=== PATIENT | female | born 1950 | race Caucasian/White ===

== ENCOUNTER 2017-03-06 16:26 | Inpatient (IN) | payer MEDICARE ==
[2017-03-06] MEDS ORDERED: Morphine Sulfate 2 MG/ML SYRINGE ONE ×2 (18:50→20:30)
[2017-03-06] MEDS ORDERED: Acetaminophen 500 MG TAB ONE (19:33)
[2017-03-06] MEDS ORDERED: Ondansetron HCl/PF 4 MG/2 ML Vial IVP PRN (19:40)
[2017-03-06] MEDS ORDERED: Ondansetron ODT 4 MG TAB PO PRN (19:40)
[2017-03-06] MEDS ORDERED: Carvedilol 6.25 MG TAB PO SCH (21:00)
[2017-03-06] MEDS: HYDROcodone/Acetaminophen 5/325 mg Tablet PO PRN (22:06)
[2017-03-06] MEDS: Lorazepam 0.5 MG TAB PO SCH (22:06)
[2017-03-06] MEDS: Pantoprazole 40 MG VIAL IVP SCH (22:07)
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
[2017-03-07] MEDS: HYDROcodone/Acetaminophen 5/325 mg Tablet PO PRN ×2 (05:47→18:30)
[2017-03-07 06:09] LABS: #Eosinphils 0.6 thou/uL (0.0-0.7); #Lymphocytes 1.8 thou/uL (1.20-3.40); #Monocytes 1.8 thou/uL (0.11-0.59); #Neutrophils 12.7 thou/uL (1.40-6.50); %Basophils 0.1 % (0.0-1.0); %Eosinophils 3.4 % (0.0-10.0); %Lymphocytes 10.9 % (21.0-51.0); %Monocytes 10.4 % (0.0-10.0); Hematocrit 26.7 % (36.0-47.0); Mean Platelet Volume 6.3 fL (7.4-10.4); Red Blood Cell (RBC) Count 3.43 mill/uL (4.20-5.40); White Blood Cell (WBC) Count 16.8 thou/uL (4.8-10.8)
[2017-03-07 06:37] LABS: Anion Gap 19 mmol/L (10-20); BUN (Urea Nitrogen) 15 mg/dL (9.8-20.1); Calc. Creatinine Clearance 51 mL/min (70-130); Calcium 9.2 mg/dL (7.8-10.44); Carbon Dioxide 19 mmol/L (23-31); Chloride 99 mmol/L (98-107); Estimated GFR-MDRD 67
[2017-03-07] MEDS: Lorazepam 0.5 MG TAB PO SCH ×3 (07:49→20:54)
[2017-03-07] MEDS: Saccharomyces boulardii 250 MG CAP PO SCH (07:50)
[2017-03-07] MEDS: Pantoprazole 40 MG VIAL IVP SCH ×2 (07:50→20:55)
[2017-03-07] MEDS: Carvedilol 6.25 MG TAB PO SCH ×2 (07:54→20:53)
--- NOTE | 2017-03-07 13:48 | PDOC.PN ---
- Subjective Encounter Start Date: 03/07/17 Encounter Start Time: 13:46 Ms. Joiner says she is breathing better this morning. She denies any abdominal pain. - Objective Resuscitation Status: Resuscitation Status FULL:Full Resuscitation MAR Reviewed: Yes Vital Signs & Weight: Vital Signs (12 hours) Temp Pulse Resp BP BP Pulse Ox 03/07/17 12:00 98.6 F 79 20 123/68 91 L 03/07/17 08:00 98.3 F 82 20 135/77 92 L 03/07/17 07:54 135/77 03/07/17 06:00 98.8 F 82 18 139/78 90 L Weight Admit Weight 111 lb 6.4 oz Weight 111 lb 6.4 oz I&O: 03/06/17 03/07/17 03/08/17 06:59 06:59 06:59 Intake Total 412 Balance 412 Result Diagrams: 03/07/17 05:55 03/07/17 05:55 Phys Exam - Physical Examination HEENT: PERRLA + bilateral rales, no rhonchi Cardiovascular: RRR, no significant murmur, no rub Gastrointestinal: soft, non-tender, positive bowel sounds Musculoskeletal: no edema Dx/Plan (1) Atypical pneumonia Code(s): J18.9 - PNEUMONIA, UNSPECIFIED ORGANISM Status: Acute (2) Atrial fibrillation Code(s): I48.91 - UNSPECIFIED ATRIAL FIBRILLATION Status: Acute (3) Acute blood loss anemia Code(s): D62 - ACUTE POSTHEMORRHAGIC ANEMIA Status: Acute (4) HTN (hypertension) Code(s): I10 - ESSENTIAL (PRIMARY) HYPERTENSION Status: Acute (5) Small bowel obstruction Code(s): K56.69 - OTHER INTESTINAL OBSTRUCTION Status: Acute Comment: s/p Surgery.NGT removed (6) Compression fracture of L1 lumbar vertebra Code(s): S32.010A - WEDGE COMPRESSION FRACTURE OF FIRST LUMBAR VERTEBRA, INIT Status: Chronic - Plan * Atypical Pneumonia- continue Levaquin, and await further recommendations from Pulmonary * Acute anemia- she was reported to have had a positive fecal occult blood test. Will re-check, as well as iron level, and continue to hold Xarelto * Continue IV Protonix * Await GI evaluation * Generalized weakness- will consult PT * AFIB- her heart rate is controlled, Xarelto is on hold for possible GI bleed .
[2017-03-07 17:07] LABS: Iron 9 ug/dL (50-170)
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
[2017-03-07] MEDS: Acetaminophen 325 MG TAB PO PRN (20:55)
[2017-03-08] MEDS: HYDROcodone/Acetaminophen 5/325 mg Tablet PO PRN ×2 (04:20→21:37)
[2017-03-08] MEDS: Saccharomyces boulardii 250 MG CAP PO SCH (08:24)
[2017-03-08] MEDS: Pantoprazole 40 MG VIAL IVP SCH ×2 (08:24→20:15)
[2017-03-08] MEDS: Lorazepam 0.5 MG TAB PO SCH ×3 (08:24→20:16)
[2017-03-08] MEDS: Carvedilol 6.25 MG TAB PO SCH ×2 (08:24→20:16)
[2017-03-08] MEDS: methylPREDNISolone Sod Succ/PF 125 MG/2 ML VIAL IVP SCH (08:25)
--- NOTE | 2017-03-08 12:49 | PRG ---
GI INPATIENT DAILY PROGRESS NOTE DATE OF SERVICE: 03/08/2017 SUBJECTIVE: Ms. Joiner feels about the same. She says she is feeling weak. No significant shortn ess of breath, no abdominal discomfort, no vomiting today. She has been on clear liquids today. OBJECTIVE: VITAL SIGNS: Temperature 99.3, pulse 72, blood pressure 97/60 and 91% oxygen saturation on 4 liters nasal cannula. GENERAL: No acute distress. HEART: Regular rate and rhythm. LUNGS: Clear to auscultation bilaterally. ABDOMEN: Soft and nontender. EXTREMITIES: No peripheral edema. ASSESSMENT AND PLAN: 1. Anemia, iron deficiency, acute on chronic. 2. Heme positive stool. 3. Atrial fibrillation, on Xarelto, now held. 4. Nausea and vomiting. 5. History of peptic ulcer disease. 6. History of colon polyp at 2011. Stick with the plan for esophagogastroduodenoscopy and colonoscopy tomorrow after bowel preparation this evening. Resumption of Xarelto to be determined by clinical findings on endoscopy. Please ameya l back with questions or concerns.
--- NOTE | 2017-03-08 14:15 | PDOC.PN ---
- Subjective Encounter Start Date: 03/08/17 Encounter Start Time: 14:13 does not have any new complaints. Her nurse notes she had to increase the supplemental oxygen to 3L. - Objective Resuscitation Status: Resuscitation Status FULL:Full Resuscitation MAR Reviewed: Yes Vital Signs & Weight: Vital Signs (12 hours) Temp Pulse Resp BP BP Pulse Ox 03/08/17 14:01 73 20 95 03/08/17 11:34 99.3 F 72 18 97/60 03/08/17 10:55 91 L 03/08/17 10:06 74 18 93 L 03/08/17 08:24 125/71 03/08/17 08:00 99.5 F 77 12 125/71 93 L 03/08/17 06:01 72 18 93 L 03/08/17 05:26 99.0 F 92 16 115/51 L 90 L 03/08/17 02:22 91 L Weight Admit Weight 111 lb 6.4 oz Weight 111 lb 6.4 oz I&O: 03/07/17 03/08/17 03/09/17 06:59 06:59 06:59 Intake Total 412 1710 Balance 412 1710 Result Diagrams: 03/07/17 05:55 03/07/17 05:55 Phys Exam - Physical Examination HEENT: PERRLA + scattered crackles, slightly less prominent than yesterday Cardiovascular: RRR, no significant murmur Gastrointestinal: soft, positive bowel sounds Musculoskeletal: no edema Dx/Plan (1) Atypical pneumonia Code(s): J18.9 - PNEUMONIA, UNSPECIFIED ORGANISM Status: Acute (2) Atrial fibrillation Code(s): I48.91 - UNSPECIFIED ATRIAL FIBRILLATION Status: Acute (3) Acute blood loss anemia Code(s): D62 - ACUTE POSTHEMORRHAGIC ANEMIA Status: Acute (4) HTN (hypertension) Code(s): I10 - ESSENTIAL (PRIMARY) HYPERTENSION Status: Acute (5) Small bowel obstruction Code(s): K56.69 - OTHER INTESTINAL OBSTRUCTION Status: Acute Comment: s/p Surgery.NGT removed (6) Compression fracture of L1 lumbar vertebra Code(s): S32.010A - WEDGE COMPRESSION FRACTURE OF FIRST LUMBAR VERTEBRA, INIT Status: Chronic - Plan * Pneumonitits- ? Infectious vs. Chemical- continue Levaquin, and Solumedrol * GI bleed while on Xarelto - she will be NPO tonight, and EGD, and possible colonoscopy tomorrow * AFIB - heart rate is stable * HTN- Blood pressure is low normal.
[2017-03-08] MEDS: Acetaminophen 325 MG TAB PO PRN (14:33)
--- NOTE | 2017-03-08 16:27 | PRG ---
DATE OF SERVICE: 03/08/2017 SUBJECTIVE: Evie Joiner says she feels better. OBJECTIVE: VITAL SIGNS: She is afebrile, heart rate 73, respiratory rate is 20, oximetry is 95 on 3 liters, it is 89 this afternoon. We will try some EzPAP nebs to see if this helps blood pressure 97/60. LUNGS: She still has crackles bilaterally. HEART: Regular rhythm. ABDOMEN: Soft. IMPRESSION: 1. ? aspiration pneumonitis. 2. Extreme deconditioning. I have explained to her that she needs to be up in a chair as much as p ossible during the day. 3. Multiple other chronic medical problems. She is tentatively scheduled for endoscopy, possibly t omorrow.
[2017-03-08] MEDS ORDERED: GoLYTELY 4,000 ml Bottle PO SCH (18:00)
[2017-03-09] MEDS: Carvedilol 6.25 MG TAB PO SCH (06:26)
[2017-03-09] MEDS: Saccharomyces boulardii 250 MG CAP PO SCH (07:11)
[2017-03-09] MEDS: Lorazepam 0.5 MG TAB PO SCH ×2 (07:11→16:32)
[2017-03-09] MEDS: methylPREDNISolone Sod Succ/PF 125 MG/2 ML VIAL IVP SCH (07:37)
[2017-03-09] MEDS: Pantoprazole 40 MG VIAL IVP SCH (07:37)
[2017-03-09] MEDS ORDERED: Milk Of Magnesia 30 ML UDCUP PO PRN (07:53)
[2017-03-09] MEDS ORDERED: Loratadine 10 MG TAB PO PRN (07:53)
[2017-03-09] MEDS ORDERED: Senokot 8.6 MG TAB PO PRN (07:53)
[2017-03-09] MEDS ORDERED: Sodium Chloride 0.65% Nasal 44 ML BOT EA NARE PRN (07:53)
[2017-03-09] MEDS ORDERED: Eucerin (Mineral Oil/Petrolatum,White) 30 gm Jar TOP PRN (07:53)
[2017-03-09] MEDS ORDERED: Benzonatate 100 MG CAP PO PRN (07:53)
[2017-03-09] MEDS ORDERED: Mag-Al 1200 mg/1200 mg/30 ML UDCUP PO PRN (07:53)
[2017-03-09] MEDS ORDERED: Temazepam 15 MG CAP PO PRN (07:53)
[2017-03-09] MEDS ORDERED: Diabetic Tussin 200 MG/10 ML UDCUP PO PRN (07:53)
--- NOTE | 2017-03-09 11:04 | PDOC.PN ---
- Subjective Encounter Start Date: 03/09/17 Encounter Start Time: 09:30 -: old records requested/rev pt is very weak, pt is hypoxic, not feeling good, today plan for endoscopy - Objective Resuscitation Status: Resuscitation Status FULL:Full Resuscitation MAR Reviewed: Yes Vital Signs & Weight: Vital Signs (12 hours) Temp Pulse Resp BP BP BP Pulse Ox 03/09/17 08:00 98.3 F 82 16 90 L 03/09/17 07:10 98.3 F 82 16 112/64 90 L 03/09/17 06:28 97.8 F 80 20 106/56 L 90 L 03/09/17 06:26 105/56 L Weight Admit Weight 111 lb 6.4 oz Weight 111 lb 6.4 oz I&O: 03/08/17 03/09/17 03/10/17 06:59 06:59 06:59 Intake Total 1710 3580 Balance 1710 3580 Result Diagrams: 03/07/17 05:55 03/07/17 05:55 Phys Exam - Physical Examination Constitutional: NAD HEENT: PERRLA, moist MMs, sclera anicteric Neck: no JVD, supple Respiratory: no wheezing, no rhonchi reduced air entry Cardiovascular: RRR, no significant murmur, no rub Gastrointestinal: soft, non-tender, no distention, positive bowel sounds Musculoskeletal: no edema, pulses present Neurological: non-focal, normal sensation Lymphatic: no nodes Psychiatric: normal affect Skin: no rash, normal turgor Dx/Plan (1) Atypical pneumonia Code(s): J18.9 - PNEUMONIA, UNSPECIFIED ORGANISM Status: Acute (2) Guaiac positive stools Status: Acute (3) Physical deconditioning Code(s): R53.81 - OTHER MALAISE Status: Acute (4) Compression fracture of L1 lumbar vertebra Code(s): S32.010A - WEDGE COMPRESSION FRACTURE OF FIRST LUMBAR VERTEBRA, INIT Status: Chronic (5) Diverticulosis of colon Code(s): K57.30 - DVRTCLOS OF LG INT W/O PERFORATION OR ABSCESS W/O BLEEDING Status: Chronic (6) HTN (hypertension) Code(s): I10 - ESSENTIAL (PRIMARY) HYPERTENSION Status: Chronic (7) Microcytic anemia Code(s): D50.9 - IRON DEFICIENCY ANEMIA, UNSPECIFIED Status: Chronic (8) Paroxysmal a-fib Code(s): I48.0 - PAROXYSMAL ATRIAL FIBRILLATION Status: Chronic (9) Protein-calorie malnutrition, moderate Code(s): E44.0 - MODERATE PROTEIN-CALORIE MALNUTRITION Status: Chronic - Plan cont current plan of care, continue antibiotics, respiratory therapy * continue oxygen to keep above 90 * will need home oxygen * may need rehab/snu on discharge * today EGD/colonoscopy * continue empiric antibiotics * continue solumedrol * continue PT. * repeat labs tomorrow Review of Systems - Review of Systems Constitutional: Weakness, Malaise. negative: Fever, Chills, Sweats, Other Respiratory: Cough, Shortness of Breath, SOB with Excertion, Wheezing. negative : Dry, Hemoptysis, Pleuritic Pain, Sputum Cardiovascular: negative: Chest Pain, Palpitations, Orthopnea, Paroxysmal Noc. Dyspnea, Edema, Light Headedness, Other Gastrointestinal: negative: Nausea, Vomiting, Abdominal Pain, Diarrhea, Constipation, Melena, Hematochezia, Other Genitourinary: negative: Dysuria, Frequency, Incontinence, Hematuria, Retention , Other Musculoskeletal: negative: Neck Pain, Shoulder Pain, Arm Pain, Back Pain, Hand Pain, Leg Pain, Foot Pain, Other - Medications/Allergies Allergies/Adverse Reactions: Allergies Allergy/AdvReac Type Severity Reaction Status Date / Time Penicillins Allergy Rash Verified 12/10/16 02:52 Medications: Current Medications Acetaminophen (Tylenol) 650 mg PO Q4H PRN PRN Reason: Headache/Fever or Pain Last Admin: 03/08/17 14:33 Dose: 650 mg Hydrocodone Bitart/Acetaminophen ([place] 5/325) 1 tab PO Q4H PRN PRN Reason: Moderate Pain (4-6) Last Admin: 03/08/17 21:37 Dose: 1 tab Al Hydroxide/Mg Hydroxide (Maalox) 15 ml PO Q4H PRN PRN Reason: Heartburn or Indigestion Albuterol/Ipratropium (Duoneb) 3 ml EZPAP [id number] PRN PRN Reason: SOB &/or Wheezing Amiodarone HCl (Cordarone) 200 mg PO BID [facility] Last Admin: 03/09/17 07:37 Dose: 200 mg Benzonatate (Tessalon) 100 mg PO Q4H PRN PRN Reason: Cough Carvedilol (Coreg) 6.25 mg PO BID [facility] Last Admin: 03/09/17 06:26 Dose: 6.25 mg Famotidine (Pepcid) 20 mg PO [facility] Guaifenesin (Robitussin Sf) 200 mg PO Q4H PRN PRN Reason: Cough Hydralazine HCl (Apresoline) 10 mg SLOW IVP Q4H PRN PRN Reason: Systolic BP > 180 Levofloxacin 500 mg/ Device 100 mls @ 100 mls/hr IVPB Q24HR [facility] Last Admin: 03/08/17 15:39 Dose: 100 mls Loperamide HCl (Imodium) 2 mg PO PRN PRN PRN Reason: Diarrhea/Loose Stools Loratadine (Claritin) 10 mg PO DAILYPRN PRN PRN Reason: Sinus Symptoms Lorazepam (Ativan) 0.5 mg PO TID [facility] Last Admin: 03/09/17 07:11 Dose: Not Given Magnesium Hydroxide (Milk Of Magnesium) 30 ml PO DAILYPRN PRN PRN Reason: Constipation Methylprednisolone Sodium Succinate (Solu-Medrol) 80 mg IVP DAILY [facility] Stop: 03/09/17 23:59 Last Admin: 03/09/17 07:37 Dose: 80 mg Mineral Oil/White Petrolatum (Eucerin Cream) 0 gm TOP BIDPRN PRN PRN Reason: Dry Skin Morphine Sulfate (Morphine Sulfate) 2 mg SLOW IVP Q4H PRN PRN Reason: Moderate to Severe Pain (4-10) Last Admin: 03/09/17 07:37 Dose: 2 mg Ondansetron HCl (Zofran Odt) 4 mg PO Q6H PRN PRN Reason: Nausea/Vomiting Ondansetron HCl (Zofran) 4 mg IVP Q6H PRN PRN Reason: Nausea/Vomiting Last Admin: 03/06/17 22:17 Dose: 4 mg Pantoprazole Sodium (Protonix) 40 mg IVP Q12HR [facility] Last Admin: 03/09/17 07:37 Dose: 40 mg Saccharomyces Boulardii (Florastor) 250 mg PO DAILY [facility] Last Admin: 03/09/17 07:11 Dose: Not Given Senna (Senokot) 2 tab PO HSPRN PRN PRN Reason: Constipation Sodium Chloride (Flush - Normal Saline) 10 ml IV Q12HR [facility] Last Admin: 03/09/17 07:38 Dose: 10 ml Sodium Chloride ([place] Nasal [place] 0.65%) 0 ml EA NARE QIDPRN PRN PRN Reason: Nasal Congestion Sodium Chloride (Flush - Normal Saline) 10 ml IVF Q12HR [facility] Last Admin: 03/09/17 08:13 Dose: Not Given Sodium Chloride (Flush - Normal Saline) 10 ml IVF PRN PRN PRN Reason: Saline Flush Temazepam (Restoril) 15 mg PO HSPRN PRN PRN Reason: Insomnia
[2017-03-09 13:51] LABS: Oxyhemoglobin 85.6 % (94.0-97.0); Sodium 139 mmol/L (135-148)
[2017-03-09 13:57] LABS: Mode 4L NC; Modified Allen's Test NOT DONE; Vent NO
[2017-03-09] MEDS ORDERED: Sodium Chloride 0.9% 1,000 ML IV SCH (14:30)
[2017-03-09] MEDS: Midazolam HCl 2 mg/2 ml Vial ONE ×2 (15:08→15:14)
[2017-03-09] MEDS ORDERED: Propofol 1,000 MG/100 ML VIAL IV ONE (15:13)
[2017-03-09] MEDS ORDERED: Vecuronium 10 MG VIAL ONE (15:15)
--- NOTE | 2017-03-09 15:35 | RAD ---
CHEST ONE VIEW: 03/09/17 HISTORY: Worsening hypoxemia. COMPARISON: Chest two view 03/06/17. FINDINGS: There are increase in parenchymal opacities throughout the lungs. There appears to be a bulla in the left upper lobe. No large pneumothorax. There are likely small left effusions although none are see n on this exam. Mild S-shaped scoliosis. IMPRESSION: Cardiomegaly with progressive interstitial and alveolar opacities throughout the lungs can be seen w ith focal pneumonia or worsening infection. Lymphangitic tumor is also within the differential as we ll as pulmonary fibrosis. Followup is recommended. A nonemergent CT examination may be beneficial. POS: [facility]
[2017-03-09] MEDS ORDERED: Sedation Protocol FS ONE (15:45)
[2017-03-09] MEDS ORDERED: Vecuronium 10 MG VIAL IV SCH (15:45)
[2017-03-09] MEDS ORDERED: Midazolam HCl 2 mg/2 ml Vial SLOW IVP SCH (15:45)
[2017-03-09] MEDS ORDERED: Morphine Sulfate 2 MG/ML SYRINGE SLOW IVP PRN (15:59)
[2017-03-09] MEDS ORDERED: DISCONTINUE PREVIOUS NARCOTIC PAIN MEDICATIONS AND BENZODIAZEPINES FS SCH (15:59)
[2017-03-09] MEDS ORDERED: Lorazepam 2 MG/ML VIAL SLOW IVP PRN (15:59)
[2017-03-09 16:08] LABS: Oxyhemoglobin 95.1 % (94.0-97.0); Sodium 139 mmol/L (135-148)
[2017-03-09 16:09] LABS: Mechanical Tidal Volume 450 ml; Mode SIMV; Pressure Support 10 cmH2O; Vent YES
--- NOTE | 2017-03-09 16:11 | PRG ---
DATE OF SERVICE: 03/09/2017 SUBJECTIVE: Ms. Joiner has more respiratory difficulty today. She feels more short of breath. OBJECTIVE: VITAL SIGNS: She is afebrile. Pulse is in the 80s; however, she is tachypneic and respiratory rate in the 30s with oxygen saturation when she presented to Day Stay running in the mid 80s on 6 liters nasal cannula. LUNGS: Had crackles. HEART: Regular rate and rhythm. ABDOMEN: Soft, nontender, nondistended. IMPRESSION: 1. Iron deficiency anemia and Hemoccult positive stool. 2. Atrial fibrillation with Xarelto currently held. 3. History of peptic ulcer disease. 4. History of colon polyps. 5. Tachypnea with hypoxia. PLAN: 1. Xarelto will continue to be held. 2. EGD and colonoscopy are canceled for today due to her decline in her respiratory status. 3. Continue pantoprazole. 4. She has been transferred back to the Intensive Care Unit.
--- NOTE | 2017-03-09 17:08 | PRG ---
DATE OF SERVICE: 03/09/2017 SUBJECTIVE: Ms. Joiner's hemoglobin on her blood gas was just over 6 grams. She will be transfuse d 3 units of packed cells. Blood pressure is stable. Heart rate is stable, post-intubation. Since she has already done her bowel prep, Dr. Bradley will proceed with his endoscopy this afternoon.
[2017-03-09] MEDS: Cefepime 2 GM in Sodium Chloride 0.9% 100 ML IVPB SCH (17:37)
[2017-03-09] MEDS: Azithromycin 500 MG in Sodium Chloride 0.9% 250 ML 250 ML IVPB SCH (17:37)
[2017-03-09] MEDS: Vancomycin HCl 1 GM in Premix Bag 1 BAG IVPB SCH (17:37)
--- NOTE | 2017-03-09 18:48 | RAD ---
PORTABLE CHEST ONE VIEW 03/09/17 at 3:38 p.m. HISTORY: Respiratory failure. FINDINGS/IMPRESSION: Comparison is made with earlier exam of 2:23 p.m. from the same day. There has been interval placement of an endotracheal tube with tip just below the level of the clavi cular heads. The patient is rotated to the right. A nasogastric tube has also been placed and can be traced into the stomach with tip excluded from the film. No pneumothoraces are seen. Bilateral inte rstitial and alveolar opacities are essentially stable allowing for changes in technique. POS: [facility]
--- NOTE | 2017-03-09 19:28 | RAD ---
PORTABLE SUPINE CHEST: 03/09/17 HISTORY: ET tube adjustment. Shortness of breath. CCU followup. COMPARISON: Film earlier today at 3:38 p.m. FINDINGS/IMPRESSION: ET tube is noted above gloria. The trachea is rather tortuous and the ET tube continues to be at the site of a kink in the trachea. It has been slightly retracted when compared to the prior study. Diffuse interstitial and hazy alveolar infiltrates are again seen bilaterally. POS: [facility]
[2017-03-09] MEDS ORDERED: Famotidine 20 MG TAB PO SCH (21:00)
--- NOTE | 2017-03-09 21:42 | PRG ---
DATE OF SERVICE: 03/09/2017 SUBJECTIVE: Ms. Joiner cleared for endoscopy this morning. When she got down to the endo suite, Mamta Jerez called me and said she was too short of breath and hypoxemic to undergo endoscopy. She was transferred to the ICU. I evaluated her and felt she needed intubation. OBJECTIVE: VITAL SIGNS: Blood pressure on arrival was 121/70, prior to arrival was 121/72. When she arrived, she was with systolic as high as 190 and diastolic size 120. She was breathing 40 times a minute. She is tachycardic. LUNGS: She had crackles bilaterally. HEART: Regular rhythm. ABDOMEN: Soft. LABORATORY DATA: No lab today. Chest radiograph shows progression of her infiltrates, especially o n the left. IMPRESSION: 1. Pneumonia with adult respiratory distress syndrome. 2. Extreme deconditioning. PLAN: Intubation fiberoptic bronchoscopy, bronchoalveolar lavage with the routine cultures plus nafisa l count with differential PCP screen (unlikely) and review for hemosiderin-laden macrophages and cyt ology just to be thorough. I doubt this is an alveolar hemorrhage syndrome, but it is in the differential. An antineutrophil c ytoplasmic antibody and an MICHAEL as well as a sed rate will be ordered. She will be intubated for sev eral days. Steroids will be changed to IV steroids. Her antibiotics will be broadened and then de- escalated based on culture results. Critical care time 40 minutes independent procedures.
[2017-03-09] MEDS ORDERED: Propofol 200 MG/20 ML VIAL ONE (21:43)
[2017-03-09] MEDS: Propofol 1,000 MG/100 ML VIAL IV PRN (22:35)
--- NOTE | 2017-03-09 23:09 | OP ---
DATE OF PROCEDURE: 03/09/2017 DESCRIPTION OF PROCEDURE: Ms. Joiner was given 2 mg of Versed. She started to become somnolent. A bite block was placed in her mouth. The bronchoscope was introduced into her upper airway. Copio us clear secretions were suctioned clear and then the scope was then passed into the trachea. She h ad an extremely tortuous trachea with a very prominent aortic knob. The endotracheal tube wanted to lodge against the knob and I could not get the tube to see pass the aortic knob, so the tube after radiograph, has been withdrawn. She was mechanically ventilated after intubation and then chemicall y paralyzed. Bronchoscope was reintroduced and 90 mL of saline lavage was introduced into the right middle lobe with 35 mL returned, pink foamy effluent. This was sent for the appropriate studies. She tolerated the procedure well. Blood gas is pending. Chest radiograph showed the endotracheal t ube up against the aortic knob, so this has been pulled back 2 cm. Repeat radiograph will be done.
[2017-03-10] MEDS: Lorazepam 0.5 MG TAB PO SCH ×4 (00:08→21:20)
[2017-03-10] MEDS: Carvedilol 6.25 MG TAB PO SCH ×3 (00:15→21:20)
[2017-03-10] MEDS: Famotidine/PF 20 mg/2ml Vial SLOW IVP SCH ×3 (00:16→21:20)
[2017-03-10 00:51] LABS: Hematocrit 29.9 % (36.0-47.0)
[2017-03-10] MEDS: Pantoprazole 40 MG VIAL IVP SCH (01:25)
--- NOTE | 2017-03-10 04:14 | OP ---
DATE OF PROCEDURE: 03/09/2017 PROCEDURE: Esophagogastroduodenoscopy and colonoscopy. PREOPERATIVE DIAGNOSIS: Iron deficiency anemia. She has microcytosis and low iron with normal TIBC . She was noted to be Hemoccult positive, but there is no overt bleeding at this point. Of note, h er hemoglobin by ABG was 6; however, baseline this morning was 8.6. Hemoglobin in December was 10.4. PROCEDURE IN DETAIL: Informed consent was obtained. The general anesthesia was used. The bite blo ck was placed and the endoscope was advanced easily to the second portion of the duodenum and retrof lexion was performed in the stomach. The esophagus was normal. The stomach was normal including re troflexed views. The pylorus and first and second portions of the duodenum were normal. The patien t was turned around. Rectal exam was performed and was normal. The colonoscope was advanced to the cecum where the ileocecal valve and appendiceal orifice were clearly identified. The preparation q uality was excellent. There was no stigmata of recent bleeding. There was moderately severe divert iculosis in the sigmoid colon. The remainder of the colonic mucosa was normal. Her rectal vault wa s narrow and complete views could be performed in the forward view. There is inadequate room for re troflexion. IMPRESSION: 1. Normal esophagogastroduodenoscopy. 2. Moderate sigmoid diverticulosis. 3. Otherwise normal colonoscopy. RECOMMENDATIONS: 1. Repeat colonoscopy in 5 years for colon polyp surveillance due to the reported previous history of colon polyps. 2. Check her hemoglobin post-1 unit transfusion. She had a hemoglobin of 6 by the ABG. If the hem oglobin appears to have truly dropped to this or if she has further decline in her hemoglobin, then CT of the abdomen without contrast can be performed to evaluate for retroperitoneal bleed. I suspec t the hemoglobin is not truly that level. We will see what her lab values after 1 unit transfusion. If she does not appear to have active ongoing bleeding or drop in her hemoglobin then anticoagulat ion could likely be restarted soon. 3. We will check ferritin.
[2017-03-10] MEDS: Vancomycin HCl 1 GM in Premix Bag 1 BAG IVPB SCH (04:15)
[2017-03-10 05:32] LABS: ALT (SGPT) 31 U/L (8-55); AST (SGOT) 27 U/L (5-34); Alkaline Phosphatase 101 U/L (40-150); Anion Gap 18 mmol/L (10-20); BUN (Urea Nitrogen) 15 mg/dL (9.8-20.1); Bilirubin, Total 0.3 mg/dL (0.2-1.2); Calc. Creatinine Clearance 55 mL/min (70-130); Calcium 7.4 mg/dL (7.8-10.44); Carbon Dioxide 21 mmol/L (23-31); Chloride 105 mmol/L (98-107); Estimated GFR-MDRD 73; Globulin 2.8 g/dL (2.4-3.5); Protein, Total 5.6 g/dL (6.0-8.3)
[2017-03-10] MEDS: Cefepime 2 GM in Sodium Chloride 0.9% 100 ML IVPB SCH ×2 (05:44→18:09)
[2017-03-10] MEDS: Propofol 1,000 MG/100 ML VIAL IV PRN ×2 (05:44→13:31)
[2017-03-10 05:49] LABS: Anisocytosis SLIGHT = 6-15 cells (100X) (0-5/hpf); Hematocrit 28.6 % (36.0-47.0); Hypochromia SLIGHT = 6-15 cells (100X) (0-5/hpf); Microcytosis SLIGHT = 6-15 cells (100X) (0-5/hpf); Neutrophil 79 % (42-75); Polychromasia SLIGHT = 2-3 cells (100X) (0-2/hpf); Red Blood Cell (RBC) Count 3.54 mill/uL (4.20-5.40); White Blood Cell (WBC) Count 23.2 thou/uL (4.8-10.8)
[2017-03-10 07:24] LABS: Oxyhemoglobin 97.5 % (94.0-97.0); Sodium 140 mmol/L (135-148)
[2017-03-10 07:37] LABS: Mechanical Tidal Volume 450 ml; Mode SIMV; Pressure Support 10 cmH2O; Vent YES
[2017-03-10] MEDS: Saccharomyces boulardii 250 MG CAP PO SCH (08:23)
--- NOTE | 2017-03-10 08:38 | PDOC.PN ---
- Subjective Encounter Start Date: 03/10/17 Encounter Start Time: 08:37 Subjective: Intubated -: No agitation - Objective Resuscitation Status: Resuscitation Status FULL:Full Resuscitation MAR Reviewed: Yes Vital Signs & Weight: Vital Signs (12 hours) Temp Pulse Resp BP Pulse Ox 03/10/17 08:00 18 03/10/17 07:38 100.2 F H 73 18 98 03/10/17 07:09 70 03/10/17 05:00 100.6 F H 03/10/17 04:00 16 03/10/17 02:46 74 130/54 L 03/10/17 02:45 100 03/10/17 00:35 16 03/09/17 23:25 99.1 F 03/09/17 22:41 81 98 03/09/17 22:35 98.8 F Weight Admit Weight 111 lb 6.4 oz Weight 111 lb 6.4 oz Most Recent Monitor Data Heart Rate from ECG 69 NIBP 110/46 NIBP BP-Mean 79 Respiration from ECG 18 SpO2 98 I&O: 03/09/17 03/10/17 03/11/17 06:59 06:59 06:59 Intake Total 3580 3888.7 Output Total 1700 35 Balance 3580 2188.7 -35 Result Diagrams: 03/10/17 04:10 03/10/17 04:10 Phys Exam - Physical Examination Constitutional: NAD HEENT: moist MMs, sclera anicteric Neck: no JVD, supple Intubated Cardiovascular: no significant murmur, no rub Gastrointestinal: soft, non-tender, positive bowel sounds Lymphatic: no nodes Deviation from normal: unable to assess Skin: normal turgor, cap refill <2 seconds Dx/Plan (1) Atypical pneumonia Code(s): J18.9 - PNEUMONIA, UNSPECIFIED ORGANISM Status: Acute (2) Guaiac positive stools Status: Acute (3) Physical deconditioning Code(s): R53.81 - OTHER MALAISE Status: Acute (4) Compression fracture of L1 lumbar vertebra Code(s): S32.010A - WEDGE COMPRESSION FRACTURE OF FIRST LUMBAR VERTEBRA, INIT Status: Chronic (5) HTN (hypertension) Code(s): I10 - ESSENTIAL (PRIMARY) HYPERTENSION Status: Chronic (6) Protein-calorie malnutrition, moderate Code(s): E44.0 - MODERATE PROTEIN-CALORIE MALNUTRITION Status: Chronic - Plan * EGD and colonoscopy on 03-09-17: Normal EGD with Sigmoid Diverticulosis * Acute Anemia: s/p 3 units PRBCs yesterday * may need rehab/snf on discharge * continue empiric antibiotics * continue PT * check labs in AM
--- NOTE | 2017-03-10 09:17 | RAD ---
CHEST ONE VIEW: HISTORY: Dyspnea. Intubated. Followup. COMPARISON: 03/09/2017 FINDINGS: The cardiac silhouette remains magnified and enlarged. The pulmonary vasculature is at the upper li mits of normal. An infiltrate at the right base is less focal than on the previous exam. Lines and tubes appear unchanged in position. campus monitor leads overly the chest. IMPRESSION: Slight interval improvement in aeration of the right lung. Otherwise, stable radiographic appearanc e of the chest. POS: [facility]
[2017-03-10] MEDS ORDERED: Enoxaparin Sodium 40 MG/0.4 ML SYRINGE SC SCH (10:30)
--- NOTE | 2017-03-10 11:33 | PRG ---
DATE OF SERVICE: 03/10/2017 Evie Joiner is hemodynamically stable. Endoscopy I am told did not reveal any source of blood loss. PHYSICAL EXAMINATION: VITAL SIGNS: Respiratory rate was in the 20s, heart rate in the 60s. Blood pressure 117/52. LUNGS: Clear. HEART: Regular rhythm. ABDOMEN: Soft. Chest radiograph shows dramatic improvement in her bilateral infiltrates. White count 23.2, hemoglobin 8.7, platelets 845,000. Sodium 141, potassium 3.3 , chloride 105, bicarbonate 21, BUN 15, creatinine 0.7. BNP was 306. I just ordered this. IMPRESSION: Dramatic improvement of her pulmonary infiltrates. There is an argument that much of this was pulmonary edema, either noncardiogenic edema or cardiogenic edema. An echocardiogram has been ordered. The BNP is slightly elevated, but not over 1000 as one would see with clearcut left ventricular dysfunction. She may have a mixture of problems... amiodarone hypersensitivity is in differential also. Clinically, she appeared to have failure to thrive, weakness, and pneumonia, but that progressed. She will remain mechanically ventilated for now as we collect information. She is stable. Nutrition can be started. MTDD
[2017-03-10] MEDS: Azithromycin 500 MG in Sodium Chloride 0.9% 250 ML 250 ML IVPB SCH (16:18)
--- NOTE | 2017-03-10 19:45 | PRG ---
DATE OF SERVICE: 03/10/2017 SUBJECTIVE: She is sedated on the ventilator. She has had no bloody stool output. OBJECTIVE: VITAL SIGNS: Blood pressure 121/60, pulse 65, and temperature 98.8. LUNGS: Clear to auscultation bilaterally. HEART: Regular rate and rhythm. ABDOMEN: Soft, nontender, nondistended. Bowel sounds are present. LABORATORY DATA: Hemoglobin 8.7 after 1 unit transfusion. IMPRESSION AND PLAN: 1. Anemia. Esophagogastroduodenoscopy was normal. Colonoscopy was negative for a bleeding source. She has no overt gastrointestinal bleeding. Her hemoglobin is better than what was expected with the ABG hemoglobin. That lab may have been a falsely low. She now has a hemoglobin of 8.7 after 1 unit transfusion. Her ferritin is 150. The low iron with a low normal TIBC may indicate this is mo re of an anemia of chronic disease. She did have a significant drop from baseline recently. At thi s point, there has been no further overt bleeding. There is no bleeding source identified by endosc opy. If she needs to restart the Xarelto, then this can likely be restarted in the next couple of d ays. 2. I will sign off for now. Please call if GI can be of assistance.
[2017-03-11] MEDS: Propofol 1,000 MG/100 ML VIAL IV PRN ×3 (02:34→22:49)
[2017-03-11] MEDS: Fentanyl 20 MCG/ML 250 ML IVPB SCH (03:25)
[2017-03-11 05:03] LABS: Anion Gap 13 mmol/L (10-20); BUN (Urea Nitrogen) 18 mg/dL (9.8-20.1); Calc. Creatinine Clearance 57 mL/min (70-130); Calcium 7.1 mg/dL (7.8-10.44); Carbon Dioxide 23 mmol/L (23-31); Chloride 108 mmol/L (98-107); Estimated GFR-MDRD 77
[2017-03-11 05:05] LABS: Hematocrit 25.3 % (36.0-47.0); Mean Platelet Volume 6.3 fL (7.4-10.4); Neutrophil 83 % (42-75); Red Blood Cell (RBC) Count 3.13 mill/uL (4.20-5.40); White Blood Cell (WBC) Count 14.6 thou/uL (4.8-10.8)
[2017-03-11] MEDS: Cefepime 2 GM in Sodium Chloride 0.9% 100 ML IVPB SCH ×2 (07:56→18:05)
[2017-03-11] MEDS: Enoxaparin Sodium 40 MG/0.4 ML SYRINGE SC SCH (07:57)
[2017-03-11] MEDS: Famotidine/PF 20 mg/2ml Vial SLOW IVP SCH ×2 (07:57→21:49)
[2017-03-11] MEDS: Lorazepam 0.5 MG TAB PO SCH ×3 (07:57→21:51)
[2017-03-11] MEDS: Carvedilol 6.25 MG TAB PO SCH ×2 (07:58→21:50)
[2017-03-11 08:25] LABS: Oxyhemoglobin 96.3 % (94.0-97.0); Sodium 141 mmol/L (135-148)
[2017-03-11 08:26] LABS: Modified Allen's Test NOT DONE; Vent YES
[2017-03-11 08:27] LABS: Mechanical Tidal Volume 450 ml; Mode SIMV/PSV; Pressure Support 10 cmH2O
--- NOTE | 2017-03-11 10:21 | RAD ---
AP VIEW CHEST: 03/11/2017 HISTORY: Ventilator dependent patient. COMPARISON: 03/10/2017 FINDINGS: AP view chest demonstrates an endotracheal tube in place. EKG leads are seen over the chest. Calci fication of the aorta is seen. Diffuse air space opacity is seen throughout the lungs, unchanged si nce the previous exam. Pulmonary vascular congestion is also seen. IMPRESSION: Stable AP view chest. Some pulmonary vascular congestion seen. No other significant abnormalities noted. Nasogastric tube is also in good position. POS: [facility]
--- NOTE | 2017-03-11 13:25 | PDOC.PN ---
- Subjective Encounter Start Date: 03/11/17 Encounter Start Time: 13:23 Patient seen and examined, no major changes in status per nursing staff in last 24 hours, tube feeds recently started, no family at bedside. - Objective Resuscitation Status: Resuscitation Status FULL:Full Resuscitation Vital Signs & Weight: Vital Signs (12 hours) Temp Pulse Pulse Pulse Resp BP BP 03/11/17 12:53 62 92/42 L 03/11/17 12:52 63 15 03/11/17 12:00 98.5 F 13 03/11/17 10:00 12 03/11/17 08:28 53 L 53 L 98/48 L 03/11/17 08:06 56 L 117/56 L 03/11/17 08:00 98.6 F 56 L 16 03/11/17 07:58 96/47 L 03/11/17 07:55 59 L 16 03/11/17 07:00 98.6 F 03/11/17 04:00 16 03/11/17 02:38 86 03/11/17 02:37 68 18 03/11/17 02:00 21 H BP Pulse Ox Pulse Ox Pulse Ox 03/11/17 12:53 03/11/17 12:52 93 L 03/11/17 12:00 03/11/17 10:00 03/11/17 08:28 101/43 L 100 100 03/11/17 08:06 03/11/17 08:00 97 03/11/17 07:58 03/11/17 07:55 100 03/11/17 07:00 03/11/17 04:00 03/11/17 02:38 03/11/17 02:37 98 03/11/17 02:00 Weight Admit Weight 111 lb 6.4 oz Weight 111 lb 6.4 oz Most Recent Monitor Data Heart Rate from ECG 65 NIBP 92/42 NIBP BP-Mean 68 Respiration from ECG 15 SpO2 93 I&O: 03/10/17 03/11/17 03/12/17 06:59 06:59 06:59 Intake Total 3888.7 1373 Output Total 1700 586 110 Balance 2188.7 787 -110 Result Diagrams: 03/11/17 04:12 03/11/17 04:12 Additional Labs: Accuchecks 03/11/17 11:10 POC Glucose 144 H Phys Exam - Physical Examination Constitutional: NAD intubated/sedated HEENT: PERRLA, moist MMs Neck: no nodes, no JVD coarse breath sounds all lung [place] Cardiovascular: RRR, no rub 2/6 Systolic murmur Gastrointestinal: soft, non-tender, no distention Musculoskeletal: pulses present, edema present (trace) sedate Deviation from normal: sedated Skin: no rash, normal turgor Dx/Plan (1) Respiratory failure Code(s): J96.90 - RESPIRATORY FAILURE, UNSP, UNSP W HYPOXIA OR HYPERCAPNIA Status: Acute (2) Iron deficiency Code(s): E61.1 - IRON DEFICIENCY Status: Acute (3) Atypical pneumonia Code(s): J18.9 - PNEUMONIA, UNSPECIFIED ORGANISM Status: Acute (4) Physical deconditioning Code(s): R53.81 - OTHER MALAISE Status: Acute (5) HTN (hypertension) Code(s): I10 - ESSENTIAL (PRIMARY) HYPERTENSION Status: Chronic (6) Paroxysmal a-fib Code(s): I48.0 - PAROXYSMAL ATRIAL FIBRILLATION Status: Chronic (7) Protein-calorie malnutrition, moderate Code(s): E44.0 - MODERATE PROTEIN-CALORIE MALNUTRITION Status: Chronic - Plan * Continue with current plan of care * vent management per pulmonary * No family at bedside * This patient has guarded-poor prognosis, will consult palliative care team as ethics committee may be needed to play a role in management of this patient, will continue with aggressive medical care for now, will consider involving ethics committee if patient's prognosis worsens, will consult palliative care for now * Patient has iron deficiency anemia, however, remains febrile so will avoid IV iron, patient getting some iron from blood transfusion, will also start her on po iron intake for now * no other changes in plan, nurse updated of plan from internal medicine perspective
[2017-03-11] MEDS: Ferrous Sulfate 325 MG TAB PO SCH (16:33)
[2017-03-11] MEDS: Azithromycin 500 MG in Sodium Chloride 0.9% 250 ML 250 ML IVPB SCH (16:33)
--- NOTE | 2017-03-11 18:02 | PRG ---
DATE OF SERVICE: 03/11/2017 SUBJECTIVE: Evie Joiner remains intubated on the vent on sedation, though she was awake this morn ing when the sedation was withheld. X-ray shows increased markings and cephalization, echo pending. PHYSICAL EXAMINATION: VITAL SIGNS: Blood pressure 170/56, pulse 56. I's \T\ O's have been 388 in and 170 out. CHEST: Decreased breath sounds, minimal crackles. CARDIAC: Normal S1, S2. No gallops. ABDOMEN: Soft. No masses. LABORATORY DATA: White count 14.000, H\T\H 7 and 25, platelet count 731. PO2 is 92, pCO2 33, pH 7. 48, on a rate of 16 and 40%, 8 of PEEP. Electrolytes are normal. Potassium 3.3 Bronch washings have been negative. IMPRESSION: 1. Respiratory failure, pneumonia. 2. Severe deconditioning. 3. Gastrointestinal bleed. 4. Probably diastolic dysfunction. I will start nutrition. Continue PT, rest being adjusted. Continue antibiotics. Not weanable at t his stage. One-half hour critical care time.
[2017-03-12 04:17] LABS: Anion Gap 14 mmol/L (10-20); BUN (Urea Nitrogen) 29 mg/dL (9.8-20.1); Calc. Creatinine Clearance 50 mL/min (70-130); Calcium 7.6 mg/dL (7.8-10.44); Carbon Dioxide 22 mmol/L (23-31); Chloride 109 mmol/L (98-107); Estimated GFR-MDRD 66
[2017-03-12 04:42] LABS: Anisocytosis SLIGHT = 6-15 cells (100X) (0-5/hpf); Hematocrit 27.2 % (36.0-47.0); Neutrophil 82 % (42-75); Pinched RBC SLIGHT = 1-5 cells (100X) (None Seen); Red Blood Cell (RBC) Count 3.34 mill/uL (4.20-5.40); White Blood Cell (WBC) Count 26.8 thou/uL (4.8-10.8)
[2017-03-12] MEDS: Cefepime 2 GM in Sodium Chloride 0.9% 100 ML IVPB SCH ×2 (05:36→17:23)
[2017-03-12] MEDS: Propofol 1,000 MG/100 ML VIAL IV PRN ×3 (06:24→23:50)
[2017-03-12 07:11] LABS: Oxyhemoglobin 76.2 % (94.0-97.0); Sodium 141 mmol/L (135-148)
[2017-03-12 08:14] LABS: Mechanical Tidal Volume 450 ml; Modified Allen's Test NOT DONE; Pressure Support 10 cmH2O; Vent YES
[2017-03-12 08:15] LABS: Mode SIMV/PSV
[2017-03-12] MEDS ORDERED: Furosemide 20 MG/2 ML VIAL SLOW IVP SCH (09:30)
[2017-03-12] MEDS: Enoxaparin Sodium 40 MG/0.4 ML SYRINGE SC SCH (09:40)
[2017-03-12] MEDS: Carvedilol 6.25 MG TAB PO SCH ×3 (09:41→21:10)
[2017-03-12] MEDS: Ferrous Sulfate 325 MG TAB PO SCH ×2 (09:41→16:33)
[2017-03-12] MEDS: Famotidine/PF 20 mg/2ml Vial SLOW IVP SCH ×2 (09:41→21:10)
[2017-03-12] MEDS: Lorazepam 0.5 MG TAB PO SCH ×3 (09:43→21:10)
--- NOTE | 2017-03-12 10:18 | RAD ---
AP VIEW CHEST: HISTORY: Ventilator-dependent patient. FINDINGS: AP view chest is obtained on 03/12/17. Comparison is made to previous exam from 03/11/17. AP view chest demonstrates nasogastric and endotracheal tubes to be in good position. No significan t interval change is seen. EKG leads are seen over the chest. Calcifications over the aorta noted. Pulmonary vascular congestion is seen. Diffuse airspace opacities are seen bilaterally. Radiogra phic appearance of the chest demonstrates some minimal increased airspace opacities otherwise unchan ged since the previous day's exam. POS: [facility]
--- NOTE | 2017-03-12 11:56 | PDOC.PN ---
- Subjective Encounter Start Date: 03/12/17 Encounter Start Time: 11:54 Patient seen and examined, no family at bedside, no major changes in last 24 hours. - Objective Resuscitation Status: Resuscitation Status FULL:Full Resuscitation Vital Signs & Weight: Vital Signs (12 hours) Temp Pulse Resp BP 03/12/17 09:52 97/47 L 03/12/17 09:15 70 107/97 H 03/12/17 08:18 78 14 03/12/17 07:16 74 116/62 03/12/17 05:00 98.5 F 03/12/17 03:41 72 03/12/17 02:00 13 03/12/17 00:00 99.2 F Weight Admit Weight 111 lb 6.4 oz Weight 111 lb 6.4 oz Most Recent Monitor Data Heart Rate from ECG 79 NIBP 138/54 NIBP BP-Mean 110 Respiration from ECG 18 SpO2 79 I&O: 03/11/17 03/12/17 03/13/17 06:59 06:59 06:59 Intake Total 1393.6 1629 Output Total 586 605 Balance 807.6 1024 Result Diagrams: 03/12/17 03:55 03/12/17 03:55 Additional Labs: Accuchecks 03/11/17 11:10 POC Glucose 144 H Phys Exam - Physical Examination Constitutional: NAD sedated/intubated HEENT: PERRLA, sclera anicteric Neck: no nodes, no JVD Respiratory: no wheezing, no rales Cardiovascular: RRR, no significant murmur Gastrointestinal: soft, non-tender Musculoskeletal: pulses present, edema present (trace) sedated/intubated Dx/Plan (1) Respiratory failure Code(s): J96.90 - RESPIRATORY FAILURE, UNSP, UNSP W HYPOXIA OR HYPERCAPNIA Status: Acute (2) Iron deficiency Code(s): E61.1 - IRON DEFICIENCY Status: Acute (3) Atypical pneumonia Code(s): J18.9 - PNEUMONIA, UNSPECIFIED ORGANISM Status: Acute (4) Physical deconditioning Code(s): R53.81 - OTHER MALAISE Status: Acute (5) HTN (hypertension) Code(s): I10 - ESSENTIAL (PRIMARY) HYPERTENSION Status: Chronic (6) Paroxysmal a-fib Code(s): I48.0 - PAROXYSMAL ATRIAL FIBRILLATION Status: Chronic (7) Protein-calorie malnutrition, moderate Code(s): E44.0 - MODERATE PROTEIN-CALORIE MALNUTRITION Status: Chronic - Plan * No changes in plan for now * ventilator management per pulmonary team * abx to be continued * pain management * GI/DVT ppx * further management per consultants
[2017-03-12] MEDS: Azithromycin 500 MG in Sodium Chloride 0.9% 250 ML 250 ML IVPB SCH (16:33)
--- NOTE | 2017-03-12 18:40 | PRG ---
DATE OF SERVICE: 03/12/2017 SUBJECTIVE: Marisel this morning actually looks worse, she is severely hypoxemic, on the vent . OBJECTIVE: VITAL SIGNS: Sats were in the 80s, respirations are set at 10, pulse 78, blood pressure 130/84 and temperature is 98. CHEST: Chest revealed bilateral rhonchi and crackles. CARDIAC: Sinus tachycardia. ABDOMEN: Soft. NEUROLOGIC: Neurologically, she is sedated. LABORATORY DATA: 1. White count is 26,000, H\T\H 8 and 27 platelet count 722, pO2 was only 49, pCO2 50, pH 7.29 on a rate of 10, 50%, and 5 of PEEP. 2. BUN and creatinine are normal. 3. Broncholavage growing staph species, alpha strep. IMAGING: X-ray shows worsening diffuse pulmonary infiltrates. IMPRESSION: 1. Respiratory failure, adult respiratory distress syndrome, severe hypoxemia. 2. Leukocytosis. 3. Severe deconditioning. PLAN: 1. BNP is ordered. A trial of Lasix and add Zyvox to her present regime to cover gram positives. She clearly not weanable. Continue nutrition and supportive care. Prognosis is guarded. 2. We will follow. One-half hour critical care time.
[2017-03-12] MEDS: Linezolid 600 MG in Premix Bag 1 BAG IVPB SCH (21:09)
[2017-03-13 04:34] LABS: Band 1 % (5-11); Hematocrit 22.8 % (36.0-47.0); Mean Platelet Volume 6.3 fL (7.4-10.4); Neutrophil 89 % (42-75); Red Blood Cell (RBC) Count 2.85 mill/uL (4.20-5.40)
[2017-03-13 04:43] LABS: Anion Gap 15 mmol/L (10-20); BUN (Urea Nitrogen) 28 mg/dL (9.8-20.1); Calc. Creatinine Clearance 55 mL/min (70-130); Calcium 7.5 mg/dL (7.8-10.44); Carbon Dioxide 21 mmol/L (23-31); Chloride 109 mmol/L (98-107); Estimated GFR-MDRD 73
[2017-03-13] MEDS: Cefepime 2 GM in Sodium Chloride 0.9% 100 ML IVPB SCH ×2 (06:03→18:00)
[2017-03-13 06:56] LABS: Oxyhemoglobin 97.6 % (94.0-97.0); Sodium 141 mmol/L (135-148)
[2017-03-13 07:51] LABS: Modified Allen's Test NOT DONE; Pressure Support 10 cmH2O; Vent YES
[2017-03-13 07:52] LABS: Mode BILEVEL LOW 10
--- NOTE | 2017-03-13 08:01 | RAD ---
SINGLE VIEW OF THE CHEST: COMPARISON: 03/12/17. HISTORY: Ventilated patient with respiratory failure. FINDINGS: A single view of the chest shows a normal-size cardiomediastinal silhouette. The endotracheal tube and NG tube are unchanged in position. Increased interstitial lung markings are present. No change has occurred compared to the prior exam. IMPRESSION: Stable exam. POS: [facility]
[2017-03-13] MEDS: Famotidine/PF 20 mg/2ml Vial SLOW IVP SCH ×2 (09:41→20:07)
[2017-03-13] MEDS: Ferrous Sulfate 325 MG TAB PO SCH ×2 (09:41→17:20)
[2017-03-13] MEDS: Enoxaparin Sodium 40 MG/0.4 ML SYRINGE SC SCH (09:41)
[2017-03-13] MEDS: Linezolid 600 MG in Premix Bag 1 BAG IVPB SCH ×2 (09:42→20:06)
[2017-03-13] MEDS: Lorazepam 0.5 MG TAB PO SCH ×3 (09:42→20:07)
[2017-03-13] MEDS: Carvedilol 6.25 MG TAB PO SCH ×2 (09:43→20:08)
--- NOTE | 2017-03-13 11:10 | PDOC.PN ---
- Subjective Encounter Start Date: 03/13/17 Encounter Start Time: 08:45 -: non-verbal, old records requested/rev Pt seen and examined, chart reviewed in its entrety. Jayne sis my first visit with this patient. Pt on vent, arousable. RT reports bad weekend with hypercapnea, hypoxia, and need to increase to bilevel ventilation. better now. Worsening CXR. No F/C, no N/V/D/c, no cardiac events reported or seen on chart review ROs not obtainable due to intubated status - Objective Resuscitation Status: Resuscitation Status FULL:Full Resuscitation MAR Reviewed: Yes Vital Signs & Weight: Vital Signs (12 hours) Temp Pulse Resp BP Pulse Ox 03/13/17 10:00 12 03/13/17 09:43 109/51 L 03/13/17 07:46 64 109/51 L 03/13/17 07:45 65 12 95 03/13/17 06:45 56 L 103/48 L 03/13/17 06:00 16 03/13/17 04:00 98.2 F 16 03/13/17 02:38 53 L 16 99 03/13/17 02:00 16 03/13/17 00:00 16 Weight Admit Weight 111 lb 6.4 oz Weight 111 lb 6.4 oz Most Recent Monitor Data Heart Rate from ECG 53 NIBP 91/38 NIBP BP-Mean 63 Respiration from ECG 14 SpO2 97 I&O: 03/12/17 03/13/17 03/14/17 06:59 06:59 06:59 Intake Total 1629 1786.2 Output Total 605 1195 Balance 1024 591.2 Result Diagrams: 03/13/17 04:00 03/13/17 04:00 Radiology Reviewed by me: Yes EKG Reviewed by me: Yes Phys Exam - Physical Examination Constitutional: NAD HEENT: PERRLA, moist MMs, sclera anicteric, oral pharynx no lesions Neck: no nodes, no JVD, supple, full ROM oral ETT in place Respiratory: no wheezing, no rhonchi coarse bialteral BS. On Vent Cardiovascular: RRR, no significant murmur, no rub Gastrointestinal: soft, non-tender, no distention, positive bowel sounds Musculoskeletal: pulses present, edema present Neurological: non-focal, moves all 4 limbs Lymphatic: no nodes Deviation from normal: not testable due to intubated status Skin: no rash, normal turgor, cap refill <2 seconds Dx/Plan (1) Acute blood loss anemia Code(s): D62 - ACUTE POSTHEMORRHAGIC ANEMIA Status: Acute Comment: Hgb down to 7.2 today. s/p prior trnasfusion. Will follow up on GI recommendations (2) GI bleed Code(s): K92.2 - GASTROINTESTINAL HEMORRHAGE, UNSPECIFIED Status: Acute Qualifiers: GI bleed type/associated pathology: unspecified gastrointestinal hemorrhage type Qualified Code(s): K92.2 - Gastrointestinal hemorrhage, unspecified (3) Atypical pneumonia Code(s): J18.9 - PNEUMONIA, UNSPECIFIED ORGANISM Status: Acute (4) Guaiac positive stools Status: Acute (5) Iron deficiency Code(s): E61.1 - IRON DEFICIENCY Status: Chronic (6) Physical deconditioning Code(s): R53.81 - OTHER MALAISE Status: Acute Comment: physical deconditioning: PT/OT (7) Respiratory failure Code(s): J96.90 - RESPIRATORY FAILURE, UNSP, UNSP W HYPOXIA OR HYPERCAPNIA Status: Acute Qualifiers: Chronicity: acute Respiratory failure complication: hypercapnia Qualified Code(s): J96.02 - Acute respiratory failure with hypercapnia (8) Diverticulosis of colon Code(s): K57.30 - DVRTCLOS OF LG INT W/O PERFORATION OR ABSCESS W/O BLEEDING Status: Chronic Qualifiers: Diverticulosis bleeding: diverticulosis with bleeding Qualified Code(s): K57.31 - Diverticulosis of large intestine without perforation or abscess with bleeding (9) HTN (hypertension) Code(s): I10 - ESSENTIAL (PRIMARY) HYPERTENSION Status: Chronic Qualifiers: Hypertension type: essential hypertension Qualified Code(s): I10 - Essential (primary) hypertension - Plan cont current plan of care, continue antibiotics, PT/OT, respiratory therapy * .
[2017-03-13] MEDS: Propofol 1,000 MG/100 ML VIAL IV PRN ×2 (12:30→20:11)
--- NOTE | 2017-03-13 14:52 | PRG ---
DATE OF SERVICE: 03/13/2017 SUBJECTIVE: Ms. Joiner remains mechanically ventilated. OBJECTIVE: VITAL SIGNS: Blood pressure 90s/40s, heart rate in the 50s, respiratory rate is 12. LUNGS: Clear. HEART: Regular rhythm. ABDOMEN: Soft. IMAGING: Chest radiograph shows slight increase in interstitial markings. Intake and output is positive 591. LABORATORY DATA: White count 17, hemoglobin 7.2, platelets 630,000. Electrolytes were unremarkable. IMPRESSION: 1. Anemia of chronic disease. 2. Transient pulmonary edema, presumably noncardiogenic. 3. Pneumonia? aspiration mediated. ?amiodarone hypersensitivity?? 4. Deconditioning. 5. History of traumatic brain injury. 6. Social issues. She apparently has a son that she has not made contact with in years. There is really no family contact. We will continue current care. We will switch her back to volume ventilation and hopefully wean her from mechanical ventilation if she passes the spontaneous breathing trial tomorrow. ADDENDUM: Ms. Joiner will also be transfused 2 units of pack cells today. MAURICIO
[2017-03-13] MEDS: Fentanyl 20 MCG/ML 250 ML IVPB SCH (17:19)
[2017-03-13] MEDS: Azithromycin 500 MG in Sodium Chloride 0.9% 250 ML 250 ML IVPB SCH (17:20)
[2017-03-14] MEDS: Propofol 1,000 MG/100 ML VIAL IV PRN ×2 (01:51→08:27)
[2017-03-14] MEDS: Cefepime 2 GM in Sodium Chloride 0.9% 100 ML IVPB SCH ×2 (05:38→17:44)
[2017-03-14 06:26] LABS: Anion Gap 14 mmol/L (10-20); BUN (Urea Nitrogen) 26 mg/dL (9.8-20.1); Calc. Creatinine Clearance 64 mL/min (70-130); Calcium 7.7 mg/dL (7.8-10.44); Carbon Dioxide 21 mmol/L (23-31); Chloride 109 mmol/L (98-107); Estimated GFR-MDRD 77
[2017-03-14 06:53] LABS: Band 1 % (5-11); Hematocrit 31.1 % (36.0-47.0); Macrocytosis SLIGHT = 6-15 cells (100X) (0-5/hpf); Mean Platelet Volume 6.7 fL (7.4-10.4); Metamyelocyte 1 % (0-0); Myelocyte 1 % (0-0); Neutrophil 83 % (42-75); Polychromasia SLIGHT = 2-3 cells (100X) (0-2/hpf); White Blood Cell (WBC) Count 22.7 thou/uL (4.8-10.8)
[2017-03-14 07:09] LABS: Oxyhemoglobin 94.4 % (94.0-97.0); Sodium 141 mmol/L (135-148)
[2017-03-14 07:11] LABS: Mechanical Tidal Volume 550 ml; Mode SIMV; Pressure Support 10 cmH2O; Vent YES
[2017-03-14] MEDS: Ferrous Sulfate 325 MG TAB PO SCH ×2 (08:25→16:35)
[2017-03-14] MEDS: Lorazepam 0.5 MG TAB PO SCH ×3 (08:26→22:02)
[2017-03-14] MEDS: Enoxaparin Sodium 40 MG/0.4 ML SYRINGE SC SCH (08:26)
[2017-03-14] MEDS: Carvedilol 6.25 MG TAB PO SCH ×2 (08:26→22:01)
[2017-03-14] MEDS: Famotidine/PF 20 mg/2ml Vial SLOW IVP SCH (08:27)
[2017-03-14] MEDS: Linezolid 600 MG in Premix Bag 1 BAG IVPB SCH ×2 (08:27→22:02)
[2017-03-14] MEDS ORDERED: Furosemide 100 MG/10 ML VIAL IVPB SCH (09:03)
--- NOTE | 2017-03-14 09:25 | RAD ---
PORTABLE CHEST: Date: 03/14/17 HISTORY: Respiratory distress. COMPARISON: Prior day's study. FINDINGS: Heart size is enlarged. Endotracheal and NG tubes are in satisfactory position. Interstitial lung ch anges are not significantly changed since the prior exam. IMPRESSION: Stable chest. POS: [facility]
--- NOTE | 2017-03-14 09:27 | PDOC.PN ---
- Subjective Encounter Start Date: 03/14/17 Encounter Start Time: 09:24 Patient seen and examined. No new complaints. No overnight events Remains intubated to have central line today. CXR worse today. PEEP of 6 - Objective Resuscitation Status: Resuscitation Status FULL:Full Resuscitation MAR Reviewed: Yes Vital Signs & Weight: Vital Signs (12 hours) Temp Pulse Pulse Resp BP BP Pulse Ox 03/14/17 08:26 109/47 L 03/14/17 08:00 98.5 F 03/14/17 06:59 61 03/14/17 06:00 12 03/14/17 04:00 98.8 F 12 03/14/17 02:50 62 12 96 03/14/17 02:00 12 03/14/17 00:00 98.5 F 03/13/17 23:00 98.5 F 69 14 92 L 03/13/17 22:46 98.9 F 67 12 135/66 95 03/13/17 22:08 67 12 03/13/17 22:00 14 Weight Admit Weight 111 lb 6.4 oz Weight 124 lb 1.924 oz Most Recent Monitor Data Heart Rate from ECG 57 NIBP 109/44 NIBP BP-Mean 67 Respiration from ECG 12 SpO2 95 I&O: 03/13/17 03/14/17 03/15/17 06:59 06:59 06:59 Intake Total 1786.2 2508.2 300 Output Total 1195 955 155 Balance 591.2 1553.2 145 Result Diagrams: 03/14/17 03:43 03/14/17 03:43 Phys Exam - Physical Examination Constitutional: NAD intubated Respiratory: wheezing present Cardiovascular: RRR Gastrointestinal: soft Musculoskeletal: edema present woke up for verbal stimuli Psychiatric: normal affect Skin: no rash Dx/Plan (1) Acute blood loss anemia Code(s): D62 - ACUTE POSTHEMORRHAGIC ANEMIA Status: Acute Comment: Hgb down to 7.2 today. s/p prior trnasfusion. Will follow up on GI recommendations (2) Atypical pneumonia Code(s): J18.9 - PNEUMONIA, UNSPECIFIED ORGANISM Status: Acute (3) GI bleed Code(s): K92.2 - GASTROINTESTINAL HEMORRHAGE, UNSPECIFIED Status: Acute Qualifiers: GI bleed type/associated pathology: unspecified gastrointestinal hemorrhage type Qualified Code(s): K92.2 - Gastrointestinal hemorrhage, unspecified (4) Respiratory failure Code(s): J96.90 - RESPIRATORY FAILURE, UNSP, UNSP W HYPOXIA OR HYPERCAPNIA Status: Acute Qualifiers: Chronicity: acute Respiratory failure complication: hypercapnia Qualified Code(s): J96.02 - Acute respiratory failure with hypercapnia (5) HTN (hypertension) Code(s): I10 - ESSENTIAL (PRIMARY) HYPERTENSION Status: Chronic Qualifiers: Hypertension type: essential hypertension Qualified Code(s): I10 - Essential (primary) hypertension (6) Paroxysmal a-fib Code(s): I48.0 - PAROXYSMAL ATRIAL FIBRILLATION Status: Chronic - Plan continue antibiotics, respiratory therapy, DVT proph w/lovenox * . CXR with bilateral infiltrates. On lasix and abx Appreciate PCCM input. Hb better after transfusion yesterday. To have central line today. AM labs. Vent Management per PCCM. On Lovenox and monitor for bleeding No family contact available
[2017-03-14 14:20] LABS: ANCA Pattern <1:20 titer (Neg:<1:20); ANCA Total <1:20 titer (Neg:<1:20); Myeloperoxidase AutoAbs <9.0 U/mL (0.0-9.0); Proteinase-3 AutoAbs Less than 3.5 U/mL (0.0-3.5)
--- NOTE | 2017-03-14 14:49 | RAD ---
SINGLE VIEW OF THE CHEST: Comparison: 03-14-17 History: Central line placement. FINDINGS: Single view of the chest shows normal sized cardiomediastinal silhouette. Diffuse increased intersti tial markings are present. There may be superimposed airspace opacities. The NG tube and endotrachea l tube are unchanged in position. There is a new left subclavian central venous catheter with its ti p at the superior vena cava. No pneumothorax is seen. IMPRESSION: 1. Status post central line placement without evidence of complication. 2. Multifocal infiltrates. POS: [facility]
[2017-03-14] MEDS: Azithromycin 500 MG in Sodium Chloride 0.9% 250 ML 250 ML IVPB SCH (16:39)
--- NOTE | 2017-03-14 17:03 | CON ---
DATE OF CONSULTATION: 03/14/2017 REASON FOR CONSULTATION: Atrial fibrillation. REFERRING PROVIDER: Juice Mckeon M.D. HISTORY OF PRESENT ILLNESS: Ms. Joiner is an unfortunate 66-year-old woman who is a patient of Dr. Geovani Ortiz. She has had a prolonged course in the hospital and did require intubation. She has been seen for likely aspiration pneumonia in addition to anemia and chronic disease and severe deconditioning. She has had a previous history of atrial fibrillation and has been on amiodarone therapy. She also had a significant GI bleed with no source on endoscopy. Last echo dated 03/11/2017, showed LVEF 60% to 65% with diastolic dysfunction and mildly elevated pulmonary hypertension. PAST MEDICAL HISTORY: Reviewed from the chart. She is currently intubated and sedated. Traumatic brain injury, irritable bowel syndrome, hyperlipidemia, fibromyalgia, hypertension, chronic kidney disease, atrial fibrillation. PAST SURGICAL HISTORY: BTL, ankle surgery, cranial surgery. ALLERGIES: PENICILLIN. SOCIAL HISTORY: She is currently . She has one son, but he is estranged. REVIEW OF SYSTEMS: Unobtainable. She is currently intubated today. PHYSICAL EXAMINATION: VITAL SIGNS: Blood pressure 129/50, pulse 57, temperature afebrile. GENERAL: She is currently intubated and sedated. NEUROLOGIC: The patient is alert and oriented times 3 with no focal neurologic deficits. HEENT: Sclerae without icterus. Mouth has moist mucous membranes with normal pallor. NECK: No JVD. Carotid upstroke brisk. No bruits bilaterally. LUNGS: Clear to auscultation with unlabored respirations. BACK: No scoliosis or kyphosis. CARDIAC: Regular rate and rhythm with normal S1 and S2. No S3 or S4 noted. No significant rubs, murmurs, thrills, or gallops noted throughout the precordium. PMI is not displaced. There is no parasternal heave. ABDOMEN: Soft, nontender, nondistended. No peritoneal signs present. No hepatosplenomegaly. No abnormal striae. EXTREMITIES: 2+ femoral and 2+ dorsalis pedis pulses. No cyanosis, clubbing, or edema. SKIN: No gross abnormalities. IMAGING: Telemetry monitoring shows sinus rhythm. IMPRESSION: 1. Atrial fibrillation. 2. Aspiration pneumonia. 3. Respiratory failure. RECOMMENDATIONS: At this point, she currently appears to be in sinus rhythm. We will hold anticoagulation therapy due to recent GI bleed. Amiodarone has been discontinued d/t possible amiodarone lung toxicity. Continue Coreg. Otherwise, further recommendation per Dr. Geovani Ortiz. MTDD
--- NOTE | 2017-03-14 19:28 | PRG ---
DATE OF SERVICE: 03/14/2017 SUBJECTIVE: Ms. Joiner has remained mechanically ventilated. Chest radiograph shows slight increa se in her interstitial markings today compared to yesterday. Intake and output was +1553. OBJECTIVE: LUNGS: Remarkable for coarse, equal breath sounds. HEART: Regular rhythm. ABDOMEN: Soft. She moves all extremities. LABORATORY DATA: White count 22.7, hemoglobin 9.8, platelets 535. Sodium 140, potassium 4.1, chloride 109, bicarb 21, BUN 26, creatinine 0.7. IMPRESSION: Pneumonia with adult respiratory distress syndrome. Amiodarone hypersensitivity cannot be excluded easily. I have recommended we stop her Cordarone. I have discussed this with Cardiology. We will try to diurese her today and see if her radiograph im proves. She has no peripheral access, so I would recommend central line placement. She has no fami ly so two doctors will have to sign the consent form. Prognosis remains quite guarded. She looks a little better. Tomorrow, we will try to perform a spontaneous breathing trial.
[2017-03-14] MEDS: Famotidine 20 MG TAB PER TUBE SCH (22:02)
--- NOTE | 2017-03-14 22:54 | OP ---
PROCEDURE: Central line placement. The right neck was prepped with chlorhexidine x2. Sterile drape was applied. In the sterile fashio n, right internal jugular vein was cannulated. I could advance the wire a little over 15 cm and the n it would encounter an obstruction. Good blood return was obtained from a needle with removal of t he wire, but I could never advance the wire satisfactorily to allow insertion of line. A new kit wa s obtained. Her left subclavian area was cleansed with chlorhexidine. Subclavian vein was easily c annulated. J-wire was passed. Vein dilators inserted after a small incision was made. A triple ginna men catheter was inserted to 18 cm and [address]wn in place x2. Good blood return was obtained from all 3 ports. Chest radiograph showed no pneumothorax on either side and proper placement of the catheter.
[2017-03-15 04:40] LABS: Band 1 % (5-11); Hematocrit 30.8 % (36.0-47.0); Mean Platelet Volume 6.4 fL (7.4-10.4); Metamyelocyte 1 % (0-0); Neutrophil 90 % (42-75); Red Blood Cell (RBC) Count 3.74 mill/uL (4.20-5.40); White Blood Cell (WBC) Count 19.3 thou/uL (4.8-10.8)
[2017-03-15 04:53] LABS: ALT (SGPT) 19 U/L (8-55); AST (SGOT) 14 U/L (5-34); Alkaline Phosphatase 74 U/L (40-150); Anion Gap 11 mmol/L (10-20); BUN (Urea Nitrogen) 29 mg/dL (9.8-20.1); Bilirubin, Total 0.3 mg/dL (0.2-1.2); Calc. Creatinine Clearance 60 mL/min (70-130); Calcium 8.1 mg/dL (7.8-10.44); Carbon Dioxide 28 mmol/L (23-31); Chloride 106 mmol/L (98-107); Estimated GFR-MDRD 71; Globulin 2.5 g/dL (2.4-3.5); Protein, Total 5.3 g/dL (6.0-8.3)
[2017-03-15 06:31] LABS: Oxyhemoglobin 93.3 % (94.0-97.0); Sodium 141 mmol/L (135-148)
[2017-03-15 06:33] LABS: Mechanical Tidal Volume 550 ml; Mode SIMV; Pressure Support 10 cmH2O; Vent YES
[2017-03-15] MEDS: Cefepime 2 GM in Sodium Chloride 0.9% 100 ML IVPB SCH ×2 (06:39→17:35)
[2017-03-15] MEDS: Linezolid 600 MG in Premix Bag 1 BAG IVPB SCH ×2 (08:39→21:19)
[2017-03-15] MEDS: Ferrous Sulfate 325 MG TAB PO SCH ×2 (08:40→16:49)
[2017-03-15] MEDS: Carvedilol 6.25 MG TAB PO SCH ×2 (08:40→21:11)
[2017-03-15] MEDS: Famotidine 20 MG TAB PER TUBE SCH ×2 (08:40→21:10)
[2017-03-15] MEDS: Lorazepam 0.5 MG TAB PO SCH (08:40)
[2017-03-15] MEDS: Enoxaparin Sodium 40 MG/0.4 ML SYRINGE SC SCH (08:41)
--- NOTE | 2017-03-15 08:49 | RAD ---
SINGLE VIEW OF THE CHEST: Comparison: 03-14-17 History: Ventilated patient with respiratory failure. FINDINGS: Single view of the chest shows an enlarged cardiomediastinal silhouette. Lines and tubes are unchang ed in position. Increased interstitial markings are present. There may be superimposed airspace opac ities, unchanged. IMPRESSION: Stable exam. POS: [facility]
[2017-03-15] MEDS ORDERED: Sedation Protocol FS ONE (09:37)
[2017-03-15] MEDS ORDERED: Morphine Sulfate 2 MG/ML SYRINGE SLOW IVP PRN (09:41)
[2017-03-15] MEDS ORDERED: DISCONTINUE PREVIOUS NARCOTIC PAIN MEDICATIONS AND BENZODIAZEPINES FS SCH (09:41)
--- NOTE | 2017-03-15 11:11 | PDOC.CTH ---
Cardiology Progress Note - Subjective Wakens with sedation holiday this morning. Remains on vent support. Rhythm stable currently. Nursing reported possible transient flutter last night. Telemetry shows sinus rhythm on suspect strips. ROS otherwise negative. Case discussed with Dr. Mckeon. - Objective Vital Signs Temp Pulse Resp BP Pulse Ox 03/15/17 10:10 58 L 03/15/17 10:00 17 03/15/17 08:40 105/41 L 03/15/17 08:00 98.7 F 61 17 93 L 03/15/17 07:00 98.2 F 03/15/17 06:24 61 03/15/17 06:00 99.1 F 10 L 03/15/17 02:29 55 L 10 L 93 L 03/15/17 02:00 10 L 03/15/17 01:15 10 L 03/15/17 00:00 10 L Admit Weight 111 lb 6.4 oz Weight 123 lb 0.287 oz 03/14/17 03/15/17 03/16/17 06:59 06:59 06:59 Intake Total 2508.2 2187.7 360 Output Total 955 3120 190 Balance 1553.2 -932.3 170 - Physical Examination General/Neuro: NAD Neck: carotid US brisk, no JVD present Lungs: CTA, unlabored respirations Heart: PMI normal, RRR Abdomen: no HSM, NT/ND, soft Extremities: + edema B Other PE findings: Neuro: no focal motor defs - Telemetry Telemetry Rhythm: sinus rhythm - Labs Result Diagrams: 03/15/17 04:00 03/15/17 04:00 - Assessment/Plan 1. respiratory failure: aspiration versus amiodarone toxicity; amio discontinued. Wean vent as tolerated. 2. anemia: recent GI bleed; H/H stable currently. 3. atrial fibrillation: currently sinus rhythm. Continue coreg for rate control ; hold OAC drugs due to recent bleeding and anemia. 4. HTN: stable. Monitor.
[2017-03-15] MEDS ORDERED: Furosemide 40 MG/4 ML VIAL IVP ONE (12:19)
--- NOTE | 2017-03-15 14:01 | PRG ---
DATE OF SERVICE: 03/15/2017 SUBJECTIVE: Evie Joiner remains mechanically ventilated. She did awaken today and nodded. She i s reasonably comfortable. Heart rate in the 50s, respiratory rate is in the teens. IMV was turned up to 10 and has now been turned back down to 8. OBJECTIVE: VITAL SIGNS: Blood pressure 105/41. LUNGS: Clear anteriorly. HEART: Regular rhythm. ABDOMEN: Soft. LABORATORY DATA: Intake and output is negative 932. White count is 19.3, hemoglobin 9.6, platelets 589,000. Electrolytes were unremarkable. BUN is 29, creatinine is 0.8. IMPRESSION: 1. Respiratory failure associated with pneumonia? aspiration mediated. 2. Coexistent ARDS versus amiodarone hypersensitivity. Chest radiograph still shows a diffuse increase in interstitial markings. Her lung compliance is no t bad. We will continue with slow weaning from mechanical ventilation. We will try for now to keep her in negative fluid balance as long as her renal function and her blood pressure tolerates this.
--- NOTE | 2017-03-15 14:06 | PDOC.PN ---
- Subjective Encounter Start Date: 03/15/17 Encounter Start Time: 14:05 Subjective: vent dependent - Objective Resuscitation Status: Resuscitation Status FULL:Full Resuscitation MAR Reviewed: Yes Vital Signs & Weight: Vital Signs (12 hours) Temp Pulse Pulse Pulse Resp BP BP 03/15/17 12:31 55 L 03/15/17 12:00 99.5 F 03/15/17 11:45 63 57 L 135/66 03/15/17 10:10 58 L 03/15/17 10:00 17 03/15/17 08:40 105/41 L 03/15/17 08:00 98.7 F 61 17 03/15/17 07:00 98.2 F 03/15/17 06:24 61 03/15/17 06:00 99.1 F 10 L 03/15/17 02:29 55 L 10 L BP Pulse Ox Pulse Ox Pulse Ox 03/15/17 12:31 03/15/17 12:00 03/15/17 11:45 121/55 L 93 L 90 L 03/15/17 10:10 03/15/17 10:00 03/15/17 08:40 03/15/17 08:00 93 L 03/15/17 07:00 03/15/17 06:24 03/15/17 06:00 03/15/17 02:29 93 L Weight Admit Weight 111 lb 6.4 oz Weight 123 lb 0.287 oz Most Recent Monitor Data Heart Rate from ECG 61 NIBP 117/55 NIBP BP-Mean 65 Respiration from ECG 9 SpO2 92 I&O: 03/14/17 03/15/17 03/16/17 06:59 06:59 06:59 Intake Total 2508.2 2187.7 420 Output Total 955 3120 295 Balance 1553.2 -932.3 125 Result Diagrams: 03/15/17 04:00 03/15/17 04:00 Additional Labs: Microbiology 03/09/17 17:51 Bronchial Alveolar Lavage Acid Fast Bacilli Smear - Final 03/09/17 16:21 Venous blood - Left Hand Blood Culture - Final NO GROWTH IN 5 DAYS 03/09/17 16:20 Venous blood - Right Hand Blood Culture - Final NO GROWTH IN 5 DAYS 03/09/17 15:30 Alveolar Lavage Bronchoalveolar Lavage Cult, Quant - Final Staphylococcus species Alpha-Strep, not S. pneumoniae 03/09/17 12:15 Stool Stool Occult Blood (MARQUISE) - Final 03/09/17 01:00 Stool Stool Occult Blood (MARQUISE) - Final Laboratory Tests 03/06/17 03/10/17 03/12/17 13:40 10:24 11:41 B-Natriuretic Peptide 622.7 H 306.3 H 817.5 H Phys Exam - Physical Examination Constitutional: NAD intubated HEENT: moist MMs, sclera anicteric Neck: no nodes, no JVD Respiratory: no wheezing, no rales, no rhonchi decreased at bases Cardiovascular: RRR, no significant murmur Gastrointestinal: soft, non-tender, no distention, positive bowel sounds Musculoskeletal: no edema, pulses present Deviation from normal: nods and wakes up momentarily Skin: no rash Dx/Plan (1) Acute respiratory failure Code(s): J96.00 - ACUTE RESPIRATORY FAILURE, UNSP W HYPOXIA OR HYPERCAPNIA Status: Acute (2) ARDS (adult respiratory distress syndrome) Code(s): J80 - ACUTE RESPIRATORY DISTRESS SYNDROME Status: Suspected (3) Atypical pneumonia Code(s): J18.9 - PNEUMONIA, UNSPECIFIED ORGANISM Status: Acute (4) GI bleed Code(s): K92.2 - GASTROINTESTINAL HEMORRHAGE, UNSPECIFIED Status: Suspected Qualifiers: GI bleed type/associated pathology: unspecified gastrointestinal hemorrhage type Qualified Code(s): K92.2 - Gastrointestinal hemorrhage, unspecified Comment: Normal EGD and colonoscopy 03/09/17.Anticoagulation on hold (5) HTN (hypertension) Code(s): I10 - ESSENTIAL (PRIMARY) HYPERTENSION Status: Chronic Qualifiers: Hypertension type: essential hypertension Qualified Code(s): I10 - Essential (primary) hypertension (6) Microcytic anemia Code(s): D50.9 - IRON DEFICIENCY ANEMIA, UNSPECIFIED Status: Chronic (7) Paroxysmal a-fib Code(s): I48.0 - PAROXYSMAL ATRIAL FIBRILLATION Status: Chronic Comment: rate controlled on Coreg - Plan continue antibiotics, PT/OT, protective services social worker, respiratory therapy, incentive spirometry, DVT proph w/SCDs Cont braod spectrum ABx.on cefepime,Zyvox & Azithromycin. -: Vent support and weaning per PCCM -: cardiology following. rate cpontrolled. cont Coreg/ -: H/H stable.? GIB.xarelto on hold.Lovenox SubQ for DVT prophylaxis -: lasix given rising BNp and ARDS type picture.? Amiodarone side effects-hold * .AM labs and cont supportive care. * No family available. * Poor exterminator termite prognosis Review of Systems - Review of Systems Other: Unobtainable due to sedation and intubation - Medications/Allergies Allergies/Adverse Reactions: Allergies Allergy/AdvReac Type Severity Reaction Status Date / Time Penicillins Allergy Rash Verified 12/10/16 02:52 Medications: Current Medications Acetaminophen (Tylenol) 650 mg PO Q4H PRN PRN Reason: Headache/Fever or Pain Last Admin: 03/08/17 14:33 Dose: 650 mg Al Hydroxide/Mg Hydroxide (Maalox) 15 ml PO Q4H PRN PRN Reason: Heartburn or Indigestion Albuterol/Ipratropium (Duoneb) 3 ml NEB [id number] [facility] Last Admin: 03/15/17 10:10 Dose: 3 ml Carvedilol (Coreg) 6.25 mg PO BID [facility] Last Admin: 03/15/17 08:40 Dose: 6.25 mg Enoxaparin Sodium (Lovenox) 40 mg SC 0900 [facility] Last Admin: 03/15/17 08:41 Dose: 40 mg Famotidine (Pepcid) 20 mg PER TUBE BID [facility] Last Admin: 03/15/17 08:40 Dose: 20 mg Ferrous Sulfate (Feosol) 325 mg PO BID-[facility] Last Admin: 03/15/17 08:40 Dose: 325 mg Hydralazine HCl (Apresoline) 10 mg SLOW IVP Q4H PRN PRN Reason: Systolic BP > 180 Cefepime HCl 2 gm/ Sodium (Chloride) 100 mls @ 200 mls/hr IVPB 0600,1800 [facility] Last Admin: 03/15/17 06:39 Dose: 100 mls Linezolid 600 mg/ Device 300 mls @ 150 mls/hr IVPB Q12HR [facility] Last Admin: 03/15/17 08:39 Dose: 300 mls Fentanyl (Fentanyl Cadd) 250 mls @ 0 mls/hr IVPB INF BENNY; Titrate PRN Reason: Protocol Stop: 04/14/17 09:41 Fentanyl Citrate (Fentanyl Bolus) 250 mls @ 0 mls/hr IVPB PRN PRN; As Directed PRN Reason: VENTILATION SEDATION PROTOCOL Stop: 04/14/17 09:41 Loperamide HCl (Imodium) 2 mg PO PRN PRN PRN Reason: Diarrhea/Loose Stools Loratadine (Claritin) 10 mg PO DAILYPRN PRN PRN Reason: Sinus Symptoms Lorazepam (Ativan) 2 mg SLOW IVP Q2H PRN PRN Reason: Anxiety to achieve Henry 2-3 Stop: 04/14/17 09:41 Magnesium Hydroxide (Milk Of Magnesium) 30 ml PO DAILYPRN PRN PRN Reason: Constipation Methylprednisolone Sodium Succinate (Solu-Medrol) 20 mg IVP Q12HR [facility] Last Admin: 03/15/17 08:41 Dose: 20 mg Mineral Oil/White Petrolatum (Eucerin Cream) 0 gm TOP BIDPRN PRN PRN Reason: Dry Skin Morphine Sulfate (Morphine Sulfate) 2 mg SLOW IVP Q2H PRN PRN Reason: PAIN TO ACHIEVE HENRY OF 2-3 Stop: 04/14/17 09:41 Ondansetron HCl (Zofran Odt) 4 mg PO Q6H PRN PRN Reason: Nausea/Vomiting Ondansetron HCl (Zofran) 4 mg IVP Q6H PRN PRN Reason: Nausea/Vomiting Last Admin: 03/06/17 22:17 Dose: 4 mg Propofol (Diprivan) 1,000 mg IV INF PRN; Protocol PRN Reason: TO ACHIEVE HENRY SCORE 2-3 Stop: 04/14/17 09:41 Senna (Senokot) 2 tab PO HSPRN PRN PRN Reason: Constipation Sodium Chloride ([place] Nasal [place] 0.65%) 0 ml EA NARE QIDPRN PRN PRN Reason: Nasal Congestion Sodium Chloride (Flush - Normal Saline) 10 ml IVF Q12HR [facility] Last Admin: 03/15/17 08:43 Dose: 10 ml Sodium Chloride (Flush - Normal Saline) 10 ml IVF PRN PRN PRN Reason: Saline Flush Last Admin: 03/12/17 17:18 Dose: 10 ml
[2017-03-15] MEDS: Lorazepam 2 MG/ML VIAL SLOW IVP PRN ×2 (16:49→21:12)
[2017-03-16] MEDS: Lorazepam 2 MG/ML VIAL SLOW IVP PRN ×2 (03:05→22:29)
[2017-03-16 04:17] LABS: Band 6 % (5-11); Hematocrit 34.9 % (36.0-47.0); Mean Platelet Volume 6.5 fL (7.4-10.4); Myelocyte 3 % (0-0); Neutrophil 87 % (42-75); Red Blood Cell (RBC) Count 4.24 mill/uL (4.20-5.40); White Blood Cell (WBC) Count 24.1 thou/uL (4.8-10.8)
[2017-03-16] MEDS: Fentanyl 20 MCG/ML 250 ML IVPB SCH (04:37)
[2017-03-16 04:49] LABS: Anion Gap 12 mmol/L (10-20); BUN (Urea Nitrogen) 28 mg/dL (9.8-20.1); Calc. Creatinine Clearance 59 mL/min (70-130); Calcium 8.6 mg/dL (7.8-10.44); Carbon Dioxide 31 mmol/L (23-31); Chloride 102 mmol/L (98-107); Estimated GFR-MDRD 71
[2017-03-16] MEDS: Cefepime 2 GM in Sodium Chloride 0.9% 100 ML IVPB SCH ×2 (05:21→17:50)
[2017-03-16 07:17] LABS: Mechanical Tidal Volume 550 ml; Mode SIMV; Oxyhemoglobin 90.4 % (94.0-97.0); Pressure Support 10 cmH2O; Sodium 140 mmol/L (135-148); Vent YES
--- NOTE | 2017-03-16 07:59 | RAD ---
SINGLE VIEW CHEST: Date: 03/16/17 COMPARISON: 03/15/17. HISTORY: Ventilated patient with respiratory failure. FINDINGS: Single view of the chest shows normal sized cardiomediastinal silhouette. There are multifocal mixed alveolar/interstitial opacities. The lines and tubes are unchanged in position. IMPRESSION: Stable multifocal infiltrates. POS: [facility]
[2017-03-16] MEDS: Ferrous Sulfate 325 MG TAB PO SCH ×2 (08:58→17:49)
[2017-03-16] MEDS: Famotidine 20 MG TAB PER TUBE SCH ×2 (08:59→20:44)
[2017-03-16] MEDS: Carvedilol 6.25 MG TAB PO SCH ×2 (08:59→20:44)
[2017-03-16] MEDS: Enoxaparin Sodium 40 MG/0.4 ML SYRINGE SC SCH (09:01)
[2017-03-16] MEDS: Linezolid 600 MG in Premix Bag 1 BAG IVPB SCH ×2 (09:01→20:44)
--- NOTE | 2017-03-16 11:35 | PDOC.PN ---
- Subjective Encounter Start Date: 03/16/17 Encounter Start Time: 11:34 Subjective: pt awake and smiles. remains intubated -: nursing reports multiple loose diarrheal stools - Objective Resuscitation Status: Resuscitation Status FULL:Full Resuscitation MAR Reviewed: Yes Vital Signs & Weight: Vital Signs (12 hours) Temp Pulse Resp BP Pulse Ox 03/16/17 10:40 80 03/16/17 08:59 129/49 L 03/16/17 08:00 99 F 87 19 90 L 03/16/17 07:12 87 03/16/17 06:00 14 03/16/17 04:00 99.7 F H 12 03/16/17 02:15 76 13 99 03/16/17 02:00 10 L 03/16/17 00:00 99.3 F 10 L Weight Admit Weight 111 lb 6.4 oz Weight 121 lb 14.65 oz Most Recent Monitor Data Heart Rate from ECG 95 NIBP 167/98 NIBP BP-Mean 123 Respiration from ECG 22 SpO2 95 I&O: 03/15/17 03/16/17 03/17/17 06:59 06:59 06:59 Intake Total 2187.7 1798.6 Output Total 3120 3880 Balance -932.3 -2081.4 Result Diagrams: 03/16/17 03:35 03/16/17 03:35 Additional Labs: Microbiology 03/09/17 17:51 Bronchial Alveolar Lavage Acid Fast Bacilli Smear - Final 03/09/17 16:21 Venous blood - Left Hand Blood Culture - Final NO GROWTH IN 5 DAYS 03/09/17 16:20 Venous blood - Right Hand Blood Culture - Final NO GROWTH IN 5 DAYS 03/09/17 15:30 Alveolar Lavage Bronchoalveolar Lavage Cult, Quant - Final Staphylococcus species Alpha-Strep, not S. pneumoniae 03/09/17 12:15 Stool Stool Occult Blood (MARQUISE) - Final 03/09/17 01:00 Stool Stool Occult Blood (MARQUISE) - Final Phys Exam - Physical Examination Constitutional: NAD HEENT: PERRLA, moist MMs, sclera anicteric, oral pharynx no lesions Neck: no JVD Respiratory: no wheezing, no rales, no rhonchi, clear to auscultation bilateral decreased at bases Cardiovascular: RRR, no significant murmur Gastrointestinal: soft, no distention, positive bowel sounds winces on palpation Musculoskeletal: pulses present, edema present Deviation from normal: on sedation Skin: no rash Dx/Plan (1) Acute respiratory failure Code(s): J96.00 - ACUTE RESPIRATORY FAILURE, UNSP W HYPOXIA OR HYPERCAPNIA Status: Acute (2) ARDS (adult respiratory distress syndrome) Code(s): J80 - ACUTE RESPIRATORY DISTRESS SYNDROME Status: Suspected (3) Diarrhea Code(s): R19.7 - DIARRHEA, UNSPECIFIED Status: Acute Comment: H/O CDiff. (4) Atypical pneumonia Code(s): J18.9 - PNEUMONIA, UNSPECIFIED ORGANISM Status: Acute Comment: on Cefepime and Zyvox (5) GI bleed Code(s): K92.2 - GASTROINTESTINAL HEMORRHAGE, UNSPECIFIED Status: Suspected Qualifiers: GI bleed type/associated pathology: unspecified gastrointestinal hemorrhage type Qualified Code(s): K92.2 - Gastrointestinal hemorrhage, unspecified Comment: Normal EGD and colonoscopy 03/09/17.Anticoagulation on hold (6) HTN (hypertension) Code(s): I10 - ESSENTIAL (PRIMARY) HYPERTENSION Status: Chronic Qualifiers: Hypertension type: essential hypertension Qualified Code(s): I10 - Essential (primary) hypertension (7) Microcytic anemia Code(s): D50.9 - IRON DEFICIENCY ANEMIA, UNSPECIFIED Status: Chronic (8) Paroxysmal a-fib Code(s): I48.0 - PAROXYSMAL ATRIAL FIBRILLATION Status: Chronic Comment: rate controlled on Coreg.cardiology following. (9) Guaiac positive stools Status: Acute Comment: EGD/Colonoscopy without active bleed 03/09/17 - Plan villalobos catheter, continue antibiotics, PT/OT, sexual assault social worker, respiratory therapy, incentive spirometry, DVT proph w/SCDs Check C.Diff again.rectal tube.[place] care.may need PO vanco/IV Flagyl -: may need repeat lasix .edema imrpoved since yesterday.? ARDS -: ? 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 follow Cx.PCCM to help w vent management -: supportive care. AM labs.Tube feeds.Nebs,O2 etc * . Review of Systems - Review of Systems Other: largely unobtainable as pt intubated and somnolent - Medications/Allergies Allergies/Adverse Reactions: Allergies Allergy/AdvReac Type Severity Reaction Status Date / Time Penicillins Allergy Rash Verified 12/10/16 02:52 Medications: Current Medications Acetaminophen (Tylenol) 650 mg PO Q4H PRN PRN Reason: Headache/Fever or Pain Last Admin: 03/08/17 14:33 Dose: 650 mg Al Hydroxide/Mg Hydroxide (Maalox) 15 ml PO Q4H PRN PRN Reason: Heartburn or Indigestion Albuterol/Ipratropium (Duoneb) 3 ml NEB [id number] [facility] Last Admin: 03/16/17 10:38 Dose: 3 ml Carvedilol (Coreg) 6.25 mg PO BID [facility] Last Admin: 03/16/17 08:59 Dose: 6.25 mg Enoxaparin Sodium (Lovenox) 40 mg SC 0900 [facility] Last Admin: 03/16/17 09:01 Dose: 40 mg Famotidine (Pepcid) 20 mg PER TUBE BID [facility] Last Admin: 03/16/17 08:59 Dose: 20 mg Ferrous Sulfate (Feosol) 325 mg PO BID[facility] Last Admin: 03/16/17 08:58 Dose: 325 mg Hydralazine HCl (Apresoline) 10 mg SLOW IVP Q4H PRN PRN Reason: Systolic BP > 180 Cefepime HCl 2 gm/ Sodium (Chloride) 100 mls @ 200 mls/hr IVPB 0600,1800 [facility] Last Admin: 03/16/17 05:21 Dose: 100 mls Linezolid 600 mg/ Device 300 mls @ 150 mls/hr IVPB Q12HR [facility] Last Admin: 03/16/17 09:01 Dose: 300 mls Fentanyl (Fentanyl Cadd) 250 mls @ 0 mls/hr IVPB INF BENNY; Titrate PRN Reason: Protocol Stop: 04/14/17 09:41 Last Admin: 03/16/17 04:37 Dose: 250 mls Fentanyl Citrate (Fentanyl Bolus) 250 mls @ 0 mls/hr IVPB PRN PRN; As Directed PRN Reason: VENTILATION SEDATION PROTOCOL Stop: 04/14/17 09:41 Loperamide HCl (Imodium) 2 mg PO PRN PRN PRN Reason: Diarrhea/Loose Stools Loratadine (Claritin) 10 mg PO DAILYPRN PRN PRN Reason: Sinus Symptoms Lorazepam (Ativan) 2 mg SLOW IVP Q2H PRN PRN Reason: Anxiety to achieve Henry 2-3 Stop: 04/14/17 09:41 Last Admin: 03/16/17 03:05 Dose: 2 mg Magnesium Hydroxide (Milk Of Magnesium) 30 ml PO DAILYPRN PRN PRN Reason: Constipation Methylprednisolone Sodium Succinate (Solu-Medrol) 20 mg IVP Q12HR [facility] Last Admin: 03/16/17 08:59 Dose: 20 mg Mineral Oil/White Petrolatum (Eucerin Cream) 0 gm TOP BIDPRN PRN PRN Reason: Dry Skin Morphine Sulfate (Morphine Sulfate) 2 mg SLOW IVP Q2H PRN PRN Reason: PAIN TO ACHIEVE HENRY OF 2-3 Stop: 04/14/17 09:41 Ondansetron HCl (Zofran Odt) 4 mg PO Q6H PRN PRN Reason: Nausea/Vomiting Ondansetron HCl (Zofran) 4 mg IVP Q6H PRN PRN Reason: Nausea/Vomiting Last Admin: 03/06/17 22:17 Dose: 4 mg Propofol (Diprivan) 1,000 mg IV INF PRN; Protocol PRN Reason: TO ACHIEVE HENRY SCORE 2-3 Stop: 04/14/17 09:41 Senna (Senokot) 2 tab PO HSPRN PRN PRN Reason: Constipation Sodium Chloride ([place] Nasal [place] 0.65%) 0 ml EA NARE QIDPRN PRN PRN Reason: Nasal Congestion Sodium Chloride (Flush - Normal Saline) 10 ml IVF Q12HR [facility] Last Admin: 03/16/17 09:02 Dose: 10 ml Sodium Chloride (Flush - Normal Saline) 10 ml IVF PRN PRN PRN Reason: Saline Flush Last Admin: 03/12/17 17:18 Dose: 10 ml
--- NOTE | 2017-03-16 18:35 | PRG ---
DATE OF SERVICE: 03/16/2017 SUBJECTIVE: Ms. Joiner did well overnight. She awakens. She nods, moves all extremities. OBJECTIVE: VITAL SIGNS: Heart rate is 81, respiratory rate is 25, blood pressure is 145/53. LUNGS: Clear anteriorly. HEART: Regular rhythm. ABDOMEN: Soft. LABORATORY DATA: White count is 24.1, hemoglobin 10.5, platelets 646. Electrolytes are normal. BU N is 28, creatinine is 0.8. Chest radiograph still shows bilateral interstitial infiltrates. IMPRESSION: Pneumonia with acute respiratory distress syndrome, respiratory failure versus hypersen sitivity secondary to amiodarone. PLAN: Continue slow weaning from mechanical ventilation.
[2017-03-17 05:10] LABS: Anion Gap 13 mmol/L (10-20); BUN (Urea Nitrogen) 23 mg/dL (9.8-20.1); Calc. Creatinine Clearance 65 mL/min (70-130); Calcium 8.4 mg/dL (7.8-10.44); Carbon Dioxide 30 mmol/L (23-31); Chloride 103 mmol/L (98-107); Estimated GFR-MDRD 79
[2017-03-17] MEDS: Cefepime 2 GM in Sodium Chloride 0.9% 100 ML IVPB SCH ×2 (05:11→17:22)
[2017-03-17 05:13] LABS: Band 1 % (5-11); Hematocrit 33.9 % (36.0-47.0); Mean Platelet Volume 6.6 fL (7.4-10.4); Myelocyte 2 % (0-0); Neutrophil 91 % (42-75); Red Blood Cell (RBC) Count 4.07 mill/uL (4.20-5.40); White Blood Cell (WBC) Count 24.2 thou/uL (4.8-10.8)
[2017-03-17] MEDS: Lorazepam 2 MG/ML VIAL SLOW IVP PRN ×2 (06:09→21:30)
[2017-03-17 07:28] LABS: Oxyhemoglobin 84.1 % (94.0-97.0); Sodium 141 mmol/L (135-148)
[2017-03-17 07:30] LABS: Mechanical Tidal Volume 550 ml; Mode SIMV.PSV; Modified Allen's Test POSITIVE; Pressure Support 10 cmH2O; Vent YES
[2017-03-17] MEDS: Carvedilol 6.25 MG TAB PO SCH ×2 (09:00→20:15)
[2017-03-17] MEDS: Ferrous Sulfate 325 MG TAB PO SCH ×2 (09:00→17:22)
--- NOTE | 2017-03-17 09:02 | PRG ---
DATE OF SERVICE: 03/17/2017 SUBJECTIVE: Ms. Joiner will awake and she is weak. She has had more issues with secretions. She has been aggressively suctioning by respiratory today. OBJECTIVE: VITAL SIGNS: Heart rate is 71, blood pressure 165/60, respiratory rate 19. LUNGS: Remarkable for coarse equal breath sounds. HEART: Regular rhythm. ABDOMEN: Soft. IMPRESSION: 1. Patchy infiltrates consistent with pneumonia on admission. 2. Diffuse infiltrates consistent with either ARDS or amiodarone hypersensitivity. 3. Weakness and deconditioning, ever since she was hospitalized during the summer. PLAN: Because of the secretion issues, she may end up with a tracheostomy. She has no family to facilitate decision making. We will continue current care.
--- NOTE | 2017-03-17 09:04 | RAD ---
PORTABLE CHEST 1 VIEW: DATE: 03/17/17. TIME: 8:52 a.m. HISTORY: Pneumonia, respiratory failure. FINDINGS/IMPRESSION: No significant interval change is seen since the previous day's exam. POS: [facility]
[2017-03-17] MEDS ORDERED: Sodium Bicarbonate Tab 325 MG TAB PER TUBE PRN (09:24)
[2017-03-17] MEDS ORDERED: Pancrelipase DR 12000 1 CAP FS PRN (09:24)
[2017-03-17] MEDS: Enoxaparin Sodium 40 MG/0.4 ML SYRINGE SC SCH (09:50)
[2017-03-17] MEDS: Famotidine 20 MG TAB PER TUBE SCH (09:50)
[2017-03-17] MEDS: Linezolid 600 MG in Premix Bag 1 BAG IVPB SCH ×2 (10:22→20:15)
--- NOTE | 2017-03-17 10:30 | PDOC.PN ---
- Subjective Encounter Start Date: 03/17/17 Encounter Start Time: 10:28 Subjective: awake but remains intubated and Vent dependent -: no overnight events - Objective Resuscitation Status: Resuscitation Status FULL:Full Resuscitation MAR Reviewed: Yes Vital Signs & Weight: Vital Signs (12 hours) Temp Pulse Resp BP Pulse Ox 03/17/17 09:00 165/68 H 03/17/17 08:00 98.6 F 67 16 03/17/17 06:54 91 165/68 H 03/17/17 06:49 92 19 91 L 03/17/17 06:00 15 03/17/17 04:00 99.1 F 24 H 03/17/17 02:11 81 16 91 L 03/17/17 02:00 20 03/17/17 00:00 17 Weight Admit Weight 111 lb 6.4 oz Weight 123 lb 0.287 oz Most Recent Monitor Data Heart Rate from ECG 86 NIBP 151/64 NIBP BP-Mean 125 Respiration from ECG 24 SpO2 94 I&O: 03/16/17 03/17/17 03/18/17 06:59 06:59 06:59 Intake Total 1798.6 2108.9 Output Total 3880 993 100 Balance -2081.4 1115.9 -100 Result Diagrams: 03/17/17 04:15 03/17/17 04:15 Additional Labs: Microbiology 03/16/17 12:00 Stool C. difficile GDH Antigen & Toxins - Final 03/09/17 17:51 Bronchial Alveolar Lavage Acid Fast Bacilli Smear - Final 03/09/17 16:21 Venous blood - Left Hand Blood Culture - Final NO GROWTH IN 5 DAYS 03/09/17 16:20 Venous blood - Right Hand Blood Culture - Final NO GROWTH IN 5 DAYS 03/09/17 15:30 Alveolar Lavage Bronchoalveolar Lavage Cult, Quant - Final Staphylococcus species Alpha-Strep, not S. pneumoniae 03/09/17 12:15 Stool Stool Occult Blood (MARQUISE) - Final 03/09/17 01:00 Stool Stool Occult Blood (MARQUISE) - Final Phys Exam - Physical Examination Constitutional: NAD (awake and nods and smiles) HEENT: PERRLA, moist MMs, sclera anicteric, oral pharynx no lesions ETT in place Neck: no JVD, supple left Subclavian central line Respiratory: no wheezing, no rales, no rhonchi, clear to auscultation bilateral Cardiovascular: RRR, no significant murmur Gastrointestinal: soft, non-tender, no distention, positive bowel sounds Musculoskeletal: no edema, pulses present Neurological: moves all 4 limbs (w PT) Psychiatric: normal affect Dx/Plan (1) Acute respiratory failure Code(s): J96.00 - ACUTE RESPIRATORY FAILURE, UNSP W HYPOXIA OR HYPERCAPNIA Status: Acute Comment: Vent management per PCCM (2) ARDS (adult respiratory distress syndrome) Code(s): J80 - ACUTE RESPIRATORY DISTRESS SYNDROME Status: Suspected (3) Diarrhea Code(s): R19.7 - DIARRHEA, UNSPECIFIED Status: Acute Comment: H/O CDiff. (4) Atypical pneumonia Code(s): J18.9 - PNEUMONIA, UNSPECIFIED ORGANISM Status: Acute Comment: on Cefepime and Zyvox (5) GI bleed Code(s): K92.2 - GASTROINTESTINAL HEMORRHAGE, UNSPECIFIED Status: Suspected Qualifiers: GI bleed type/associated pathology: unspecified gastrointestinal hemorrhage type Qualified Code(s): K92.2 - Gastrointestinal hemorrhage, unspecified Comment: Normal EGD and colonoscopy 03/09/17.Anticoagulation on hold (6) HTN (hypertension) Code(s): I10 - ESSENTIAL (PRIMARY) HYPERTENSION Status: Chronic Qualifiers: Hypertension type: essential hypertension Qualified Code(s): I10 - Essential (primary) hypertension (7) Microcytic anemia Code(s): D50.9 - IRON DEFICIENCY ANEMIA, UNSPECIFIED Status: Chronic (8) Paroxysmal a-fib Code(s): I48.0 - PAROXYSMAL ATRIAL FIBRILLATION Status: Chronic Comment: rate controlled on Coreg.cardiology following.Xarelto on hold due to drop in Hb with +FOBT (9) Guaiac positive stools Status: Acute Comment: EGD/Colonoscopy without active bleed 03/09/17 - Plan PT/OT, respiratory therapy, incentive spirometry, out of bed/ambulate, DVT proph w/SCDs Cont IV steroids and IV ABx.Vent dependent.Weaning per PCCM.appreciate help -: HR controlled on Coreg.cont to monitor. -: WBC worsening after getteing better.? steroids Vs worsening PNA -: C.Diff negative. Rectal tube in place for diarrhea.add probiotics Via NG.TF -: cont supportive care.daily labs.CXR etc * . Review of Systems - Review of Systems Other: can not be obtained reliably due to illness,somnolence and intubated state - Medications/Allergies Allergies/Adverse Reactions: Allergies Allergy/AdvReac Type Severity Reaction Status Date / Time Penicillins Allergy Rash Verified 12/10/16 02:52 Medications: Current Medications Acetaminophen (Tylenol) 650 mg PO Q4H PRN PRN Reason: Headache/Fever or Pain Last Admin: 03/08/17 14:33 Dose: 650 mg Al Hydroxide/Mg Hydroxide (Maalox) 15 ml PO Q4H PRN PRN Reason: Heartburn or Indigestion Albuterol/Ipratropium (Duoneb) 3 ml NEB [id number] [facility] Last Admin: 03/17/17 06:49 Dose: 3 ml Lipase/Protease/Amylase (Radha Jennings [id number]) 1 cap FS .PER PROTOCOL PRN PRN Reason: TUBE OCCLUSION PROTOCOL Carvedilol (Coreg) 6.25 mg PO BID [facility] Last Admin: 03/17/17 09:00 Dose: 6.25 mg Enoxaparin Sodium (Lovenox) 40 mg SC 0900 [facility] Last Admin: 03/17/17 09:50 Dose: 40 mg Famotidine (Pepcid) 20 mg PER TUBE BID [facility] Last Admin: 03/17/17 09:50 Dose: 20 mg Ferrous Sulfate (Feosol) 325 mg PO BID[facility] Last Admin: 03/17/17 09:00 Dose: 325 mg Hydralazine HCl (Apresoline) 10 mg SLOW IVP Q4H PRN PRN Reason: Systolic BP > 180 Cefepime HCl 2 gm/ Sodium (Chloride) 100 mls @ 200 mls/hr IVPB 0600,1800 [facility] Last Admin: 03/17/17 05:11 Dose: 100 mls Linezolid 600 mg/ Device 300 mls @ 150 mls/hr IVPB Q12HR [facility] Last Admin: 03/17/17 10:22 Dose: 300 mls Fentanyl (Fentanyl Cadd) 250 mls @ 0 mls/hr IVPB INF BENNY; Titrate PRN Reason: Protocol Stop: 04/14/17 09:41 Last Admin: 03/16/17 04:37 Dose: 250 mls Fentanyl Citrate (Fentanyl Bolus) 250 mls @ 0 mls/hr IVPB PRN PRN; As Directed PRN Reason: VENTILATION SEDATION PROTOCOL Stop: 04/14/17 09:41 Loperamide HCl (Imodium) 2 mg PO PRN PRN PRN Reason: Diarrhea/Loose Stools Loratadine (Claritin) 10 mg PO DAILYPRN PRN PRN Reason: Sinus Symptoms Lorazepam (Ativan) 2 mg SLOW IVP Q2H PRN PRN Reason: Anxiety to achieve Henry 2-3 Stop: 04/14/17 09:41 Last Admin: 03/17/17 06:09 Dose: 2 mg Magnesium Hydroxide (Milk Of Magnesium) 30 ml PO DAILYPRN PRN PRN Reason: Constipation Methylprednisolone Sodium Succinate (Solu-Medrol) 20 mg IVP Q12HR [facility] Last Admin: 03/17/17 09:50 Dose: 20 mg Mineral Oil/White Petrolatum (Eucerin Cream) 0 gm TOP BIDPRN PRN PRN Reason: Dry Skin Morphine Sulfate (Morphine Sulfate) 2 mg SLOW IVP Q2H PRN PRN Reason: PAIN TO ACHIEVE HENRY OF 2-3 Stop: 04/14/17 09:41 Ondansetron HCl (Zofran Odt) 4 mg PO Q6H PRN PRN Reason: Nausea/Vomiting Ondansetron HCl (Zofran) 4 mg IVP Q6H PRN PRN Reason: Nausea/Vomiting Last Admin: 03/06/17 22:17 Dose: 4 mg Propofol (Diprivan) 1,000 mg IV INF PRN; Protocol PRN Reason: TO ACHIEVE HENRY SCORE 2-3 Stop: 04/14/17 09:41 Senna (Senokot) 2 tab PO HSPRN PRN PRN Reason: Constipation Sodium Bicarbonate (Bicarbonate, Sodium) 650 mg PER TUBE .PER PROTOCOL PRN PRN Reason: ENTERAL TUBE OCCLUSION Sodium Chloride ([place] Nasal [place] 0.65%) 0 ml EA NARE QIDPRN PRN PRN Reason: Nasal Congestion Sodium Chloride (Flush - Normal Saline) 10 ml IVF Q12HR [facility] Last Admin: 03/17/17 09:50 Dose: 10 ml Sodium Chloride (Flush - Normal Saline) 10 ml IVF PRN PRN PRN Reason: Saline Flush Last Admin: 03/12/17 17:18 Dose: 10 ml
[2017-03-17] MEDS ORDERED: Pantoprazole 40 MG GRANULES PACKET PER TUBE SCH (11:30)
[2017-03-17] MEDS ORDERED: Famotidine 20 MG TAB PER TUBE SCH (21:00)
[2017-03-18] MEDS: Lorazepam 2 MG/ML VIAL SLOW IVP PRN ×4 (02:00→23:17)
[2017-03-18] MEDS: Fentanyl 20 MCG/ML 250 ML IVPB SCH (03:26)
[2017-03-18 04:45] LABS: Anion Gap 11 mmol/L (10-20); BUN (Urea Nitrogen) 26 mg/dL (9.8-20.1); Calc. Creatinine Clearance 71 mL/min (70-130); Calcium 8.6 mg/dL (7.8-10.44); Carbon Dioxide 30 mmol/L (23-31); Chloride 105 mmol/L (98-107); Estimated GFR-MDRD 86
[2017-03-18] MEDS: Cefepime 2 GM in Sodium Chloride 0.9% 100 ML IVPB SCH ×2 (05:00→17:00)
[2017-03-18 05:32] LABS: Anisocytosis SLIGHT = 6-15 cells (100X) (0-5/hpf); Band 1 % (5-11); Hematocrit 34.9 % (36.0-47.0); Mean Platelet Volume 6.9 fL (7.4-10.4); Neutrophil 88 % (42-75); Red Blood Cell (RBC) Count 4.13 mill/uL (4.20-5.40); White Blood Cell (WBC) Count 25.3 thou/uL (4.8-10.8)
[2017-03-18 07:19] LABS: Modified Allen's Test POSITIVE; PIP 21 cmH2O; Pressure Support 10 cmH2O; Sodium 141 mmol/L (135-148); Vent YES
[2017-03-18 07:20] LABS: Mode BILEVEL
--- NOTE | 2017-03-18 08:55 | RAD ---
RADIOGRAPH CHEST 1 VIEW: Date: 03/18/17 Time: 0510 HOURS HISTORY: 66-year-old female in respiratory failure. COMPARISON: 03/17/17 at 0852 hours. FINDINGS: There has been no interval change. IMPRESSION: 1. No interval change. 2. Diffuse bilateral mixed interstitial and alveolar infiltrates. 3. Endotracheal tube, NG tube, and left subclavian central line. YULISA [] POS: [facility]
[2017-03-18] MEDS: Ferrous Sulfate 325 MG TAB PO SCH ×2 (08:58→16:55)
[2017-03-18] MEDS: Enoxaparin Sodium 40 MG/0.4 ML SYRINGE SC SCH (08:58)
[2017-03-18] MEDS: Pantoprazole 40 MG GRANULES PACKET PER TUBE SCH (08:59)
[2017-03-18] MEDS: Linezolid 600 MG in Premix Bag 1 BAG IVPB SCH ×2 (08:59→20:08)
[2017-03-18] MEDS: Carvedilol 6.25 MG TAB PO SCH ×2 (08:59→20:06)
--- NOTE | 2017-03-18 09:14 | PRG ---
DATE OF SERVICE: 03/18/2017 Thirty-five minutes critical care time. SUBJECTIVE: Ms. Trevizo remains intubated on mechanical ventilation. There have been no acute turner ges overnight. PHYSICAL EXAMINATION: VITAL SIGNS: Temperature is 98.9, pulse 75, blood pressure 126/60, 24-hour intake 2024 and output 9 00. HEENT: Unremarkable. NECK: No JVD. LUNGS: Coarse breath sounds bilaterally. CARDIOVASCULAR: S1, S2 regular. ABDOMEN: Soft. EXTREMITIES: No edema. IMAGING: Chest x-ray shows diffuse bilateral alveolar infiltrates. LABORATORY DATA: White blood cell count 25.3, hemoglobin 10, hematocrit 34, platelet count 493. PH 7.41, pCO2 of 48, pO2 of 54 that was on bilevel rate 8, high pressure 21, low pressure 8, FIO2 60%. Sodium 142, potassium 3.8, chloride 105, CO2 30, BUN 26, creatinine 0.6, glucose 166. ASSESSMENT: 1. 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 2. Acute hypoxic respiratory failure, requiring mechanical ventilation. PLAN: 1. The patient is not weanable from mechanical ventilation at this time. 2. She is continuing IV antibiotics for the time being for Staphylococcus, which was isolated from the lung. 3. Continue enoxaparin for DVT prophylaxis. 4. Protonix for GI prophylaxis. 5. Methylprednisolone for the amiodarone lung, although I think the dose needs to be increased sinc e we may be dealing with amiodarone lung toxicity.
[2017-03-18] MEDS: methylPREDNISolone Sod Succ/PF 125 MG/2 ML VIAL IVP SCH ×3 (11:44→23:17)
--- NOTE | 2017-03-18 12:30 | PDOC.PN ---
- Subjective Encounter Start Date: 03/18/17 Encounter Start Time: 12:28 Subjective: no significant chnages.remains Vent dependent.Increased FiO2 - Objective Resuscitation Status: Resuscitation Status FULL:Full Resuscitation MAR Reviewed: Yes Vital Signs & Weight: Vital Signs (12 hours) Temp Pulse Resp BP Pulse Ox 03/18/17 11:12 88 167/68 H 03/18/17 11:03 79 28 H 95 03/18/17 11:00 99.5 F 03/18/17 08:59 141/63 H 03/18/17 08:00 98.9 F 03/18/17 07:49 98.9 F 77 27 H 03/18/17 06:59 77 141/63 H 03/18/17 06:58 75 20 92 L 03/18/17 06:00 10 L 03/18/17 04:00 99.2 F 15 03/18/17 02:38 78 20 93 L 03/18/17 02:00 27 H Weight Admit Weight 111 lb 6.4 oz Weight 125 lb 0.034 oz Most Recent Monitor Data Heart Rate from ECG 76 NIBP 140/55 NIBP BP-Mean 113 Respiration from ECG 20 SpO2 92 I&O: 03/17/17 03/18/17 03/19/17 06:59 06:59 06:59 Intake Total 2108.9 2025.1 90 Output Total 993 900 170 Balance 1115.9 1125.1 -80 Result Diagrams: 03/18/17 03:30 03/18/17 03:30 Additional Labs: Microbiology 03/16/17 12:00 Stool C. difficile GDH Antigen & Toxins - Final negative 03/09/17 17:51 Bronchial Alveolar Lavage Acid Fast Bacilli Smear - Final 03/09/17 16:21 Venous blood - Left Hand Blood Culture - Final NO GROWTH IN 5 DAYS 03/09/17 16:20 Venous blood - Right Hand Blood Culture - Final NO GROWTH IN 5 DAYS 03/09/17 15:30 Alveolar Lavage Bronchoalveolar Lavage Cult, Quant - Final Staphylococcus species Alpha-Strep, not S. pneumoniae 03/09/17 12:15 Stool Stool Occult Blood (MARQUISE) - Final 03/09/17 01:00 Stool Stool Occult Blood (MARQUISE) - Final Phys Exam - Physical Examination Constitutional: NAD awake and smiles but falls back asleep HEENT: PERRLA, moist MMs, sclera anicteric Neck: no JVD, supple Respiratory: no wheezing, no rales, no rhonchi, clear to auscultation bilateral decreased all over Cardiovascular: RRR, no significant murmur Gastrointestinal: soft, non-tender, no distention, positive bowel sounds Musculoskeletal: pulses present, edema present Psychiatric: normal affect Dx/Plan (1) Acute respiratory failure Code(s): J96.00 - ACUTE RESPIRATORY FAILURE, UNSP W HYPOXIA OR HYPERCAPNIA Status: Acute Comment: Vent management per PCCM (2) ARDS (adult respiratory distress syndrome) Code(s): J80 - ACUTE RESPIRATORY DISTRESS SYNDROME Status: Suspected (3) Diarrhea Code(s): R19.7 - DIARRHEA, UNSPECIFIED Status: Acute Comment: H/O CDiff. negative testing this admission. rectal Tube in place (4) Atypical pneumonia Code(s): J18.9 - PNEUMONIA, UNSPECIFIED ORGANISM Status: Acute Comment: on Cefepime and Zyvox (5) GI bleed Code(s): K92.2 - GASTROINTESTINAL HEMORRHAGE, UNSPECIFIED Status: Suspected Qualifiers: GI bleed type/associated pathology: unspecified gastrointestinal hemorrhage type Qualified Code(s): K92.2 - Gastrointestinal hemorrhage, unspecified Comment: Normal EGD and colonoscopy 03/09/17.Anticoagulation on hold (6) HTN (hypertension) Code(s): I10 - ESSENTIAL (PRIMARY) HYPERTENSION Status: Chronic Qualifiers: Hypertension type: essential hypertension Qualified Code(s): I10 - Essential (primary) hypertension (7) Microcytic anemia Code(s): D50.9 - IRON DEFICIENCY ANEMIA, UNSPECIFIED Status: Chronic (8) Paroxysmal a-fib Code(s): I48.0 - PAROXYSMAL ATRIAL FIBRILLATION Status: Chronic Comment: rate controlled on Coreg.cardiology following.Xarelto on hold due to drop in Hb with +FOBT (9) Guaiac positive stools Status: Acute Comment: EGD/Colonoscopy without active bleed 03/09/17 - Plan villalobos catheter, continue antibiotics, PT/OT, older adult social work specialist, incentive spirometry, DVT proph w/SCDs cont supportive care. vent weaning per PCCM. -: cont ABx .on cefepime and Zyvox.Cont solumedrol.dose increased -: HR controlled on Coreg. -: am labs. * . Review of Systems - Review of Systems Other: unobtainable due to intubated state - Medications/Allergies Allergies/Adverse Reactions: Allergies Allergy/AdvReac Type Severity Reaction Status Date / Time Penicillins Allergy Rash Verified 12/10/16 02:52 Medications: Current Medications Acetaminophen (Tylenol) 650 mg PO Q4H PRN PRN Reason: Headache/Fever or Pain Last Admin: 03/08/17 14:33 Dose: 650 mg Al Hydroxide/Mg Hydroxide (Maalox) 15 ml PO Q4H PRN PRN Reason: Heartburn or Indigestion Albuterol/Ipratropium (Duoneb) 3 ml NEB [id number] [facility] Last Admin: 03/18/17 11:03 Dose: 3 ml Lipase/Protease/Amylase ([place] [id number]) 1 cap FS .PER PROTOCOL PRN PRN Reason: TUBE OCCLUSION PROTOCOL Carvedilol (Coreg) 6.25 mg PO BID [facility] Last Admin: 03/18/17 08:59 Dose: 6.25 mg Enoxaparin Sodium (Lovenox) 40 mg SC 0900 [facility] Last Admin: 03/18/17 08:58 Dose: 40 mg Ferrous Sulfate (Feosol) 325 mg PO BID[facility] Last Admin: 03/18/17 08:58 Dose: 325 mg Hydralazine HCl (Apresoline) 10 mg SLOW IVP Q4H PRN PRN Reason: Systolic BP > 180 Cefepime HCl 2 gm/ Sodium (Chloride) 100 mls @ 200 mls/hr IVPB 0600,1800 [facility] Last Admin: 03/18/17 05:00 Dose: 100 mls Linezolid 600 mg/ Device 300 mls @ 150 mls/hr IVPB Q12HR [facility] Last Admin: 03/18/17 08:59 Dose: 300 mls Fentanyl (Fentanyl Cadd) 250 mls @ 0 mls/hr IVPB INF BENNY; Titrate PRN Reason: Protocol Stop: 04/14/17 09:41 Last Admin: 03/18/17 03:26 Dose: 250 mls Fentanyl Citrate (Fentanyl Bolus) 250 mls @ 0 mls/hr IVPB PRN PRN; As Directed PRN Reason: VENTILATION SEDATION PROTOCOL Stop: 04/14/17 09:41 Loperamide HCl (Imodium) 2 mg PO PRN PRN PRN Reason: Diarrhea/Loose Stools Loratadine (Claritin) 10 mg PO DAILYPRN PRN PRN Reason: Sinus Symptoms Lorazepam (Ativan) 2 mg SLOW IVP Q2H PRN PRN Reason: Anxiety to achieve Henry 2-3 Stop: 04/14/17 09:41 Last Admin: 03/18/17 06:20 Dose: 2 mg Magnesium Hydroxide (Milk Of Magnesium) 30 ml PO DAILYPRN PRN PRN Reason: Constipation Methylprednisolone Sodium Succinate (Solu-Medrol) 60 mg IVP Q6HR [facility] Last Admin: 03/18/17 11:44 Dose: 60 mg Mineral Oil/White Petrolatum (Eucerin Cream) 0 gm TOP BIDPRN PRN PRN Reason: Dry Skin Morphine Sulfate (Morphine Sulfate) 2 mg SLOW IVP Q2H PRN PRN Reason: PAIN TO ACHIEVE HENRY OF 2-3 Stop: 04/14/17 09:41 Ondansetron HCl (Zofran Odt) 4 mg PO Q6H PRN PRN Reason: Nausea/Vomiting Ondansetron HCl (Zofran) 4 mg IVP Q6H PRN PRN Reason: Nausea/Vomiting Last Admin: 03/06/17 22:17 Dose: 4 mg Pantoprazole Sodium (Protonix) 40 mg PER TUBE DAILY [facility] Last Admin: 03/18/17 08:59 Dose: 40 mg Propofol (Diprivan) 1,000 mg IV INF PRN; Protocol PRN Reason: TO ACHIEVE HENRY SCORE 2-3 Stop: 04/14/17 09:41 Senna (Senokot) 2 tab PO HSPRN PRN PRN Reason: Constipation Sodium Bicarbonate (Bicarbonate, Sodium) 650 mg PER TUBE .PER PROTOCOL PRN PRN Reason: ENTERAL TUBE OCCLUSION Sodium Chloride ([place] 0.65%) 0 ml EA NARE QIDPRN PRN PRN Reason: Nasal Congestion Sodium Chloride (Flush - Normal Saline) 10 ml IVF Q12HR BENNY Last Admin: 03/18/17 08:59 Dose: 10 ml Sodium Chloride (Flush - Normal Saline) 10 ml IVF PRN PRN PRN Reason: Saline Flush Last Admin: 03/18/17 08:59 Dose: 10 ml
[2017-03-19 04:35] LABS: Hematocrit 31.5 % (36.0-47.0); Mean Platelet Volume 6.9 fL (7.4-10.4); Red Blood Cell (RBC) Count 3.76 mill/uL (4.20-5.40); White Blood Cell (WBC) Count 21.3 thou/uL (4.8-10.8)
[2017-03-19 04:54] LABS: Anion Gap 13 mmol/L (10-20); BUN (Urea Nitrogen) 27 mg/dL (9.8-20.1); Calc. Creatinine Clearance 73 mL/min (70-130); Calcium 8.5 mg/dL (7.8-10.44); Carbon Dioxide 28 mmol/L (23-31); Chloride 106 mmol/L (98-107); Estimated GFR-MDRD 88
[2017-03-19] MEDS: Cefepime 2 GM in Sodium Chloride 0.9% 100 ML IVPB SCH ×2 (05:04→17:44)
[2017-03-19] MEDS: methylPREDNISolone Sod Succ/PF 125 MG/2 ML VIAL IVP SCH ×3 (05:04→17:44)
[2017-03-19 05:21] LABS: Band 3 % (5-11); Neutrophil 91 % (42-75)
[2017-03-19 07:36] LABS: Oxyhemoglobin 93.5 % (94.0-97.0); Sodium 141 mmol/L (135-148)
[2017-03-19 07:37] LABS: Mode BILEVEL; Modified Allen's Test POSITIVE; PIP 21 cmH2O; Pressure Support 10 cmH2O; Vent YES
[2017-03-19] MEDS ORDERED: Furosemide 40 MG/4 ML VIAL SLOW IVP SCH (09:00)
[2017-03-19] MEDS: Ferrous Sulfate 325 MG TAB PO SCH ×2 (09:52→17:44)
[2017-03-19] MEDS: Carvedilol 6.25 MG TAB PO SCH ×2 (09:52→21:16)
[2017-03-19] MEDS: Linezolid 600 MG in Premix Bag 1 BAG IVPB SCH ×2 (09:52→21:13)
[2017-03-19] MEDS: Enoxaparin Sodium 40 MG/0.4 ML SYRINGE SC SCH (09:53)
[2017-03-19] MEDS: Pantoprazole 40 MG GRANULES PACKET PER TUBE SCH (09:53)
[2017-03-19] MEDS: Lorazepam 2 MG/ML VIAL SLOW IVP PRN ×2 (09:53→18:55)
--- NOTE | 2017-03-19 10:16 | RAD ---
RADIOGRAPH CHEST 1 VIEW: Date: 03/19/17 Time: 0530 HOURS HISTORY: 66-year-old female in respiratory failure. COMPARISON: 03/18/17 and 03/17/17. FINDINGS: There has been no interval change. IMPRESSION: 1. Severe bilateral diffuse, extensive infiltrates throughout all visualized lung garnica. 2. Endotracheal tube. 3. NG tube. 4. No interval change overall. YULISA [] POS: MARYELLEN
--- NOTE | 2017-03-19 10:45 | PDOC.PN ---
- Subjective Encounter Start Date: 03/19/17 Encounter Start Time: 09:15 -: non-verbal, old records requested/rev Pt seen and examined earleir on rounds. Chart reviewed in its entirety. I have not seen this patient in several days. Seen earlier by pulm, continue on PC ventilation, bilevel. pressures increased. Pt loosk uncomfortable. nursing requesting sedation. No F/C, no N/V/d/C, no other acute events noted. PT orally intubated and nonverbal ROS not obtainble - Objective Resuscitation Status: Resuscitation Status FULL:Full Resuscitation MAR Reviewed: Yes Vital Signs & Weight: Vital Signs (12 hours) Temp Pulse Resp BP Pulse Ox 03/19/17 10:29 73 132/59 L 03/19/17 10:27 79 17 91 L 03/19/17 09:52 144/68 H 03/19/17 08:00 99.2 F 20 03/19/17 06:18 86 144/68 H 03/19/17 06:14 97 30 H 91 L 03/19/17 06:00 16 03/19/17 04:00 98.6 F 16 03/19/17 02:20 73 15 96 03/19/17 02:00 17 03/19/17 00:00 99.4 F 13 Weight Admit Weight 111 lb 6.4 oz Weight 126 lb 1.671 oz Most Recent Monitor Data Heart Rate from ECG 77 NIBP 132/59 NIBP BP-Mean 74 Respiration from ECG 12 SpO2 93 I&O: 03/18/17 03/19/17 03/20/17 06:59 06:59 06:59 Intake Total 2025.1 1988.6 79 Output Total 900 830 110 Balance 1125.1 1158.6 -31 Result Diagrams: 03/19/17 04:05 03/19/17 04:05 Additional Labs: Accuchecks 03/19/17 10:00 POC Glucose 180 H Radiology Reviewed by me: Yes EKG Reviewed by me: Yes Phys Exam - Physical Examination moderate respiratory distress, orally itnubated on ventilator. HEENT: PERRLA, moist MMs, sclera anicteric, oral pharynx no lesions Neck: no nodes, no JVD, supple, full ROM Respiratory: no wheezing coarse bilateral crackles. no wheezes Cardiovascular: RRR, no significant murmur, no rub Gastrointestinal: soft, non-tender, no distention, positive bowel sounds Musculoskeletal: pulses present, edema present Neurological: non-focal, moves all 4 limbs Lymphatic: no nodes Skin: no rash, normal turgor, cap refill <2 seconds Dx/Plan (1) Atypical pneumonia Code(s): J18.9 - PNEUMONIA, UNSPECIFIED ORGANISM Status: Acute Comment: on Cefepime, steroids (2) Respiratory failure Code(s): J96.90 - RESPIRATORY FAILURE, UNSP, UNSP W HYPOXIA OR HYPERCAPNIA Status: Acute Qualifiers: Chronicity: acute Respiratory failure complication: hypercapnia Qualified Code(s): J96.02 - Acute respiratory failure with hypercapnia Comment: amiodarone lung toxicity vs ARDS. Pulm following, continues on PC ventilation, on bilevel 25/13 PEEP (3) Diverticulosis of colon Code(s): K57.30 - DVRTCLOS OF LG INT W/O PERFORATION OR ABSCESS W/O BLEEDING Status: Chronic Qualifiers: Diverticulosis bleeding: diverticulosis with bleeding Qualified Code(s): K57.31 - Diverticulosis of large intestine without perforation or abscess with bleeding (4) HTN (hypertension) Code(s): I10 - ESSENTIAL (PRIMARY) HYPERTENSION Status: Chronic Qualifiers: Hypertension type: essential hypertension Qualified Code(s): I10 - Essential (primary) hypertension (5) Acute blood loss anemia Code(s): D62 - ACUTE POSTHEMORRHAGIC ANEMIA Status: Resolved Comment: Hgb 10.x today. s/p prior transfusion. (6) GI bleed Code(s): K92.2 - GASTROINTESTINAL HEMORRHAGE, UNSPECIFIED Status: Suspected Qualifiers: GI bleed type/associated pathology: unspecified gastrointestinal hemorrhage type Qualified Code(s): K92.2 - Gastrointestinal hemorrhage, unspecified Comment: Normal EGD and colonoscopy 03/09/17.Anticoagulation on hold (7) Guaiac positive stools Status: Acute Comment: EGD/Colonoscopy without active bleed 03/09/17 (8) Iron deficiency Code(s): E61.1 - IRON DEFICIENCY Status: Chronic - Plan * .
--- NOTE | 2017-03-19 10:51 | PRG ---
DATE OF SERVICE: 03/19/2017 Thirty-five minutes critical care time. SUBJECTIVE: The patient remains intubated on mechanical ventilation. There have been no acute turner ges overnight. PHYSICAL EXAMINATION: VITAL SIGNS: On exam, her temperature is 98.2, pulse 78, blood pressure 144/68, 24-hour intake 1987 , output 830, weight 126 pounds. HEENT EXAM: Unremarkable. NECK: No JVD. LUNGS: Inspiratory crackles bilaterally. CARDIOVASCULAR: S1, S2 regular. ABDOMEN: Soft, nontender. EXTREMITIES: Edematous throughout. LABORATORY DATA: Sodium 142, potassium 4.5, chloride 106, CO2 of 28, BUN 27, creatinine 0.6, glucos e 178. PH 7.44, pCO2 of 37, pO2 of 63 on bilevel rate 8, inspiratory pressure 21, PEEP 10. White b lood cell count 21, hematocrit 31.5, and platelet count 436. ASSESSMENT: 1. Acute respiratory failure, requiring mechanical ventilation. 2. 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 3. Generalized edema. PLAN: 1. The patient's steroids were increased yesterday. 2. She is continuing antibiotics. 3. I will go ahead and try to diurese her some today. 4. I have gone up on her bilevel pressures to see if we can achieve better oxygenation. Prognosis appears poor at this time.
[2017-03-19] MEDS: Fentanyl 20 MCG/ML 250 ML IVPB SCH (18:54)
[2017-03-19] MEDS ORDERED: FLU VACC TS2017-18 (>65YR) 0.5 ML SYRINGE IM ONE (21:00)
[2017-03-20] MEDS: Lorazepam 2 MG/ML VIAL SLOW IVP PRN ×2 (00:05→15:06)
[2017-03-20] MEDS: methylPREDNISolone Sod Succ/PF 125 MG/2 ML VIAL IVP SCH ×5 (00:06→23:38)
[2017-03-20 05:27] LABS: Anion Gap 14 mmol/L (10-20); BUN (Urea Nitrogen) 32 mg/dL (9.8-20.1); Calc. Creatinine Clearance 66 mL/min (70-130); Calcium 8.4 mg/dL (7.8-10.44); Carbon Dioxide 30 mmol/L (23-31); Chloride 102 mmol/L (98-107); Estimated GFR-MDRD 78
[2017-03-20 05:37] LABS: Band 1 % (5-11); Hematocrit 32.5 % (36.0-47.0); Mean Platelet Volume 7.8 fL (7.4-10.4); Neutrophil 93 % (42-75); White Blood Cell (WBC) Count 20.5 thou/uL (4.8-10.8)
[2017-03-20] MEDS: Cefepime 2 GM in Sodium Chloride 0.9% 100 ML IVPB SCH ×2 (06:09→18:31)
--- NOTE | 2017-03-20 07:56 | RAD ---
PORTABLE AP CHEST: Date: 03/19/17 HISTORY: On ventilator, follow-up evaluation. COMPARISON: 03/19/17. FINDINGS: Endotracheal tube and nasogastric tubes remain in place and unchanged in position. Again noted are e xtensive and diffuse bilateral interstitial opacities not progressed when compared to the prior exam . No pleural effusion or pneumothorax is appreciated. There has been no significant interval change in the chest given differences in technique. IMPRESSION: Stable chest with diffuse and bilateral increased interstitial opacities, some of which could be rel ated to chronic interstitial lung changes, but superimposed pulmonary edema or infectious process is a possibility. POS: MARYELLEN
[2017-03-20 07:59] LABS: Mode BILEVEL; Oxyhemoglobin 95.4 % (94.0-97.0); PIP 13 cmH2O; Pressure Support 10 cmH2O; Sodium 140 mmol/L (135-148); Vent YES
[2017-03-20] MEDS ORDERED: FLU VACC TS2017-18 (>65YR) 0.5 ML SYRINGE IM ONE (09:00)
--- NOTE | 2017-03-20 09:15 | PRG ---
DATE OF SERVICE: 03/20/2017 This morning she is intubated on the vent, awake, alert, responsive. PHYSICAL EXAMINATION: VITAL SIGNS: Blood pressure 147/68, sats are 96%-100, respirations 18. She is on bilevel high PEEP 25, low PEEP 13, 65% FiO2. I's and O's 9198 in, 830 out. CHEST: Chest revealed bilateral crackles. CARDIAC: Normal S1, S2. ABDOMEN: Soft, no masses. LABORATORY DATA: White count 20,000, H\T\H 9 and 32, platelet count 388, pO2 is 82, pCO2 45.45 as n oted. Her electrolytes are normal. X-ray shows extensive bilateral pulmonary infiltrates. IMPRESSION: 1. Respiratory failure. 2. Adult respiratory distress syndrome. PLAN: She is clearly not weanable at this stage. Continue high dose steroids, neb treatments, nutr ition, and supportive care. I will follow. One-half hour critical care time.
[2017-03-20] MEDS: Ferrous Sulfate 325 MG TAB PO SCH ×2 (09:57→18:30)
[2017-03-20] MEDS: Enoxaparin Sodium 40 MG/0.4 ML SYRINGE SC SCH (09:57)
[2017-03-20] MEDS: Carvedilol 6.25 MG TAB PO SCH ×2 (09:57→21:32)
[2017-03-20] MEDS: Pantoprazole 40 MG GRANULES PACKET PER TUBE SCH (09:58)
[2017-03-20] MEDS: Linezolid 600 MG in Premix Bag 1 BAG IVPB SCH ×2 (10:03→21:32)
--- NOTE | 2017-03-20 11:33 | PDOC.PN ---
- Subjective Encounter Start Date: 03/20/17 Encounter Start Time: 10:15 -: non-verbal no acute night events. on vent - Objective Resuscitation Status: Resuscitation Status FULL:Full Resuscitation Vital Signs & Weight: Vital Signs (12 hours) Temp Pulse Pulse Pulse Resp BP BP 03/20/17 10:15 95 96 170/81 H 03/20/17 10:03 94 155/79 H 03/20/17 10:00 28 H 03/20/17 09:58 76 15 03/20/17 09:57 153/65 H 03/20/17 08:00 98.4 F 14 03/20/17 07:50 77 03/20/17 06:00 19 03/20/17 04:00 98.0 F 19 03/20/17 02:46 78 14 03/20/17 02:00 18 03/20/17 00:00 98.2 F 12 BP Pulse Ox Pulse Ox Pulse Ox 03/20/17 10:15 169/106 H 98 100 03/20/17 10:03 03/20/17 10:00 03/20/17 09:58 93 L 03/20/17 09:57 03/20/17 08:00 03/20/17 07:50 03/20/17 06:00 03/20/17 04:00 03/20/17 02:46 98 03/20/17 02:00 03/20/17 00:00 Weight Admit Weight 111 lb 6.4 oz Weight 125 lb 7.088 oz Most Recent Monitor Data Heart Rate from ECG 89 NIBP 170/81 NIBP BP-Mean 101 Respiration from ECG 16 SpO2 97 I&O: 03/19/17 03/20/17 03/21/17 06:59 06:59 06:59 Intake Total 1988.6 2340 150 Output Total 830 3265 162 Balance 1158.6 -925 -12 Result Diagrams: 03/20/17 03:56 03/20/17 03:56 Phys Exam - Physical Examination HEENT: PERRLA, sclera anicteric Neck: no JVD, supple bibasilar crackles Cardiovascular: RRR, no significant murmur Gastrointestinal: soft Musculoskeletal: pulses present Dx/Plan - Plan cont current plan of care, villalobos catheter, continue antibiotics, PT/OT, forensic social worker, respiratory therapy * . continue nebs treatments continue IV solumedrol as well as IV abx continue current vent mgmt. wean as tolerated pulm'/manager of financial reporting following continue other current meds at this time monitor accordingly
[2017-03-20] MEDS ORDERED: Sterile Water 10 ML ONE (12:39)
[2017-03-21] MEDS: Lorazepam 2 MG/ML VIAL SLOW IVP PRN ×6 (00:49→19:22)
[2017-03-21] MEDS: Fentanyl 20 MCG/ML 250 ML IVPB SCH (04:14)
[2017-03-21] MEDS: methylPREDNISolone Sod Succ/PF 125 MG/2 ML VIAL IVP SCH ×4 (05:14→23:56)
[2017-03-21] MEDS: Cefepime 2 GM in Sodium Chloride 0.9% 100 ML IVPB SCH ×2 (05:14→17:30)
[2017-03-21 05:23] LABS: Band 2 % (5-11); Hematocrit 30.8 % (36.0-47.0); Mean Platelet Volume 7.4 fL (7.4-10.4); Neutrophil 90 % (42-75); Red Blood Cell (RBC) Count 3.66 mill/uL (4.20-5.40); White Blood Cell (WBC) Count 18.9 thou/uL (4.8-10.8)
[2017-03-21 05:54] LABS: Anion Gap 13 mmol/L (10-20); BUN (Urea Nitrogen) 29 mg/dL (9.8-20.1); Calc. Creatinine Clearance 72 mL/min (70-130); Calcium 8.1 mg/dL (7.8-10.44); Carbon Dioxide 27 mmol/L (23-31); Chloride 103 mmol/L (98-107); Estimated GFR-MDRD 85
[2017-03-21 07:41] LABS: Oxyhemoglobin 90.7 % (94.0-97.0)
[2017-03-21 07:42] LABS: Mode BILEVEL; PIP 13 cmH2O; Pressure Support 10 cmH2O; Vent YES
--- NOTE | 2017-03-21 08:32 | PRG ---
DATE OF SERVICE: 03/21/2017 She is intubated on the vent, sedated. X-ray still shows extensive bilateral infiltrates. PHYSICAL EXAMINATION: VITAL SIGNS: Blood pressure 145/66, sats percent 99%. Temperature 97, I's and O's 2469 in and 842 out. CHEST: Reveals bilateral crackles. CARDIAC: Sinus tachycardia. ABDOMEN: Soft, no masses. LABORATORY: White count 18,000, H\T\H 9 and 30, platelet count is 352, pO2 64, pCO2 34.0, 8, 50%, P EEP 13, FiO2 50%. Electrolytes are normal. Glucose 96. IMPRESSION: 1. Respiratory failure. 2. Adult respiratory distress syndrome. 3. Possibly drug induced toxicity. PLAN: She is not weanable at this stage. All cultures so far suggesting Staph species. Continue vent support, continue high dose steroids, antibiotics, supportive care. I will follow. One-half hour critical care time.
[2017-03-21] MEDS: Linezolid 600 MG in Premix Bag 1 BAG IVPB SCH ×2 (08:51→21:20)
[2017-03-21] MEDS: Enoxaparin Sodium 40 MG/0.4 ML SYRINGE SC SCH (08:51)
[2017-03-21] MEDS: Carvedilol 6.25 MG TAB PO SCH ×2 (08:51→21:20)
[2017-03-21] MEDS: Pantoprazole 40 MG GRANULES PACKET PER TUBE SCH (08:51)
[2017-03-21] MEDS: Ferrous Sulfate 325 MG TAB PO SCH ×2 (08:51→16:30)
--- NOTE | 2017-03-21 09:34 | RAD ---
AP CHEST: Indication: Intubation. Comparison: 03-20-17 IMPRESSION: Diffuse interstitial and airspace opacities are stable. ET tube, gastric catheter unchanged. No pneu mothorax is evident. Osseous structures are similar. POS: [facility]
--- NOTE | 2017-03-21 11:39 | PDOC.PN ---
- Subjective Encounter Start Date: 03/21/17 Encounter Start Time: 11:38 Subjective: remains on Vent and unweanable - Objective Resuscitation Status: Resuscitation Status FULL:Full Resuscitation MAR Reviewed: Yes Vital Signs & Weight: Vital Signs (12 hours) Temp Pulse Resp BP Pulse Ox 03/21/17 10:28 57 L 03/21/17 10:00 10 L 03/21/17 08:51 99/51 L 03/21/17 08:00 10 L 03/21/17 07:42 97.9 F 70 11 L 94 L 03/21/17 07:32 71 03/21/17 07:00 97.9 F 03/21/17 04:00 98.8 F 03/21/17 02:36 66 10 L 98 03/21/17 02:00 11 L 03/21/17 00:00 98.7 F 12 Weight Admit Weight 111 lb 6.4 oz Weight 128 lb 1.417 oz Most Recent Monitor Data Heart Rate from ECG 54 NIBP 103/53 NIBP BP-Mean 77 Respiration from ECG 7 SpO2 98 I&O: 03/20/17 03/21/17 03/22/17 06:59 06:59 06:59 Intake Total 2340 2469 180 Output Total 3265 842 100 Balance -925 1627 80 Result Diagrams: 03/21/17 04:25 03/21/17 04:25 Additional Labs: Microbiology 03/16/17 12:00 Stool C. difficile GDH Antigen & Toxins - Final 03/09/17 17:51 Bronchial Alveolar Lavage Acid Fast Bacilli Smear - Final 03/09/17 16:21 Venous blood - Left Hand Blood Culture - Final NO GROWTH IN 5 DAYS 03/09/17 16:20 Venous blood - Right Hand Blood Culture - Final NO GROWTH IN 5 DAYS 03/09/17 15:30 Alveolar Lavage Bronchoalveolar Lavage Cult, Quant - Final Staphylococcus species Alpha-Strep, not S. pneumoniae 03/09/17 12:15 Stool Stool Occult Blood (MARQUISE) - Final 03/09/17 01:00 Stool Stool Occult Blood (MARQUISE) - Final Laboratory Tests 03/07/17 03/10/17 03/11/17 05:55 04:10 04:12 WBC 16.8 H 23.2 H 14.6 H 03/12/17 03/13/17 03/14/17 03:55 04:00 03:43 WBC 26.8 H 17.0 H 22.7 H 03/15/17 03/16/17 03/17/17 04:00 03:35 04:15 WBC 19.3 H 24.1 H 24.2 H 03/18/17 03/19/17 03/20/17 03:30 04:05 03:56 WBC 25.3 H 21.3 H 20.5 H 03/21/17 04:25 WBC 18.9 H Phys Exam - Physical Examination Constitutional: NAD HEENT: PERRLA, moist MMs, sclera anicteric, oral pharynx no lesions Neck: no JVD Respiratory: no wheezing, no rhonchi bibasilar rales Cardiovascular: RRR, no significant murmur Gastrointestinal: soft, non-tender, no distention, positive bowel sounds Musculoskeletal: pulses present, edema present Dx/Plan (1) Acute respiratory failure Code(s): J96.00 - ACUTE RESPIRATORY FAILURE, UNSP W HYPOXIA OR HYPERCAPNIA Status: Acute Comment: Vent management per [facility] (2) ARDS (adult respiratory distress syndrome) Code(s): J80 - ACUTE RESPIRATORY DISTRESS SYNDROME Status: Suspected (3) Diarrhea Code(s): R19.7 - DIARRHEA, UNSPECIFIED Status: Acute Comment: H/O CDiff. negative testing this admission. rectal Tube in place (4) Atypical pneumonia Code(s): J18.9 - PNEUMONIA, UNSPECIFIED ORGANISM Status: Acute Comment: on Cefepime, steroids (5) GI bleed Code(s): K92.2 - GASTROINTESTINAL HEMORRHAGE, UNSPECIFIED Status: Suspected Qualifiers: GI bleed type/associated pathology: unspecified gastrointestinal hemorrhage type Qualified Code(s): K92.2 - Gastrointestinal hemorrhage, unspecified Comment: Normal EGD and colonoscopy 03/09/17.Anticoagulation on hold (6) HTN (hypertension) Code(s): I10 - ESSENTIAL (PRIMARY) HYPERTENSION Status: Chronic Qualifiers: Hypertension type: essential hypertension Qualified Code(s): I10 - Essential (primary) hypertension (7) Microcytic anemia Code(s): D50.9 - IRON DEFICIENCY ANEMIA, UNSPECIFIED Status: Chronic (8) Paroxysmal a-fib Code(s): I48.0 - PAROXYSMAL ATRIAL FIBRILLATION Status: Chronic Comment: rate controlled on Coreg.cardiology following.Xarelto on hold due to drop in Hb with +FOBT (9) Guaiac positive stools Status: Acute Comment: EGD/Colonoscopy without active bleed 03/09/17 - Plan incentive spirometry, DVT proph w/SCDs cont supportive care. vent support per PCCM.slow progress. -: am labs. * . Review of Systems - Review of Systems Other: unobtainable due to sedation and intubation - Medications/Allergies Allergies/Adverse Reactions: Allergies Allergy/AdvReac Type Severity Reaction Status Date / Time Penicillins Allergy Rash Verified 12/10/16 02:52 Medications: Current Medications Acetaminophen (Tylenol) 650 mg PO Q4H PRN PRN Reason: Headache/Fever or Pain Last Admin: 03/08/17 14:33 Dose: 650 mg Acetylcysteine (Mucomyst 20%) 600 mg PO BID [facility] Al Hydroxide/Mg Hydroxide (Maalox) 15 ml PO Q4H PRN PRN Reason: Heartburn or Indigestion Albuterol/Ipratropium (Duoneb) 3 ml NEB [id number] [facility] Last Admin: 03/21/17 10:28 Dose: 3 ml Lipase/Protease/Amylase ([place] [id number]) 1 cap FS .PER PROTOCOL PRN PRN Reason: TUBE OCCLUSION PROTOCOL Carvedilol (Coreg) 6.25 mg PO BID [facility] Last Admin: 03/21/17 08:51 Dose: 6.25 mg Enoxaparin Sodium (Lovenox) 40 mg SC 0900 [facility] Last Admin: 03/21/17 08:51 Dose: 40 mg Ferrous Sulfate (Feosol) 325 mg PO BID-WM [facility] Last Admin: 03/21/17 08:51 Dose: 325 mg Hydralazine HCl (Apresoline) 10 mg SLOW IVP Q4H PRN PRN Reason: Systolic BP > 180 Cefepime HCl 2 gm/ Sodium (Chloride) 100 mls @ 200 mls/hr IVPB 0600,1800 [facility] Last Admin: 03/21/17 05:14 Dose: 100 mls Linezolid 600 mg/ Device 300 mls @ 150 mls/hr IVPB Q12HR [facility] Last Admin: 03/21/17 08:51 Dose: 300 mls Fentanyl (Fentanyl Cadd) 250 mls @ 0 mls/hr IVPB INF BENNY; Titrate PRN Reason: Protocol Stop: 04/14/17 09:41 Last Admin: 03/21/17 04:14 Dose: 250 mls Fentanyl Citrate (Fentanyl Bolus) 250 mls @ 0 mls/hr IVPB PRN PRN; As Directed PRN Reason: VENTILATION SEDATION PROTOCOL Stop: 04/14/17 09:41 Loperamide HCl (Imodium) 2 mg PO PRN PRN PRN Reason: Diarrhea/Loose Stools Loratadine (Claritin) 10 mg PO DAILYPRN PRN PRN Reason: Sinus Symptoms Lorazepam (Ativan) 2 mg SLOW IVP Q2H PRN PRN Reason: Anxiety to achieve Henry 2-3 Stop: 04/14/17 09:41 Last Admin: 03/21/17 11:34 Dose: 2 mg Magnesium Hydroxide (Milk Of Magnesium) 30 ml PO DAILYPRN PRN PRN Reason: Constipation Methylprednisolone Sodium Succinate (Solu-Medrol) 60 mg IVP Q6HR [facility]ENNY Last Admin: 03/21/17 11:34 Dose: 60 mg Mineral Oil/White Petrolatum (Eucerin Cream) 0 gm TOP BIDPRN PRN PRN Reason: Dry Skin Morphine Sulfate (Morphine Sulfate) 2 mg SLOW IVP Q2H PRN PRN Reason: PAIN TO ACHIEVE HENRY OF 2-3 Stop: 04/14/17 09:41 Ondansetron HCl (Zofran Odt) 4 mg PO Q6H PRN PRN Reason: Nausea/Vomiting Ondansetron HCl (Zofran) 4 mg IVP Q6H PRN PRN Reason: Nausea/Vomiting Last Admin: 03/06/17 22:17 Dose: 4 mg Pantoprazole Sodium (Protonix) 40 mg PER TUBE DAILY [facility] Last Admin: 03/21/17 08:51 Dose: 40 mg Propofol (Diprivan) 1,000 mg IV INF PRN; Protocol PRN Reason: TO ACHIEVE HENRY SCORE 2-3 Stop: 04/14/17 09:41 Senna (Senokot) 2 tab PO HSPRN PRN PRN Reason: Constipation Sodium Bicarbonate (Bicarbonate, Sodium) 650 mg PER TUBE .PER PROTOCOL PRN PRN Reason: ENTERAL TUBE OCCLUSION Sodium Chloride ([place] Nasal [place] 0.65%) 0 ml EA NARE QIDPRN PRN PRN Reason: Nasal Congestion Sodium Chloride (Flush - Normal Saline) 10 ml IVF Q12HR BENNY Last Admin: 03/21/17 08:52 Dose: 10 ml Sodium Chloride (Flush - Normal Saline) 10 ml IVF PRN PRN PRN Reason: Saline Flush Last Admin: 03/18/17 17:00 Dose: 10 ml
[2017-03-21] MEDS: Acetylcysteine 20% 200 MG/ML 30 ML VIAL PO SCH (21:41)
[2017-03-22] MEDS: Lorazepam 2 MG/ML VIAL SLOW IVP PRN ×3 (01:53→22:52)
[2017-03-22] MEDS: Fentanyl 20 MCG/ML 250 ML IVPB SCH (03:25)
[2017-03-22] MEDS: methylPREDNISolone Sod Succ/PF 125 MG/2 ML VIAL IVP SCH ×3 (06:13→17:51)
[2017-03-22] MEDS: Cefepime 2 GM in Sodium Chloride 0.9% 100 ML IVPB SCH ×2 (06:13→17:55)
[2017-03-22 07:03] LABS: Oxyhemoglobin 94.9 % (94.0-97.0); Sodium 141 mmol/L (135-148)
--- NOTE | 2017-03-22 07:34 | RAD ---
AP VIEW OF CHEST: Date: 03/22/17 INDICATION: Intubation. IMPRESSION: Endotracheal tube and gastric catheter are unchanged. The endotracheal tube does appear slightly kin ked. Diffuse interstitial and air space opacities are stable. Cardiomegaly persists. No pneumothorax is evident. POS: [facility]
[2017-03-22 07:42] LABS: Mode BILEVEL; Modified Allen's Test POSITIVE; PIP 21 cmH2O; Pressure Support 10 cmH2O; Vent YES
[2017-03-22 07:51] LABS: Hematocrit 35.1 % (36.0-47.0); Mean Platelet Volume 7.5 fL (7.4-10.4); Red Blood Cell (RBC) Count 4.16 mill/uL (4.20-5.40); White Blood Cell (WBC) Count 26.2 thou/uL (4.8-10.8)
[2017-03-22 08:05] LABS: Anion Gap 18 mmol/L (10-20); BUN (Urea Nitrogen) 31 mg/dL (9.8-20.1); Calc. Creatinine Clearance 76 mL/min (70-130); Calcium 8.3 mg/dL (7.8-10.44); Carbon Dioxide 27 mmol/L (23-31); Chloride 102 mmol/L (98-107); Estimated GFR-MDRD 79
[2017-03-22 08:08] LABS: Band 5 % (5-11); Neutrophil 88 % (42-75)
[2017-03-22] MEDS: Enoxaparin Sodium 40 MG/0.4 ML SYRINGE SC SCH (09:03)
[2017-03-22] MEDS: Ferrous Sulfate 325 MG TAB PO SCH ×2 (09:04→17:51)
[2017-03-22] MEDS: Pantoprazole 40 MG GRANULES PACKET PER TUBE SCH (09:04)
[2017-03-22] MEDS: Carvedilol 6.25 MG TAB PO SCH ×2 (09:04→20:26)
[2017-03-22] MEDS: Acetylcysteine 20% 200 MG/ML 30 ML VIAL PO SCH ×2 (09:05→20:26)
[2017-03-22] MEDS: Linezolid 600 MG in Premix Bag 1 BAG IVPB SCH ×2 (09:18→20:26)
[2017-03-22] MEDS: Propofol 1,000 MG/100 ML VIAL IV PRN ×2 (10:53→22:53)
--- NOTE | 2017-03-22 11:23 | PRG ---
DATE OF SERVICE: 03/22/2017 She is intubated on the vent. Apparently on fentanyl. She is still trying to get out of the bed. PHYSICAL EXAMINATION: VITAL SIGNS: Blood pressure 143/62, respirations 20. She has a temperature of 100.1. I's \T\ O's have been 2469 in, 842 out. CHEST: Chest reveals bilateral rhonchi and crackles. CARDIAC: Sinus tach. ABDOMEN: Soft. No masses. LABORATORY: White count 26,000, H\T\H 10 and 31, platelet count 401, pO2 74, pCO2 40, pH 7.41, on a rate of 8, 50%, low PEEP of 13. Electrolytes are normal. X-ray shows diffuse infiltrates. IMPRESSION: 1. Respiratory failure. 2. Adult respiratory distress syndrome. 3. Possibly amiodarone toxicity. PLAN: Continue high dose steroids, Zyvox and Maxipime. Broncho lavage is growing staph. Nutrition and PT. She is clearly not weanable at this stage, 16th day on the vent, she is probably going to need a tra ch and a PEG. One-half hour critical care time.
--- NOTE | 2017-03-22 15:40 | PDOC.PN ---
- Subjective Encounter Start Date: 03/22/17 Encounter Start Time: 15:38 Subjective: remains unchanged .intubated and sedated -: increased agitation - Objective Resuscitation Status: Resuscitation Status FULL:Full Resuscitation MAR Reviewed: Yes Vital Signs & Weight: Vital Signs (12 hours) Temp Pulse Resp BP Pulse Ox 03/22/17 14:33 73 118/52 L 03/22/17 14:32 75 23 H 96 03/22/17 14:00 18 03/22/17 12:00 98.4 F 11 L 03/22/17 10:54 75 149/72 H 03/22/17 10:53 75 16 95 03/22/17 10:00 13 03/22/17 09:04 143/62 H 03/22/17 08:11 89 163/74 H 03/22/17 08:00 99.4 F 75 10 L 97 03/22/17 07:00 100.1 F H 03/22/17 06:47 89 163/74 H 03/22/17 06:43 90 20 94 L 03/22/17 06:00 15 03/22/17 04:00 98.6 F 15 Weight Admit Weight 111 lb 6.4 oz Weight 143 lb 8.335 oz Most Recent Monitor Data Heart Rate from ECG 69 NIBP 118/52 NIBP BP-Mean 73 Respiration from ECG 14 SpO2 96 I&O: 03/21/17 03/22/17 03/23/17 06:59 06:59 06:59 Intake Total 2469 2431 Output Total 842 316 600 Balance 1627 2115 -600 Result Diagrams: 03/22/17 03:56 03/22/17 03:56 Additional Labs: Accuchecks 03/21/17 15:50 POC Glucose 117 H Microbiology 03/16/17 12:00 Stool C. difficile GDH Antigen & Toxins - Final 03/09/17 17:51 Bronchial Alveolar Lavage Acid Fast Bacilli Smear - Final 03/09/17 16:21 Venous blood - Left Hand Blood Culture - Final NO GROWTH IN 5 DAYS 03/09/17 16:20 Venous blood - Right Hand Blood Culture - Final NO GROWTH IN 5 DAYS 03/09/17 15:30 Alveolar Lavage Bronchoalveolar Lavage Cult, Quant - Final Staphylococcus species Alpha-Strep, not S. pneumoniae 03/09/17 12:15 Stool Stool Occult Blood (MARQUISE) - Final 03/09/17 01:00 Stool Stool Occult Blood (MARQUISE) - Final Phys Exam - Physical Examination Constitutional: NAD HEENT: PERRLA, moist MMs, sclera anicteric, oral pharynx no lesions Neck: no JVD Respiratory: no wheezing, no rales, no rhonchi, clear to auscultation bilateral Cardiovascular: RRR, no significant murmur Gastrointestinal: soft, non-tender, no distention, positive bowel sounds Musculoskeletal: no edema, pulses present Neurological: moves all 4 limbs (when awake) Dx/Plan (1) Acute respiratory failure Code(s): J96.00 - ACUTE RESPIRATORY FAILURE, UNSP W HYPOXIA OR HYPERCAPNIA Status: Acute Comment: Vent management per PCCM (2) ARDS (adult respiratory distress syndrome) Code(s): J80 - ACUTE RESPIRATORY DISTRESS SYNDROME Status: Suspected (3) Diarrhea Code(s): R19.7 - DIARRHEA, UNSPECIFIED Status: Acute Comment: H/O CDiff. negative testing this admission. rectal Tube in place (4) Atypical pneumonia Code(s): J18.9 - PNEUMONIA, UNSPECIFIED ORGANISM Status: Acute Comment: on Cefepime and zyvox, steroids (5) GI bleed Code(s): K92.2 - GASTROINTESTINAL HEMORRHAGE, UNSPECIFIED Status: Suspected Qualifiers: GI bleed type/associated pathology: unspecified gastrointestinal hemorrhage type Qualified Code(s): K92.2 - Gastrointestinal hemorrhage, unspecified Comment: Normal EGD and colonoscopy 03/09/17.Anticoagulation on hold (6) HTN (hypertension) Code(s): I10 - ESSENTIAL (PRIMARY) HYPERTENSION Status: Chronic Qualifiers: Hypertension type: essential hypertension Qualified Code(s): I10 - Essential (primary) hypertension (7) Microcytic anemia Code(s): D50.9 - IRON DEFICIENCY ANEMIA, UNSPECIFIED Status: Chronic (8) Paroxysmal a-fib Code(s): I48.0 - PAROXYSMAL ATRIAL FIBRILLATION Status: Chronic Comment: rate controlled on Coreg.cardiology following.Xarelto on hold due to drop in Hb with +FOBT (9) Guaiac positive stools Status: Acute Comment: EGD/Colonoscopy without active bleed 03/09/17 - Plan respiratory therapy, incentive spirometry, out of bed/ambulate, DVT proph w/SCDs cont vent support per PCCM.cont nebs,ABx etc. -: slow progress and remains unweanable. -: cont current care. meds as below. -: high dose Steroids for possible amiodarone lung toxicity. * . Review of Systems - Review of Systems Other: unobtainable due to sedation and intubation - Medications/Allergies Allergies/Adverse Reactions: Allergies Allergy/AdvReac Type Severity Reaction Status Date / Time Penicillins Allergy Rash Verified 12/10/16 02:52 Medications: Current Medications Acetaminophen (Tylenol) 650 mg PO Q4H PRN PRN Reason: Headache/Fever or Pain Last Admin: 03/08/17 14:33 Dose: 650 mg Acetylcysteine (Mucomyst 20%) 600 mg PO BID [facility] Last Admin: 03/22/17 09:05 Dose: 600 mg Al Hydroxide/Mg Hydroxide (Maalox) 15 ml PO Q4H PRN PRN Reason: Heartburn or Indigestion Albuterol/Ipratropium (Duoneb) 3 ml NEB [id number] [facility] Last Admin: 03/22/17 14:32 Dose: 3 ml Lipase/Protease/Amylase ([place] [id number]) 1 cap FS .PER PROTOCOL PRN PRN Reason: TUBE OCCLUSION PROTOCOL Carvedilol (Coreg) 6.25 mg PO BID [facility] Last Admin: 03/22/17 09:04 Dose: 6.25 mg Enoxaparin Sodium (Lovenox) 40 mg SC 0900 [facility] Last Admin: 03/22/17 09:03 Dose: 40 mg Ferrous Sulfate (Feosol) 325 mg PO BID-WM [facility] Last Admin: 03/22/17 09:04 Dose: 325 mg Hydralazine HCl (Apresoline) 10 mg SLOW IVP Q4H PRN PRN Reason: Systolic BP > 180 Last Admin: 03/22/17 08:11 Dose: 10 mg Cefepime HCl 2 gm/ Sodium (Chloride) 100 mls @ 200 mls/hr IVPB 0600,1800 [facility] Last Admin: 03/22/17 06:13 Dose: 100 mls Linezolid 600 mg/ Device 300 mls @ 150 mls/hr IVPB Q12HR [facility]EN[facility] Last Admin: 03/22/17 09:18 Dose: 300 mls Fentanyl (Fentanyl Cadd) 250 mls @ 0 mls/hr IVPB INF BENNY; Titrate PRN Reason: Protocol Stop: 04/14/17 09:41 Last Admin: 03/22/17 03:25 Dose: 250 mls Fentanyl Citrate (Fentanyl Bolus) 250 mls @ 0 mls/hr IVPB PRN PRN; As Directed PRN Reason: VENTILATION SEDATION PROTOCOL Stop: 04/14/17 09:41 Loperamide HCl (Imodium) 2 mg PO PRN PRN PRN Reason: Diarrhea/Loose Stools Loratadine (Claritin) 10 mg PO DAILYPRN PRN PRN Reason: Sinus Symptoms Lorazepam (Ativan) 2 mg SLOW IVP Q2H PRN PRN Reason: Anxiety to achieve Henry 2-3 Stop: 04/14/17 09:41 Last Admin: 03/22/17 07:10 Dose: 2 mg Magnesium Hydroxide (Milk Of Magnesium) 30 ml PO DAILYPRN PRN PRN Reason: Constipation Methylprednisolone Sodium Succinate (Solu-Medrol) 60 mg IVP Q6HR [facility] Last Admin: 03/22/17 13:14 Dose: 60 mg Mineral Oil/White Petrolatum (Eucerin Cream) 0 gm TOP BIDPRN PRN PRN Reason: Dry Skin Morphine Sulfate (Morphine Sulfate) 2 mg SLOW IVP Q2H PRN PRN Reason: PAIN TO ACHIEVE HENRY OF 2-3 Stop: 04/14/17 09:41 Ondansetron HCl (Zofran Odt) 4 mg PO Q6H PRN PRN Reason: Nausea/Vomiting Ondansetron HCl (Zofran) 4 mg IVP Q6H PRN PRN Reason: Nausea/Vomiting Last Admin: 03/06/17 22:17 Dose: 4 mg Pantoprazole Sodium (Protonix) 40 mg PER TUBE DAILY [facility] Last Admin: 03/22/17 09:04 Dose: 40 mg Propofol (Diprivan) 1,000 mg IV INF PRN; Protocol PRN Reason: TO ACHIEVE HENRY SCORE 2-3 Stop: 04/14/17 09:41 Last Admin: 03/22/17 10:53 Dose: 1,000 mg Senna (Senokot) 2 tab PO HSPRN PRN PRN Reason: Constipation Sodium Bicarbonate (Bicarbonate, Sodium) 650 mg PER TUBE .PER PROTOCOL PRN PRN Reason: ENTERAL TUBE OCCLUSION Sodium Chloride ([place] Nasal [place] 0.65%) 0 ml EA NARE QIDPRN PRN PRN Reason: Nasal Congestion Sodium Chloride (Flush - Normal Saline) 10 ml IVF Q12HR [facility] Last Admin: 03/22/17 09:13 Dose: 10 ml Sodium Chloride (Flush - Normal Saline) 10 ml IVF PRN PRN PRN Reason: Saline Flush Last Admin: 03/18/17 17:00 Dose: 10 ml
[2017-03-23] MEDS: methylPREDNISolone Sod Succ/PF 125 MG/2 ML VIAL IVP SCH ×4 (00:04→17:34)
[2017-03-23] MEDS: Fentanyl 20 MCG/ML 250 ML IVPB SCH (02:11)
[2017-03-23] MEDS: Cefepime 2 GM in Sodium Chloride 0.9% 100 ML IVPB SCH ×2 (05:05→17:33)
[2017-03-23 05:10] LABS: Anion Gap 12 mmol/L (10-20); BUN (Urea Nitrogen) 31 mg/dL (9.8-20.1); Calc. Creatinine Clearance 78 mL/min (70-130); Calcium 7.7 mg/dL (7.8-10.44); Carbon Dioxide 27 mmol/L (23-31); Chloride 104 mmol/L (98-107); Estimated GFR-MDRD 82
[2017-03-23 05:35] LABS: Anisocytosis SLIGHT = 6-15 cells (100X) (0-5/hpf); Band 1 % (5-11); Hematocrit 29.6 % (36.0-47.0); Mean Platelet Volume 7.5 fL (7.4-10.4); Neutrophil 94 % (42-75); Red Blood Cell (RBC) Count 3.52 mill/uL (4.20-5.40); Tear Drops SLIGHT = 2-5 cells (100X) (0-1/hpf); White Blood Cell (WBC) Count 19.3 thou/uL (4.8-10.8)
[2017-03-23 07:21] LABS: Oxyhemoglobin 91.9 % (94.0-97.0); Sodium 138 mmol/L (135-148)
[2017-03-23 07:23] LABS: Mode BILEVEL; Modified Allen's Test POSITIVE; PIP 25 cmH2O; Pressure Support 10 cmH2O; Vent YES
--- NOTE | 2017-03-23 08:00 | RAD ---
PORTABLE CHEST 1 VIEW: DATE: 03/23/17. TIME: 4:32 a.m. FINDINGS/IMPRESSION: No significant interval change is seen since the previous day's exam. POS: [facility]
[2017-03-23] MEDS: Propofol 1,000 MG/100 ML VIAL IV PRN ×3 (09:05→19:21)
[2017-03-23] MEDS: Enoxaparin Sodium 40 MG/0.4 ML SYRINGE SC SCH (09:05)
[2017-03-23] MEDS: Acetylcysteine 20% 200 MG/ML 30 ML VIAL PO SCH ×2 (09:05→20:07)
[2017-03-23] MEDS: Pantoprazole 40 MG GRANULES PACKET PER TUBE SCH (09:05)
[2017-03-23] MEDS: Carvedilol 6.25 MG TAB PO SCH ×2 (09:05→20:07)
[2017-03-23] MEDS: Ferrous Sulfate 325 MG TAB PO SCH ×2 (09:05→16:40)
--- NOTE | 2017-03-23 09:40 | PRG ---
DATE OF SERVICE: 03/23/2017 This morning she is intubated on the vent, sedated, was very agitated, is requiring Diprivan and fen tanyl. PHYSICAL EXAMINATION: VITAL SIGNS: Blood pressure 159/70, sats are 98-99, afebrile, respirations 20, breathing slightly o marily the vent. I's and O's are 2404 in, 1665 out. CHEST: Chest reveals bilateral rhonchi. CARDIAC: Sinus tachycardia. ABDOMEN: Soft, no masses. LABORATORY: White count remains elevated at 19,000, H\T\H 9 and 29, platelet count is 296, pO2 62, pCO2 42, pH 7.44, rate 8, bilevel 25/11. Kidney function normal. X-ray still shows bilateral infiltrates. IMPRESSION: 1. Respiratory failure. 2. Adult respiratory distress syndrome. 3. Possibly amiodarone toxicity. PLAN: She is on Maxipime and high dose steroids. Zyvox. She is not weanable. In the process of discussing with family regarding code status, Dr. Mckeon apparently had spoken to h er son. If we are going to continue care, she will need a trach and a PEG. I will follow. One-half hour critical care time.
--- NOTE | 2017-03-23 12:59 | PDOC.PN ---
- Subjective Encounter Start Date: 03/23/17 Encounter Start Time: 12:57 Subjective: remians intubated and requiring increased sedation -: no overnight events - Objective Resuscitation Status: Resuscitation Status FULL:Full Resuscitation MAR Reviewed: Yes Vital Signs & Weight: Vital Signs (12 hours) Temp Pulse Resp BP Pulse Ox 03/23/17 10:46 66 128/75 03/23/17 10:45 68 13 98 03/23/17 10:00 22 H 03/23/17 09:05 155/79 H 03/23/17 08:00 98.5 F 85 22 H 97 03/23/17 07:02 73 155/79 H 03/23/17 07:00 98.5 F 72 15 98 03/23/17 06:00 15 03/23/17 04:00 98.7 F 16 03/23/17 02:34 52 L 8 L 95 03/23/17 02:00 17 Weight Admit Weight 111 lb 6.4 oz Weight 144 lb 2.917 oz Most Recent Monitor Data Heart Rate from ECG 52 NIBP 93/47 NIBP BP-Mean 61 Respiration from ECG 19 SpO2 91 I&O: 03/22/17 03/23/17 03/24/17 06:59 06:59 06:59 Intake Total 2431 2404.1 Output Total 316 1665 295 Balance 2115 739.1 -295 Result Diagrams: 03/23/17 04:10 03/23/17 04:10 Radiology Reviewed by me: Yes (CXR-no changes.persistant b/l infiltrtates) EKG Reviewed by me: Yes (NSR on tele) Phys Exam - Physical Examination Constitutional: NAD intubated HEENT: moist MMs ETT Neck: no JVD Respiratory: no wheezing, no rales, no rhonchi decreased at bases Cardiovascular: RRR, no significant murmur Gastrointestinal: soft, no distention, positive bowel sounds Musculoskeletal: pulses present, edema present sedated Deviation from normal: sedated Dx/Plan (1) Acute respiratory failure Code(s): J96.00 - ACUTE RESPIRATORY FAILURE, UNSP W HYPOXIA OR HYPERCAPNIA Status: Acute Comment: Vent management per [facility] (2) ARDS (adult respiratory distress syndrome) Code(s): J80 - ACUTE RESPIRATORY DISTRESS SYNDROME Status: Suspected (3) Diarrhea Code(s): R19.7 - DIARRHEA, UNSPECIFIED Status: Acute Comment: H/O CDiff. negative testing this admission. rectal Tube in place (4) Atypical pneumonia Code(s): J18.9 - PNEUMONIA, UNSPECIFIED ORGANISM Status: Acute Comment: on Cefepime and zyvox, steroids (5) GI bleed Code(s): K92.2 - GASTROINTESTINAL HEMORRHAGE, UNSPECIFIED Status: Suspected Qualifiers: GI bleed type/associated pathology: unspecified gastrointestinal hemorrhage type Qualified Code(s): K92.2 - Gastrointestinal hemorrhage, unspecified Comment: Normal EGD and colonoscopy 03/09/17.Anticoagulation on hold (6) HTN (hypertension) Code(s): I10 - ESSENTIAL (PRIMARY) HYPERTENSION Status: Chronic Qualifiers: Hypertension type: essential hypertension Qualified Code(s): I10 - Essential (primary) hypertension (7) Microcytic anemia Code(s): D50.9 - IRON DEFICIENCY ANEMIA, UNSPECIFIED Status: Chronic (8) Paroxysmal a-fib Code(s): I48.0 - PAROXYSMAL ATRIAL FIBRILLATION Status: Chronic Comment: rate controlled on Coreg.cardiology following.Xarelto on hold due to drop in Hb with +FOBT (9) Guaiac positive stools Status: Acute Comment: EGD/Colonoscopy without active bleed 03/09/17 - Plan continue antibiotics, social media campaign manager, respiratory therapy, DVT proph w/SCDs cont current care for now.PCT helping to locate family to make decisions -: Pt has not shown any clinical improvement so far in 17 days -: on high dose steroids & IV ABx but remains unweanable. -: will either likley need trach /PEG or withdrawl of care -: will defer to PCCM for final decision making. * . Review of Systems - Review of Systems Other: unobtainable due to sedation - Medications/Allergies Allergies/Adverse Reactions: Allergies Allergy/AdvReac Type Severity Reaction Status Date / Time Penicillins Allergy Rash Verified 12/10/16 02:52 Medications: Current Medications Acetaminophen (Tylenol) 650 mg PO Q4H PRN PRN Reason: Headache/Fever or Pain Last Admin: 03/08/17 14:33 Dose: 650 mg Acetylcysteine (Mucomyst 20%) 600 mg PO BID [facility] Last Admin: 03/23/17 09:05 Dose: 600 mg Al Hydroxide/Mg Hydroxide (Maalox) 15 ml PO Q4H PRN PRN Reason: Heartburn or Indigestion Albuterol/Ipratropium (Duoneb) 3 ml NEB [id number] [facility] Last Admin: 03/23/17 10:45 Dose: 3 ml Lipase/Protease/Amylase ([place] [id number]) 1 cap FS .PER PROTOCOL PRN PRN Reason: TUBE OCCLUSION PROTOCOL Carvedilol (Coreg) 6.25 mg PO BID [facility] Last Admin: 03/23/17 09:05 Dose: 6.25 mg Enoxaparin Sodium (Lovenox) 40 mg SC 0900 [facility] Last Admin: 03/23/17 09:05 Dose: 40 mg Ferrous Sulfate (Feosol) 325 mg PO BID-WM [facility] Last Admin: 03/23/17 09:05 Dose: 325 mg Hydralazine HCl (Apresoline) 10 mg SLOW IVP Q4H PRN PRN Reason: Systolic BP > 180 Last Admin: 03/22/17 08:11 Dose: 10 mg Cefepime HCl 2 gm/ Sodium (Chloride) 100 mls @ 200 mls/hr IVPB 0600,1800 [facility] Last Admin: 03/23/17 05:05 Dose: 100 mls Fentanyl (Fentanyl Cadd) 250 mls @ 0 mls/hr IVPB INF BENNY; Titrate PRN Reason: Protocol Stop: 04/14/17 09:41 Last Admin: 03/23/17 02:11 Dose: 250 mls Fentanyl Citrate (Fentanyl Bolus) 250 mls @ 0 mls/hr IVPB PRN PRN; As Directed PRN Reason: VENTILATION SEDATION PROTOCOL Stop: 04/14/17 09:41 Loperamide HCl (Imodium) 2 mg PO PRN PRN PRN Reason: Diarrhea/Loose Stools Loratadine (Claritin) 10 mg PO DAILYPRN PRN PRN Reason: Sinus Symptoms Lorazepam (Ativan) 2 mg SLOW IVP Q2H PRN PRN Reason: Anxiety to achieve Henry 2-3 Stop: 04/14/17 09:41 Last Admin: 03/22/17 22:52 Dose: 2 mg Magnesium Hydroxide (Milk Of Magnesium) 30 ml PO DAILYPRN PRN PRN Reason: Constipation Methylprednisolone Sodium Succinate (Solu-Medrol) 60 mg IVP Q6HR [facility] Last Admin: 03/23/17 12:02 Dose: 60 mg Mineral Oil/White Petrolatum (Eucerin Cream) 0 gm TOP BIDPRN PRN PRN Reason: Dry Skin Morphine Sulfate (Morphine Sulfate) 2 mg SLOW IVP Q2H PRN PRN Reason: PAIN TO ACHIEVE HENRY OF 2-3 Stop: 04/14/17 09:41 Ondansetron HCl (Zofran Odt) 4 mg PO Q6H PRN PRN Reason: Nausea/Vomiting Ondansetron HCl (Zofran) 4 mg IVP Q6H PRN PRN Reason: Nausea/Vomiting Last Admin: 03/06/17 22:17 Dose: 4 mg Pantoprazole Sodium (Protonix) 40 mg PER TUBE DAILY [facility] Last Admin: 03/23/17 09:05 Dose: 40 mg Propofol (Diprivan) 1,000 mg IV INF PRN; Protocol PRN Reason: TO ACHIEVE HENRY SCORE 2-3 Stop: 04/14/17 09:41 Last Admin: 03/23/17 09:05 Dose: 1,000 mg Senna (Senokot) 2 tab PO HSPRN PRN PRN Reason: Constipation Sodium Bicarbonate (Bicarbonate, Sodium) 650 mg PER TUBE .PER PROTOCOL PRN PRN Reason: ENTERAL TUBE OCCLUSION Sodium Chloride ([place] Nasal [place] 0.65%) 0 ml EA NARE QIDPRN PRN PRN Reason: Nasal Congestion Sodium Chloride (Flush - Normal Saline) 10 ml IVF Q12HR BENNY Last Admin: 03/23/17 09:05 Dose: 10 ml Sodium Chloride (Flush - Normal Saline) 10 ml IVF PRN PRN PRN Reason: Saline Flush Last Admin: 03/18/17 17:00 Dose: 10 ml
[2017-03-23] MEDS: Lorazepam 2 MG/ML VIAL SLOW IVP PRN (20:07)
[2017-03-24] MEDS: methylPREDNISolone Sod Succ/PF 125 MG/2 ML VIAL IVP SCH ×5 (00:13→23:50)
[2017-03-24] MEDS: Fentanyl 20 MCG/ML 250 ML IVPB SCH (02:33)
[2017-03-24 05:11] LABS: Band 1 % (5-11); Hematocrit 29.2 % (36.0-47.0); Mean Platelet Volume 7.9 fL (7.4-10.4); Neutrophil 93 % (42-75); Red Blood Cell (RBC) Count 3.49 mill/uL (4.20-5.40); White Blood Cell (WBC) Count 21.4 thou/uL (4.8-10.8)
[2017-03-24] MEDS: Propofol 1,000 MG/100 ML VIAL IV PRN ×2 (05:13→15:06)
[2017-03-24] MEDS: Cefepime 2 GM in Sodium Chloride 0.9% 100 ML IVPB SCH ×2 (05:13→17:55)
[2017-03-24 05:16] LABS: Anion Gap 11 mmol/L (10-20); BUN (Urea Nitrogen) 32 mg/dL (9.8-20.1); Calc. Creatinine Clearance 73 mL/min (70-130); Calcium 7.7 mg/dL (7.8-10.44); Carbon Dioxide 29 mmol/L (23-31); Chloride 104 mmol/L (98-107); Estimated GFR-MDRD 83
[2017-03-24 07:02] LABS: Oxyhemoglobin 92.7 % (94.0-97.0); Sodium 140 mmol/L (135-148)
[2017-03-24 07:08] LABS: Modified Allen's Test NOT DONE; Vent YES
[2017-03-24 07:09] LABS: Mode BILEVEL LOW 11; Pressure Support 10 cmH2O
--- NOTE | 2017-03-24 10:13 | RAD ---
1 VIEW CHEST: Date: 03/24/17 HISTORY: Respiratory distress. Ventilated patient. COMPARISON: 03/23/17. FINDINGS: Stable endotracheal and nasogastric tube. There are diffuse interstitial and alveolar opacities, unc hanged. Stable cardiac silhouette. Atherosclerosis of the aorta is noted. Stable left apical thicken ing. IMPRESSION: No significant change. POS: [facility]
[2017-03-24] MEDS: Pantoprazole 40 MG GRANULES PACKET PER TUBE SCH (10:23)
[2017-03-24] MEDS: Carvedilol 6.25 MG TAB PO SCH ×2 (10:23→21:48)
[2017-03-24] MEDS: Ferrous Sulfate 325 MG TAB PO SCH ×2 (10:23→16:49)
[2017-03-24] MEDS: Enoxaparin Sodium 40 MG/0.4 ML SYRINGE SC SCH (10:24)
[2017-03-24] MEDS: Acetylcysteine 20% 200 MG/ML 30 ML VIAL PO SCH ×2 (10:24→21:47)
[2017-03-24] MEDS: Sterile Water 10 ML ONE ×2 (11:51→18:03)
--- NOTE | 2017-03-24 12:16 | PDOC.PN ---
- Subjective Encounter Start Date: 03/24/17 Encounter Start Time: 12:15 Subjective: pt remains intubated and agitated off of heavy sedation - Objective Resuscitation Status: Resuscitation Status FULL:Full Resuscitation MAR Reviewed: Yes Vital Signs & Weight: Vital Signs (12 hours) Temp Pulse Resp BP Pulse Ox 03/24/17 10:58 70 21 H 98 03/24/17 10:28 80 153/65 H 03/24/17 10:23 153/65 H 03/24/17 10:00 30 H 03/24/17 08:00 98.5 F 15 03/24/17 07:53 72 26 H 97 03/24/17 06:42 49 L 107/49 L 03/24/17 06:00 13 03/24/17 04:00 98.3 F 16 03/24/17 02:24 67 17 98 03/24/17 02:00 26 H Weight Admit Weight 111 lb 6.4 oz Weight 132 lb 15.02 oz Most Recent Monitor Data Heart Rate from ECG 70 NIBP 153/64 NIBP BP-Mean 114 Respiration from ECG 14 SpO2 96 I&O: 03/23/17 03/24/17 03/25/17 06:59 06:59 06:59 Intake Total 2404.1 1709 30 Output Total 1665 1055 137 Balance 739.1 654 -107 Result Diagrams: 03/24/17 04:19 03/24/17 04:19 Additional Labs: Microbiology 03/16/17 12:00 Stool C. difficile GDH Antigen & Toxins - Final 03/09/17 17:51 Bronchial Alveolar Lavage Acid Fast Bacilli Smear - Final 03/09/17 16:21 Venous blood - Left Hand Blood Culture - Final NO GROWTH IN 5 DAYS 03/09/17 16:20 Venous blood - Right Hand Blood Culture - Final NO GROWTH IN 5 DAYS 03/09/17 15:30 Alveolar Lavage Bronchoalveolar Lavage Cult, Quant - Final Staphylococcus species Alpha-Strep, not S. pneumoniae 03/09/17 12:15 Stool Stool Occult Blood (MARQUISE) - Final 03/09/17 01:00 Stool Stool Occult Blood (MARQUISE) - Final Phys Exam - Physical Examination moving around in bed w PT HEENT: sclera anicteric, oral pharynx no lesions Neck: no JVD Respiratory: no wheezing, no rales, no rhonchi, clear to auscultation bilateral decreased at bases Cardiovascular: RRR, no significant murmur Gastrointestinal: soft, positive bowel sounds Musculoskeletal: pulses present, edema present Neurological: moves all 4 limbs Deviation from normal: agitated Skin: no rash Dx/Plan (1) Acute respiratory failure Code(s): J96.00 - ACUTE RESPIRATORY FAILURE, UNSP W HYPOXIA OR HYPERCAPNIA Status: Acute Comment: Vent management per PCCM (2) ARDS (adult respiratory distress syndrome) Code(s): J80 - ACUTE RESPIRATORY DISTRESS SYNDROME Status: Suspected (3) Diarrhea Code(s): R19.7 - DIARRHEA, UNSPECIFIED Status: Acute Comment: H/O CDiff. negative testing this admission. rectal Tube in place (4) Atypical pneumonia Code(s): J18.9 - PNEUMONIA, UNSPECIFIED ORGANISM Status: Acute Comment: on Cefepime and zyvox, steroids (5) GI bleed Code(s): K92.2 - GASTROINTESTINAL HEMORRHAGE, UNSPECIFIED Status: Suspected Qualifiers: GI bleed type/associated pathology: unspecified gastrointestinal hemorrhage type Qualified Code(s): K92.2 - Gastrointestinal hemorrhage, unspecified Comment: Normal EGD and colonoscopy 03/09/17.Anticoagulation on hold (6) HTN (hypertension) Code(s): I10 - ESSENTIAL (PRIMARY) HYPERTENSION Status: Chronic Qualifiers: Hypertension type: essential hypertension Qualified Code(s): I10 - Essential (primary) hypertension (7) Microcytic anemia Code(s): D50.9 - IRON DEFICIENCY ANEMIA, UNSPECIFIED Status: Chronic (8) Paroxysmal a-fib Code(s): I48.0 - PAROXYSMAL ATRIAL FIBRILLATION Status: Chronic Comment: rate controlled on Coreg.cardiology following.Xarelto on hold due to drop in Hb with +FOBT (9) Guaiac positive stools Status: Acute Comment: EGD/Colonoscopy without active bleed 03/09/17 - Plan respiratory therapy, DVT proph w/SCDs no change in condition.remains vent dependent.on IV ABX,steroids. -: will need to make decision for continuation of care w PEG/trach etc. -: no family avialable so far. PCT & CM assisting. -: will defer the decision to PCCM for same. * . Review of Systems - Review of Systems Other: unobtainable due to sedation,intubation etc - Medications/Allergies Allergies/Adverse Reactions: Allergies Allergy/AdvReac Type Severity Reaction Status Date / Time Penicillins Allergy Rash Verified 12/10/16 02:52 Medications: Current Medications Acetaminophen (Tylenol) 650 mg PO Q4H PRN PRN Reason: Headache/Fever or Pain Last Admin: 03/08/17 14:33 Dose: 650 mg Acetylcysteine (Mucomyst 20%) 600 mg PO BID REPLACED BY [facility] Last Admin: 03/24/17 10:24 Dose: 600 mg Al Hydroxide/Mg Hydroxide (Maalox) 15 ml PO Q4H PRN PRN Reason: Heartburn or Indigestion Albuterol/Ipratropium (Duoneb) 3 ml NEB [id number] REPLACED BY [facility] Last Admin: 03/24/17 10:58 Dose: 3 ml Lipase/Protease/Amylase ([place] [id number]) 1 cap FS .PER PROTOCOL PRN PRN Reason: TUBE OCCLUSION PROTOCOL Carvedilol (Coreg) 6.25 mg PO BID REPLACED BY [facility] Last Admin: 03/24/17 10:23 Dose: 6.25 mg Enoxaparin Sodium (Lovenox) 40 mg SC 0900 REPLACED BY [facility] Last Admin: 03/24/17 10:24 Dose: 40 mg Ferrous Sulfate (Feosol) 325 mg PO BID-[facility] Last Admin: 03/24/17 10:23 Dose: 325 mg Hydralazine HCl (Apresoline) 10 mg SLOW IVP Q4H PRN PRN Reason: Systolic BP > 180 Last Admin: 03/22/17 08:11 Dose: 10 mg Cefepime HCl 2 gm/ Sodium (Chloride) 100 mls @ 200 mls/hr IVPB 0600,1800 REPLACED BY [facility] Last Admin: 03/24/17 05:13 Dose: 100 mls Fentanyl (Fentanyl Cadd) 250 mls @ 0 mls/hr IVPB INF BENNY; Titrate PRN Reason: Protocol Stop: 04/14/17 09:41 Last Admin: 03/24/17 02:33 Dose: 250 mls Fentanyl Citrate (Fentanyl Bolus) 250 mls @ 0 mls/hr IVPB PRN PRN; As Directed PRN Reason: VENTILATION SEDATION PROTOCOL Stop: 04/14/17 09:41 Loperamide HCl (Imodium) 2 mg PO PRN PRN PRN Reason: Diarrhea/Loose Stools Loratadine (Claritin) 10 mg PO DAILYPRN PRN PRN Reason: Sinus Symptoms Lorazepam (Ativan) 2 mg SLOW IVP Q2H PRN PRN Reason: Anxiety to achieve Henry 2-3 Stop: 04/14/17 09:41 Last Admin: 03/23/17 20:07 Dose: 2 mg Magnesium Hydroxide (Milk Of Magnesium) 30 ml PO DAILYPRN PRN PRN Reason: Constipation Methylprednisolone Sodium Succinate (Solu-Medrol) 60 mg IVP Q6HR BENNY Last Admin: 03/24/17 11:51 Dose: 60 mg Mineral Oil/White Petrolatum (Eucerin Cream) 0 gm TOP BIDPRN PRN PRN Reason: Dry Skin Morphine Sulfate (Morphine Sulfate) 2 mg SLOW IVP Q2H PRN PRN Reason: PAIN TO ACHIEVE HENRY OF 2-3 Stop: 04/14/17 09:41 Ondansetron HCl (Zofran Odt) 4 mg PO Q6H PRN PRN Reason: Nausea/Vomiting Ondansetron HCl (Zofran) 4 mg IVP Q6H PRN PRN Reason: Nausea/Vomiting Last Admin: 03/06/17 22:17 Dose: 4 mg Pantoprazole Sodium (Protonix) 40 mg PER TUBE DAILY REPLACED BY [facility] Last Admin: 03/24/17 10:23 Dose: 40 mg Propofol (Diprivan) 1,000 mg IV INF PRN; Protocol PRN Reason: TO ACHIEVE HENRY SCORE 2-3 Stop: 04/14/17 09:41 Last Admin: 03/24/17 05:13 Dose: 1,000 mg Senna (Senokot) 2 tab PO HSPRN PRN PRN Reason: Constipation Sodium Bicarbonate (Bicarbonate, Sodium) 650 mg PER TUBE .PER PROTOCOL PRN PRN Reason: ENTERAL TUBE OCCLUSION Sodium Chloride ([place] Nasal [place] 0.65%) 0 ml EA NARE QIDPRN PRN PRN Reason: Nasal Congestion Sodium Chloride (Flush - Normal Saline) 10 ml IVF Q12HR BENNY Last Admin: 03/24/17 10:32 Dose: 10 ml Sodium Chloride (Flush - Normal Saline) 10 ml IVF PRN PRN PRN Reason: Saline Flush Last Admin: 03/18/17 17:00 Dose: 10 ml
--- NOTE | 2017-03-24 13:59 | PRG ---
DATE OF SERVICE: 03/24/2017 SUBJECTIVE: Ms. Joiner has made no progress in the week that I have been away. OBJECTIVE: VITAL SIGNS: Her blood pressure is 159/69, heart rate 70, respiratory rate 20. She is on bilevel v entilation. We have gone back to volume ventilation today. LUNGS: Remarkable for distant crackles. HEART: Regular rhythm. ABDOMEN: Soft. LABORATORY DATA: White count 21.4, hemoglobin 9.1, platelets 246. Electrolytes are normal. IMPRESSION: 1. Respiratory failure. She will require tracheostomy and PEG. 2. Amiodarone hypersensitivity versus acute respiratory distress syndrome. 3. ?migratory infiltrates prior to admission, ?aspiration pneumonia. 4. Weakness and deconditioning. 5. History of head injury. PLAN: Trach and PEG consultation with General Surgery; this has been placed.
--- NOTE | 2017-03-24 16:16 | CON ---
DATE OF CONSULTATION: 03/24/2017 CHIEF COMPLAINT: Ventilator dependency. HISTORY: This is a 66-year-old female, who has a history of traumatic brain injury, admitted with a spiration pneumonia on 03/06/2017, they have been unable to wean her from the ventilator, asked for percutaneous endoscopic gastrostomy and tracheostomy. PAST MEDICAL HISTORY: Chronic atrial fibrillation on anticoagulation, chronic renal insufficiency, hypertension, hyperlipidemia, irritable bowel, and brain trauma. PAST SURGICAL HISTORY: Bilateral ankle surgery, brain surgery, bilateral tubal ligation. ALLERGIES: PENICILLIN. FAMILY HISTORY: Noncontributory. MEDICATIONS: Coreg, Lovenox, fentanyl, Apresoline, Imodium, Ativan, Claritin, and Solu-Medrol. PHYSICAL EXAMINATION: VITAL SIGNS: Temperature 99, pulse 77, and blood pressure 159/69. GENERAL: She is sedated on the vent. She responds to pain. HEENT: She has endotracheal tube in as well as an OG tube. LUNGS: Clear. HEART: Regular rate and rhythm. ABDOMEN: Soft, nondistended, nontender. EXTREMITIES: Unremarkable. LABORATORY DATA AND X-RAY FINDINGS: White count is 21, H\T\H of 9 and 29, platelet count 246. Elec trolytes shows an elevated glucose of 226, BUN of 32. ASSESSMENT: Ventilator dependency with malnutrition. PLAN: Hold Lovenox. PEG and trach tomorrow.
[2017-03-24] MEDS: Lorazepam 2 MG/ML VIAL SLOW IVP PRN ×2 (16:49→22:23)
[2017-03-25] MEDS: Propofol 1,000 MG/100 ML VIAL IV PRN ×2 (00:28→11:53)
[2017-03-25] MEDS: Fentanyl 20 MCG/ML 250 ML IVPB SCH ×2 (02:29→22:33)
[2017-03-25] MEDS: Lorazepam 2 MG/ML VIAL SLOW IVP PRN ×2 (02:32→22:15)
[2017-03-25 04:56] LABS: Anion Gap 12 mmol/L (10-20); BUN (Urea Nitrogen) 30 mg/dL (9.8-20.1); Calc. Creatinine Clearance 77 mL/min (70-130); Calcium 7.8 mg/dL (7.8-10.44); Carbon Dioxide 27 mmol/L (23-31); Chloride 105 mmol/L (98-107); Estimated GFR-MDRD 88
[2017-03-25 05:30] LABS: Band 4 % (5-11); Hematocrit 29.4 % (36.0-47.0); Neutrophil 89 % (42-75); Red Blood Cell (RBC) Count 3.51 mill/uL (4.20-5.40); White Blood Cell (WBC) Count 18.2 thou/uL (4.8-10.8)
[2017-03-25] MEDS: Cefepime 2 GM in Sodium Chloride 0.9% 100 ML IVPB SCH ×2 (06:14→18:04)
[2017-03-25] MEDS: methylPREDNISolone Sod Succ/PF 125 MG/2 ML VIAL IVP SCH ×3 (06:16→17:45)
[2017-03-25 08:29] LABS: Oxyhemoglobin 92.8 % (94.0-97.0); Sodium 141 mmol/L (135-148)
[2017-03-25] MEDS: Ferrous Sulfate 325 MG TAB PO SCH ×3 (08:53→17:44)
[2017-03-25] MEDS: Carvedilol 6.25 MG TAB PO SCH ×3 (09:00→21:04)
[2017-03-25] MEDS: Enoxaparin Sodium 40 MG/0.4 ML SYRINGE SC SCH (09:00)
[2017-03-25] MEDS: Pantoprazole 40 MG GRANULES PACKET PER TUBE SCH ×2 (09:00→13:33)
[2017-03-25] MEDS: Acetylcysteine 20% 200 MG/ML 30 ML VIAL PO SCH ×2 (09:00→21:04)
[2017-03-25 09:35] LABS: Mechanical Tidal Volume 400 ml; Mode SIMV/PSV; Modified Allen's Test NOT DONE; Pressure Support 10 cmH2O; Vent YES
[2017-03-25] MEDS ORDERED: Diphenoxylate HCl/Atropine Tablet PO PRN (10:45)
--- NOTE | 2017-03-25 10:47 | PDOC.PN ---
- Subjective Encounter Start Date: 03/25/17 Encounter Start Time: 10:45 Subjective: remains vent dependent.agiatted requiringh sedation. -: continues to have loose stools via rectal tube - Objective Resuscitation Status: Resuscitation Status FULL:Full Resuscitation MAR Reviewed: Yes Vital Signs & Weight: Vital Signs (12 hours) Temp Pulse Resp BP Pulse Ox 03/25/17 10:00 18 03/25/17 09:00 110/56 L 03/25/17 08:00 98.3 F 64 15 98 03/25/17 07:53 51 L 110/56 L 03/25/17 07:52 50 L 13 98 03/25/17 06:00 13 03/25/17 04:00 98.9 F 12 03/25/17 03:07 63 03/25/17 03:06 63 14 92 L 03/25/17 02:00 14 03/25/17 00:00 98.9 F 19 03/24/17 23:04 55 L 20 96 Weight Admit Weight 111 lb 6.4 oz Weight 141 lb 15.643 oz Most Recent Monitor Data Heart Rate from ECG 73 NIBP 173/90 NIBP BP-Mean 128 Respiration from ECG 18 SpO2 96 I&O: 03/24/17 03/25/17 03/26/17 06:59 06:59 06:59 Intake Total 1709 1846.1 Output Total 1055 1369 172 Balance 654 477.1 -172 Result Diagrams: 03/25/17 03:43 03/25/17 03:43 Additional Labs: Microbiology 03/16/17 12:00 Stool C. difficile GDH Antigen & Toxins - Final 03/09/17 17:51 Bronchial Alveolar Lavage Acid Fast Bacilli Smear - Final 03/09/17 16:21 Venous blood - Left Hand Blood Culture - Final NO GROWTH IN 5 DAYS 03/09/17 16:20 Venous blood - Right Hand Blood Culture - Final NO GROWTH IN 5 DAYS 03/09/17 15:30 Alveolar Lavage Bronchoalveolar Lavage Cult, Quant - Final Staphylococcus species Alpha-Strep, not S. pneumoniae 03/09/17 12:15 Stool Stool Occult Blood (MARQUISE) - Final 03/09/17 01:00 Stool Stool Occult Blood (MARQUISE) - Final Phys Exam - Physical Examination restless,intubated HEENT: moist MMs, sclera anicteric, oral pharynx no lesions Neck: no JVD Respiratory: no wheezing, no rales rhonchi Cardiovascular: RRR, no significant murmur Gastrointestinal: soft, non-tender, no distention, positive bowel sounds Musculoskeletal: no edema, pulses present Neurological: moves all 4 limbs Deviation from normal: sedated Skin: no rash Dx/Plan (1) Acute respiratory failure Code(s): J96.00 - ACUTE RESPIRATORY FAILURE, UNSP W HYPOXIA OR HYPERCAPNIA Status: Acute Comment: Vent management per PCCM (2) ARDS (adult respiratory distress syndrome) Code(s): J80 - ACUTE RESPIRATORY DISTRESS SYNDROME Status: Suspected (3) Diarrhea Code(s): R19.7 - DIARRHEA, UNSPECIFIED Status: Acute Comment: H/O CDiff. negative testing this admission. rectal Tube in place (4) Atypical pneumonia Code(s): J18.9 - PNEUMONIA, UNSPECIFIED ORGANISM Status: Acute Comment: on Cefepime and zyvox, steroids (5) GI bleed Code(s): K92.2 - GASTROINTESTINAL HEMORRHAGE, UNSPECIFIED Status: Suspected Qualifiers: GI bleed type/associated pathology: unspecified gastrointestinal hemorrhage type Qualified Code(s): K92.2 - Gastrointestinal hemorrhage, unspecified Comment: Normal EGD and colonoscopy 03/09/17.Anticoagulation on hold (6) HTN (hypertension) Code(s): I10 - ESSENTIAL (PRIMARY) HYPERTENSION Status: Chronic Qualifiers: Hypertension type: essential hypertension Qualified Code(s): I10 - Essential (primary) hypertension (7) Microcytic anemia Code(s): D50.9 - IRON DEFICIENCY ANEMIA, UNSPECIFIED Status: Chronic (8) Paroxysmal a-fib Code(s): I48.0 - PAROXYSMAL ATRIAL FIBRILLATION Status: Chronic Comment: rate controlled on Coreg.cardiology following.Xarelto on hold due to drop in Hb with +FOBT (9) Guaiac positive stools Status: Acute Comment: EGD/Colonoscopy without active bleed 03/09/17 - Plan continue antibiotics, PT/OT, social service manager, respiratory therapy, DVT proph w/ SCDs recheck C.diff. add lomotil. -: Gs consulted for Trach and PEG.no family avialble to help w decision making -: PCT following. pt remains unweanable despite high dose steroids & ABx IV -: cont supportive care. PCCM following. -: am labs * . Review of Systems - Review of Systems Other: unobtainable due to intubated and sedated state - Medications/Allergies Allergies/Adverse Reactions: Allergies Allergy/AdvReac Type Severity Reaction Status Date / Time Penicillins Allergy Rash Verified 12/10/16 02:52 Medications: Current Medications Acetaminophen (Tylenol) 650 mg PO Q4H PRN PRN Reason: Headache/Fever or Pain Last Admin: 03/08/17 14:33 Dose: 650 mg Acetylcysteine (Mucomyst 20%) 600 mg PO BID [facility] Last Admin: 03/25/17 09:00 Dose: Not Given Al Hydroxide/Mg Hydroxide (Maalox) 15 ml PO Q4H PRN PRN Reason: Heartburn or Indigestion Albuterol/Ipratropium (Duoneb) 3 ml NEB [id number] [facility] Last Admin: 03/25/17 07:52 Dose: 3 ml Lipase/Protease/Amylase ([place] [id number]) 1 cap FS .PER PROTOCOL PRN PRN Reason: TUBE OCCLUSION PROTOCOL Carvedilol (Coreg) 6.25 mg PO BID [facility] Last Admin: 03/25/17 09:00 Dose: Not Given Diphenoxylate HCl/Atropine (Lomotil) 1 tab PO Q6H PRN PRN Reason: Diarrhea/Loose Stools Enoxaparin Sodium (Lovenox) 40 mg SC 0900 [facility] Last Admin: 03/25/17 09:00 Dose: Not Given Ferrous Sulfate (Feosol) 325 mg PO BID-[facility] Last Admin: 03/25/17 08:53 Dose: 325 mg Hydralazine HCl (Apresoline) 10 mg SLOW IVP Q4H PRN PRN Reason: Systolic BP > 180 Last Admin: 03/22/17 08:11 Dose: 10 mg Cefepime HCl 2 gm/ Sodium (Chloride) 100 mls @ 200 mls/hr IVPB 0600,1800 [facility] Last Admin: 03/25/17 06:14 Dose: 100 mls Levofloxacin 500 mg/ Device 100 mls @ 100 mls/hr IVPB WILLCALL [facility] Stop: 03/25/17 14:01 Loperamide HCl (Imodium) 2 mg PO PRN PRN PRN Reason: Diarrhea/Loose Stools Loratadine (Claritin) 10 mg PO DAILYPRN PRN PRN Reason: Sinus Symptoms Magnesium Hydroxide (Milk Of Magnesium) 30 ml PO DAILYPRN PRN PRN Reason: Constipation Methylprednisolone Sodium Succinate (Solu-Medrol) 60 mg IVP Q6HR [facility] Last Admin: 03/25/17 06:16 Dose: 60 mg Mineral Oil/White Petrolatum (Eucerin Cream) 0 gm TOP BIDPRN PRN PRN Reason: Dry Skin Ondansetron HCl (Zofran Odt) 4 mg PO Q6H PRN PRN Reason: Nausea/Vomiting Ondansetron HCl (Zofran) 4 mg IVP Q6H PRN PRN Reason: Nausea/Vomiting Last Admin: 03/06/17 22:17 Dose: 4 mg Pantoprazole Sodium (Protonix) 40 mg PER TUBE DAILY BENNY Last Admin: 03/25/17 09:00 Dose: Not Given Propofol (Diprivan) 1,000 mg IV INF PRN; Protocol PRN Reason: TO ACHIEVE HENRY SCORE 2-3 Stop: 04/14/17 09:41 Last Admin: 03/25/17 00:28 Dose: 1,000 mg Senna (Senokot) 2 tab PO HSPRN PRN PRN Reason: Constipation Sodium Bicarbonate (Bicarbonate, Sodium) 650 mg PER TUBE .PER PROTOCOL PRN PRN Reason: ENTERAL TUBE OCCLUSION Sodium Chloride ([place] Nasal [place] 0.65%) 0 ml EA NARE QIDPRN PRN PRN Reason: Nasal Congestion Sodium Chloride (Flush - Normal Saline) 10 ml IVF Q12HR BENNY Last Admin: 03/25/17 09:00 Dose: Not Given Sodium Chloride (Flush - Normal Saline) 10 ml IVF PRN PRN PRN Reason: Saline Flush Last Admin: 03/18/17 17:00 Dose: 10 ml
[2017-03-25] MEDS ORDERED: Sterile Water 10 ML ONE (11:48)
[2017-03-25] MEDS: Sterile Water 10 ML ONE (11:54)
[2017-03-25] MEDS: Loperamide HCl 2 MG CAP PO PRN (13:35)
--- NOTE | 2017-03-25 19:06 | PRG ---
DATE OF SERVICE: 03/25/2017 SUBJECTIVE: Ms. Joiner is hemodynamically stable. OBJECTIVE: VITAL SIGNS: Heart rate is in the 50s, blood pressure 104/51, respiratory rate is 19, and oximetry is 97%. LUNGS: Remarkable for distant breath sounds. HEART: Regular rhythm. ABDOMEN: Soft. LABORATORY: White count 18.2, hemoglobin 9.1, and platelets 232. Electrolytes are normal. Chest r adiograph shows diffuse infiltrates yesterday, one was not done today. IMPRESSION: Noncardiogenic pulmonary edema associated with infectious process versus amiodarone hyp ersensitivity. She has intermittently required bilevel ventilation because of gas exchange and pulm onary compliance since she has been admitted. I do not feel that she will successfully extubate for very long tracheostomy and percutaneous endoscopic gastrostomy would be the next step. General De velázquez has been consulted. She has no family and per her neighbors no desire to contact her son who s he has not talked many years. One of the neighbors told me that she had no desire at all to have an y contact with her son, so it would not be appropriate in my opinion to try to continue to track osman n the son. I do think the procedures are medically indicated. She certainly sedation, cannot contribute to the decision process. I have been told by the house designer that 2 doctors cannot sign consent forms anymore. I am not aware of any law change, so I am deferring this back to the hospital and the house designer. I e thically cannot recommend withdrawal of care to go to hospice with no preexisting relationship with this patient, no knowledge of her preexisting wishes. Critical care time was 30 minutes.
[2017-03-25] MEDS ORDERED: Propofol 1,000 MG/100 ML VIAL IV PRN (22:01)
[2017-03-26] MEDS: methylPREDNISolone Sod Succ/PF 125 MG/2 ML VIAL IVP SCH ×3 (00:51→11:59)
[2017-03-26 04:26] LABS: Anion Gap 12 mmol/L (10-20); BUN (Urea Nitrogen) 28 mg/dL (9.8-20.1); Calc. Creatinine Clearance 86 mL/min (70-130); Calcium 7.8 mg/dL (7.8-10.44); Carbon Dioxide 26 mmol/L (23-31); Chloride 108 mmol/L (98-107); Estimated GFR-MDRD Greater than 90
[2017-03-26 04:39] LABS: Band 4 % (5-11); Hematocrit 30.1 % (36.0-47.0); Mean Platelet Volume 8.5 fL (7.4-10.4); Neutrophil 88 % (42-75); Red Blood Cell (RBC) Count 3.64 mill/uL (4.20-5.40); White Blood Cell (WBC) Count 19.3 thou/uL (4.8-10.8)
[2017-03-26] MEDS: Lorazepam 2 MG/ML VIAL SLOW IVP PRN ×3 (05:05→21:38)
[2017-03-26] MEDS: Cefepime 2 GM in Sodium Chloride 0.9% 100 ML IVPB SCH (06:01)
[2017-03-26] MEDS ORDERED: Fentanyl 100 MCG/2 ML VIAL ONE (07:30)
[2017-03-26] MEDS ORDERED: Midazolam HCl 2 mg/2 ml Vial ONE (07:30)
[2017-03-26] MEDS ORDERED: Lidocaine 1% (PF) 30 ML VIAL ONE (07:36)
[2017-03-26] MEDS ORDERED: Bupivacaine PF 0.5% 30 ML VIAL ONE (07:36)
[2017-03-26] MEDS ORDERED: Lidocaine 2% PF 100 mg/5 ml Syringe ONE (07:36)
[2017-03-26 07:51] LABS: Sodium 141 mmol/L (135-148)
[2017-03-26 08:01] LABS: Mechanical Tidal Volume 400 ml; Mode SIMV/PSV; Modified Allen's Test NOT DONE; Pressure Support 10 cmH2O; Vent YES
[2017-03-26] MEDS ORDERED: PHENYLEPHRINE-NS 100 MCG/ML 10 ML SYRINGE ONE (08:24)
[2017-03-26] MEDS ORDERED: Lidocaine 1% w/Epinephrine 1:200K 30 ML VIAL ONE (08:52)
[2017-03-26] MEDS: Ferrous Sulfate 325 MG TAB PO SCH ×2 (09:04→12:07)
[2017-03-26] MEDS: Carvedilol 6.25 MG TAB PO SCH ×2 (09:13→21:06)
[2017-03-26] MEDS: Acetylcysteine 20% 200 MG/ML 30 ML VIAL PO SCH ×2 (09:13→21:06)
[2017-03-26] MEDS: Pantoprazole 40 MG GRANULES PACKET PER TUBE SCH (09:14)
[2017-03-26] MEDS: Enoxaparin Sodium 40 MG/0.4 ML SYRINGE SC SCH (09:47)
--- NOTE | 2017-03-26 10:00 | OP ---
PREOPERATIVE DIAGNOSES: Respiratory failure and malnutrition. SURGEON: John Ho M.D. PROCEDURE PERFORMED: Esophagogastroduodenoscopy, percutaneous endoscopic gastrostomy, tracheostomy placement. INDICATIONS: This is a 66-year-old female who has been on mechanical ventilator for over 2 weeks no w, unable to wean from the vent. Also, she has dementia and is unable to swallow, needs feeding tub e. PROCEDURE: After informed consent was obtained, the patient was taken to the operating room and giv en general endotracheal anesthesia, placed in supine position. The video endoscope was inserted tra nsorally and advanced through the esophagus into the stomach. The stomach was insufflated with air under water and was insufflated. Was able to palpate the abdominal wall and see the impression in t he stomach. The skin was anesthetized. After it was prepped, a needle was inserted transcutaneousl y into the stomach, the wire inserted. The wire was grasped with a snare and brought out through th e mouth. Then, this was connected to the tube and brought retrograde through the stomach through th e skin. The skin was incised with an 11 blade and the tube was then brought all the way back to whe re the flange was snugged against the gastric wall. The endoscope was then reinserted and inspected the tube. The tube was okay. The securing flange was applied. The clamp and flange applied. The patient tolerated this procedure well. Sterile bandage applied. Then she was placed in reverse Tr endelenburg, neck was prepped and draped in the usual fashion. Local anesthesia with 1% lidocaine w ith epinephrine was infiltrated. A transverse cervical incision was performed 2 cm from above the b ase of sternal notch. The skin incised with a 15 blade, subcu divided sharply. Then, the midline w as incised with electrocautery and the strap muscles were to expose the tracheal rings. T he trachea was secured with a 2-0 Prolene suture either side of midline. The midline of the trachea was incised with an 11 blade scalpel. The endotracheal tube visualized. The tracheal facility manager ins erted. The endotracheal tube was removed under direct vision as the #8 Shiley tracheostomy tube ins erted. The balloon inflated, retained its air, the racing adapter applied and the patient was venti lated. Good CO2, good waveform, sterile bandage applied. Hemostasis was assured. The Velcro cervi ameya strap applied. Sterile bandage applied. The patient tolerated the procedure well and transferr ed to ICU in serious but stable condition.
--- NOTE | 2017-03-26 11:34 | PDOC.PN ---
- Subjective Encounter Start Date: 03/26/17 Encounter Start Time: 11:32 Subjective: s/p Trach and PEG.tolerated the procedure well. -: sedated and on vent Via trach - Objective Resuscitation Status: Resuscitation Status FULL:Full Resuscitation MAR Reviewed: Yes Vital Signs & Weight: Vital Signs (12 hours) Temp Pulse Resp BP Pulse Ox 03/26/17 10:00 98.5 F 03/26/17 09:35 73 186/84 H 03/26/17 09:30 18 03/26/17 09:13 123/56 L 03/26/17 08:00 98.3 F 16 03/26/17 07:33 62 123/56 L 03/26/17 07:31 66 13 92 L 03/26/17 06:00 15 03/26/17 04:00 98.9 F 22 H 03/26/17 03:07 50 L 03/26/17 03:06 50 L 11 L 97 03/26/17 02:00 14 03/26/17 00:00 98.9 F 12 Weight Admit Weight 111 lb 6.4 oz Weight 143 lb 1.28 oz Most Recent Monitor Data Heart Rate from ECG 71 NIBP 178/74 NIBP BP-Mean 96 Respiration from ECG 16 SpO2 98 I&O: 03/25/17 03/26/17 03/27/17 06:59 06:59 06:59 Intake Total 2086.1 1134 Output Total 1369 781 75 Balance 717.1 353 -75 Result Diagrams: 03/26/17 03:49 03/26/17 03:48 Additional Labs: Microbiology 03/25/17 10:15 Stool - Liquid C. difficile GDH Antigen & Toxins - Final 03/16/17 12:00 Stool C. difficile GDH Antigen & Toxins - Final 03/09/17 17:51 Bronchial Alveolar Lavage Acid Fast Bacilli Smear - Final 03/09/17 16:21 Venous blood - Left Hand Blood Culture - Final NO GROWTH IN 5 DAYS 03/09/17 16:20 Venous blood - Right Hand Blood Culture - Final NO GROWTH IN 5 DAYS 03/09/17 15:30 Alveolar Lavage Bronchoalveolar Lavage Cult, Quant - Final Staphylococcus species Alpha-Strep, not S. pneumoniae 03/09/17 12:15 Stool Stool Occult Blood (MARQUISE) - Final 03/09/17 01:00 Stool Stool Occult Blood (MARQUISE) - Final Laboratory Tests 03/07/17 03/07/17 03/09/17 05:55 16:35 16:45 WBC 16.8 H Plt Count 792 H Iron 9 L B-Natriuretic Peptide MICHAEL Screen Negative Anti-Proteinase 3 Atypical p-ANCA Anti-Myeloperoxidase ANCA ANCA Pattern 03/09/17 03/10/17 03/10/17 16:45 04:10 10:24 WBC 23.2 H Plt Count 845 H Iron B-Natriuretic Peptide 306.3 H MICHAEL Screen Anti-Proteinase 3 Less than 3.5 Atypical p-ANCA <1:20 Anti-Myeloperoxidase <9.0 ANCA <1:20 ANCA Pattern <1:20 03/12/17 03/12/17 03/13/17 03:55 11:41 04:00 WBC 26.8 H 17.0 H Plt Count Iron B-Natriuretic Peptide 817.5 H MICHAEL Screen Anti-Proteinase 3 Atypical p-ANCA Anti-Myeloperoxidase ANCA ANCA Pattern 03/14/17 03/15/17 03/17/17 03:43 04:00 04:15 WBC 19.3 H 24.2 H Plt Count 535 H Iron B-Natriuretic Peptide MICHAEL Screen Anti-Proteinase 3 Atypical p-ANCA Anti-Myeloperoxidase ANCA ANCA Pattern 03/20/17 03/22/17 03/24/17 03:56 03:56 04:19 WBC 20.5 H Plt Count 388 401 H 246 Iron B-Natriuretic Peptide MICHAEL Screen Anti-Proteinase 3 Atypical p-ANCA Anti-Myeloperoxidase ANCA ANCA Pattern 03/25/17 03/26/17 03:43 03:49 WBC 18.2 H 19.3 H Plt Count 232 197 Iron B-Natriuretic Peptide MICHAEL Screen Anti-Proteinase 3 Atypical p-ANCA Anti-Myeloperoxidase ANCA ANCA Pattern Phys Exam - Physical Examination Constitutional: NAD sedated HEENT: moist MMs, sclera anicteric Neck: no JVD Respiratory: no wheezing, no rales, no rhonchi, clear to auscultation bilateral Cardiovascular: RRR, no significant murmur Gastrointestinal: soft, no distention, positive bowel sounds Musculoskeletal: pulses present, edema present sedated sedated Skin: no rash Dx/Plan (1) Acute respiratory failure Code(s): J96.00 - ACUTE RESPIRATORY FAILURE, UNSP W HYPOXIA OR HYPERCAPNIA Status: Acute Comment: Vent management per [facility]. Tracheostomy done today 03/26/17 (2) ARDS (adult respiratory distress syndrome) Code(s): J80 - ACUTE RESPIRATORY DISTRESS SYNDROME Status: Suspected (3) Diarrhea Code(s): R19.7 - DIARRHEA, UNSPECIFIED Status: Acute Comment: H/O CDiff. negative testing twice this admission. rectal Tube in place (4) Atypical pneumonia Code(s): J18.9 - PNEUMONIA, UNSPECIFIED ORGANISM Status: Acute Comment: on Cefepime and zyvox, steroids (5) GI bleed Code(s): K92.2 - GASTROINTESTINAL HEMORRHAGE, UNSPECIFIED Status: Suspected Qualifiers: GI bleed type/associated pathology: unspecified gastrointestinal hemorrhage type Qualified Code(s): K92.2 - Gastrointestinal hemorrhage, unspecified Comment: Normal EGD and colonoscopy 03/09/17.Anticoagulation on hold (6) HTN (hypertension) Code(s): I10 - ESSENTIAL (PRIMARY) HYPERTENSION Status: Chronic Qualifiers: Hypertension type: essential hypertension Qualified Code(s): I10 - Essential (primary) hypertension (7) Microcytic anemia Code(s): D50.9 - IRON DEFICIENCY ANEMIA, UNSPECIFIED Status: Chronic (8) Paroxysmal a-fib Code(s): I48.0 - PAROXYSMAL ATRIAL FIBRILLATION Status: Chronic Comment: rate controlled on Coreg.cardiology following.Xarelto on hold due to drop in Hb with +FOBT (9) Guaiac positive stools Status: Acute Comment: EGD/Colonoscopy without active bleed 03/09/17 - Plan continue antibiotics, PT/OT, social insurance specialist, respiratory therapy, DVT proph w/ SCDs S/P Trach and PEG today.restart TF tomorrow. -: Veny support per PCCM.weaning as tolerated. -: Lung infiltrates remians the same.?ARDS/Amiodarone lung toxicity/PNA -: on ABx, high dose steroids,Mucomyst per PCCM -: a-fib rate controlled on Coreg.monitor * .AM labs * No family available.PCT following . * placement depends on recovery Review of Systems - Review of Systems Other: can not be obtained due to sedation - Medications/Allergies Allergies/Adverse Reactions: Allergies Allergy/AdvReac Type Severity Reaction Status Date / Time Penicillins Allergy Rash Verified 12/10/16 02:52 Medications: Current Medications Acetaminophen (Tylenol) 650 mg PO Q4H PRN PRN Reason: Headache/Fever or Pain Last Admin: 03/08/17 14:33 Dose: 650 mg Acetylcysteine (Mucomyst 20%) 600 mg PO BID [facility] Last Admin: 03/26/17 09:13 Dose: Not Given Al Hydroxide/Mg Hydroxide (Maalox) 15 ml PO Q4H PRN PRN Reason: Heartburn or Indigestion Albuterol/Ipratropium (Duoneb) 3 ml NEB [id number] [facility] Last Admin: 03/26/17 07:31 Dose: 3 ml Lipase/Protease/[place]ylase ([place] [id number]) 1 cap FS .PER PROTOCOL PRN PRN Reason: TUBE OCCLUSION PROTOCOL Carvedilol (Coreg) 6.25 mg PO BID [facility] Last Admin: 03/26/17 09:13 Dose: Not Given Diphenoxylate HCl/Atropine (Lomotil) 1 tab PO Q6H PRN PRN Reason: Diarrhea/Loose Stools Enoxaparin Sodium (Lovenox) 40 mg SC 0900 [facility] Last Admin: 03/26/17 09:47 Dose: Not Given Ferrous Sulfate (Feosol) 325 mg PO BID-WM [facility] Last Admin: 03/26/17 09:04 Dose: Not Given Hydralazine HCl (Apresoline) 10 mg SLOW IVP Q4H PRN PRN Reason: Systolic BP > 180 Last Admin: 03/22/17 08:11 Dose: 10 mg Cefepime HCl 2 gm/ Sodium (Chloride) 100 mls @ 200 mls/hr IVPB 0600,1800 BENNY Last Admin: 03/26/17 06:01 Dose: 100 mls Fentanyl (Fentanyl Cadd) 250 mls @ 0 mls/hr IVPB INF BENNY; Titrate PRN Reason: Protocol Stop: 04/24/17 14:16 Last Admin: 03/25/17 22:33 Dose: 250 mls Fentanyl Citrate (Fentanyl Bolus) 250 mls @ 0 mls/hr IVPB PRN PRN; As Directed PRN Reason: VENTILATION SEDATION PROTOCOL Stop: 04/24/17 14:03 Loperamide HCl (Imodium) 2 mg PO PRN PRN PRN Reason: Diarrhea/Loose Stools Last Admin: 03/25/17 13:35 Dose: 2 mg Loratadine (Claritin) 10 mg PO DAILYPRN PRN PRN Reason: Sinus Symptoms Lorazepam (Ativan) 2 mg SLOW IVP Q2H PRN PRN Reason: Anxiety to achieve Henry 2-3 Stop: 04/24/17 14:02 Last Admin: 03/26/17 05:05 Dose: 2 mg Magnesium Hydroxide (Milk Of Magnesium) 30 ml PO DAILYPRN PRN PRN Reason: Constipation Methylprednisolone Sodium Succinate (Solu-Medrol) 60 mg IVP Q6HR [facility] Last Admin: 03/26/17 06:01 Dose: 60 mg Mineral Oil/White Petrolatum (Eucerin Cream) 0 gm TOP BIDPRN PRN PRN Reason: Dry Skin Ondansetron HCl (Zofran Odt) 4 mg PO Q6H PRN PRN Reason: Nausea/Vomiting Ondansetron HCl (Zofran) 4 mg IVP Q6H PRN PRN Reason: Nausea/Vomiting Last Admin: 03/06/17 22:17 Dose: 4 mg Pantoprazole Sodium (Protonix) 40 mg PER TUBE DAILY [facility] Last Admin: 03/26/17 09:14 Dose: Not Given Propofol (Diprivan) 1,000 mg IV INF PRN; Protocol PRN Reason: TO ACHIEVE HENRY SCORE 2-3 Stop: 04/24/17 22:01 Last Admin: 03/25/17 22:15 Dose: 1,000 mg Senna (Senokot) 2 tab PO HSPRN PRN PRN Reason: Constipation Sodium Bicarbonate (Bicarbonate, Sodium) 650 mg PER TUBE .PER PROTOCOL PRN PRN Reason: ENTERAL TUBE OCCLUSION Sodium Chloride (Buchanan Nasal Morris 0.65%) 0 ml EA NARE QIDPRN PRN PRN Reason: Nasal Congestion Sodium Chloride (Flush - Normal Saline) 10 ml IVF Q12HR [facility] Last Admin: 03/26/17 09:47 Dose: Not Given Sodium Chloride (Flush - Normal Saline) 10 ml IVF PRN PRN PRN Reason: Saline Flush Last Admin: 03/18/17 17:00 Dose: 10 ml
--- NOTE | 2017-03-26 15:57 | PRG ---
DATE OF SERVICE: 03/26/2017 SUBJECTIVE: Ms. Joiner had a trach and PEG this morning. She is still sedated from surgery. OBJECTIVE: VITAL SIGNS: When I evaluated, she is afebrile, temperature is 99, blood pressure 124/58, heart rat e 62. Intake and output positive 353. LUNGS: Remarkable for coarse equal breath sounds. HEART: Regular rhythm. ABDOMEN: Soft. LABORATORY DATA: White count 19.3, hemoglobin 9.5, platelets 197. Sodium 141, potassium 4.9, chloride 108, bicarbonate 26, BUN 20, creatinine 0.6. IMPRESSION: Diffuse interstitial infiltrates either post-inflammatory diffuse alveolar damage or hy persensitivity from amiodarone. PLAN: Continue current care with slow weaning. Placement in a long-term acute care will be the nex t step.
[2017-03-27] MEDS: Fentanyl 20 MCG/ML 250 ML IVPB SCH (00:53)
[2017-03-27 05:16] LABS: Anion Gap 12 mmol/L (10-20); BUN (Urea Nitrogen) 22 mg/dL (9.8-20.1); Calc. Creatinine Clearance 90 mL/min (70-130); Carbon Dioxide 27 mmol/L (23-31); Chloride 106 mmol/L (98-107); Estimated GFR-MDRD Greater than 90
[2017-03-27 05:30] LABS: Band 3 % (5-11); Hematocrit 33.1 % (36.0-47.0); Mean Platelet Volume 8.9 fL (7.4-10.4); Metamyelocyte 3 % (0-0); Neutrophil 82 % (42-75); Polychromasia SLIGHT = 2-3 cells (100X) (0-2/hpf); Reactive Lymphocytes 1 % (0-10); Tear Drops SLIGHT = 2-5 cells (100X) (0-1/hpf); White Blood Cell (WBC) Count 28.9 thou/uL (4.8-10.8)
[2017-03-27 07:08] LABS: Oxyhemoglobin 94.5 % (94.0-97.0); Sodium 141 mmol/L (135-148)
[2017-03-27 07:10] LABS: Mechanical Tidal Volume 400 ml; Mode PSIMV; Modified Allen's Test NOT DONE; Pressure Support 10 cmH2O; Vent YES
--- NOTE | 2017-03-27 09:04 | RAD ---
AP VIEW OF THE CHEST: INDICATION: Intubation. COMPARISON: Prior study dated 03/24/17. IMPRESSION: Since the comparison examination, there has been interval placement of a tracheostomy tube. Gastric catheter has been removed. Diffuse parenchymal opacities bilaterally are stable. Small pleural ef fusions persist. No pneumothorax is evident. POS: [facility]
[2017-03-27] MEDS: Ferrous Sulfate 325 MG TAB PO SCH ×2 (10:03→17:13)
[2017-03-27] MEDS: Carvedilol 6.25 MG TAB PO SCH ×2 (10:03→20:12)
[2017-03-27] MEDS: Enoxaparin Sodium 40 MG/0.4 ML SYRINGE SC SCH (10:05)
[2017-03-27] MEDS: Pantoprazole 40 MG GRANULES PACKET PER TUBE SCH (10:05)
[2017-03-27] MEDS: Acetylcysteine 20% 200 MG/ML 30 ML VIAL PO SCH ×2 (10:05→20:13)
--- NOTE | 2017-03-27 11:55 | PRG ---
DATE OF SERVICE: 03/27/2017 Ms. Joiner remains mechanically ventilated. She is in no distress. PHYSICAL EXAMINATION: VITAL SIGNS: Heart rate in the 80s, blood pressures is 182/70, respirations 20, oximetry is 100%, b lood pressure overnight has been modestly elevated. LUNGS: Lungs are clear. HEART: Regular rhythm. ABDOMEN: Abdomen is soft. EXTREMITIES: Without asymmetry, no change in radiograph overall. White count 28.9, hemoglobin 10.4, platelets 233. Electrolytes are normal. BUN is 22, creatinine 0 .6, pH 7.47, CO2 36, pO2 73. Her ventilatory rate has been decreased and her PEEP has been decreased to 5. IMPRESSION: Respiratory failure associated with either diffuse alveolar damage and adult respirator y distress syndrome after pneumonia or amiodarone hypersensitivity. PLAN: Continue slow weaning with eventual LTAC placement.
--- NOTE | 2017-03-27 12:06 | PDOC.PN ---
- Subjective Encounter Start Date: 03/27/17 Encounter Start Time: 11:30 -: non-verbal Pt seen and examined. chart reviewed in its entrety. It has been severla days since i last saw this patient. Pulmonary note reviewed. Pt working with PT at present. Trached on SIMV ventilation. no acute events reported overnight ROs not obtainable due to trached/ventilated status - Objective Resuscitation Status: Resuscitation Status FULL:Full Resuscitation MAR Reviewed: Yes Vital Signs & Weight: Vital Signs (12 hours) Temp Pulse Resp BP Pulse Ox 03/27/17 10:32 88 182/73 H 03/27/17 10:30 92 23 H 100 03/27/17 10:03 182/70 H 03/27/17 07:29 98.8 F 95 26 H 99 03/27/17 06:47 91 187/73 H 03/27/17 06:45 95 29 H 99 03/27/17 06:08 87 183/76 H 03/27/17 06:00 26 H 03/27/17 04:00 99.6 F 21 H 03/27/17 03:10 89 177/68 H 03/27/17 02:00 26 H 03/27/17 00:51 96 193/79 H Weight Admit Weight 111 lb 6.4 oz Weight 145 lb 4.554 oz Most Recent Monitor Data Heart Rate from ECG 89 NIBP 171/62 NIBP BP-Mean 82 Respiration from ECG 25 SpO2 100 I&O: 03/26/17 03/27/17 03/28/17 06:59 06:59 06:59 Intake Total 1134 621.6 30 Output Total 781 477 12 Balance 353 144.6 18 Result Diagrams: 03/27/17 03:55 03/27/17 03:55 Radiology Reviewed by me: Yes EKG Reviewed by me: Yes Phys Exam - Physical Examination Constitutional: NAD HEENT: PERRLA, moist MMs, sclera anicteric, oral pharynx no lesions Neck: no nodes, no JVD, supple, full ROM trach C/D/I coarse crackels bilaterally. Good air movement Cardiovascular: RRR, no significant murmur, no rub Gastrointestinal: soft, non-tender, no distention, positive bowel sounds Musculoskeletal: pulses present, edema present Neurological: non-focal, normal sensation, moves all 4 limbs Lymphatic: no nodes Skin: no rash, normal turgor, cap refill <2 seconds Dx/Plan (1) Atypical pneumonia Code(s): J18.9 - PNEUMONIA, UNSPECIFIED ORGANISM Status: Acute Comment: completed abx. On steroids for ARDS. Vent weaning per pulm. Will be a long process (2) Respiratory failure Code(s): J96.90 - RESPIRATORY FAILURE, UNSP, UNSP W HYPOXIA OR HYPERCAPNIA Status: Acute Qualifiers: Chronicity: acute Respiratory failure complication: hypercapnia Qualified Code(s): J96.02 - Acute respiratory failure with hypercapnia Comment: ARDS. Pulm following, continues on SIMV ventilation, pt trached and awake (3) Diverticulosis of colon Code(s): K57.30 - DVRTCLOS OF LG INT W/O PERFORATION OR ABSCESS W/O BLEEDING Status: Resolved Qualifiers: Diverticulosis bleeding: diverticulosis with bleeding Qualified Code(s): K57.31 - Diverticulosis of large intestine without perforation or abscess with bleeding (4) HTN (hypertension) Code(s): I10 - ESSENTIAL (PRIMARY) HYPERTENSION Status: Chronic Qualifiers: Hypertension type: essential hypertension Qualified Code(s): I10 - Essential (primary) hypertension (5) Acute blood loss anemia Code(s): D62 - ACUTE POSTHEMORRHAGIC ANEMIA Status: Resolved Comment: Hgb 10.x today. s/p prior transfusion. (6) GI bleed Code(s): K92.2 - GASTROINTESTINAL HEMORRHAGE, UNSPECIFIED Status: Resolved Qualifiers: GI bleed type/associated pathology: unspecified gastrointestinal hemorrhage type Qualified Code(s): K92.2 - Gastrointestinal hemorrhage, unspecified Comment: Normal EGD and colonoscopy 03/09/17.Anticoagulation on hold (7) Guaiac positive stools Status: Resolved Comment: EGD/Colonoscopy without active bleed 03/09/17 (8) Iron deficiency Code(s): E61.1 - IRON DEFICIENCY Status: Chronic - Plan cont current plan of care, PT/OT, social media project manager, respiratory therapy * .
[2017-03-27] MEDS ORDERED: Sterile Water 10 ML ONE (12:08)
[2017-03-27] MEDS: Diltiazem HCl 125 MG, Admixture Fee 1 EACH in Sodium Chloride 0.9% 100 ML IVPB SCH ×2 (13:59→22:08)
[2017-03-27] MEDS: Loperamide HCl 2 MG CAP PO PRN (17:13)
[2017-03-28 05:18] LABS: Band 3 % (5-11); Hematocrit 35.4 % (36.0-47.0); Mean Platelet Volume 9.5 fL (7.4-10.4); Neutrophil 91 % (42-75); Red Blood Cell (RBC) Count 4.24 mill/uL (4.20-5.40); White Blood Cell (WBC) Count 22.2 thou/uL (4.8-10.8)
[2017-03-28 05:29] LABS: Anion Gap 15 mmol/L (10-20); BUN (Urea Nitrogen) 23 mg/dL (9.8-20.1); Calc. Creatinine Clearance 97 mL/min (70-130); Carbon Dioxide 24 mmol/L (23-31); Chloride 105 mmol/L (98-107); Estimated GFR-MDRD Greater than 90
[2017-03-28 06:57] LABS: Mechanical Tidal Volume 400 ml; Mode SIMV.PSV; Modified Allen's Test POSITIVE; Oxyhemoglobin 94.1 % (94.0-97.0); Pressure Support 10 cmH2O; Sodium 140 mmol/L (135-148); Vent YES
[2017-03-28] MEDS: Acetylcysteine 20% 200 MG/ML 30 ML VIAL PO SCH ×2 (08:10→21:45)
[2017-03-28] MEDS: Ferrous Sulfate 325 MG TAB PO SCH ×2 (08:10→17:26)
[2017-03-28] MEDS: Carvedilol 6.25 MG TAB PO SCH ×2 (08:11→21:47)
[2017-03-28] MEDS: Enoxaparin Sodium 40 MG/0.4 ML SYRINGE SC SCH (08:12)
[2017-03-28] MEDS: Pantoprazole 40 MG GRANULES PACKET PER TUBE SCH (08:12)
[2017-03-28] MEDS: Fentanyl 20 MCG/ML 250 ML IVPB SCH (08:57)
[2017-03-28] MEDS ORDERED: Digoxin 0.5 MG/2 ML AMP SLOW IVP SCH (09:30)
[2017-03-28] MEDS: Diltiazem HCl 125 MG, Admixture Fee 1 EACH in Sodium Chloride 0.9% 100 ML IVPB SCH ×2 (11:37→19:16)
--- NOTE | 2017-03-28 13:33 | PDOC.PN ---
- Subjective Encounter Start Date: 03/28/17 Encounter Start Time: 09:15 -: non-verbal, old records requested/rev Pt seen and examined earlier on rounds. Pt awake on SIMV, trached, non verbal. Complaning of joint pains. no F/C, no N/V/D/C, no CP. No acute events overnight. 10 point ROS not obtainable due to ventilated/trached status - Objective Resuscitation Status: Resuscitation Status FULL:Full Resuscitation MAR Reviewed: Yes Vital Signs & Weight: Vital Signs (12 hours) Temp Pulse Pulse Pulse Resp BP BP 03/28/17 12:00 17 03/28/17 11:48 98.9 F 03/28/17 11:02 135 H 155/71 H 03/28/17 11:00 119 H 19 03/28/17 10:30 128 H 112 H 151/89 H 03/28/17 10:00 18 03/28/17 09:54 127 H 03/28/17 08:11 149/87 H 03/28/17 08:00 33 H 03/28/17 07:43 98.4 F 135 H 21 H 03/28/17 07:00 98.4 F 03/28/17 06:31 150 H 142/86 H 03/28/17 06:30 127 H 21 H 03/28/17 06:00 24 H 03/28/17 04:00 98.4 F 16 03/28/17 02:48 136 H 18 03/28/17 02:00 18 BP Pulse Ox Pulse Ox Pulse Ox 03/28/17 12:00 03/28/17 11:48 03/28/17 11:02 03/28/17 11:00 93 L 03/28/17 10:30 131/73 94 L 94 L 03/28/17 10:00 03/28/17 09:54 03/28/17 08:11 03/28/17 08:00 03/28/17 07:43 94 L 03/28/17 07:00 03/28/17 06:31 03/28/17 06:30 93 L 03/28/17 06:00 03/28/17 04:00 03/28/17 02:48 99 03/28/17 02:00 Weight Admit Weight 111 lb 6.4 oz Weight 143 lb 1.28 oz Most Recent Monitor Data Heart Rate from ECG 124 NIBP 127/79 NIBP BP-Mean 107 Respiration from ECG 18 SpO2 94 I&O: 03/27/17 03/28/17 03/29/17 06:59 06:59 06:59 Intake Total 621.6 1310 240 Output Total 477 1742 325 Balance 144.6 -432 -85 Result Diagrams: 03/28/17 03:44 03/28/17 03:44 Radiology Reviewed by me: Yes EKG Reviewed by me: Yes Phys Exam - Physical Examination Constitutional: NAD HEENT: PERRLA, moist MMs, sclera anicteric, oral pharynx no lesions Neck: no nodes, no JVD, supple, full ROM trach site C/D/I coarse bilateral crackles, no wheezing Cardiovascular: no significant murmur, no rub, irregular tachycardic Gastrointestinal: soft, non-tender, no distention, positive bowel sounds PEG site c/D/I Musculoskeletal: pulses present, edema present Neurological: non-focal, normal sensation, moves all 4 limbs strength 3/5 X 4 Lymphatic: no nodes Psychiatric: normal affect Skin: no rash, normal turgor, cap refill <2 seconds Dx/Plan (1) Atypical pneumonia Code(s): J18.9 - PNEUMONIA, UNSPECIFIED ORGANISM Status: Acute Comment: completed abx. On steroids for ARDS. Vent weaning per pulm. Will be a long process (2) Respiratory failure Code(s): J96.90 - RESPIRATORY FAILURE, UNSP, UNSP W HYPOXIA OR HYPERCAPNIA Status: Acute Qualifiers: Chronicity: acute Respiratory failure complication: hypoxia and hypercapnia Qualified Code(s): J96.01 - Acute respiratory failure with hypoxia ; J96.02 - Acute respiratory failure with hypercapnia; J96.02 - Acute respiratory failure with hypercapnia; J96.02 - Acute respiratory failure with hypercapnia Comment: ARDS. Pulm following, continues on SIMV ventilation, pt trached and awake (3) Diverticulosis of colon Code(s): K57.30 - DVRTCLOS OF LG INT W/O PERFORATION OR ABSCESS W/O BLEEDING Status: Resolved Qualifiers: Diverticulosis bleeding: diverticulosis with bleeding Qualified Code(s): K57.31 - Diverticulosis of large intestine without perforation or abscess with bleeding (4) HTN (hypertension) Code(s): I10 - ESSENTIAL (PRIMARY) HYPERTENSION Status: Chronic Qualifiers: Hypertension type: essential hypertension Qualified Code(s): I10 - Essential (primary) hypertension (5) Acute blood loss anemia Code(s): D62 - ACUTE POSTHEMORRHAGIC ANEMIA Status: Resolved Comment: Hgb 10.x today. s/p prior transfusion. (6) GI bleed Code(s): K92.2 - GASTROINTESTINAL HEMORRHAGE, UNSPECIFIED Status: Resolved Qualifiers: GI bleed type/associated pathology: unspecified gastrointestinal hemorrhage type Qualified Code(s): K92.2 - Gastrointestinal hemorrhage, unspecified Comment: Normal EGD and colonoscopy 03/09/17.Anticoagulation on hold (7) Guaiac positive stools Status: Resolved Comment: EGD/Colonoscopy without active bleed 03/09/17 (8) Iron deficiency Code(s): E61.1 - IRON DEFICIENCY Status: Chronic (9) Atrial fibrillation with RVR Code(s): I48.91 - UNSPECIFIED ATRIAL FIBRILLATION Status: Acute Comment: paroxysmal and persistent Afib with RVR, on cardizem drip, dig x 1 ordered. Will follow up on cardiology recommendations - Plan DVT proph w/SCDs * .
--- NOTE | 2017-03-28 15:26 | PDOC.CTH ---
Cardiology Progress Note - Subjective Awake, responsive. Recurrent AF/RVR last night. On cardizem drip and given single dose of digoxin earlier today. Rate remains uncontrolled in 110-120s. ROS otherwise negative. - Objective Vital Signs Temp Pulse Pulse Pulse Resp BP BP 03/28/17 14:00 22 H 03/28/17 12:00 17 03/28/17 11:48 98.9 F 03/28/17 11:02 135 H 155/71 H 03/28/17 11:00 119 H 19 03/28/17 10:30 128 H 112 H 151/89 H 03/28/17 10:00 18 03/28/17 09:54 127 H 03/28/17 08:11 149/87 H 03/28/17 08:00 33 H 03/28/17 07:43 98.4 F 135 H 21 H 03/28/17 07:00 98.4 F 03/28/17 06:31 150 H 142/86 H 03/28/17 06:30 127 H 21 H 03/28/17 06:00 24 H 03/28/17 04:00 98.4 F 16 BP Pulse Ox Pulse Ox Pulse Ox 03/28/17 14:00 03/28/17 12:00 03/28/17 11:48 03/28/17 11:02 03/28/17 11:00 93 L 03/28/17 10:30 131/73 94 L 94 L 03/28/17 10:00 03/28/17 09:54 03/28/17 08:11 03/28/17 08:00 03/28/17 07:43 94 L 03/28/17 07:00 03/28/17 06:31 03/28/17 06:30 93 L 03/28/17 06:00 03/28/17 04:00 Admit Weight 111 lb 6.4 oz Weight 143 lb 1.28 oz 03/27/17 03/28/17 03/29/17 06:59 06:59 06:59 Intake Total 621.6 1310 240 Output Total 477 8732 425 Balance 144.6 432 -185 - Physical Examination General/Neuro: NAD Neck: carotid US brisk, no JVD present Lungs: unlabored respirations Heart: PMI normal, other: (irregular) Abdomen: no HSM, NT/ND, soft Extremities: other: (2+ pulses, minimal edema) Other PE findings: Neuro: no focal motor defs - Telemetry Telemetry Rhythm: AF with RVR - Labs Result Diagrams: 03/28/17 03:44 03/28/17 03:44 - Assessment/Plan 1. respiratory failure: aspiration versus amiodarone toxicity; amio discontinued. Wean vent as tolerated. 2. anemia: recent GI bleed; H/H stable currently. 3. atrial fibrillation: Recurrent. Will move forward with full digoxin load IVP and begin oral therapy after completed with load. Continue cardizem drip for now. Will wean to oral rate control agent when able. 4. HTN: stable. Monitor.
--- NOTE | 2017-03-28 16:50 | PRG ---
DATE OF SERVICE: 03/28/2017 SUBJECTIVE: Ms. Joiner is very anxious when she is awake. OBJECTIVE: VITAL SIGNS: Heart rate 112, blood pressure 125/75, respiratory rate 20, oximetry is 93%. GENERAL: She is still in atrial fibrillation. She is up to 15 mg on the Cardizem, one time dose of digoxin was given this morning. LUNGS: Clear. HEART: Irregular, rapid. ABDOMEN: Soft. EXTREMITIES: Without asymmetry. LABORATORY DATA: White count 22, hemoglobin 10.9, platelets 186. Electrolytes are normal. BUN 23 and creatinine 0.5. Intake and output is negative 432. IMPRESSION: Respiratory failure secondary to either diffuse alveolar damage with acute respiratory distress syndrome versus hypersensitivity associated with amiodarone. PLAN: Continue slow weaning. We will increase her Seroquel. We will add q.i.d. alprazolam. The o piates really probably are helping anything and she is in extreme tolerance for opiates.
[2017-03-28] MEDS: Digoxin 0.5 MG/2 ML AMP SLOW IVP SCH ×2 (17:25→21:46)
[2017-03-28] MEDS: ALPRAZolam 0.5 MG TAB PO SCH ×2 (17:26→21:46)
[2017-03-28] MEDS: HYDROcodone/Acetaminophen 10/325 mg Tablet PER TUBE PRN (23:38)
[2017-03-29] MEDS: Digoxin 0.5 MG/2 ML AMP SLOW IVP SCH (04:37)
[2017-03-29] MEDS: Diltiazem HCl 125 MG, Admixture Fee 1 EACH in Sodium Chloride 0.9% 100 ML IVPB SCH ×3 (04:37→22:09)
[2017-03-29 05:02] LABS: Anion Gap 12 mmol/L (10-20); BUN (Urea Nitrogen) 22 mg/dL (9.8-20.1); Calc. Creatinine Clearance 92 mL/min (70-130); Carbon Dioxide 25 mmol/L (23-31); Chloride 103 mmol/L (98-107); Estimated GFR-MDRD Greater than 90
[2017-03-29 05:33] LABS: Anisocytosis MODERATE=16-30 cells (100X) (0-5/hpf); Band 4 % (5-11); Mean Platelet Volume 9.4 fL (7.4-10.4); Metamyelocyte 1 % (0-0); Neutrophil 87 % (42-75); Polychromasia SLIGHT = 2-3 cells (100X) (0-2/hpf); Red Blood Cell (RBC) Count 3.59 mill/uL (4.20-5.40); White Blood Cell (WBC) Count 16.3 thou/uL (4.8-10.8)
[2017-03-29] MEDS ORDERED: Lacri-Lube Opth Oint 3.5 GM TUBE EA EYE PRN (08:06)
[2017-03-29] MEDS ORDERED: Dextrose 5% in Water 1,000 ML IV PRN (08:07)
[2017-03-29] MEDS ORDERED: Dextrose 50% Abboject 50 ML SYRINGE SLOW IVP PRN (08:07)
[2017-03-29] MEDS: Digoxin 0.125 MG TAB PO SCH (09:40)
[2017-03-29] MEDS: Ferrous Sulfate 325 MG TAB PO SCH ×2 (09:41→17:04)
[2017-03-29] MEDS: ALPRAZolam 0.5 MG TAB PO SCH ×4 (09:41→20:14)
[2017-03-29] MEDS: Acetylcysteine 20% 200 MG/ML 30 ML VIAL PO SCH ×2 (09:41→20:15)
[2017-03-29] MEDS: Carvedilol 6.25 MG TAB PO SCH ×2 (09:41→20:14)
[2017-03-29] MEDS: Pantoprazole 40 MG GRANULES PACKET PER TUBE SCH (09:42)
[2017-03-29] MEDS: Enoxaparin Sodium 40 MG/0.4 ML SYRINGE SC SCH (09:42)
--- NOTE | 2017-03-29 10:44 | PDOC.PN ---
- Subjective Encounter Start Date: 03/29/17 Encounter Start Time: 08:40 -: non-verbal, old records requested/rev Pt seen and examined, sitting up to chair on SIMV via trach. awake, alert, trying to mouth words, hard to understand and she is still too weak to wrtie. No f/C, no n/V/D/C, no CP. asking for eye drops. Pt did well with inital dose of Dig, cardiology completed th eload and continued daily dig treatment. HR better today, still in Afib at present. HR 90s-120 now, instead of 130-150 ROS not possible due to communication barrier. - Objective Resuscitation Status: Resuscitation Status FULL:Full Resuscitation MAR Reviewed: Yes Vital Signs & Weight: Vital Signs (12 hours) Temp Pulse Resp BP Pulse Ox 03/29/17 10:00 28 H 03/29/17 09:41 133/78 03/29/17 09:40 114 H 03/29/17 08:00 28 H 03/29/17 07:59 123 H 153/82 H 03/29/17 07:52 112 H 26 H 03/29/17 07:00 98.7 F 03/29/17 06:00 27 H 03/29/17 04:37 109 H 03/29/17 04:00 25 H 03/29/17 03:00 98.6 F 03/29/17 02:49 109 H 23 H 100 03/29/17 02:00 21 H 03/29/17 00:00 22 H 03/28/17 23:00 98.7 F Weight Admit Weight 111 lb 6.4 oz Weight 141 lb 5.061 oz Most Recent Monitor Data Heart Rate from ECG 153 NIBP 124/86 NIBP BP-Mean 107 Respiration from ECG 22 SpO2 93 I&O: 03/28/17 03/29/17 03/30/17 06:59 06:59 06:59 Intake Total 1310 1967 240 Output Total 1742 1720 80 Balance -432 247 160 Result Diagrams: 03/29/17 03:53 03/29/17 03:53 Radiology Reviewed by me: Yes EKG Reviewed by me: Yes Phys Exam - Physical Examination Constitutional: NAD HEENT: PERRLA, moist MMs, sclera anicteric, oral pharynx no lesions Neck: no nodes, no JVD, supple, full ROM Trach site C/D/I Respiratory: no wheezing, no rhonchi coarse crackles bilaterally, about the same. good air movement, symmetric Cardiovascular: no significant murmur, irregular Gastrointestinal: soft, non-tender, no distention, positive bowel sounds PEG site C/D/I Musculoskeletal: pulses present, edema present Neurological: non-focal, normal sensation, moves all 4 limbs Lymphatic: no nodes Psychiatric: normal affect Skin: no rash, normal turgor, cap refill <2 seconds Dx/Plan (1) Atypical pneumonia Code(s): J18.9 - PNEUMONIA, UNSPECIFIED ORGANISM Status: Acute Comment: completed abx. On steroids for ARDS. Vent weaning per pulm. Will be a long process. Denied LTAC by Insurance, Peer t Peer planned for this afternoon (2) Respiratory failure Code(s): J96.90 - RESPIRATORY FAILURE, UNSP, UNSP W HYPOXIA OR HYPERCAPNIA Status: Acute Qualifiers: Chronicity: acute Respiratory failure complication: hypoxia and hypercapnia Qualified Code(s): J96.01 - Acute respiratory failure with hypoxia ; J96.02 - Acute respiratory failure with hypercapnia; J96.02 - Acute respiratory failure with hypercapnia; J96.02 - Acute respiratory failure with hypercapnia Comment: ARDS. Pulm following, continues on SIMV ventilation, pt trached and awake (3) HTN (hypertension) Code(s): I10 - ESSENTIAL (PRIMARY) HYPERTENSION Status: Chronic Qualifiers: Hypertension type: essential hypertension Qualified Code(s): I10 - Essential (primary) hypertension (4) GI bleed Code(s): K92.2 - GASTROINTESTINAL HEMORRHAGE, UNSPECIFIED Status: Resolved Qualifiers: GI bleed type/associated pathology: unspecified gastrointestinal hemorrhage type Qualified Code(s): K92.2 - Gastrointestinal hemorrhage, unspecified Comment: Normal EGD and colonoscopy 03/09/17.Anticoagulation on hold (5) Iron deficiency Code(s): E61.1 - IRON DEFICIENCY Status: Chronic (6) Atrial fibrillation with RVR Code(s): I48.91 - UNSPECIFIED ATRIAL FIBRILLATION Status: Acute Comment: paroxysmal and persistent Afib with RVR, on cardizem drip, dig. Will follow up on cardiology recommendations (7) Diverticulosis of colon Code(s): K57.30 - DVRTCLOS OF LG INT W/O PERFORATION OR ABSCESS W/O BLEEDING Status: Resolved Qualifiers: Diverticulosis bleeding: diverticulosis with bleeding Qualified Code(s): K57.31 - Diverticulosis of large intestine without perforation or abscess with bleeding (8) Guaiac positive stools Status: Resolved Comment: EGD/Colonoscopy without active bleed 03/09/17 (9) Acute blood loss anemia Code(s): D62 - ACUTE POSTHEMORRHAGIC ANEMIA Status: Resolved Comment: Hgb 10.x today. s/p prior transfusion. - Plan * .
[2017-03-29] MEDS ORDERED: Carvedilol 6.25 MG TAB PO SCH (10:45)
[2017-03-29] MEDS ORDERED: Artificial Tears 18 DROP/0.9 ML EA EYE PRN (10:45)
[2017-03-29] MEDS: HumaLOG 300 UNITS/3 ML VIAL SC PRN ×3 (12:14→21:46)
[2017-03-29 13:30] VITALS: BMI 28.5
--- NOTE | 2017-03-29 17:36 | PRG ---
DATE OF SERVICE: 03/29/2017 SUBJECTIVE: Evie Joiner is much more cooperative and less anxious; hopefully, this is because of the evening dose of Seroquel. She has actually done well with spontaneous breathing trial today. S he sits up in the chair. OBJECTIVE: VITAL SIGNS: Blood pressure 138/75, heart rates in the 90s, respiratory rates in the 20. She is st ill in atrial fibrillation. LUNGS: Clear. HEART: Regular rhythm. ABDOMEN: Soft. LABORATORY DATA: White count 16.3, hemoglobin 9.6 and platelets count of 158,000. Electrolytes are normal. IMPRESSION: 1. Respiratory failure? secondary to diffuse alveolar damage versus amiodarone hypersensitivity. 2. Status post tracheostomy and PEG. 3. Deconditioning leading up to this admission for recurrent atrial fibrillation off amiodarone on Cardizem and beta-marietta now. She has also received digoxin. We would order if it would be worthw hile to attempt cardioversion, while we have an airway. We will continue with current supportive ca re; perhaps we may wean to a trach collar in the morning has a trial. We will continue with nocturn al ventilation for now.
[2017-03-30 05:30] LABS: Anion Gap 14 mmol/L (10-20); BUN (Urea Nitrogen) 23 mg/dL (9.8-20.1); Calc. Creatinine Clearance 103 mL/min (70-130); Calcium 8.1 mg/dL (7.8-10.44); Carbon Dioxide 24 mmol/L (23-31); Chloride 103 mmol/L (98-107); Estimated GFR-MDRD Greater than 90
[2017-03-30 05:34] LABS: Band 3 % (5-11); Mean Platelet Volume 9.3 fL (7.4-10.4); Neutrophil 94 % (42-75); Red Blood Cell (RBC) Count 3.95 mill/uL (4.20-5.40); White Blood Cell (WBC) Count 14.5 thou/uL (4.8-10.8)
[2017-03-30] MEDS: HumaLOG 300 UNITS/3 ML VIAL SC PRN ×4 (05:59→22:27)
[2017-03-30 07:02] LABS: Oxyhemoglobin 95.3 % (94.0-97.0); Sodium 137 mmol/L (135-148)
[2017-03-30 07:13] LABS: Mechanical Tidal Volume 400 ml; Mode SIMV; Modified Allen's Test POSITIVE; Pressure Support 5 cmH2O; Spontaneous Rate 24 min; Vent YES
[2017-03-30] MEDS: Diltiazem HCl 125 MG, Admixture Fee 1 EACH in Sodium Chloride 0.9% 100 ML IVPB SCH (08:04)
[2017-03-30] MEDS: ALPRAZolam 0.5 MG TAB PO SCH ×4 (09:24→21:46)
[2017-03-30] MEDS: Pantoprazole 40 MG GRANULES PACKET PER TUBE SCH (09:24)
[2017-03-30] MEDS: Carvedilol 6.25 MG TAB PO SCH ×2 (09:25→21:43)
[2017-03-30] MEDS: Digoxin 0.125 MG TAB PO SCH (09:25)
[2017-03-30] MEDS: Enoxaparin Sodium 40 MG/0.4 ML SYRINGE SC SCH (09:26)
[2017-03-30] MEDS: Ferrous Sulfate 325 MG TAB PO SCH (09:28)
[2017-03-30] MEDS: Acetylcysteine 20% 200 MG/ML 30 ML VIAL PO SCH (09:37)
--- NOTE | 2017-03-30 13:01 | PDOC.CTH ---
Cardiology Progress Note - Subjective No new issues from CV standpoint. Rates nicely controlled now. Remains in AF. Not anticoagulation candidate due to profound anemia on admission. ROS otherwise negative. - Objective Vital Signs Temp Pulse Resp BP Pulse Ox 03/30/17 11:28 69 149/73 H 03/30/17 11:25 79 21 H 99 03/30/17 10:00 24 H 03/30/17 09:25 93 163/80 H 03/30/17 08:00 98.3 F 93 21 H 100 03/30/17 07:22 93 169/80 H 03/30/17 06:00 25 H 03/30/17 04:00 22 H 03/30/17 03:00 98.0 F 03/30/17 02:29 95 24 H 100 03/30/17 02:00 23 H Admit Weight 111 lb 6.4 oz Weight 141 lb 8.588 oz 03/29/17 03/30/17 03/31/17 06:59 06:59 06:59 Intake Total 1967 1839 Output Total 1720 1155 95 Balance 247 684 -95 - Physical Examination General/Neuro: NAD Neck: carotid US brisk, no JVD present Lungs: CTA, unlabored respirations Heart: PMI normal, other: (irregular) Abdomen: no HSM, NT/ND, soft Extremities: + edema B Other PE findings: Neuro: no focal motor defs - Telemetry Telemetry Rhythm: AF with CVR - Labs Result Diagrams: 03/30/17 03:48 03/30/17 03:48 - Assessment/Plan 1. respiratory failure: aspiration versus amiodarone toxicity; amio discontinued. Wean vent as tolerated. 2. anemia: recent GI bleed; H/H stable currently. Not anticoagulation candidate. 3. atrial fibrillation: Recurrent. Now nicely rate controlled with digoxin loading and increase in carvedilol dosing. Will wean cardizem over next few hours. 4. HTN: stable. Monitor.
--- NOTE | 2017-03-30 13:11 | PDOC.PN ---
- Subjective Encounter Start Date: 03/30/17 Encounter Start Time: 10:20 Pt seen an exmained earlier on rounds. Pt sitting up in bed/chair. sleeping soundly, easily arousable. Case discussed iwth Dr barbosa. Case discussed with patients insurance compant late yesterday, pt had not had enough days on the vent or clear documentation of weaning attempt failures to qualift for LTAC. Meets number of days requirements today. Pt did fail multiple attemps at weaning, thus tracheostomy was placed. Since then, pt has failed daily attempts at weaning support No f/C, no N/V/d/C, HR down in the 80-90s today - Objective Resuscitation Status: Resuscitation Status FULL:Full Resuscitation MAR Reviewed: Yes Vital Signs & Weight: Vital Signs (12 hours) Temp Pulse Resp BP Pulse Ox 03/30/17 12:00 98.0 F 22 H 03/30/17 11:28 69 149/73 H 03/30/17 11:25 79 21 H 99 03/30/17 10:00 24 H 03/30/17 09:25 93 163/80 H 03/30/17 08:00 98.3 F 93 21 H 100 03/30/17 07:22 93 169/80 H 03/30/17 06:00 25 H 03/30/17 04:00 22 H 03/30/17 03:00 98.0 F 03/30/17 02:29 95 24 H 100 03/30/17 02:00 23 H Weight Admit Weight 111 lb 6.4 oz Weight 141 lb 8.588 oz Most Recent Monitor Data Heart Rate from ECG 78 NIBP 135/61 NIBP BP-Mean 72 Respiration from ECG 19 SpO2 95 I&O: 03/29/17 03/30/17 03/31/17 06:59 06:59 06:59 Intake Total 1967 1839 Output Total 1720 1155 695 Balance 247 274 -695 Result Diagrams: 03/30/17 03:48 03/30/17 03:48 Additional Labs: Accuchecks 03/30/17 03/30/17 03/29/17 10:57 03:48 21:46 POC Glucose 185 H 170 H 206 H 03/29/17 17:03 POC Glucose 158 H Radiology Reviewed by me: Yes EKG Reviewed by me: Yes Phys Exam - Physical Examination Constitutional: NAD HEENT: PERRLA, moist MMs, sclera anicteric, oral pharynx no lesions Neck: no nodes, no JVD, supple, full ROM trach site c/D/I Respiratory: no wheezing, no rhonchi coarse bilateral crackles bilaterally, good air movement, symmetric chest Cardiovascular: no significant murmur, no rub, irregular Gastrointestinal: soft, non-tender, no distention, positive bowel sounds PEG site c/D/I Musculoskeletal: pulses present, edema present Neurological: non-focal, normal sensation, moves all 4 limbs Lymphatic: no nodes Psychiatric: normal affect Skin: no rash, normal turgor, cap refill <2 seconds Dx/Plan (1) Respiratory failure Code(s): J96.90 - RESPIRATORY FAILURE, UNSP, UNSP W HYPOXIA OR HYPERCAPNIA Status: Acute Qualifiers: Chronicity: acute Respiratory failure complication: hypoxia and hypercapnia Qualified Code(s): J96.01 - Acute respiratory failure with hypoxia ; J96.02 - Acute respiratory failure with hypercapnia; J96.02 - Acute respiratory failure with hypercapnia; J96.02 - Acute respiratory failure with hypercapnia Comment: ARDS vs amio lung tox/hypersensitivity. Pulm following, continues on SIMV ventilation, pt trached and awake. Pt failed several attempts at weaning prior to trach and thus had trach placed. Has been very slow to wean due to failure to wean/tolerate decreased support. Re-submitting LTAC approval today with update clinicals (2) HTN (hypertension) Code(s): I10 - ESSENTIAL (PRIMARY) HYPERTENSION Status: Chronic Qualifiers: Hypertension type: essential hypertension Qualified Code(s): I10 - Essential (primary) hypertension (3) GI bleed Code(s): K92.2 - GASTROINTESTINAL HEMORRHAGE, UNSPECIFIED Status: Resolved Qualifiers: GI bleed type/associated pathology: unspecified gastrointestinal hemorrhage type Qualified Code(s): K92.2 - Gastrointestinal hemorrhage, unspecified Comment: Normal EGD and colonoscopy 03/09/17.Anticoagulation on hold (4) Iron deficiency Code(s): E61.1 - IRON DEFICIENCY Status: Chronic (5) Atrial fibrillation with RVR Code(s): I48.91 - UNSPECIFIED ATRIAL FIBRILLATION Status: Acute Comment: paroxysmal and persistent Afib with RVR, on cardizem drip, dig. Will follow up on cardiology recommendations (6) Diverticulosis of colon Code(s): K57.30 - DVRTCLOS OF LG INT W/O PERFORATION OR ABSCESS W/O BLEEDING Status: Resolved Qualifiers: Diverticulosis bleeding: diverticulosis with bleeding Qualified Code(s): K57.31 - Diverticulosis of large intestine without perforation or abscess with bleeding (7) Guaiac positive stools Status: Resolved Comment: EGD/Colonoscopy without active bleed 03/09/17 (8) Acute blood loss anemia Code(s): D62 - ACUTE POSTHEMORRHAGIC ANEMIA Status: Resolved Comment: Hgb 10.x today. s/p prior transfusion. (9) Atypical pneumonia Code(s): J18.9 - PNEUMONIA, UNSPECIFIED ORGANISM Status: Resolved (10) Persistent atrial fibrillation with rapid ventricular response Code(s): I48.1 - PERSISTENT ATRIAL FIBRILLATION Status: Acute Comment: Rate controlled in 80s-90s at present. improved on Dig, cardizem. Amio on hold due to concern about acutelung toxicity - Plan * .
[2017-03-30] MEDS ORDERED: Furosemide 40 MG/4 ML VIAL SLOW IVP SCH (15:15)
[2017-03-30] MEDS: Loperamide HCl 2 MG CAP PO PRN (16:47)
--- NOTE | 2017-03-30 17:20 | PRG ---
DATE OF SERVICE: 03/30/2017 SUBJECTIVE: Ms. Joiner continues to be mechanically ventilated. She has failed spontaneous breath ing trial every morning since her tracheostomy was placed. OBJECTIVE: VITAL SIGNS: Heart rate 65, blood pressure 101/46, respiratory rate 22. LUNGS: Remarkable for equal breath sounds. HEART: Regular rhythm. Abdomen: Soft. Weights have been reviewed. Her current weight is 141. Her admitting weight was 121. I suspect sravani gale has 25 pounds of extra volume on board. LABORATORY DATA: Her white count is 16.3, down to 14.5 today; hemoglobin 10.1 and platelets 170. Electrolytes are normal. BUN is 23 and creatinine 0.5. IMPRESSION: 1. Respiratory failure associated with diffuse alveolar damage versus amiodarone hypersensitivity. 2. Volume overload. 3. History of pneumonia. 4. Deconditioning. 5. History of traumatic brain injury. 6. History of tracheostomy and percutaneous endoscopic gastrostomy placement. 7. Atrial fibrillation, currently being managed medically. PLAN: Continue weaning attempts, evaluated for LTAC placement.
[2017-03-31] MEDS: HumaLOG 300 UNITS/3 ML VIAL SC PRN ×3 (04:24→15:37)
[2017-03-31 04:41] LABS: Anion Gap 14 mmol/L (10-20); BUN (Urea Nitrogen) 22 mg/dL (9.8-20.1); Calc. Creatinine Clearance 0 mL/min (70-130); Calcium 7.9 mg/dL (7.8-10.44); Carbon Dioxide 25 mmol/L (23-31); Chloride 102 mmol/L (98-107); Estimated GFR-MDRD Greater than 90
[2017-03-31 04:56] LABS: Band 4 % (5-11); Hematocrit 31.9 % (36.0-47.0); Mean Platelet Volume 9.6 fL (7.4-10.4); Neutrophil 90 % (42-75); Red Blood Cell (RBC) Count 3.86 mill/uL (4.20-5.40); White Blood Cell (WBC) Count 15.5 thou/uL (4.8-10.8)
--- NOTE | 2017-03-31 08:39 | PRG ---
DATE OF SERVICE: 03/31/2017 Ms. Joiner remains mechanically ventilated. She is very weak. PHYSICAL EXAMINATION: VITAL SIGNS: She is afebrile. Heart rate is 94, blood pressure 98/58, earlier 122/65. Output is negative 939. LUNGS: Her lungs are clear. HEART: Irregular rhythm. ABDOMEN: Abdomen is soft and nontender. EXTREMITIES: Without asymmetry. LABORATORY DATA: White count 15.5, hemoglobin 10.3, platelets 140. Electrolytes are normal. IMPRESSION: 1. Respiratory failure. 2. Diffuse alveolar damage with adult respiratory distress syndrome versus amiodarone hypersensitiv ity. 3. Volume overload. 4. Extreme weakness and deconditioning. 5. Status post trach and PEG. 6. History of traumatic brain injury. She failed spontaneous breathing trials on a daily basis. She is not weanable at this point in time . We will continue with current support with gradual decrease in ventilatory support during the day.
[2017-03-31] MEDS: Furosemide 40 MG/4 ML VIAL SLOW IVP SCH (09:15)
[2017-03-31] MEDS: Pantoprazole 40 MG GRANULES PACKET PER TUBE SCH (09:17)
[2017-03-31] MEDS: Carvedilol 6.25 MG TAB PO SCH (09:17)
[2017-03-31] MEDS: Digoxin 0.125 MG TAB PO SCH (09:17)
[2017-03-31] MEDS: Enoxaparin Sodium 40 MG/0.4 ML SYRINGE SC SCH (09:18)
[2017-03-31] MEDS: ALPRAZolam 0.5 MG TAB PO SCH ×4 (09:22→20:25)
--- NOTE | 2017-03-31 12:33 | PDOC.PN ---
- Subjective Encounter Start Date: 03/31/17 Encounter Start Time: 11:00 -: non-verbal Pt seen and examined. Neighbor/friend who is the closest she has to family is at the bedside. Pt authroized me verball to update her. No F/c, no N/V/D/C, no pain at present. nO cough. breathing comfortable on Vent. expedited appeal sent to insurance company yesterday. Once approved, can arrange transfer to [facility]. likely Monday - Objective Resuscitation Status: Resuscitation Status FULL:Full Resuscitation MAR Reviewed: Yes Vital Signs & Weight: Vital Signs (12 hours) Temp Pulse Resp BP Pulse Ox 03/31/17 12:00 23 H 03/31/17 11:00 99.4 F 03/31/17 10:41 101 H 125/71 03/31/17 10:36 113 H 27 H 99 03/31/17 10:00 24 H 03/31/17 09:17 117 H 149/87 H 03/31/17 08:00 97.9 F 115 H 24 H 100 03/31/17 07:00 97.9 F 03/31/17 06:44 95 111/54 L 03/31/17 06:40 92 26 H 99 03/31/17 06:00 20 03/31/17 04:00 97.9 F 19 03/31/17 02:09 94 120/57 L 03/31/17 02:00 27 H Weight Admit Weight 111 lb 6.4 oz Weight 2.229 oz Most Recent Monitor Data Heart Rate from ECG 108 NIBP 136/82 NIBP BP-Mean 112 Respiration from ECG 23 SpO2 96 I&O: 03/30/17 03/31/17 04/01/17 06:59 06:59 06:59 Intake Total 1839 816 240 Output Total 1155 7404 780 Balance 584 -939 -540 Result Diagrams: 03/31/17 03:51 03/31/17 03:50 Additional Labs: Accuchecks 03/31/17 03/30/17 03/30/17 03:46 22:23 17:24 POC Glucose 181 H 154 H 157 H Radiology Reviewed by me: Yes EKG Reviewed by me: Yes Phys Exam - Physical Examination Constitutional: NAD HEENT: PERRLA, moist MMs, sclera anicteric, oral pharynx no lesions Neck: no nodes, no JVD, supple, full ROM trach C/d/I coarse bilateral crackles. no wheezes. Good air movement Cardiovascular: no significant murmur, no rub, irregular tachy in low 100s Gastrointestinal: soft, non-tender, no distention, positive bowel sounds PEG C/D/I Musculoskeletal: pulses present, edema present Neurological: non-focal, normal sensation, moves all 4 limbs globally weak, but no focal deficits Lymphatic: no nodes Psychiatric: normal affect Skin: no rash, normal turgor, cap refill <2 seconds Dx/Plan (1) Respiratory failure Code(s): J96.90 - RESPIRATORY FAILURE, UNSP, UNSP W HYPOXIA OR HYPERCAPNIA Status: Acute Qualifiers: Chronicity: acute Respiratory failure complication: hypoxia and hypercapnia Qualified Code(s): J96.01 - Acute respiratory failure with hypoxia ; J96.02 - Acute respiratory failure with hypercapnia; J96.02 - Acute respiratory failure with hypercapnia; J96.02 - Acute respiratory failure with hypercapnia Comment: ARDS vs amio lung tox/hypersensitivity. Pulm following, continues on SIMV ventilation, pt trached and awake. Pt failed several attempts at weaning prior to trach and thus had trach placed. Has been very slow to wean due to failure to wean/tolerate decreased support. Re-submitted LTAC approval 03/30 with updated clinicals. May get approval any time now (2) HTN (hypertension) Code(s): I10 - ESSENTIAL (PRIMARY) HYPERTENSION Status: Chronic Qualifiers: Hypertension type: essential hypertension Qualified Code(s): I10 - Essential (primary) hypertension (3) GI bleed Code(s): K92.2 - GASTROINTESTINAL HEMORRHAGE, UNSPECIFIED Status: Resolved Qualifiers: GI bleed type/associated pathology: unspecified gastrointestinal hemorrhage type Qualified Code(s): K92.2 - Gastrointestinal hemorrhage, unspecified Comment: Normal EGD and colonoscopy 03/09/17.Anticoagulation on hold (4) Iron deficiency Code(s): E61.1 - IRON DEFICIENCY Status: Chronic (5) Atrial fibrillation with RVR Code(s): I48.91 - UNSPECIFIED ATRIAL FIBRILLATION Status: Acute Comment: paroxysmal and persistent Afib with RVR, on cardizem drip, dig. Will follow up on cardiology recommendations. HR in low 100s today (6) Diverticulosis of colon Code(s): K57.30 - DVRTCLOS OF LG INT W/O PERFORATION OR ABSCESS W/O BLEEDING Status: Resolved Qualifiers: Diverticulosis bleeding: diverticulosis with bleeding Qualified Code(s): K57.31 - Diverticulosis of large intestine without perforation or abscess with bleeding (7) Guaiac positive stools Status: Resolved Comment: EGD/Colonoscopy without active bleed 03/09/17 (8) Acute blood loss anemia Code(s): D62 - ACUTE POSTHEMORRHAGIC ANEMIA Status: Resolved Comment: Hgb 10.x today. s/p prior transfusion. (9) Atypical pneumonia Code(s): J18.9 - PNEUMONIA, UNSPECIFIED ORGANISM Status: Resolved (10) Persistent atrial fibrillation with rapid ventricular response Code(s): I48.1 - PERSISTENT ATRIAL FIBRILLATION Status: Acute Comment: Rate controlled in 80s-90s at present. improved on Dig, cardizem. Amio on hold due to concern about acutelung toxicity - Plan * .
--- NOTE | 2017-03-31 12:48 | PDOC.CTH ---
Cardiology Progress Note - Subjective No new issues. Awaiting insurance approval for placement. Rhythm AF with controlled rates. ROS otherwise negative. - Objective Vital Signs Temp Pulse Resp BP Pulse Ox 03/31/17 12:00 23 H 03/31/17 11:00 99.4 F 03/31/17 10:41 101 H 125/71 03/31/17 10:36 113 H 27 H 99 03/31/17 10:00 24 H 03/31/17 09:17 117 H 149/87 H 03/31/17 08:00 97.9 F 115 H 24 H 100 03/31/17 07:00 97.9 F 03/31/17 06:44 95 111/54 L 03/31/17 06:40 92 26 H 99 03/31/17 06:00 20 03/31/17 04:00 97.9 F 19 03/31/17 02:09 94 120/57 L 03/31/17 02:00 27 H Admit Weight 111 lb 6.4 oz Weight 2.229 oz 03/30/17 03/31/17 04/01/17 06:59 06:59 06:59 Intake Total 1839 816 240 Output Total 1155 1755 780 Balance 714 -249 -540 - Physical Examination General/Neuro: NAD Neck: carotid US brisk, no JVD present Lungs: CTA, unlabored respirations Heart: PMI normal, other: (irregular) Abdomen: no HSM, NT/ND, soft Extremities: + edema B Other PE findings: Neuro: no focal motor defs - Telemetry Telemetry Rhythm: AF with CVR - Labs Result Diagrams: 03/31/17 03:51 03/31/17 03:50 - Assessment/Plan 1. respiratory failure: aspiration versus amiodarone toxicity; amio discontinued. Wean vent as tolerated. 2. anemia: recent GI bleed; H/H stable currently. Not anticoagulation candidate. 3. atrial fibrillation: Recurrent. Now nicely rate controlled with digoxin loading. Wean cardizem to off and increase carvedilol to 25 mg bid. 4. HTN: stable. Monitor.
[2017-03-31] MEDS ORDERED: Carvedilol 6.25 MG TAB PO SCH (12:49)
[2017-03-31] MEDS: HYDROcodone/Acetaminophen 10/325 mg Tablet PER TUBE PRN (13:15)
[2017-03-31] MEDS: Carvedilol 25 MG TAB PO SCH (20:24)
[2017-04-01] MEDS: HumaLOG 300 UNITS/3 ML VIAL SC PRN ×2 (02:19→06:00)
[2017-04-01 03:56] LABS: Anion Gap 14 mmol/L (10-20); BUN (Urea Nitrogen) 24 mg/dL (9.8-20.1); Calc. Creatinine Clearance 96 mL/min (70-130); Calcium 8.1 mg/dL (7.8-10.44); Carbon Dioxide 28 mmol/L (23-31); Chloride 99 mmol/L (98-107); Estimated GFR-MDRD Greater than 90
[2017-04-01 04:45] LABS: Band 1 % (5-11); Hematocrit 33.7 % (36.0-47.0); Mean Platelet Volume 9.7 fL (7.4-10.4); Neutrophil 92 % (42-75); Red Blood Cell (RBC) Count 3.99 mill/uL (4.20-5.40); White Blood Cell (WBC) Count 13.8 thou/uL (4.8-10.8)
--- NOTE | 2017-04-01 07:49 | PRG ---
DATE OF SERVICE: 04/01/2017 SERVICE: Pulmonary Medicine INTERVAL HISTORY: The patient has done absolutely wonderful and in an absolutely wonderful mood thi s morning. She is sitting in the neuro chair, joking with the nurses. There were no overnight even ts. She denies any current fevers, nausea, vomiting, diarrhea or chest discomfort. PHYSICAL EXAMINATION: VITAL SIGNS: Afebrile, pulse 112, blood pressure 137/86, respirations 25, saturation 99% on 37% FiO 2 and a PEEP of 5. GENERAL: The patient is awake and alert. No apparent distress. LUNGS: Bilateral crackles are present. There is a slightly prolonged expiratory phase, but no whee zing appreciated. Extensive rhonchi are present. HEART: Normal rate. Irregular. ABDOMEN: Soft, nontender, nondistended, bowel sounds positive. MUSCULOSKELETAL: No cyanosis or clubbing. There is 2+ pitting in the bilateral lower extremities. GENITOURINARY: Maki catheter in place. NEUROLOGIC: Grossly nonfocal. LABORATORY DATA: WBC down trending to 13.8, hemoglobin 10.5, platelets 198,000. Creatinine 0.57. BUN 24, bicarbonate 28. Basic metabolic profile is otherwise unremarkable. ANCAs are unremarkable. Bronchioalveolar lavage is growing Staph species and alpha hemolytic streptococcus. Blood culture s x2, acid fast smear is negative, and C. diff antigen and toxin are unremarkable. IMAGING: Chest x-ray demonstrates tracheostomy in decent position. The cardiac silhouette is kt l. There is a likely left-sided pleural parenchymal opacification and/or pleural effusion. The rig ht side seems to be relatively clear. There is a left mid lung zone consolidating infiltrate. This appears slightly improved compared to the last evaluation. ASSESSMENT: 1. Acute hypoxic respiratory failure. 2. Diffuse alveolar damage with possible adult respiratory distress syndrome versus amiodarone toxi [place]. 3. Hypervolemia. 4. Deconditioning. PLAN: We will continue to diurese the patient as much as is tolerated. Otherwise, supportive measu res will be continued. Oxygen requirements will be decreased as tolerated. Hopefully, we can trans ition more work of breathing over to the patient, but she remains extraordinarily deconditioned. lmonary Critical Care will continue to follow. Critical care time: 30 minutes.
--- NOTE | 2017-04-01 08:40 | RAD ---
SINGLE VIEW OF CHEST: Date: 04/01/17 COMPARISON: 03/27/17. HISTORY: Ventilated patient with respiratory failure. FINDINGS: Single view of the chest shows a cardiomediastinal silhouette which is upper limits of normal in siz e. The tracheostomy is unchanged in position. There are multifocal mixed alveolar/interstitial opac ities, left greater than right. These are grossly stable compared to the prior exam. There may also be a small left pleural effusion. IMPRESSION: Stable multifocal infiltrates. POS: [facility]
[2017-04-01] MEDS: ALPRAZolam 0.5 MG TAB PO SCH ×4 (09:21→20:39)
[2017-04-01] MEDS: Carvedilol 25 MG TAB PO SCH ×2 (09:21→20:39)
[2017-04-01] MEDS: predniSONE 20 MG TAB PO SCH (09:21)
[2017-04-01] MEDS: Digoxin 0.125 MG TAB PO SCH (09:21)
[2017-04-01] MEDS: Pantoprazole 40 MG GRANULES PACKET PER TUBE SCH (09:21)
[2017-04-01] MEDS: Furosemide 40 MG/4 ML VIAL SLOW IVP SCH (09:21)
[2017-04-01] MEDS: Enoxaparin Sodium 40 MG/0.4 ML SYRINGE SC SCH (09:22)
--- NOTE | 2017-04-01 10:27 | PDOC.PN ---
- Subjective Encounter Start Date: 04/01/17 Encounter Start Time: 08:45 Pt seen and examined. look tired. complaining of being cold, no PT, insurnace company, lack of progress in getting her to LTAC. No CP, breathing ok. no F/C , no N/V/D/C. no acute events overnight. kaia SIMV. 10 point ROS performed and neg for all systems except as per HPI - Objective Resuscitation Status: Resuscitation Status FULL:Full Resuscitation MAR Reviewed: Yes Vital Signs & Weight: Vital Signs (12 hours) Temp Pulse Resp BP Pulse Ox 04/01/17 09:21 124 H 04/01/17 08:00 97.9 F 124 H 18 91 L 04/01/17 07:28 124 H 165/90 H 04/01/17 07:26 124 H 23 H 04/01/17 06:00 18 04/01/17 04:00 98.6 F 23 H 04/01/17 02:35 107 H 30 H 98 04/01/17 02:00 25 H 04/01/17 00:00 98.5 F 25 H Weight Admit Weight 111 lb 6.4 oz Weight 2.258 oz Most Recent Monitor Data Heart Rate from ECG 115 NIBP 128/108 NIBP BP-Mean 114 Respiration from ECG 20 SpO2 92 I&O: 03/31/17 04/01/17 04/02/17 06:59 06:59 06:59 Intake Total 816 1174 Output Total 1755 1625 Balance -939 451 Result Diagrams: 04/01/17 03:31 04/01/17 03:18 Additional Labs: Accuchecks 04/01/17 03/31/17 03/31/17 01:59 15:36 12:37 POC Glucose 175 H 174 H 210 H Radiology Reviewed by me: Yes EKG Reviewed by me: Yes Phys Exam - Physical Examination Constitutional: NAD HEENT: PERRLA, moist MMs, sclera anicteric, oral pharynx no lesions Neck: no nodes, no JVD, supple, full ROM trach C/D/I Respiratory: no wheezing, no rhonchi coarse rales bilaterally seem to be fading Cardiovascular: no significant murmur, irregular tachy 110-120s. Gastrointestinal: soft, non-tender, no distention, positive bowel sounds PEG C/D/I Musculoskeletal: pulses present, edema present edema in all 4 extremeties Neurological: non-focal, normal sensation, moves all 4 limbs Lymphatic: no nodes Psychiatric: normal affect Skin: no rash, normal turgor, cap refill <2 seconds Dx/Plan (1) Respiratory failure Code(s): J96.90 - RESPIRATORY FAILURE, UNSP, UNSP W HYPOXIA OR HYPERCAPNIA Status: Acute Qualifiers: Chronicity: acute Respiratory failure complication: hypoxia and hypercapnia Qualified Code(s): J96.01 - Acute respiratory failure with hypoxia ; J96.02 - Acute respiratory failure with hypercapnia; J96.02 - Acute respiratory failure with hypercapnia; J96.02 - Acute respiratory failure with hypercapnia Comment: ARDS vs amio lung tox/hypersensitivity. Pulm following, continues on SIMV ventilation, pt trached and awake. Pt failed several attempts at weaning prior to trach and thus had trach placed. Has been very slow to wean due to failure to wean/tolerate decreased support. Re-submitted LTAC approval 03/30 with updated clinicals. May get approval any time now (2) HTN (hypertension) Code(s): I10 - ESSENTIAL (PRIMARY) HYPERTENSION Status: Chronic Qualifiers: Hypertension type: essential hypertension Qualified Code(s): I10 - Essential (primary) hypertension (3) GI bleed Code(s): K92.2 - GASTROINTESTINAL HEMORRHAGE, UNSPECIFIED Status: Resolved Qualifiers: GI bleed type/associated pathology: unspecified gastrointestinal hemorrhage type Qualified Code(s): K92.2 - Gastrointestinal hemorrhage, unspecified Comment: Normal EGD and colonoscopy 03/09/17.Anticoagulation on hold (4) Iron deficiency Code(s): E61.1 - IRON DEFICIENCY Status: Chronic (5) Atrial fibrillation with RVR Code(s): I48.91 - UNSPECIFIED ATRIAL FIBRILLATION Status: Acute Comment: paroxysmal and persistent Afib with RVR, on dig. Will follow up on cardiology recommendations. HR in low 100s today. Cannot use amio due ot possiblitiy of ALI from hypersensitivity (6) Diverticulosis of colon Code(s): K57.30 - DVRTCLOS OF LG INT W/O PERFORATION OR ABSCESS W/O BLEEDING Status: Resolved Qualifiers: Diverticulosis bleeding: diverticulosis with bleeding Qualified Code(s): K57.31 - Diverticulosis of large intestine without perforation or abscess with bleeding (7) Guaiac positive stools Status: Resolved Comment: EGD/Colonoscopy without active bleed 03/09/17 (8) Acute blood loss anemia Code(s): D62 - ACUTE POSTHEMORRHAGIC ANEMIA Status: Resolved Comment: Hgb 10.x today. s/p prior transfusion. (9) Atypical pneumonia Code(s): J18.9 - PNEUMONIA, UNSPECIFIED ORGANISM Status: Resolved (10) Persistent atrial fibrillation with rapid ventricular response Code(s): I48.1 - PERSISTENT ATRIAL FIBRILLATION Status: Acute Comment: Rate uncontrolled and in the 110s-120s off of the cardizem at present. improved on Dig, cardizem. Amio on hold due to concern about acute lung toxicity. Cardiology following, will follow up on their rcommendations - Plan cont current plan of care, PT/OT, [employer] and crm, respiratory therapy * .
[2017-04-01] MEDS ORDERED: Furosemide 40 MG/4 ML VIAL SLOW IVP SCH (14:00)
[2017-04-02 05:15] LABS: Anion Gap 12 mmol/L (10-20); BUN (Urea Nitrogen) 24 mg/dL (9.8-20.1); Calc. Creatinine Clearance 0 mL/min (70-130); Carbon Dioxide 29 mmol/L (23-31); Chloride 99 mmol/L (98-107); Estimated GFR-MDRD Greater than 90; Magnesium 1.7 mg/dL (1.6-2.6); Phosphorus 3.1 mg/dL (2.3-4.7)
[2017-04-02] MEDS: Carvedilol 25 MG TAB PO SCH (08:49)
[2017-04-02] MEDS: Digoxin 0.125 MG TAB PO SCH (08:49)
[2017-04-02] MEDS: Furosemide 40 MG/4 ML VIAL SLOW IVP SCH (08:49)
[2017-04-02] MEDS: predniSONE 20 MG TAB PO SCH (08:49)
[2017-04-02] MEDS: HYDROcodone/Acetaminophen 10/325 mg Tablet PER TUBE PRN ×3 (08:49→13:51)
[2017-04-02] MEDS: ALPRAZolam 0.5 MG TAB PO SCH ×2 (08:50→12:51)
[2017-04-02] MEDS: Loperamide HCl 2 MG CAP PO PRN (08:50)
[2017-04-02] MEDS: Enoxaparin Sodium 40 MG/0.4 ML SYRINGE SC SCH (08:50)
[2017-04-02] MEDS: Pantoprazole 40 MG GRANULES PACKET PER TUBE SCH (08:50)
[2017-04-02] MEDS ORDERED: Magnesium 2 GM/NS 0.9% 100 ML 2 GM in Premix Bag 1 BAG IVPB SCH (10:00)
--- NOTE | 2017-04-02 10:05 | PRG ---
DATE OF SERVICE: 04/02/2017 SERVICE: Pulmonary Medicine. INTERVAL HISTORY: The patient is doing really well from a respiratory standpoint. She is once agai n in very good spirits. Yesterday, she was able to do a spontaneous breathing trial for roughly 4 h ours, but ultimately, failed once again. She is back on a spontaneous breathing trial this morning and I find her in excellent spirits. Otherwise, there were no events overnight. PHYSICAL EXAMINATION: VITAL SIGNS: Afebrile, pulse 90, blood pressure 129/79, respirations 24, saturation 100% on 34% FiO 2. GENERAL: Patient is awake, alert, in no apparent distress. LUNGS: Excellent air entry. No prolonged expiratory phase. Crackles are present. HEART: Normal rate, regular. ABDOMEN: Soft, nontender, nondistended, bowel sounds positive. MUSCULOSKELETAL: No cyanosis or clubbing. There is diffuse 2-3+ pitting in the bilateral lower ext remities. GENITOURINARY: Maki catheter in place. NEUROLOGIC: Grossly nonfocal. LABORATORY DATA: Basic metabolic profile, magnesium and phosphorus fall within normal limits. Pota ssium 3.7. Bicarbonate remains low at 29. C. diff antigen and toxin was previously unremarkable. IMAGING: Chest x-ray demonstrates multifocal infiltrates are roughly stable. ASSESSMENT: 1. Acute hypoxic respiratory failure, improving. 2. Diffuse alveolar damage with possible adult respiratory distress syndrome versus amiodarone [place]. 3. Volume overload. 4. Deconditioning. PLAN: We will continue to diurese the patient as much as tolerated. Aggressive physical therapy wi ll be continued. From a purely respiratory standpoint, the patient is stable for transition out of the ICU to an LTAC facility. She will need to pursue aggressive physical therapy moving forward. P ulmonary or Critical Care will continue to follow if she remains inhouse. A small dose of magnesium and potassium will be replaced today, but I will give her a laboratory holiday in the morning.
[2017-04-02 12:41] VITALS: TEMP 98.6
[2017-04-02 14:27] VITALS: BP 115/97
--- NOTE | 2017-04-02 14:37 | DIS ---
DATE OF ADMISSION: 03/06/2017 DATE OF DISCHARGE: 04/02/2017 DISCHARGE DIAGNOSES: 1. Acute hypoxemic respiratory failure. 2. Acute hypercapnic respiratory failure. 3. Adult respiratory distress syndrome. 4. 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 5. Hypertension, essential. 6. Gastrointestinal bleed, unknown upper or lower. 7. Acute blood loss anemia. 8. Chronic iron deficiency anemia. 9. New onset atrial fibrillation with rapid ventricular response. 10. Diverticulosis of the colon. 11. Severe physical deconditioning. 12. Moderate protein-calorie malnutrition. CONSULTATIONS: 1. Pulmonary Critical Care. Patient initially seen by Dr. Mckeon, then followed up later by Dr. Antoine and then Dr. Hussein. 2. Cardiology, on 03/14/2017, by Dr. Orantes, followed by Dr. Bone and then by Dr. Burton. 3. Gastroenterology, 03/07/2017, initially Dr. Jorge Whaley. 4. General surgery, Dr. Ho. PROCEDURES: 1. On 03/09/2017, bronchoscopy by Dr. Juice Mckeno. 2. Endoscopy upper, esophagogastroduodenoscopy and colonoscopy by Dr. Shun Bradley, on 03/09/2017. 3. Central line placement by Dr. Juice Mckeon, on 03/15/2017. 4. On 03/26/2017, underwent percutaneous endoscopic gastrostomy and trach placements by Dr. John Ho. 4. On 03/09/2017, endotracheal intubation. HISTORY OF PRESENT ILLNESS: Ms. Joiner is a 66-year-old white female who was admitted on 03/06/2017, by Dr. Cristhian Parada for getting weaker and short of breath. She had been hospitalized several months before for what looked like to be a small-bowel obstruction C. diff with aspiration pneumonia. She began to have a several day history of progressive shortness of breath, presented in the Emergency Department for evaluation. There, she was noted to have in the ER bilateral reticular nodular infiltrates. The patient was admitted to the hospital and Pulmonology was consulted. She was started on Levofloxacin for possible atypical bacterial pneumonia. She was noted to be in atrial fibrillation and was also noted to have guaiac positive stools. She was subsequently admitted to the Hospitalist Service and for further workup and evaluation. HOSPITAL COURSE: The patient was seen and examined and admitted by Dr. Parada. She was started on antibiotics and fluids. Dr. Mckeon was consulted and arranged for the patient to have a bronchoscopy for evaluation. He is concerned about developing ARDS versus acute amiodarone lung toxicity. Dr. Whaley was consulted due to the guaiac positive stools and arranged for her to be set up for EGD. Both these procedures occurred on 03/09/2017. Patient became progressively more short of breath 03/06-03/08, but remained otherwise stable. She underwent endoscopies on 03/09, both colonoscopy, EGD and bronchoscopy. She has got copious secretions in her lungs, but EGD and colonoscopy were negative for acute site of bleeding. She was noted later that afternoon to have a hemoglobin just over 6 and was transferred 3 units of packed red blood cells. On 03/10, she was taken temporarily by Dr. Hart from our service. Patient has been admitted post-endoscopies and remained stable on the ventilator. From 03/10-03/13, when I first took over, the patient began having increased pulmonary infiltrates. Her lung pressures continued to increase and she was switched over to volume control ventilation. She remained in AFib with RVR despite aggressive medications. On 03/14, cardiology consulted, patient was seen by Dr. Orantes. At that point, she looked to be in sinus rhythm, off of the amiodarone. He recommended continuing Coreg and Dr. Burton would be following up on the patient. The patient remained intubated and on the ventilator for the next several days. Multiple attempts to wean her failed and she required high pressures and increased rate and had decreased lung compliance. She remained afebrile and was subsequently started on steroids for possible hypersensitivity and amiodarone lung toxicity. It was unclear whether she was having ARDS event or reaction to the amiodarone that would be slow to leave her system. I took back over on 03/19/2017. She was continued on pressure control ventilation with bilevel settings. She was requiring heavy sedation and blood counts have remained stable with her anticoagulation on hold. She was followed by one of my partners from 03/20-03/26. At that point, she went to the operating room that day for PEG and trach placement. Both the procedures went without event and she was transferred back to the ICU and SI ventilation allowed to wake up. From 03/27, until discharge, I continued to follow the patient. She remained awake and up to a chair during the days. Attempts to wean her off the ventilation and tracheostomy in place were unsuccessful. [facility] and vent weaning, and she was accepted. The interim history on 03/28, the patient continued to be in atrial fibrillation with RVR, she was unresponsive to Cardizem drip and remained high heart rate. I dozed her with digoxin 0.25 mg, Cardiology followed up and felt that had a good effect and continued to load her and continued on daily digoxin. Over the next several days, we will wean off the Cardizem drip and maintain on digoxin and Coreg and from an AFib standpoint, has been stable with heart rate in the 90s-100s. Chest x-ray continues to show bilateral diffuse infiltrates that are stable, slow to improve. PHYSICAL EXAMINATION The patient was seen and examined on the day of discharge. Discharge plan and disposition were discussed with the patient face to face at the bedside. DISCHARGE MEDICATIONS: Most of her home medications were stopped including Xarelto. Medicines to continue; 1. Xanax 0.5 mg p.o. q.i.d. 2. Tylenol p.r.n. 3. Alendronate 70 mg once a week. 4. P.r.n. medications have been continued. 5. Carvedilol 25 mg p.o. b.i.d., insulin sliding scale. 6. Digoxin 125 mg p.o. daily. 7. Diphenoxylate/hydrochloride/atropine tablets 1 p.o. q.6 hours p.r.n. 8. Lovenox 40 mg subcu q.a.m. 9. Iron sulfate 300 mg p.o. b.i.d. 10. Lasix 40 mg daily converted from 40 mg IV. 11. Hydrocodone p.r.n. 12. Glucagon p.r.n. 13. DuoNebs 3 mL q.4 hours p.r.n. 14. Mag hydroxide p.r.n. 15. Zofran 4 mg p.o. q.6 hours p.r.n. 16. Pancrelipase 12,000 1 cap per PEG daily. 17. Protonix 40 mg per tube daily. 18. Seroquel 50 mg p.o. at bedtime. 19. Quetiapine 25 mg p.o. b.i.d. 20. Senokot 2 tabs p.o. at bedtime p.r.n. 21. Sodium bicarbonate 650 mg per tube daily. 22. Prednisone 20 mg p.o. q.a.m. FOLLOWUP APPOINTMENTS: With the primary care physician when she gets out of the LTAC. DISPOSITION: The patient will be discharged to [facility] in [place] for pulmonary rehabilitation, physical rehabilitation and vent weaning. DISCHARGE CONDITION: Stable and improving. Greater than 45 minutes were spent coordinating, arranging and performing discharge. MAURICIO
== END 2017-04-02 14:00 | DRG 4 ==
LOC: ERS 16:26 → T4-A 18:42 → CCU 03-09 13:41
PROVIDERS: ADMIT Internal Medicine; ATTEND Internal Medicine
PROC: 5A1955Z Respiratory Ventilation, Greater than 96 Consecutive Hours (ICD-10-PCS; 2017-03-09)
PROC: 0DJ08ZZ Inspection of Upper Intestinal Tract, Via Natural or Artificial Opening Endoscopic (ICD-10-PCS; 2017-03-09)
PROC: 0DJD8ZZ Inspection of Lower Intestinal Tract, Via Natural or Artificial Opening Endoscopic (ICD-10-PCS; 2017-03-09)
PROC: 0BH17EZ Insertion of Endotracheal Airway into Trachea, Via Natural or Artificial Opening (ICD-10-PCS; 2017-03-09)
PROC: 0BJ08ZZ Inspection of Tracheobronchial Tree, Via Natural or Artificial Opening Endoscopic (ICD-10-PCS; 2017-03-09)
PROC: 0B9D8ZX Drainage of Right Middle Lung Lobe, Via Natural or Artificial Opening Endoscopic, Diagnostic (ICD-10-PCS; 2017-03-09)
PROC: 30233N1 Transfusion of Nonautologous Red Blood Cells into Peripheral Vein, Percutaneous Approach (ICD-10-PCS; 2017-03-09)
PROC: 02HV33Z Insertion of Infusion Device into Superior Vena Cava, Percutaneous Approach (ICD-10-PCS; 2017-03-14)
PROC: 0B110F4 Bypass Trachea to Cutaneous with Tracheostomy Device, Open Approach (ICD-10-PCS; principal; 2017-03-26)
PROC: 0DH63UZ Insertion of Feeding Device into Stomach, Percutaneous Approach (ICD-10-PCS; 2017-03-26)
DX: J18.9 Pneumonia, unspecified organism (principal); E44.0 Moderate protein-calorie malnutrition; D62 Acute posthemorrhagic anemia; K92.2 Gastrointestinal hemorrhage, unspecified; F03.90 Unspecified dementia, unspecified severity, without behavioral disturbance, psychotic disturbance, mood disturbance, and anxiety; I48.1 Persistent atrial fibrillation; J96.02 Acute respiratory failure with hypercapnia; J96.01 Acute respiratory failure with hypoxia; I12.9 Hypertensive chronic kidney disease with stage 1 through stage 4 chronic kidney disease, or unspecified chronic kidney disease; D50.9 Iron deficiency anemia, unspecified; K57.30 Diverticulosis of large intestine without perforation or abscess without bleeding; N18.2 Chronic kidney disease, stage 2 (mild); M79.7 Fibromyalgia; Z79.01 Long term (current) use of anticoagulants; Z88.0 Allergy status to penicillin; Z86.010 Personal history of colon polyps; Z87.820 Personal history of traumatic brain injury; Z68.22 Body mass index [BMI] 22.0-22.9, adult; Z87.11 Personal history of peptic ulcer disease; T88.7XXA Unspecified adverse effect of drug or medicament, initial encounter; T46.2X5A Adverse effect of other antidysrhythmic drugs, initial encounter; R19.7 Diarrhea, unspecified
CPT/HCPCS: 36415; 36416; 36430; 71010; 80048; 80053; 82274; 82728; 82805; 83540; 83550; 83735; 83880; 84100; 85007; 85025; 85027; 85652; 86021; 86038; 86850; 86900; 86901; 87040; 87070; 87116; 87206; 87324; 87449; 88112; 88305; 88312; 90471; 90682; 93306; 94002; 94003; 94640; 96374; 96376; A4216; C9113; G0008; G8978-GP-CL; G8978-GP-CM; G8978-GP-CN; G8979-GP-CJ; G8979-GP-CK; G8979-GP-CM; G8987-GO-CJ; G8988-GO-CI; J0360; J0456; J0692; J1160; J1650; J1940; J1956; J2001; J2020; J2060; J2250; J2270; J2405; J2704; J2920; J2930; J3010; J3370; J3475; J7050; J7506; J7608; J7620; P9016; Q2036; S0020; S0028

== ENCOUNTER 2017-05-01 19:48 | Inpatient (IN) | payer MEDICARE ==
[~2017-05-01 19:48] MED LIST: ISOVUE-370 76%-LOCM 1 ML ONE
[2017-05-01] MEDS ORDERED: Nitroglycerin 2% Ointment 1 INCH/1 GM Packet ONE (21:39)
[2017-05-01 22:11] LABS: Hematocrit 33.6 % (36.0-47.0); Red Blood Cell (RBC) Count 3.63 mill/uL (4.20-5.40); White Blood Cell (WBC) Count 16.5 thou/uL (4.8-10.8)
[2017-05-01 22:31] LABS: #Eosinphils 0.1 thou/uL (0.0-0.7); #Lymphocytes 1.1 thou/uL (1.20-3.40); #Monocytes 1.2 thou/uL (0.11-0.59); #Neutrophils 14.1 thou/uL (1.40-6.50); %Basophils 0.3 % (0.0-1.0); %Eosinophils 0.4 % (0.0-10.0); %Lymphocytes 6.7 % (21.0-51.0); %Monocytes 7.2 % (0.0-10.0); Anisocytosis MODERATE=16-30 cells (100X) (0-5/hpf)
[2017-05-01 22:35] LABS: Troponin I Less than 0.010 ng/mL (< 0.028)
--- NOTE | 2017-05-01 23:57 | PDOC.EVN ---
Event Note - Event Note Event Note: [id number] H&P DICTATED 1. Acute CHF exacerbation 2. HTN 3. H/O AFIB 4. Amiodarone toxicity case d/w pt & Rn
[2017-05-02] MEDS ORDERED: Ondansetron HCl/PF 4 MG/2 ML Vial IVP PRN (00:12)
[2017-05-02 02:09] LABS: Troponin I 0.042 ng/mL (< 0.028)
[2017-05-02 05:27] LABS: Anion Gap 15 mmol/L (10-20); BUN (Urea Nitrogen) 9 mg/dL (9.8-20.1); Calc. Creatinine Clearance 74 mL/min (70-130); Calcium 8.4 mg/dL (7.8-10.44); Carbon Dioxide 21 mmol/L (23-31); Chloride 103 mmol/L (98-107); Estimated GFR-MDRD Greater than 90
[2017-05-02 05:47] LABS: Band 15 % (5-11); Mean Platelet Volume 7.3 fL (7.4-10.4); Myelocyte 4 % (0-0); Neutrophil 60 % (42-75); Red Blood Cell (RBC) Count 3.42 mill/uL (4.20-5.40); White Blood Cell (WBC) Count 14.1 thou/uL (4.8-10.8)
--- NOTE | 2017-05-02 06:19 | HP ---
DATE OF ADMISSION: 05/01/2017 CHIEF COMPLAINT: Hypoxia. HISTORY OF PRESENT ILLNESS: The patient is a 66-year-old female, poor historian , initially went to [facility], from there the patient was transferred here for possible dehydration and dyspnea and hypoxia. According to the hospital records, the patient was discharged from our hospital to LTAC last month on the with diagnosis of acute hypercapnic respiratory failure and atrial fibrillation and possible amiodarone toxicity. According to the records , the [facility] was in the [facility] and the patient left [facility] from [facility] few days back. The patient was at home and EMS was called today as patient could not able to take care of herself. The patient was taken to the outside ER. In the outside ER, the patient was started on IV fluids and transferred here. Upon ER arrival, the patient was hypoxic with sats in the 80s. So, the patient was placed on the nasal cannula, oxygen sats improved. The patient denies any chest pain, denies any palpitation, but complains of dyspnea. Complains of abdominal pain. Abdominal pain is all over the abdomen, mild. Denies any nausea. Denies any vomiting. No aggravating factors, no relieving factors. PAST MEDICAL HISTORY: Traumatic brain injury; irritable bowel syndrome; hyperlipidemia; fibromyalgia; chronic respiratory failure; chronic kidney disease, stage 2; atrial fibrillation. PAST SURGICAL HISTORY: Bilateral tubal ligation and ankle surgery. MEDICATIONS: Reviewed. FAMILY HISTORY: Denies any heart problems. SOCIAL HISTORY: Denies smoking, denies alcohol, denies any drugs. REVIEW OF SYSTEMS: Constitutional: Denies any fever, denies any chills. Eyes : Denies any vision problems. Ears: Denies any hearing loss. Neck: Denies any neck pain. Cardiovascular system: Denies any chest pain. Denies any palpitations. Respiratory system: Positive for dyspnea. Gastrointestinal: Positive for abdominal pain. Denies nausea or vomiting. Musculoskeletal: Denies any joint deformities. Integumentary: Denies any rash. Cranial nerve system: Denies syncope. All other review of systems are reviewed and are negative. PHYSICAL EXAMINATION: CONSTITUTIONAL/VITAL SIGNS: At the time of H\T\P performed, blood pressure is 110/70, pulse ox 93% on 3 liters. GENERAL APPEARANCE: The patient appears tired. HEENT: Anterior nares patent. Nose normal. Ears normal. Teeth intact. Tongue is moist. NECK: Supple. No JVD. CARDIOVASCULAR SYSTEM: S1, S2 present. Positive for murmurs. No rubs, no gallops, irregular. RESPIRATORY SYSTEM: Diminished breath sounds present. Positive for crackles. Positive for rales. No rhonchi. GASTROINTESTINAL: Abdomen is distended, mild tender to palpate. No guarding, no organomegaly. MUSCULOSKELETAL: No edema. INTEGUMENTARY: No rashes seen. PSYCHIATRIC: Mood is appropriate at this time. NEUROLOGIC: Cranial nerves intact. Follows commands. Strength intact, sensory intact. MUSCULOSKELETAL: Trace edema. LABORATORY DATA: At the time of H\T\P performed. Chest x-ray showed possible pulmonary congestion. Lab showed sodium 134, potassium 3.2, chloride 100, CO2 of 22, BUN of 11, creatinine 0.59,AST 10, ALT 17. BNP 143. CBC showed white count 16.5, hemoglobin 10.5, platelet count is 274. ASSESSMENT AND PLAN: The patient is a 66-year-old female. 1. Acute congestive heart failure exacerbation plus chronic diastolic heart failure. Plan to start the patient on IV diuretics. Plan to monitor the patient closely. Plan to check serial cardiac enzymes. 2. History of hypertension. Monitor blood pressure. Continue home blood pressure medications. 3. Abdominal pain. Plan to check a CT abdomen and pelvis without contrast to rule out any ileus. Plan to monitor the patient closely. Plan to send urinalysis and urine culture and sensitivity also. 4. History of atrial fibrillation. Monitor heart rate. Continue home medications. 5. History of irritable bowel syndrome. We will wait for the CT results. Case was discussed in detail with the patient. Patient is FULL CODE. MTDD
[2017-05-02 06:39] LABS: Troponin I 0.021 ng/mL (< 0.028)
--- NOTE | 2017-05-02 08:14 | CT ---
PRELIMINARY REPORT/[facility]/EMERGENCY AFTER HOURS PROCEDURE: EXAM: CT Abdomen and Pelvis Without Intravenous Contrast CLINICAL HISTORY: 66 years old, female; Pain; Abdominal pain; Generalized; Chest pain; Type not specified; Patient HX: Pain, R/O pe TECHNIQUE: Axial computed tomography images of the abdomen and pelvis without intravenous contrast. Coronal reformatted images were created and reviewed. COMPARISON: No relevant prior studies available. FINDINGS: Lower thorax: No acute findings. ABDOMEN: Liver: Simple hepatic cyst. Gallbladder and bile ducts: Unremarkable. No calcified stones. No ductal dilation. Pancreas: Unremarkable. No ductal dilation. Spleen: Unremarkable. No splenomegaly. Adrenals: Unremarkable. No mass. Kidneys and ureters: Simple renal cysts. No obstructing stones. No hydronephrosis. Stomach and bowel: Percutaneous gastrostomy tube in satisfactory position. No obstruction. No mucosa l thickening. Appendix: No findings to suggest acute appendicitis. PELVIS: Bladder: Distended bladder which is otherwise unremarkable. No stones. Reproductive: Unremarkable as visualized. ABDOMEN and PELVIS: Intraperitoneal space: Unremarkable. No free air. No significant fluid collection. Bones/joints: Osteopenia. No acute fracture. No dislocation. Soft tissues: Unremarkable. Vasculature: Dense atherosclerotic vascular calcifications are identified. No abdominal aortic aneur ysm. Lymph nodes: Unremarkable. No enlarged lymph nodes. IMPRESSION: No evidence of acute intra-abdominal or pelvic pathology. Thank you for allowing us to participate in the care of your patient. Dictated and Authenticated by: Elmer Weston MD 05/02/2017 1:23 AM Central Time ([place] \T\ [place]) FINAL REPORT CT ABDOMEN AND PELVIS WITHOUT CONTRAST: I agree with the preliminary report given by Dr. Elmer Weston of [facility]. POS: [facility]
--- NOTE | 2017-05-02 08:17 | CT ---
PRELIMINARY REPORT/[facility]/EMERGENCY AFTER HOURS PROCEDURE: EXAM: CT Angiography Chest With Intravenous Contrast CLINICAL HISTORY: 66 years old, female; Pain; Abdominal pain; Generalized; Chest pain; Type not specified; Patient HX: Pain, R/O pe TECHNIQUE: Axial computed tomographic angiography images of the chest with intravenous contrast using pulmonary embolism protocol. COMPARISON: No relevant prior studies available. FINDINGS: Pulmonary arteries: No pulmonary embolism. The pulmonary arteries are normal in size Aorta: No thoracic aortic aneurysm. No dissection. Lungs: Mild centrilobular emphysematous disease. 4 ill-defined airspace disease in the lower lobes b ilaterally LEFT greater than RIGHT. There appear to be some areas of early cavitation in the LEFT ba silar consolidation. Pleural space: Unremarkable. No significant effusion. No pneumothorax. Heart: No cardiomegaly or significant pericardial effusion. Bones/joints: Osteopenia. Multiple mid thoracic spine compression fractures. No dislocation. Soft tissues: The soft tissues of the axilla, neck and chest wall are unremarkable. Lymph nodes: No enlarged lymph nodes. IMPRESSION: No evidence of pulmonary embolus. Poorly defined posterior medial LEFT lower lobe airspace consolidation with poorly defined areas of airspace disease in the RIGHT lower lobe and residual LEFT lower lobe with associated areas of cavit ation. Differential diagnosis would include atypical and chronic infections. Underlying neoplasm can not be conclusively ruled out. Thank you for allowing us to participate in the care of your patient. Dictated and Authenticated by: Elmer Weston MD 05/02/2017 1:23 AM Central Time ([place] \T\ [place]) FINAL REPORT CT PULMONARY ANGIOGRAM WITH IV CONTRAST AND 3D POSTPROCESSING: Date: 05/01/17 FINDINGS/IMPRESSION: I agree with the preliminary report given by Dr. Elmer Weston of [facility]. POS: [facility]
[2017-05-02] MEDS: Furosemide 40 MG/4 ML VIAL SLOW IVP SCH (08:35)
[2017-05-02] MEDS: Heparin 5,000 UNITS/ML VIAL SC SCH ×3 (08:35→21:02)
[2017-05-02] MEDS ORDERED: FLU VACC TS2017-18 (>65YR) 0.5 ML SYRINGE IM ONE (09:00)
--- NOTE | 2017-05-02 10:33 | PDOC.PN ---
- Subjective Encounter Start Date: 05/02/17 Encounter Start Time: 10:32 Subjective: no sob, tired of hospitals - Objective MAR Reviewed: Yes Vital Signs & Weight: Vital Signs (12 hours) Temp Pulse Resp BP Pulse Ox 05/02/17 08:00 97.8 F 107 H 18 126/80 99 05/02/17 03:25 97.1 F L 100 17 136/77 100 05/02/17 01:40 97.4 F L 97 15 153/88 H 98 Weight Weight 95 lb Result Diagrams: 05/02/17 04:35 05/02/17 04:35 Phys Exam - Physical Examination Constitutional: NAD Neck: no JVD rales to upper scapula Cardiovascular: RRR midclavicular 6th ics lift Gastrointestinal: non-tender, positive bowel sounds Musculoskeletal: no edema Dx/Plan (1) Acute diastolic heart failure Code(s): I50.31 - ACUTE DIASTOLIC (CONGESTIVE) HEART FAILURE Status: Acute (2) Chronic lung disease Code(s): J98.4 - OTHER DISORDERS OF LUNG Status: Chronic (3) Physical deconditioning Code(s): R53.81 - OTHER MALAISE Status: Chronic Comment: physical deconditioning: PT/OT (4) HTN (hypertension) Code(s): I10 - ESSENTIAL (PRIMARY) HYPERTENSION Status: Chronic Qualifiers: Hypertension type: essential hypertension Qualified Code(s): I10 - Essential (primary) hypertension (5) Paroxysmal a-fib Code(s): I48.0 - PAROXYSMAL ATRIAL FIBRILLATION Status: Chronic Comment: rate controlled on Coreg.cardiology following.Xarelto on hold due to drop in Hb with +FOBT - Plan cont iv lasix, O2 -: pulmonology consult * .
[2017-05-02] MEDS: Acetaminophen 325 MG TAB PO PRN (21:08)
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
[2017-05-03] MEDS: Heparin 5,000 UNITS/ML VIAL SC SCH ×3 (07:39→21:53)
[2017-05-03] MEDS: Furosemide 40 MG/4 ML VIAL SLOW IVP SCH (07:39)
[2017-05-03] MEDS ORDERED: Labetalol HCl 100 MG/20 ML VIAL SLOW IVP PRN (12:23)
[2017-05-03] MEDS ORDERED: Boudreaux's Butt Paste 16% Oin 30 GM TUBE TOP SCH (12:30)
--- NOTE | 2017-05-03 14:45 | PDOC.PN ---
- Subjective Encounter Start Date: 05/03/17 Encounter Start Time: 10:20 - Objective MAR Reviewed: Yes Vital Signs & Weight: Vital Signs (12 hours) Temp Pulse Resp BP Pulse Ox 05/03/17 08:00 97.7 F 92 17 98 05/03/17 07:19 97.7 F 92 17 175/101 H 97 05/03/17 03:15 98.9 F 87 16 148/76 H 100 Weight Weight 97 lb 9.6 oz I&O: 05/02/17 05/03/17 05/04/17 06:59 06:59 06:59 Intake Total 910 Balance 910 Result Diagrams: 05/02/17 04:35 05/02/17 04:35 Phys Exam - Physical Examination Neck: no JVD diffuse rales all lung garnica Cardiovascular: RRR left ventricular lift Gastrointestinal: soft, no distention, positive bowel sounds Musculoskeletal: pulses present, edema present Dx/Plan (1) Acute diastolic heart failure Code(s): I50.31 - ACUTE DIASTOLIC (CONGESTIVE) HEART FAILURE Status: Acute (2) Chronic lung disease Code(s): J98.4 - OTHER DISORDERS OF LUNG Status: Chronic (3) Physical deconditioning Code(s): R53.81 - OTHER MALAISE Status: Chronic Comment: physical deconditioning: PT/OT (4) HTN (hypertension) Code(s): I10 - ESSENTIAL (PRIMARY) HYPERTENSION Status: Chronic Qualifiers: Hypertension type: essential hypertension Qualified Code(s): I10 - Essential (primary) hypertension (5) Paroxysmal a-fib Code(s): I48.0 - PAROXYSMAL ATRIAL FIBRILLATION Status: Chronic Comment: rate controlled on Coreg.cardiology following.Xarelto on hold due to drop in Hb with +FOBT - Plan add po amlodipine, cont lasix -: BNP, FU cxr 1-2 days -: appreciate Dr Mckeon's input * .
[2017-05-03 15:35] LABS: Anion Gap 15 mmol/L (10-20); BUN (Urea Nitrogen) 11 mg/dL (9.8-20.1); Calc. Creatinine Clearance 56 mL/min (70-130); Calcium 9.1 mg/dL (7.8-10.44); Carbon Dioxide 27 mmol/L (23-31); Chloride 97 mmol/L (98-107); Estimated GFR-MDRD 88
[2017-05-03] MEDS: Acetaminophen 325 MG TAB PO PRN (15:44)
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
[2017-05-04] MEDS: Amlodipine 5 MG TAB PO SCH (08:37)
[2017-05-04] MEDS: Furosemide 40 MG/4 ML VIAL SLOW IVP SCH ×2 (08:37→09:22)
[2017-05-04] MEDS: Heparin 5,000 UNITS/ML VIAL SC SCH ×3 (08:38→20:42)
--- NOTE | 2017-05-04 09:14 | PDOC.PN ---
- Subjective Encounter Start Date: 05/04/17 Encounter Start Time: 09:12 Subjective: 03/28 headache - Objective MAR Reviewed: Yes Vital Signs & Weight: Vital Signs (12 hours) Temp Pulse Resp BP Pulse Ox 05/04/17 08:37 98 05/04/17 08:00 99.2 F 98 18 135/73 90 L 05/04/17 04:00 97.9 F 104 H 18 148/79 H 99 Weight Weight 96 lb 14.4 oz I&O: 05/03/17 05/04/17 05/05/17 06:59 06:59 06:59 Intake Total 910 430 Balance 910 430 Result Diagrams: 05/02/17 04:35 05/03/17 14:42 Phys Exam - Physical Examination Constitutional: NAD Neck: no JVD diffuse rales Cardiovascular: RRR Gastrointestinal: soft, non-tender Musculoskeletal: no edema Dx/Plan (1) Acute diastolic heart failure Code(s): I50.31 - ACUTE DIASTOLIC (CONGESTIVE) HEART FAILURE Status: Ruled- out (2) Chronic lung disease Code(s): J98.4 - OTHER DISORDERS OF LUNG Status: Chronic (3) Physical deconditioning Code(s): R53.81 - OTHER MALAISE Status: Chronic Comment: physical deconditioning: PT/OT (4) HTN (hypertension) Code(s): I10 - ESSENTIAL (PRIMARY) HYPERTENSION Status: Chronic Qualifiers: Hypertension type: essential hypertension Qualified Code(s): I10 - Essential (primary) hypertension (5) Paroxysmal a-fib Code(s): I48.0 - PAROXYSMAL ATRIAL FIBRILLATION Status: Chronic Comment: rate controlled on Coreg.cardiology following.Xarelto on hold due to drop in Hb with +FOBT - Plan patient states she has chronic severe atypical PANG -: BNP 100-200 -: no evidence for chf, her resp findings due to CLD -: DC lasix, cont amlodipine -: ultram for PANG, try to place * .
[2017-05-04] MEDS: traMADol HCl 50 MG TAB PO PRN ×3 (09:24→22:39)
[2017-05-04] MEDS: metroNIDAZOLE 500 MG TAB PO SCH ×3 (10:00→20:42)
--- NOTE | 2017-05-04 10:06 | PRG ---
DATE OF SERVICE: 05/04/2017 PHYSICAL EXAMINATION: VITAL SIGNS: Vital signs are stable. She is afebrile. Heart rate is in the 90s, respiratory rate i s in the teens. Oximetry is 99 on 1 liter, 90 on room air, blood pressure 135/73. Lungs, heart, and abdomen are unchanged. She is only complaining that nobody is helping her, although she cannot be specific about what nobody is helping her with. I think this situation is more replacement issue at this point in time. She still has a PEG in place , her trach is out. She is in no respiratory distress. I do not believe that she is acutely infecte d. She needs a group home placement in my opinion permanently. She certainly cannot care for herself at home. She tells me she has 14 hours of day care giving, there is no way she can be alone safely i n my opinion at night. ADDENDUM: She has mildly increased band count. We will add antral coverage for aspiration pathogen to stay yina y from [place] for now. Flagyl will be started. We will give this to her for a week.
[2017-05-05 04:54] VITALS: BMI 21.6
[2017-05-05] MEDS: traMADol HCl 50 MG TAB PO PRN ×2 (08:35→15:04)
[2017-05-05] MEDS: metroNIDAZOLE 500 MG TAB PO SCH ×3 (08:36→21:14)
[2017-05-05] MEDS: Amlodipine 5 MG TAB PO SCH (08:36)
--- NOTE | 2017-05-05 10:05 | PRG ---
DATE OF SERVICE: 05/05/2017 SUBJECTIVE: Ms. Joiner has a temperature maximum of 99.9, heart rate was 100, blood pressure 151/83 . No overall change. There is no new lab on her. I think the biggest issue is placement long-term care. She may or may not have a subacute aspiration related to that. She is on Flagyl now. She is stable from a respiratory standpoint. As mentioned, placement is the biggest issue. We will sign off.
[2017-05-05] MEDS: Heparin 5,000 UNITS/ML VIAL SC SCH ×3 (10:16→21:14)
--- NOTE | 2017-05-05 16:49 | PDOC.PN ---
- Subjective Encounter Start Date: 05/05/17 Encounter Start Time: 16:47 Ms. Joiner was seen today for follow-up for respiratory distress. She is feeling better today, but admits to feeling very anxious, and says that she is in pain all the time. - Objective Resuscitation Status: Resuscitation Status DNR:Do Not Resuscitate MAR Reviewed: Yes Vital Signs & Weight: Vital Signs (12 hours) Temp Pulse Resp BP BP Pulse Ox 05/05/17 08:36 100 151/83 H 05/05/17 08:00 97.7 F 100 16 151/83 H 94 L Weight Weight 107 lb I&O: 05/04/17 05/05/17 05/06/17 06:59 06:59 06:59 Intake Total 430 870 Balance 430 870 Result Diagrams: 05/02/17 04:35 05/03/17 14:42 Phys Exam - Physical Examination HEENT: PERRLA Respiratory: no wheezing, no rales, no rhonchi, clear to auscultation bilateral Cardiovascular: RRR, no significant murmur Gastrointestinal: soft, non-tender, positive bowel sounds Musculoskeletal: no edema Dx/Plan (1) Pneumonia Code(s): J18.9 - PNEUMONIA, UNSPECIFIED ORGANISM Status: Acute (2) Traumatic brain injury Code(s): S06.9X9A - UNSP INTRACRANIAL INJURY W LOC OF UNSP DURATION, INIT Status: Acute (3) Fibromyalgia Status: Acute (4) Anxiety Code(s): F41.9 - ANXIETY DISORDER, UNSPECIFIED Status: Acute (5) Acute respiratory failure Code(s): J96.00 - ACUTE RESPIRATORY FAILURE, UNSP W HYPOXIA OR HYPERCAPNIA Status: Acute Comment: Vent management per [facility]. Tracheostomy done today 03/26/17 (6) HTN (hypertension) Code(s): I10 - ESSENTIAL (PRIMARY) HYPERTENSION Status: Chronic Qualifiers: Hypertension type: essential hypertension Qualified Code(s): I10 - Essential (primary) hypertension (7) Paroxysmal a-fib Code(s): I48.0 - PAROXYSMAL ATRIAL FIBRILLATION Status: Chronic Comment: rate controlled on Coreg.cardiology following.Xarelto on hold due to drop in Hb with +FOBT - Plan * Acute on chronic respiratory failure- from new vs slowly resolving Pneumonia - Flagyl has been added to cover for aspiration * Generalized Anxiety- this is likely a part of her TBI complex of symptoms- will treat with Lorazepam as needed * AFIB- heart rate is controlled- she did not come in the hospital on anticoagulation. * Severe deconditioning- continue PT/OT and will screen for Custodial placement
[2017-05-05] MEDS: traMADol HCl 50 MG TAB PO SCH (21:13)
[2017-05-06] MEDS: traMADol HCl 50 MG TAB PO PRN ×2 (02:49→14:41)
[2017-05-06] MEDS: Chloraseptic Spray 180 ml Bottle PO PRN ×2 (02:50→20:48)
[2017-05-06] MEDS: Amlodipine 5 MG TAB PO SCH (08:17)
[2017-05-06] MEDS: Heparin 5,000 UNITS/ML VIAL SC SCH ×3 (08:18→20:32)
[2017-05-06] MEDS: traMADol HCl 50 MG TAB PO SCH ×2 (08:18→20:22)
[2017-05-06] MEDS: metroNIDAZOLE 500 MG TAB PO SCH ×3 (08:18→20:22)
--- NOTE | 2017-05-06 12:13 | PDOC.PN ---
- Subjective Encounter Start Date: 05/06/17 Encounter Start Time: 12:11 Ms Joiner was seen today in follow-up for respiratory distress. She is not having a good day today. She says she is " angry". She is upset about many things including, but not limited to her food getting cold, and not being fed in a timely manner. The staff not administering the chloroseptic, and leaving it by the side of the bed. Staff not moving her in the bed, the way she would like., ect. - Objective Resuscitation Status: Resuscitation Status DNR:Do Not Resuscitate MAR Reviewed: Yes Vital Signs & Weight: Vital Signs (12 hours) Temp Pulse Resp BP Pulse Ox 05/06/17 08:17 104 H 05/06/17 08:00 98.2 F 104 H 20 93 L 05/06/17 07:42 98.2 F 104 H 20 170/81 H 93 L Weight Weight 107 lb I&O: 05/05/17 05/06/17 05/07/17 06:59 06:59 06:59 Intake Total 870 Balance 870 Result Diagrams: 05/02/17 04:35 05/03/17 14:42 Phys Exam - Physical Examination HEENT: PERRLA Respiratory: no wheezing, no rales, no rhonchi, clear to auscultation bilateral Cardiovascular: RRR, no significant murmur Gastrointestinal: soft, non-tender, positive bowel sounds Musculoskeletal: no edema Dx/Plan (1) Pneumonia Code(s): J18.9 - PNEUMONIA, UNSPECIFIED ORGANISM Status: Acute (2) Traumatic brain injury Code(s): S06.9X9A - UNSP INTRACRANIAL INJURY W LOC OF UNSP DURATION, INIT Status: Acute (3) Fibromyalgia Status: Acute (4) Anxiety Code(s): F41.9 - ANXIETY DISORDER, UNSPECIFIED Status: Acute (5) Acute respiratory failure Code(s): J96.00 - ACUTE RESPIRATORY FAILURE, UNSP W HYPOXIA OR HYPERCAPNIA Status: Acute Comment: Vent management per [facility]. Tracheostomy done today 03/26/17 (6) HTN (hypertension) Code(s): I10 - ESSENTIAL (PRIMARY) HYPERTENSION Status: Chronic Qualifiers: Hypertension type: essential hypertension Qualified Code(s): I10 - Essential (primary) hypertension (7) Paroxysmal a-fib Code(s): I48.0 - PAROXYSMAL ATRIAL FIBRILLATION Status: Chronic Comment: rate controlled on Coreg.cardiology following.Xarelto on hold due to drop in Hb with +FOBT - Plan * Acute on chronic respiratory failure- improved- She has been placed on Flagyl * Fibromyalgia- will continue Ultram scheduled twice a day, with PRN if needed * AFIB- currently in sinus, but her heart rate is increasing. It was noted that she was discharged on Digoxin, and Carvediolol on her previous admission. There is no clear indication why she is no longer on these medications, will re-start Carvediolol, albeit at a lower dose a titrate back up * TBI- patient mood waxes and wanes- suspect this is chronic and unlikely to be modified much with medication * Will re-visit placement on Monday. * Continue PT/OT
[2017-05-07] MEDS: Heparin 5,000 UNITS/ML VIAL SC SCH ×3 (08:00→20:28)
[2017-05-07] MEDS: traMADol HCl 50 MG TAB PO SCH ×2 (10:20→20:28)
[2017-05-07] MEDS: metroNIDAZOLE 500 MG TAB PO SCH ×3 (10:22→20:29)
[2017-05-07] MEDS: Amlodipine 5 MG TAB PO SCH (10:22)
--- NOTE | 2017-05-07 14:39 | PDOC.PN ---
- Subjective Encounter Start Date: 05/07/17 Encounter Start Time: 14:36 Ms. Joiner was seen today in follow-up. She is complaining of trouble sleeping , and says Temazepam, and Ambien have not helped in the past. She denies trouble breathing. - Objective Resuscitation Status: Resuscitation Status DNR:Do Not Resuscitate MAR Reviewed: Yes Vital Signs & Weight: Vital Signs (12 hours) Temp Pulse Resp BP Pulse Ox 05/07/17 10:22 104 H 05/07/17 08:00 98.3 F 104 H 16 93 L 05/07/17 07:37 98.3 F 104 H 16 148/70 H 93 L Weight Weight 107 lb I&O: 05/06/17 05/07/17 05/08/17 06:59 06:59 06:59 Intake Total 600 Balance 600 Result Diagrams: 05/02/17 04:35 05/03/17 14:42 Phys Exam - Physical Examination HEENT: PERRLA + occasional wheeze, no rales Cardiovascular: RRR, no significant murmur Gastrointestinal: soft, non-tender, positive bowel sounds Musculoskeletal: no edema Dx/Plan (1) Pneumonia Code(s): J18.9 - PNEUMONIA, UNSPECIFIED ORGANISM Status: Acute (2) Traumatic brain injury Code(s): S06.9X9A - UNSP INTRACRANIAL INJURY W LOC OF UNSP DURATION, INIT Status: Acute (3) Fibromyalgia Status: Acute (4) Anxiety Code(s): F41.9 - ANXIETY DISORDER, UNSPECIFIED Status: Acute (5) Acute respiratory failure Code(s): J96.00 - ACUTE RESPIRATORY FAILURE, UNSP W HYPOXIA OR HYPERCAPNIA Status: Acute Comment: Vent management per [facility]. Tracheostomy done today 03/26/17 (6) HTN (hypertension) Code(s): I10 - ESSENTIAL (PRIMARY) HYPERTENSION Status: Chronic Qualifiers: Hypertension type: essential hypertension Qualified Code(s): I10 - Essential (primary) hypertension (7) Paroxysmal a-fib Code(s): I48.0 - PAROXYSMAL ATRIAL FIBRILLATION Status: Chronic Comment: rate controlled on Coreg.cardiology following.Xarelto on hold due to drop in Hb with +FOBT (8) Insomnia Code(s): G47.00 - INSOMNIA, UNSPECIFIED Status: Acute - Plan * Acute on chronic respiratory failure- Patient has improved- continue Flagyl to cover for aspiration organisms * HTN- blood pressure is borderline- Coreg will be re-started * AFIB- will re-check potassium, and if this is normal will re-start digoxin as well * Insomnia- will give a trial of Trazodone.
[2017-05-07] MEDS: traMADol HCl 50 MG TAB PO PRN ×2 (15:30→21:33)
[2017-05-07] MEDS: Carvedilol 6.25 MG TAB PO SCH (17:53)
[2017-05-07] MEDS: traZODone HCl 50 MG TAB PO PRN (21:37)
[2017-05-08] MEDS: traMADol HCl 50 MG TAB PO PRN ×2 (03:29→17:03)
[2017-05-08] MEDS: traMADol HCl 50 MG TAB PO SCH ×2 (08:28→20:21)
[2017-05-08] MEDS: Carvedilol 6.25 MG TAB PO SCH ×2 (08:30→17:04)
[2017-05-08] MEDS: Amlodipine 5 MG TAB PO SCH (08:30)
[2017-05-08] MEDS: Heparin 5,000 UNITS/ML VIAL SC SCH ×3 (08:33→20:23)
[2017-05-08 08:42] LABS: Anion Gap 12 mmol/L (10-20); BUN (Urea Nitrogen) 7 mg/dL (9.8-20.1); Calc. Creatinine Clearance 74 mL/min (70-130); Calcium 9.1 mg/dL (7.8-10.44); Carbon Dioxide 24 mmol/L (23-31); Chloride 102 mmol/L (98-107); Estimated GFR-MDRD Greater than 90
[2017-05-08] MEDS: metroNIDAZOLE 500 MG TAB PO SCH ×3 (08:49→20:21)
--- NOTE | 2017-05-08 11:16 | PDOC.PN ---
- Subjective Encounter Start Date: 05/08/17 Encounter Start Time: 11:14 Ms. Joiner was seen today in follow-up for severe deconditioning. She is in poor spirits again today. She does not have any specific medical complaints. - Objective Resuscitation Status: Resuscitation Status DNR:Do Not Resuscitate MAR Reviewed: Yes Vital Signs & Weight: Vital Signs (12 hours) Temp Pulse Resp BP BP Pulse Ox 05/08/17 08:30 92 158/95 H 05/08/17 08:00 98.1 F 92 18 158/95 H 93 L Weight Weight 107 lb 7 oz I&O: 05/07/17 05/08/17 05/09/17 06:59 06:59 06:59 Intake Total 600 Balance 600 Result Diagrams: 05/02/17 04:35 05/08/17 08:04 Phys Exam - Physical Examination HEENT: PERRLA Respiratory: no wheezing, no rales, no rhonchi Cardiovascular: RRR, no significant murmur, no rub Gastrointestinal: soft, non-tender, positive bowel sounds Musculoskeletal: no edema Dx/Plan (1) Pneumonia Code(s): J18.9 - PNEUMONIA, UNSPECIFIED ORGANISM Status: Acute (2) Traumatic brain injury Code(s): S06.9X9A - UNSP INTRACRANIAL INJURY W LOC OF UNSP DURATION, INIT Status: Acute (3) Fibromyalgia Status: Acute (4) Anxiety Code(s): F41.9 - ANXIETY DISORDER, UNSPECIFIED Status: Acute (5) Acute respiratory failure Code(s): J96.00 - ACUTE RESPIRATORY FAILURE, UNSP W HYPOXIA OR HYPERCAPNIA Status: Acute Comment: Vent management per [facility]. Tracheostomy done today 03/26/17 (6) HTN (hypertension) Code(s): I10 - ESSENTIAL (PRIMARY) HYPERTENSION Status: Chronic Qualifiers: Hypertension type: essential hypertension Qualified Code(s): I10 - Essential (primary) hypertension (7) Paroxysmal a-fib Code(s): I48.0 - PAROXYSMAL ATRIAL FIBRILLATION Status: Chronic Comment: rate controlled on Coreg.cardiology following.Xarelto on hold due to drop in Hb with +FOBT (8) Insomnia Code(s): G47.00 - INSOMNIA, UNSPECIFIED Status: Acute - Plan * Acute respiratory failure- improved * AFIB- HR and blood pressure is slightly better. Her potassium is normal, will therefore re-start digoxin * Severe Deconditioning- patient has not been participating with PT. She also refuses to consider placement in fdc. I explained to her that she will need to be more mobile prior to discharge. She basically stopped interacting at this point. She is fixated on including Isometric Exercises in her PT regimen, otherwise she doesn't participate. * Unfortunately due to her psychological condition as a result of the TBI, discharge planning will be a challenge.
[2017-05-08] MEDS: Methocarbamol 500 MG TAB PO PRN (18:00)
[2017-05-09] MEDS: Amlodipine 5 MG TAB PO SCH (09:08)
[2017-05-09] MEDS: metroNIDAZOLE 500 MG TAB PO SCH ×3 (09:08→20:43)
[2017-05-09] MEDS: Digoxin 0.125 MG TAB PO SCH (09:08)
[2017-05-09] MEDS: traMADol HCl 50 MG TAB PO SCH ×2 (09:09→20:43)
[2017-05-09] MEDS: Carvedilol 6.25 MG TAB PO SCH ×2 (09:09→17:18)
[2017-05-09] MEDS: Heparin 5,000 UNITS/ML VIAL SC SCH ×3 (09:11→20:42)
[2017-05-09] MEDS: Lorazepam 0.5 MG TAB PO PRN ×2 (09:21→18:16)
--- NOTE | 2017-05-09 13:14 | PDOC.PN ---
- Subjective Encounter Start Date: 05/09/17 Encounter Start Time: 09:50 -: old records requested/rev Patient seen and examined. No new complaints. No overnight events - Objective Resuscitation Status: Resuscitation Status DNR:Do Not Resuscitate MAR Reviewed: Yes Vital Signs & Weight: Vital Signs (12 hours) Temp Pulse Resp BP Pulse Ox 05/09/17 08:00 98 F 98 16 05/09/17 07:24 98 F 98 16 163/97 H 92 L Weight Weight 107 lb 4 oz Result Diagrams: 05/02/17 04:35 05/08/17 08:04 Phys Exam - Physical Examination Constitutional: NAD HEENT: PERRLA, moist MMs, sclera anicteric Neck: no JVD, supple Respiratory: no wheezing, no rales, no rhonchi Cardiovascular: RRR, no significant murmur, no rub Gastrointestinal: soft, non-tender, no distention, positive bowel sounds Musculoskeletal: no edema, pulses present Neurological: non-focal Psychiatric: normal affect Skin: no rash, normal turgor Dx/Plan (1) Physical deconditioning Code(s): R53.81 - OTHER MALAISE Status: Chronic Comment: physical deconditioning: PT/OT (2) Anxiety Code(s): F41.9 - ANXIETY DISORDER, UNSPECIFIED Status: Chronic (3) Fibromyalgia Status: Chronic (4) Iron deficiency Code(s): E61.1 - IRON DEFICIENCY Status: Chronic (5) Paroxysmal a-fib Code(s): I48.0 - PAROXYSMAL ATRIAL FIBRILLATION Status: Chronic Comment: (6) Protein-calorie malnutrition, moderate Code(s): E44.0 - MODERATE PROTEIN-CALORIE MALNUTRITION Status: Chronic (7) Diverticulosis of colon Code(s): K57.30 - DVRTCLOS OF LG INT W/O PERFORATION OR ABSCESS W/O BLEEDING Status: Chronic - Plan cont current plan of care, PT/OT, psychotherapist social worker * encouraged to participate with PT/OT * now agreed with snu placement * medication reviewed as below * symptomatic treatment * stable. Review of Systems - Review of Systems Constitutional: Weakness, Malaise. negative: Fever, Chills, Sweats, Other ENT: negative: Ear Pain, Ear Discharge, Nose Pain, Nose Discharge, Nose Congestion, Mouth Pain, Mouth Swelling, Throat Pain, Throat Swelling, Other Respiratory: negative: Cough, Dry, Shortness of Breath, Hemoptysis, SOB with Excertion, Pleuritic Pain, Sputum, Wheezing Cardiovascular: negative: Chest Pain, Palpitations, Orthopnea, Paroxysmal Noc. Dyspnea, Edema, Light Headedness, Other Gastrointestinal: negative: Nausea, Vomiting, Abdominal Pain, Diarrhea, Constipation, Melena, Hematochezia, Other Genitourinary: negative: Dysuria, Frequency, Incontinence, Hematuria, Retention , Other Musculoskeletal: negative: Neck Pain, Shoulder Pain, Arm Pain, Back Pain, Hand Pain, Leg Pain, Foot Pain, Other - Medications/Allergies Allergies/Adverse Reactions: Allergies Allergy/AdvReac Type Severity Reaction Status Date / Time Penicillins Allergy Rash Verified 12/10/16 02:52 Medications: Current Medications Acetaminophen (Tylenol) 650 mg PO Q4H PRN PRN Reason: Headache/Fever or Pain Last Admin: 05/03/17 15:44 Dose: 650 mg Amlodipine Besylate (Norvasc) 2.5 mg PO DAILY [facility] Last Admin: 05/09/17 09:08 Dose: 2.5 mg Carvedilol (Coreg) 6.25 mg PO BID-[facility] Last Admin: 05/09/17 09:09 Dose: 6.25 mg Digoxin (Lanoxin) 0.125 mg PO DAILY [facility] Last Admin: 05/09/17 09:08 Dose: 0.125 mg Heparin Sodium (Porcine) (Heparin) 5,000 units SC TID [facility] Last Admin: 05/09/17 09:11 Dose: 5,000 units Labetalol HCl (Normodyne) 20 mg SLOW IVP Q6H PRN PRN Reason: DIASTOLIC >100 Last Admin: 05/03/17 18:10 Dose: 20 mg Lorazepam (Ativan) 0.5 mg PO Q6HR PRN PRN Reason: Anxiety Last Admin: 05/09/17 09:21 Dose: 0.5 mg Methocarbamol (Robaxin) 500 mg PO TIDPRN PRN PRN Reason: Muscle Spasm Last Admin: 05/08/17 18:00 Dose: 500 mg Metronidazole (Flagyl) 500 mg PO TID [facility] Stop: 05/10/17 09:01 Last Admin: 05/09/17 09:08 Dose: 500 mg Ondansetron HCl (Zofran) 4 mg IVP Q6H PRN PRN Reason: Nausea/Vomiting Phenol (Chloraseptic [place] 180 Ml Bot) 0 ml PO ASDIR PRN PRN Reason: SORE THROAT Last Admin: 05/06/17 20:48 Dose: 1 spr Sodium Chloride (Flush - Normal Saline) 10 ml IVF Q12HR [facility] Last Admin: 05/09/17 09:10 Dose: 10 ml Sodium Chloride (Flush - Normal Saline) 10 ml IVF PRN PRN PRN Reason: Saline Flush Tramadol HCl (Ultram) 25 mg PO Q6H PRN PRN Reason: Pain Last Admin: 05/08/17 17:03 Dose: 25 mg Tramadol HCl (Ultram) 25 mg PO BID [facility]NY Last Admin: 05/09/17 09:09 Dose: 25 mg Trazodone HCl (Desyrel) 50 mg PO HSPRN PRN PRN Reason: Insomnia Last Admin: 05/07/17 21:37 Dose: 50 mg
[2017-05-09] MEDS: Methocarbamol 500 MG TAB PO PRN (14:08)
[2017-05-09] MEDS: traMADol HCl 50 MG TAB PO PRN (18:15)
[2017-05-10] MEDS: Methocarbamol 500 MG TAB PO PRN ×3 (01:40→14:53)
[2017-05-10] MEDS: traZODone HCl 50 MG TAB PO PRN (01:41)
[2017-05-10] MEDS: traMADol HCl 50 MG TAB PO PRN ×2 (05:39→14:51)
[2017-05-10 08:14] LABS: ALT (SGPT) 10 U/L (8-55); AST (SGOT) 13 U/L (5-34); Alkaline Phosphatase 102 U/L (40-150); Anion Gap 11 mmol/L (10-20); BUN (Urea Nitrogen) 6 mg/dL (9.8-20.1); Bilirubin, Total 0.3 mg/dL (0.2-1.2); Calc. Creatinine Clearance 75 mL/min (70-130); Calcium 8.5 mg/dL (7.8-10.44); Carbon Dioxide 21 mmol/L (23-31); Chloride 106 mmol/L (98-107); Estimated GFR-MDRD Greater than 90; Globulin 2.7 g/dL (2.4-3.5); Protein, Total 5.4 g/dL (6.0-8.3)
[2017-05-10 08:27] LABS: #Eosinphils 0.2 thou/uL (0.0-0.7); #Lymphocytes 1.8 thou/uL (1.20-3.40); #Monocytes 1.3 thou/uL (0.11-0.59); #Neutrophils 11.7 thou/uL (1.40-6.50); %Basophils 0.3 % (0.0-1.0); %Eosinophils 1.3 % (0.0-10.0); %Lymphocytes 11.9 % (21.0-51.0); %Monocytes 8.6 % (0.0-10.0); Anisocytosis MODERATE=16-30 cells (100X) (0-5/hpf); Band 3 % (5-11); Hematocrit 27.9 % (36.0-47.0); Mean Platelet Volume 6.2 fL (7.4-10.4); Myelocyte 2 % (0-0); Neutrophil 73 % (42-75); Polychromasia MODERATE = 3-4 cells (100X) (0-2/hpf)
[2017-05-10] MEDS: Amlodipine 5 MG TAB PO SCH (08:45)
[2017-05-10] MEDS: Digoxin 0.125 MG TAB PO SCH (08:46)
[2017-05-10] MEDS: Carvedilol 6.25 MG TAB PO SCH ×2 (08:48→17:41)
[2017-05-10] MEDS: Heparin 5,000 UNITS/ML VIAL SC SCH ×3 (08:49→23:59)
[2017-05-10] MEDS: metroNIDAZOLE 500 MG TAB PO SCH (08:49)
[2017-05-10] MEDS: traMADol HCl 50 MG TAB PO SCH (08:51)
[2017-05-10] MEDS: Lorazepam 0.5 MG TAB PO PRN ×2 (08:53→17:44)
--- NOTE | 2017-05-10 12:52 | PDOC.PN ---
- Subjective Encounter Start Date: 05/10/17 Encounter Start Time: 10:40 Patient seen and examined. No new complaints. No overnight events - Objective Resuscitation Status: Resuscitation Status DNR:Do Not Resuscitate MAR Reviewed: Yes Vital Signs & Weight: Vital Signs (12 hours) Temp Pulse Resp BP BP Pulse Ox 05/10/17 08:48 126/82 05/10/17 08:46 96 05/10/17 08:45 96 126/82 05/10/17 08:00 98.6 F 96 18 126/82 93 L Weight Admit Weight 95 lb 8 oz Weight 107 lb Result Diagrams: 05/10/17 07:37 05/10/17 07:37 Phys Exam - Physical Examination Constitutional: NAD HEENT: PERRLA, moist MMs, sclera anicteric Neck: no JVD, supple Respiratory: no wheezing, no rales, no rhonchi Cardiovascular: RRR, no significant murmur, no rub Gastrointestinal: soft, non-tender, no distention, positive bowel sounds Musculoskeletal: no edema, pulses present Neurological: non-focal Lymphatic: no nodes Psychiatric: normal affect Skin: no rash, normal turgor Dx/Plan (1) Physical deconditioning Code(s): R53.81 - OTHER MALAISE Status: Acute Comment: physical deconditioning: PT/OT (2) Anxiety Code(s): F41.9 - ANXIETY DISORDER, UNSPECIFIED Status: Chronic (3) Fibromyalgia Status: Chronic (4) Paroxysmal a-fib Code(s): I48.0 - PAROXYSMAL ATRIAL FIBRILLATION Status: Chronic Comment: (5) Protein-calorie malnutrition, moderate Code(s): E44.0 - MODERATE PROTEIN-CALORIE MALNUTRITION Status: Chronic (6) Anemia, normocytic normochromic Code(s): D64.9 - ANEMIA, UNSPECIFIED Status: Chronic (7) Chronic diastolic (congestive) heart failure Code(s): I50.32 - CHRONIC DIASTOLIC (CONGESTIVE) HEART FAILURE Status: Chronic (8) HTN (hypertension) Code(s): I10 - ESSENTIAL (PRIMARY) HYPERTENSION Status: Chronic Qualifiers: Hypertension type: essential hypertension Qualified Code(s): I10 - Essential (primary) hypertension - Plan cont current plan of care, PT/OT, outreach and education social worker * without SNU placement , pt is not safe to discharge * today i spoke with pt and she agreed with snu placement * medication reviewed as below * symptomatic treatment. Review of Systems - Review of Systems Constitutional: Weakness, Malaise. negative: Fever, Chills, Sweats, Other ENT: negative: Ear Pain, Ear Discharge, Nose Pain, Nose Discharge, Nose Congestion, Mouth Pain, Mouth Swelling, Throat Pain, Throat Swelling, Other Respiratory: negative: Cough, Dry, Shortness of Breath, Hemoptysis, SOB with Excertion, Pleuritic Pain, Sputum, Wheezing Cardiovascular: negative: Chest Pain, Palpitations, Orthopnea, Paroxysmal Noc. Dyspnea, Edema, Light Headedness, Other Gastrointestinal: negative: Nausea, Vomiting, Abdominal Pain, Diarrhea, Constipation, Melena, Hematochezia, Other Genitourinary: negative: Dysuria, Frequency, Incontinence, Hematuria, Retention , Other Musculoskeletal: negative: Neck Pain, Shoulder Pain, Arm Pain, Back Pain, Hand Pain, Leg Pain, Foot Pain, Other Skin: negative: Rash, Lesions, Baldev, Bruising, Other - Medications/Allergies Allergies/Adverse Reactions: Allergies Allergy/AdvReac Type Severity Reaction Status Date / Time Penicillins Allergy Rash Verified 12/10/16 02:52 Medications: Current Medications Acetaminophen (Tylenol) 650 mg PO Q4H PRN PRN Reason: Headache/Fever or Pain Last Admin: 05/03/17 15:44 Dose: 650 mg Amlodipine Besylate (Norvasc) 2.5 mg PO DAILY [facility] Last Admin: 05/10/17 08:45 Dose: 2.5 mg Carvedilol (Coreg) 6.25 mg PO BID-[facility] Last Admin: 05/10/17 08:48 Dose: 6.25 mg Digoxin (Lanoxin) 0.125 mg PO DAILY [facility] Last Admin: 05/10/17 08:46 Dose: 0.125 mg Heparin Sodium (Porcine) (Heparin) 5,000 units SC TID [facility] Last Admin: 05/10/17 08:49 Dose: 5,000 units Labetalol HCl (Normodyne) 20 mg SLOW IVP Q6H PRN PRN Reason: DIASTOLIC >100 Last Admin: 05/03/17 18:10 Dose: 20 mg Lorazepam (Ativan) 0.5 mg PO Q6HR PRN PRN Reason: Anxiety Last Admin: 05/10/17 08:53 Dose: 0.5 mg Methocarbamol (Robaxin) 500 mg PO TIDPRN PRN PRN Reason: Muscle Spasm Last Admin: 05/10/17 05:39 Dose: 500 mg Ondansetron HCl (Zofran) 4 mg IVP Q6H PRN PRN Reason: Nausea/Vomiting Phenol (Chloraseptic [place] 180 Ml Bot) 0 ml PO ASDIR PRN PRN Reason: SORE THROAT Last Admin: 05/06/17 20:48 Dose: 1 spr Sodium Chloride (Flush - Normal Saline) 10 ml IVF Q12HR [facility] Last Admin: 05/10/17 08:50 Dose: Not Given Sodium Chloride (Flush - Normal Saline) 10 ml IVF PRN PRN PRN Reason: Saline Flush Tramadol HCl (Ultram) 25 mg PO Q6H PRN PRN Reason: Pain Last Admin: 05/10/17 05:39 Dose: 25 mg Tramadol HCl (Ultram) 25 mg PO BID [facility] Last Admin: 05/10/17 08:51 Dose: 25 mg Trazodone HCl (Desyrel) 50 mg PO HSPRN PRN PRN Reason: Insomnia Last Admin: 05/10/17 01:41 Dose: 50 mg
[2017-05-10] MEDS: Acetaminophen 325 MG TAB PO PRN (17:44)
[2017-05-11] MEDS: traMADol HCl 50 MG TAB PO SCH ×3 (01:52→20:09)
[2017-05-11] MEDS: Methocarbamol 500 MG TAB PO PRN ×4 (02:22→20:08)
[2017-05-11] MEDS: Lorazepam 0.5 MG TAB PO PRN ×2 (02:22→15:28)
[2017-05-11] MEDS: Digoxin 0.125 MG TAB PO SCH (08:26)
[2017-05-11] MEDS: Amlodipine 5 MG TAB PO SCH (08:26)
[2017-05-11] MEDS: Heparin 5,000 UNITS/ML VIAL SC SCH ×3 (08:26→20:13)
[2017-05-11] MEDS: Carvedilol 6.25 MG TAB PO SCH ×2 (08:28→17:04)
[2017-05-11] MEDS ORDERED: Milk Of Magnesia 30 ML UDCUP PO PRN (09:19)
[2017-05-11] MEDS ORDERED: Loperamide HCl 2 MG CAP PO PRN (09:19)
[2017-05-11] MEDS ORDERED: Artificial Tear Sol 15 ML BOT EA EYE PRN (09:19)
[2017-05-11] MEDS ORDERED: Diabetic Tussin 200 MG/10 ML UDCUP PO PRN (09:19)
[2017-05-11] MEDS ORDERED: Senokot 8.6 MG TAB PO PRN (09:19)
[2017-05-11] MEDS ORDERED: Ondansetron ODT 4 MG TAB PO PRN (09:19)
[2017-05-11] MEDS ORDERED: Mag-Al 1200 mg/1200 mg/30 ML UDCUP PO PRN (09:19)
[2017-05-11] MEDS ORDERED: Sodium Chloride 0.65% Nasal 44 ML BOT EA NARE PRN (09:19)
[2017-05-11] MEDS ORDERED: Loratadine 10 MG TAB PO PRN (09:19)
[2017-05-11] MEDS ORDERED: Bisacodyl 10 MG SUPP PR PRN (09:19)
[2017-05-11] MEDS ORDERED: Eucerin (Mineral Oil/Petrolatum,White) 30 gm Jar TOP PRN (09:19)
--- NOTE | 2017-05-11 11:51 | PDOC.PN ---
- Subjective Encounter Start Date: 05/11/17 Encounter Start Time: 09:40 Patient seen and examined. No new complaints. No overnight events - Objective Resuscitation Status: Resuscitation Status DNR:Do Not Resuscitate MAR Reviewed: Yes Vital Signs & Weight: Vital Signs (12 hours) Temp Pulse Resp BP BP Pulse Ox 05/11/17 08:28 133/82 05/11/17 08:26 88 05/11/17 08:00 98.2 F 88 18 146/84 H 97 Weight Admit Weight 95 lb 8 oz Weight 106 lb 11.26 oz I&O: 05/10/17 05/11/17 05/12/17 06:59 06:59 06:59 Intake Total 240 Balance 240 Result Diagrams: 05/10/17 07:37 05/10/17 07:37 Phys Exam - Physical Examination Constitutional: NAD HEENT: PERRLA, moist MMs, sclera anicteric Neck: no JVD, supple Respiratory: no wheezing, no rales, no rhonchi Cardiovascular: RRR, no significant murmur, no rub Gastrointestinal: soft, non-tender, no distention Musculoskeletal: no edema, pulses present Neurological: non-focal Psychiatric: normal affect Skin: no rash, normal turgor Dx/Plan (1) Physical deconditioning Code(s): R53.81 - OTHER MALAISE Status: Acute Comment: physical deconditioning: PT/OT (2) Anxiety Code(s): F41.9 - ANXIETY DISORDER, UNSPECIFIED Status: Chronic (3) Fibromyalgia Status: Chronic (4) Paroxysmal a-fib Code(s): I48.0 - PAROXYSMAL ATRIAL FIBRILLATION Status: Chronic Comment: (5) Protein-calorie malnutrition, moderate Code(s): E44.0 - MODERATE PROTEIN-CALORIE MALNUTRITION Status: Chronic (6) Anemia, normocytic normochromic Code(s): D64.9 - ANEMIA, UNSPECIFIED Status: Chronic (7) Chronic diastolic (congestive) heart failure Code(s): I50.32 - CHRONIC DIASTOLIC (CONGESTIVE) HEART FAILURE Status: Chronic (8) HTN (hypertension) Code(s): I10 - ESSENTIAL (PRIMARY) HYPERTENSION Status: Chronic Qualifiers: Hypertension type: essential hypertension Qualified Code(s): I10 - Essential (primary) hypertension - Plan cont current plan of care, continue antibiotics, PT/OT, social sciences chair * add doxycycline * increase nutritional supplement * add folic acid, vitamin b12, ferrous sulfate * medication reviewed as below * symptomatic treatment * await placement. Review of Systems - Review of Systems Constitutional: Weakness. negative: Fever, Chills, Sweats, Malaise, Other Eyes: negative: Pain, Vision Change, Conjunctivae Inflammation, Eyelid Inflammation, Redness, Other Respiratory: negative: Cough, Dry, Shortness of Breath, Hemoptysis, SOB with Excertion, Pleuritic Pain, Sputum, Wheezing Cardiovascular: negative: Chest Pain, Palpitations, Orthopnea, Paroxysmal Noc. Dyspnea, Edema, Light Headedness, Other Gastrointestinal: negative: Nausea, Vomiting, Abdominal Pain, Diarrhea, Constipation, Melena, Hematochezia, Other Genitourinary: negative: Dysuria, Frequency, Incontinence, Hematuria, Retention , Other Musculoskeletal: negative: Neck Pain, Shoulder Pain, Arm Pain, Back Pain, Hand Pain, Leg Pain, Foot Pain, Other Skin: negative: Rash, Lesions, Baldev, Bruising, Other - Medications/Allergies Allergies/Adverse Reactions: Allergies Allergy/AdvReac Type Severity Reaction Status Date / Time Penicillins Allergy Rash Verified 12/10/16 02:52 Medications: Current Medications Acetaminophen (Tylenol) 650 mg PO Q4H PRN PRN Reason: Headache/Fever or Pain Last Admin: 05/10/17 17:44 Dose: 650 mg Al Hydroxide/Mg Hydroxide (Maalox) 15 ml PO Q4H PRN PRN Reason: Heartburn or Indigestion Amlodipine Besylate (Norvasc) 2.5 mg PO DAILY [facility] Last Admin: 05/11/17 08:26 Dose: 2.5 mg Artificial Tears (Tears Renewed 15ml Bottle) 0 drop EA EYE PRN PRN PRN Reason: Dry Eyes Bisacodyl (Dulcolax) 10 mg [place] DAILYPRN PRN PRN Reason: Constipation Carvedilol (Coreg) 6.25 mg PO BID-[facility] Last Admin: 05/11/17 08:28 Dose: 6.25 mg Cyanocobalamin (Vitamin B-12) 1,000 mcg PO DAILY [facility] Digoxin (Lanoxin) 0.125 mg PO DAILY [facility] Last Admin: 05/11/17 08:26 Dose: 0.125 mg Doxycycline Hyclate (Vibramycin) 100 mg PO BID [facility] Famotidine (Pepcid) 20 mg PO BID [facility] Ferrous Sulfate (Feosol) 325 mg PO QAM-[facility] Folic Acid (Folvite) 1 mg PO DAILY [facility] Guaifenesin (Robitussin Sf) 200 mg PO Q4H PRN PRN Reason: Cough Heparin Sodium (Porcine) (Heparin) 5,000 units SC TID [facility] Last Admin: 05/11/17 08:26 Dose: 5,000 units Labetalol HCl (Normodyne) 20 mg SLOW IVP Q6H PRN PRN Reason: DIASTOLIC >100 Last Admin: 05/03/17 18:10 Dose: 20 mg Loperamide HCl (Imodium) 2 mg PO PRN PRN PRN Reason: Diarrhea/Loose Stools Loratadine (Claritin) 10 mg PO DAILYPRN PRN PRN Reason: Sinus Symptoms Lorazepam (Ativan) 0.5 mg PO Q6HR PRN PRN Reason: Anxiety Last Admin: 05/11/17 02:22 Dose: 0.5 mg Magnesium Hydroxide (Milk Of Magnesium) 30 ml PO DAILYPRN PRN PRN Reason: Constipation Methocarbamol (Robaxin) 500 mg PO TIDPRN PRN PRN Reason: Muscle Spasm Last Admin: 05/11/17 08:54 Dose: 500 mg Mineral Oil/White Petrolatum (Eucerin Cream) 0 gm TOP BIDPRN PRN PRN Reason: Dry Skin Ondansetron HCl (Zofran) 4 mg IVP Q6H PRN PRN Reason: Nausea/Vomiting Ondansetron HCl (Zofran Odt) 4 mg PO Q6H PRN PRN Reason: Nausea/Vomiting Phenol (Chloraseptic [place] 180 Ml Bot) 0 ml PO ASDIR PRN PRN Reason: SORE THROAT Last Admin: 05/06/17 20:48 Dose: 1 spr Senna (Senokot) 2 tab PO HSPRN PRN PRN Reason: Constipation Sodium Chloride (Flush - Normal Saline) 10 ml IVF Q12HR [facility] Last Admin: 05/11/17 08:41 Dose: Not Given Sodium Chloride (Flush - Normal Saline) 10 ml IVF PRN PRN PRN Reason: Saline Flush Sodium Chloride ([place] Nasal [place] 0.65%) 0 ml EA NARE QIDPRN PRN PRN Reason: Nasal Congestion Tramadol HCl (Ultram) 25 mg PO Q6H PRN PRN Reason: Pain Last Admin: 05/10/17 14:51 Dose: 25 mg Tramadol HCl (Ultram) 25 mg PO BID [facility] Last Admin: 05/11/17 08:27 Dose: 25 mg Trazodone HCl (Desyrel) 50 mg PO HSPRN PRN PRN Reason: Insomnia Last Admin: 05/10/17 01:41 Dose: 50 mg
[2017-05-11] MEDS: Famotidine 20 MG TAB PO SCH (20:09)
[2017-05-11] MEDS: traZODone HCl 50 MG TAB PO PRN (20:12)
[2017-05-11] MEDS: Doxycycline 100 MG CAP PO SCH (20:12)
[2017-05-12] MEDS: Lorazepam 0.5 MG TAB PO PRN ×4 (01:00→21:32)
[2017-05-12] MEDS: traMADol HCl 50 MG TAB PO SCH ×2 (04:16→21:31)
[2017-05-12] MEDS: Methocarbamol 500 MG TAB PO PRN ×3 (04:19→21:32)
[2017-05-12] MEDS: Digoxin 0.125 MG TAB PO SCH (08:29)
[2017-05-12] MEDS: Famotidine 20 MG TAB PO SCH ×2 (08:29→21:30)
[2017-05-12] MEDS: Carvedilol 6.25 MG TAB PO SCH ×2 (08:31→17:17)
[2017-05-12] MEDS: Amlodipine 5 MG TAB PO SCH (08:31)
[2017-05-12] MEDS: Cyanocobalamin (Vitamin B-12) 1,000 MCG TAB PO SCH (08:32)
[2017-05-12] MEDS: Folic Acid 1 MG TAB PO SCH (08:33)
[2017-05-12] MEDS: Doxycycline 100 MG CAP PO SCH ×2 (08:33→21:30)
[2017-05-12] MEDS: Ferrous Sulfate 325 MG TAB PO SCH (08:33)
[2017-05-12] MEDS: Heparin 5,000 UNITS/ML VIAL SC SCH ×3 (08:34→21:42)
--- NOTE | 2017-05-12 12:35 | PDOC.PN ---
- Subjective Encounter Start Date: 05/12/17 Encounter Start Time: 09:20 Patient seen and examined. No new complaints. No overnight events - Objective Resuscitation Status: Resuscitation Status DNR:Do Not Resuscitate MAR Reviewed: Yes Vital Signs & Weight: Vital Signs (12 hours) Temp Pulse Resp BP BP Pulse Ox 05/12/17 08:31 109 H 141/90 H 05/12/17 08:29 109 H 05/12/17 08:00 98 F 109 H 20 100 05/12/17 07:21 98 F 109 H 16 141/90 H 95 05/12/17 01:59 95 Weight Admit Weight 95 lb 8 oz Weight 106 lb 11.26 oz I&O: 05/11/17 05/12/17 05/13/17 06:59 06:59 06:59 Intake Total 720 Balance 720 Result Diagrams: 05/10/17 07:37 05/10/17 07:37 Phys Exam - Physical Examination Constitutional: NAD HEENT: PERRLA, moist MMs, sclera anicteric Neck: no JVD, supple Respiratory: no wheezing, no rales, no rhonchi Cardiovascular: RRR, no significant murmur, no rub Gastrointestinal: soft, non-tender, no distention, positive bowel sounds Musculoskeletal: no edema, pulses present Neurological: non-focal, normal sensation Lymphatic: no nodes Psychiatric: normal affect, A&O x 3 Skin: no rash, normal turgor Dx/Plan (1) Physical deconditioning Code(s): R53.81 - OTHER MALAISE Status: Acute Comment: physical deconditioning: PT/OT (2) Anxiety Code(s): F41.9 - ANXIETY DISORDER, UNSPECIFIED Status: Chronic (3) Fibromyalgia Status: Chronic (4) Paroxysmal a-fib Code(s): I48.0 - PAROXYSMAL ATRIAL FIBRILLATION Status: Chronic Comment: (5) Protein-calorie malnutrition, moderate Code(s): E44.0 - MODERATE PROTEIN-CALORIE MALNUTRITION Status: Chronic (6) Anemia, normocytic normochromic Code(s): D64.9 - ANEMIA, UNSPECIFIED Status: Chronic (7) Chronic diastolic (congestive) heart failure Code(s): I50.32 - CHRONIC DIASTOLIC (CONGESTIVE) HEART FAILURE Status: Chronic (8) HTN (hypertension) Code(s): I10 - ESSENTIAL (PRIMARY) HYPERTENSION Status: Chronic Qualifiers: Hypertension type: essential hypertension Qualified Code(s): I10 - Essential (primary) hypertension - Plan cont current plan of care, continue antibiotics, PT/OT, social media marketing specialist * medication reviewed as below * symptomatic treatment * await placement * stable with current treatment. Review of Systems - Review of Systems ENT: negative: Ear Pain, Ear Discharge, Nose Pain, Nose Discharge, Nose Congestion, Mouth Pain, Mouth Swelling, Throat Pain, Throat Swelling, Other Respiratory: negative: Cough, Dry, Shortness of Breath, Hemoptysis, SOB with Excertion, Pleuritic Pain, Sputum, Wheezing Cardiovascular: negative: Chest Pain, Palpitations, Orthopnea, Paroxysmal Noc. Dyspnea, Edema, Light Headedness, Other Gastrointestinal: negative: Nausea, Vomiting, Abdominal Pain, Diarrhea, Constipation, Melena, Hematochezia, Other Genitourinary: negative: Dysuria, Frequency, Incontinence, Hematuria, Retention , Other Musculoskeletal: negative: Neck Pain, Shoulder Pain, Arm Pain, Back Pain, Hand Pain, Leg Pain, Foot Pain, Other - Medications/Allergies Allergies/Adverse Reactions: Allergies Allergy/AdvReac Type Severity Reaction Status Date / Time Penicillins Allergy Rash Verified 12/10/16 02:52 Medications: Current Medications Acetaminophen (Tylenol) 650 mg PO Q4H PRN PRN Reason: Headache/Fever or Pain Last Admin: 05/10/17 17:44 Dose: 650 mg Al Hydroxide/Mg Hydroxide (Maalox) 15 ml PO Q4H PRN PRN Reason: Heartburn or Indigestion Amlodipine Besylate (Norvasc) 2.5 mg PO DAILY [facility] Last Admin: 05/12/17 08:31 Dose: 2.5 mg Artificial Tears (Tears Renewed 15ml Bottle) 0 drop EA EYE PRN PRN PRN Reason: Dry Eyes Bisacodyl (Dulcolax) 10 mg [place] DAILYPRN PRN PRN Reason: Constipation Carvedilol (Coreg) 6.25 mg PO BID-[facility] Last Admin: 05/12/17 08:31 Dose: 6.25 mg Cyanocobalamin (Vitamin B-12) 1,000 mcg PO DAILY [facility] Last Admin: 05/12/17 08:32 Dose: 1,000 mcg Digoxin (Lanoxin) 0.125 mg PO DAILY [facility] Last Admin: 05/12/17 08:29 Dose: 0.125 mg Doxycycline Hyclate (Vibramycin) 100 mg PO BID [facility] Last Admin: 05/12/17 08:33 Dose: 100 mg Famotidine (Pepcid) 20 mg PO BID [facility] Last Admin: 05/12/17 08:29 Dose: 20 mg Ferrous Sulfate (Feosol) 325 mg PO QA-[facility] Last Admin: 05/12/17 08:33 Dose: 325 mg Folic Acid (Folvite) 1 mg PO DAILY [facility] Last Admin: 05/12/17 08:33 Dose: 1 mg Guaifenesin (Robitussin Sf) 200 mg PO Q4H PRN PRN Reason: Cough Heparin Sodium (Porcine) (Heparin) 5,000 units SC TID [facility] Last Admin: 05/12/17 08:34 Dose: 5,000 units Labetalol HCl (Normodyne) 20 mg SLOW IVP Q6H PRN PRN Reason: DIASTOLIC >100 Last Admin: 05/03/17 18:10 Dose: 20 mg Loperamide HCl (Imodium) 2 mg PO PRN PRN PRN Reason: Diarrhea/Loose Stools Loratadine (Claritin) 10 mg PO DAILYPRN PRN PRN Reason: Sinus Symptoms Lorazepam (Ativan) 0.5 mg PO Q6HR PRN PRN Reason: Anxiety Last Admin: 05/12/17 08:31 Dose: 0.5 mg Magnesium Hydroxide (Milk Of Magnesium) 30 ml PO DAILYPRN PRN PRN Reason: Constipation Methocarbamol (Robaxin) 500 mg PO TIDPRN PRN PRN Reason: Muscle Spasm Last Admin: 05/12/17 04:19 Dose: 500 mg Mineral Oil/White Petrolatum (Eucerin Cream) 0 gm TOP BIDPRN PRN PRN Reason: Dry Skin Ondansetron HCl (Zofran) 4 mg IVP Q6H PRN PRN Reason: Nausea/Vomiting Ondansetron HCl (Zofran Odt) 4 mg PO Q6H PRN PRN Reason: Nausea/Vomiting Phenol (Chloraseptic [place] 180 Ml Bot) 0 ml PO ASDIR PRN PRN Reason: SORE THROAT Last Admin: 05/06/17 20:48 Dose: 1 spr Senna (Senokot) 2 tab PO HSPRN PRN PRN Reason: Constipation Sodium Chloride (Flush - Normal Saline) 10 ml IVF Q12HR [facility] Last Admin: 05/12/17 08:35 Dose: Not Given Sodium Chloride (Flush - Normal Saline) 10 ml IVF PRN PRN PRN Reason: Saline Flush Sodium Chloride ([place] Nasal [place] 0.65%) 0 ml EA NARE QIDPRN PRN PRN Reason: Nasal Congestion Tramadol HCl (Ultram) 25 mg PO Q6H PRN PRN Reason: Pain Last Admin: 05/10/17 14:51 Dose: 25 mg Tramadol HCl (Ultram) 25 mg PO BID [facility] Last Admin: 05/12/17 04:16 Dose: 25 mg Trazodone HCl (Desyrel) 50 mg PO HSPRN PRN PRN Reason: Insomnia Last Admin: 05/11/17 20:12 Dose: 50 mg
[2017-05-12] MEDS: traMADol HCl 50 MG TAB PO PRN (14:49)
[2017-05-12] MEDS: traZODone HCl 50 MG TAB PO PRN (21:32)
[2017-05-13] MEDS: traMADol HCl 50 MG TAB PO PRN ×2 (04:30→17:13)
[2017-05-13] MEDS: Methocarbamol 500 MG TAB PO PRN ×4 (04:30→21:27)
[2017-05-13] MEDS: Lorazepam 0.5 MG TAB PO PRN ×3 (04:33→21:47)
[2017-05-13] MEDS: Folic Acid 1 MG TAB PO SCH (08:30)
[2017-05-13] MEDS: Ferrous Sulfate 325 MG TAB PO SCH (08:30)
[2017-05-13] MEDS: Doxycycline 100 MG CAP PO SCH ×2 (08:30→21:20)
[2017-05-13] MEDS: Digoxin 0.125 MG TAB PO SCH (08:30)
[2017-05-13] MEDS: Carvedilol 6.25 MG TAB PO SCH ×2 (08:30→17:19)
[2017-05-13] MEDS: traMADol HCl 50 MG TAB PO SCH ×2 (08:31→21:21)
[2017-05-13] MEDS: Famotidine 20 MG TAB PO SCH ×2 (08:32→21:20)
[2017-05-13] MEDS: Amlodipine 5 MG TAB PO SCH (08:33)
[2017-05-13] MEDS: Cyanocobalamin (Vitamin B-12) 1,000 MCG TAB PO SCH (08:34)
[2017-05-13] MEDS: Heparin 5,000 UNITS/ML VIAL SC SCH ×3 (08:36→21:21)
[2017-05-13] MEDS: HYDROcodone/Acetaminophen 5/325 mg Tablet PO PRN ×2 (11:03→17:12)
--- NOTE | 2017-05-13 12:02 | PDOC.PN ---
- Subjective Encounter Start Date: 05/13/17 Encounter Start Time: 09:30 c/o pain, and cramps in back Patient seen and examined. No overnight events - Objective Resuscitation Status: Resuscitation Status DNR:Do Not Resuscitate MAR Reviewed: Yes Vital Signs & Weight: Vital Signs (12 hours) Temp Pulse Resp BP BP Pulse Ox 05/13/17 08:35 98.1 F 96 16 147/87 H 94 L 05/13/17 08:33 96 147/87 H 05/13/17 08:30 96 147/87 H 05/13/17 05:31 94 L Weight Admit Weight 95 lb 8 oz Weight 106 lb 11.26 oz I&O: 05/12/17 05/13/17 05/14/17 06:59 06:59 06:59 Intake Total 720 1400 Balance 720 1400 Result Diagrams: 05/10/17 07:37 05/10/17 07:37 Phys Exam - Physical Examination Constitutional: NAD HEENT: PERRLA, moist MMs, sclera anicteric Neck: no JVD, supple Respiratory: no wheezing, no rales, no rhonchi Cardiovascular: RRR, no significant murmur, no rub Gastrointestinal: soft, non-tender, no distention, positive bowel sounds Musculoskeletal: no edema, pulses present Neurological: non-focal, normal sensation Psychiatric: normal affect, A&O x 3 Skin: no rash, normal turgor Dx/Plan (1) Physical deconditioning Code(s): R53.81 - OTHER MALAISE Status: Acute Comment: physical deconditioning: PT/OT (2) Anxiety Code(s): F41.9 - ANXIETY DISORDER, UNSPECIFIED Status: Chronic (3) Fibromyalgia Status: Chronic (4) Paroxysmal a-fib Code(s): I48.0 - PAROXYSMAL ATRIAL FIBRILLATION Status: Chronic Comment: (5) Protein-calorie malnutrition, moderate Code(s): E44.0 - MODERATE PROTEIN-CALORIE MALNUTRITION Status: Chronic (6) Anemia, normocytic normochromic Code(s): D64.9 - ANEMIA, UNSPECIFIED Status: Chronic (7) Chronic diastolic (congestive) heart failure Code(s): I50.32 - CHRONIC DIASTOLIC (CONGESTIVE) HEART FAILURE Status: Chronic (8) HTN (hypertension) Code(s): I10 - ESSENTIAL (PRIMARY) HYPERTENSION Status: Chronic Qualifiers: Hypertension type: essential hypertension Qualified Code(s): I10 - Essential (primary) hypertension - Plan cont current plan of care, PT/OT, adoption social worker * add norco for pain * change roabaxin QID prn * await placement * medication reviewed as below * symptomatic treatment. Review of Systems - Review of Systems ENT: negative: Ear Pain, Ear Discharge, Nose Pain, Nose Discharge, Nose Congestion, Mouth Pain, Mouth Swelling, Throat Pain, Throat Swelling, Other Respiratory: negative: Cough, Dry, Shortness of Breath, Hemoptysis, SOB with Excertion, Pleuritic Pain, Sputum, Wheezing Cardiovascular: negative: Chest Pain, Palpitations, Orthopnea, Paroxysmal Noc. Dyspnea, Edema, Light Headedness, Other Gastrointestinal: negative: Nausea, Vomiting, Abdominal Pain, Diarrhea, Constipation, Melena, Hematochezia, Other Genitourinary: negative: Dysuria, Frequency, Incontinence, Hematuria, Retention , Other Musculoskeletal: negative: Neck Pain, Shoulder Pain, Arm Pain, Back Pain, Hand Pain, Leg Pain, Foot Pain, Other - Medications/Allergies Allergies/Adverse Reactions: Allergies Allergy/AdvReac Type Severity Reaction Status Date / Time Penicillins Allergy Rash Verified 12/10/16 02:52 Medications: Current Medications Acetaminophen (Tylenol) 650 mg PO Q4H PRN PRN Reason: Headache/Fever or Pain Last Admin: 05/10/17 17:44 Dose: 650 mg Hydrocodone Bitart/Acetaminophen ([place] 5/325) 1 tab PO Q4H PRN PRN Reason: Severe Pain (7-10) Last Admin: 05/13/17 11:03 Dose: 1 tab Al Hydroxide/Mg Hydroxide (Maalox) 15 ml PO Q4H PRN PRN Reason: Heartburn or Indigestion Amlodipine Besylate (Norvasc) 2.5 mg PO DAILY [facility] Last Admin: 05/13/17 08:33 Dose: 2.5 mg Artificial Tears (Tears Renewed 15ml Bottle) 0 drop EA EYE PRN PRN PRN Reason: Dry Eyes Bisacodyl (Dulcolax) 10 mg [place] DAILYPRN PRN PRN Reason: Constipation Carvedilol (Coreg) 6.25 mg PO BID-[facility] Last Admin: 05/13/17 08:30 Dose: 6.25 mg Cyanocobalamin (Vitamin B-12) 1,000 mcg PO DAILY [facility] Last Admin: 05/13/17 08:34 Dose: 1,000 mcg Digoxin (Lanoxin) 0.125 mg PO DAILY [facility] Last Admin: 05/13/17 08:30 Dose: 0.125 mg Doxycycline Hyclate (Vibramycin) 100 mg PO BID [facility] Last Admin: 05/13/17 08:30 Dose: 100 mg Famotidine (Pepcid) 20 mg PO BID [facility] Last Admin: 05/13/17 08:32 Dose: 20 mg Ferrous Sulfate (Feosol) 325 mg PO QAM-[facility] Last Admin: 05/13/17 08:30 Dose: 325 mg Folic Acid (Folvite) 1 mg PO DAILY [facility] Last Admin: 05/13/17 08:30 Dose: 1 mg Guaifenesin (Robitussin Sf) 200 mg PO Q4H PRN PRN Reason: Cough Heparin Sodium (Porcine) (Heparin) 5,000 units SC TID [facility] Last Admin: 05/13/17 08:36 Dose: 5,000 units Labetalol HCl (Normodyne) 20 mg SLOW IVP Q6H PRN PRN Reason: DIASTOLIC >100 Last Admin: 05/03/17 18:10 Dose: 20 mg Loperamide HCl (Imodium) 2 mg PO PRN PRN PRN Reason: Diarrhea/Loose Stools Loratadine (Claritin) 10 mg PO DAILYPRN PRN PRN Reason: Sinus Symptoms Lorazepam (Ativan) 0.5 mg PO Q6HR PRN PRN Reason: Anxiety Last Admin: 05/13/17 11:08 Dose: 0.5 mg Magnesium Hydroxide (Milk Of Magnesium) 30 ml PO DAILYPRN PRN PRN Reason: Constipation Methocarbamol (Robaxin) 500 mg PO QID PRN PRN Reason: Muscle Spasm Last Admin: 05/13/17 11:03 Dose: 500 mg Mineral Oil/White Petrolatum (Eucerin Cream) 0 gm TOP BIDPRN PRN PRN Reason: Dry Skin Ondansetron HCl (Zofran) 4 mg IVP Q6H PRN PRN Reason: Nausea/Vomiting Ondansetron HCl (Zofran Odt) 4 mg PO Q6H PRN PRN Reason: Nausea/Vomiting Phenol (Chloraseptic [place] 180 Ml Bot) 0 ml PO ASDIR PRN PRN Reason: SORE THROAT Last Admin: 05/06/17 20:48 Dose: 1 spr Senna (Senokot) 2 tab PO HSPRN PRN PRN Reason: Constipation Sodium Chloride (Flush - Normal Saline) 10 ml IVF Q12HR [facility] Last Admin: 05/13/17 08:36 Dose: Not Given Sodium Chloride (Flush - Normal Saline) 10 ml IVF PRN PRN PRN Reason: Saline Flush Sodium Chloride ([place] Nasal [place] 0.65%) 0 ml EA NARE QIDPRN PRN PRN Reason: Nasal Congestion Tramadol HCl (Ultram) 25 mg PO Q6H PRN PRN Reason: Moderate Pain (4-6) Last Admin: 05/13/17 04:30 Dose: 25 mg Tramadol HCl (Ultram) 25 mg PO BID [facility] Last Admin: 05/13/17 08:31 Dose: 25 mg Trazodone HCl (Desyrel) 50 mg PO HSPRN PRN PRN Reason: Insomnia Last Admin: 05/12/17 21:32 Dose: 50 mg
[2017-05-14 07:26] LABS: #Basophils 0.1 thou/uL (0.0-0.2); #Eosinphils 0.2 thou/uL (0.0-0.7); #Lymphocytes 1.9 thou/uL (1.20-3.40); #Monocytes 1.4 thou/uL (0.11-0.59); #Neutrophils 9.3 thou/uL (1.40-6.50); %Basophils 0.4 % (0.0-1.0); %Eosinophils 1.4 % (0.0-10.0); %Lymphocytes 14.5 % (21.0-51.0); %Monocytes 10.8 % (0.0-10.0); Hematocrit 32.4 % (36.0-47.0); Mean Platelet Volume 5.8 fL (7.4-10.4); Red Blood Cell (RBC) Count 3.57 mill/uL (4.20-5.40); White Blood Cell (WBC) Count 12.7 thou/uL (4.8-10.8)
[2017-05-14 07:43] LABS: Anion Gap 13 mmol/L (10-20); BUN (Urea Nitrogen) 10 mg/dL (9.8-20.1); Calc. Creatinine Clearance 73 mL/min (70-130); Calcium 9.4 mg/dL (7.8-10.44); Carbon Dioxide 25 mmol/L (23-31); Chloride 100 mmol/L (98-107); Estimated GFR-MDRD Greater than 90
[2017-05-14] MEDS: Folic Acid 1 MG TAB PO SCH (08:41)
[2017-05-14] MEDS: Cyanocobalamin (Vitamin B-12) 1,000 MCG TAB PO SCH (08:41)
[2017-05-14] MEDS: Doxycycline 100 MG CAP PO SCH ×2 (08:41→20:20)
[2017-05-14] MEDS: Famotidine 20 MG TAB PO SCH ×2 (08:41→20:20)
[2017-05-14] MEDS: Ferrous Sulfate 325 MG TAB PO SCH (09:14)
[2017-05-14] MEDS: Amlodipine 5 MG TAB PO SCH (09:14)
[2017-05-14] MEDS: Heparin 5,000 UNITS/ML VIAL SC SCH ×3 (09:15→20:21)
[2017-05-14] MEDS: Digoxin 0.125 MG TAB PO SCH (09:15)
[2017-05-14] MEDS: traMADol HCl 50 MG TAB PO SCH ×2 (09:16→20:21)
[2017-05-14] MEDS: Carvedilol 6.25 MG TAB PO SCH ×2 (09:19→15:49)
[2017-05-14] MEDS: HYDROcodone/Acetaminophen 5/325 mg Tablet PO PRN ×2 (09:20→15:49)
[2017-05-14] MEDS: Methocarbamol 500 MG TAB PO PRN (09:21)
[2017-05-14] MEDS: Lorazepam 0.5 MG TAB PO PRN ×2 (09:25→15:50)
--- NOTE | 2017-05-14 12:58 | PDOC.PN ---
- Subjective Encounter Start Date: 05/14/17 Encounter Start Time: 10:15 Patient seen and examined. No new complaints. No overnight events - Objective Resuscitation Status: Resuscitation Status DNR:Do Not Resuscitate MAR Reviewed: Yes Vital Signs & Weight: Vital Signs (12 hours) Temp Pulse Resp BP BP Pulse Ox 05/14/17 09:19 118/76 05/14/17 09:15 94 05/14/17 09:14 94 118/76 05/14/17 08:00 98 F 94 18 118/76 95 05/14/17 05:29 96 Weight Admit Weight 95 lb 8 oz Weight 108 lb I&O: 05/13/17 05/14/17 05/15/17 06:59 06:59 06:59 Intake Total 1400 350 150 Output Total 5 Balance 1400 345 150 Result Diagrams: 05/14/17 07:11 05/14/17 07:11 Phys Exam - Physical Examination Constitutional: NAD HEENT: PERRLA, moist MMs, sclera anicteric Neck: no JVD, supple Respiratory: no wheezing, no rales, no rhonchi Cardiovascular: RRR, no significant murmur, no rub Gastrointestinal: soft, non-tender, no distention, positive bowel sounds PEG Musculoskeletal: no edema, pulses present Neurological: non-focal, normal sensation Lymphatic: no nodes Psychiatric: normal affect Skin: no rash, normal turgor Dx/Plan (1) Physical deconditioning Code(s): R53.81 - OTHER MALAISE Status: Acute Comment: physical deconditioning: PT/OT (2) Anxiety Code(s): F41.9 - ANXIETY DISORDER, UNSPECIFIED Status: Chronic (3) Fibromyalgia Status: Chronic (4) Paroxysmal a-fib Code(s): I48.0 - PAROXYSMAL ATRIAL FIBRILLATION Status: Chronic Comment: (5) Protein-calorie malnutrition, moderate Code(s): E44.0 - MODERATE PROTEIN-CALORIE MALNUTRITION Status: Chronic (6) Anemia, normocytic normochromic Code(s): D64.9 - ANEMIA, UNSPECIFIED Status: Chronic (7) Chronic diastolic (congestive) heart failure Code(s): I50.32 - CHRONIC DIASTOLIC (CONGESTIVE) HEART FAILURE Status: Chronic (8) HTN (hypertension) Code(s): I10 - ESSENTIAL (PRIMARY) HYPERTENSION Status: Chronic Qualifiers: Hypertension type: essential hypertension Qualified Code(s): I10 - Essential (primary) hypertension - Plan cont current plan of care, PT/OT, social welfare administrator * pt is no longer using her peg and she wants to remove it, so will consult GI * await placement * doing well * medication reviewed as below * symptomatic treatment. Review of Systems - Review of Systems ENT: negative: Ear Pain, Ear Discharge, Nose Pain, Nose Discharge, Nose Congestion, Mouth Pain, Mouth Swelling, Throat Pain, Throat Swelling, Other Respiratory: negative: Cough, Dry, Shortness of Breath, Hemoptysis, SOB with Excertion, Pleuritic Pain, Sputum, Wheezing Cardiovascular: negative: Chest Pain, Palpitations, Orthopnea, Paroxysmal Noc. Dyspnea, Edema, Light Headedness, Other Gastrointestinal: negative: Nausea, Vomiting, Abdominal Pain, Diarrhea, Constipation, Melena, Hematochezia, Other Genitourinary: negative: Dysuria, Frequency, Incontinence, Hematuria, Retention , Other Musculoskeletal: negative: Neck Pain, Shoulder Pain, Arm Pain, Back Pain, Hand Pain, Leg Pain, Foot Pain, Other - Medications/Allergies Allergies/Adverse Reactions: Allergies Allergy/AdvReac Type Severity Reaction Status Date / Time Penicillins Allergy Rash Verified 12/10/16 02:52 Medications: Current Medications Acetaminophen (Tylenol) 650 mg PO Q4H PRN PRN Reason: Headache/Fever or Pain Last Admin: 05/10/17 17:44 Dose: 650 mg Hydrocodone Bitart/Acetaminophen ([place] 5/325) 1 tab PO Q4H PRN PRN Reason: Severe Pain (7-10) Last Admin: 05/14/17 09:20 Dose: 1 tab Al Hydroxide/Mg Hydroxide (Maalox) 15 ml PO Q4H PRN PRN Reason: Heartburn or Indigestion Amlodipine Besylate (Norvasc) 2.5 mg PO DAILY [facility] Last Admin: 05/14/17 09:14 Dose: 2.5 mg Artificial Tears (Tears Renewed 15ml Bottle) 0 drop EA EYE PRN PRN PRN Reason: Dry Eyes Bisacodyl (Dulcolax) 10 mg IN DAILYPRN PRN PRN Reason: Constipation Carvedilol (Coreg) 6.25 mg PO BID-[facility] Last Admin: 05/14/17 09:19 Dose: 6.25 mg Cyanocobalamin (Vitamin B-12) 1,000 mcg PO DAILY [facility] Last Admin: 05/14/17 08:41 Dose: 1,000 mcg Digoxin (Lanoxin) 0.125 mg PO DAILY [facility] Last Admin: 05/14/17 09:15 Dose: 0.125 mg Doxycycline Hyclate (Vibramycin) 100 mg PO BID [facility] Last Admin: 05/14/17 08:41 Dose: 100 mg Famotidine (Pepcid) 20 mg PO BID [facility] Last Admin: 05/14/17 08:41 Dose: 20 mg Ferrous Sulfate (Feosol) 325 mg PO QAM-[facility] Last Admin: 05/14/17 09:14 Dose: 325 mg Folic Acid (Folvite) 1 mg PO DAILY [facility] Last Admin: 05/14/17 08:41 Dose: 1 mg Guaifenesin (Robitussin Sf) 200 mg PO Q4H PRN PRN Reason: Cough Heparin Sodium (Porcine) (Heparin) 5,000 units SC TID [facility] Last Admin: 05/14/17 09:15 Dose: 5,000 units Labetalol HCl (Normodyne) 20 mg SLOW IVP Q6H PRN PRN Reason: DIASTOLIC >100 Last Admin: 05/03/17 18:10 Dose: 20 mg Loperamide HCl (Imodium) 2 mg PO PRN PRN PRN Reason: Diarrhea/Loose Stools Loratadine (Claritin) 10 mg PO DAILYPRN PRN PRN Reason: Sinus Symptoms Lorazepam (Ativan) 0.5 mg PO Q6HR PRN PRN Reason: Anxiety Last Admin: 05/14/17 09:25 Dose: 0.5 mg Magnesium Hydroxide (Milk Of Magnesium) 30 ml PO DAILYPRN PRN PRN Reason: Constipation Methocarbamol (Robaxin) 500 mg PO QID PRN PRN Reason: Muscle Spasm Last Admin: 05/14/17 09:21 Dose: 500 mg Mineral Oil/White Petrolatum (Eucerin Cream) 0 gm TOP BIDPRN PRN PRN Reason: Dry Skin Ondansetron HCl (Zofran) 4 mg IVP Q6H PRN PRN Reason: Nausea/Vomiting Ondansetron HCl (Zofran Odt) 4 mg PO Q6H PRN PRN Reason: Nausea/Vomiting Phenol (Chloraseptic [place] 180 Ml Bot) 0 ml PO ASDIR PRN PRN Reason: SORE THROAT Last Admin: 05/06/17 20:48 Dose: 1 spr Senna (Senokot) 2 tab PO HSPRN PRN PRN Reason: Constipation Sodium Chloride (Flush - Normal Saline) 10 ml IVF Q12HR [facility] Last Admin: 05/14/17 12:44 Dose: Not Given Sodium Chloride (Flush - Normal Saline) 10 ml IVF PRN PRN PRN Reason: Saline Flush Sodium Chloride ([place] Nasal [place] 0.65%) 0 ml EA NARE QIDPRN PRN PRN Reason: Nasal Congestion Tramadol HCl (Ultram) 25 mg PO BID [facility] Last Admin: 05/14/17 09:16 Dose: 25 mg Trazodone HCl (Desyrel) 50 mg PO HSPRN PRN PRN Reason: Insomnia Last Admin: 05/12/17 21:32 Dose: 50 mg
[2017-05-14] MEDS: traZODone HCl 50 MG TAB PO PRN (20:22)
[2017-05-15] MEDS: Doxycycline 100 MG CAP PO SCH ×2 (07:41→20:12)
[2017-05-15] MEDS: Amlodipine 5 MG TAB PO SCH (07:41)
[2017-05-15] MEDS: Folic Acid 1 MG TAB PO SCH (07:43)
[2017-05-15] MEDS: Cyanocobalamin (Vitamin B-12) 1,000 MCG TAB PO SCH (07:43)
[2017-05-15] MEDS: Lorazepam 0.5 MG TAB PO PRN ×2 (07:43→15:28)
[2017-05-15] MEDS: Digoxin 0.125 MG TAB PO SCH (07:43)
[2017-05-15] MEDS: Famotidine 20 MG TAB PO SCH ×2 (07:43→20:12)
[2017-05-15] MEDS: Carvedilol 6.25 MG TAB PO SCH ×2 (07:43→17:28)
[2017-05-15] MEDS: Ferrous Sulfate 325 MG TAB PO SCH (07:43)
[2017-05-15] MEDS: traMADol HCl 50 MG TAB PO SCH ×2 (07:44→20:13)
[2017-05-15] MEDS: HYDROcodone/Acetaminophen 5/325 mg Tablet PO PRN ×2 (07:45→13:13)
[2017-05-15] MEDS: Heparin 5,000 UNITS/ML VIAL SC SCH ×3 (07:46→20:11)
--- NOTE | 2017-05-15 12:01 | PDOC.PN ---
- Subjective Encounter Start Date: 05/15/17 Encounter Start Time: 09:15 Patient seen and examined. No new complaints. No overnight events - Objective Resuscitation Status: Resuscitation Status DNR:Do Not Resuscitate MAR Reviewed: Yes Vital Signs & Weight: Vital Signs (12 hours) Temp Pulse Resp BP BP Pulse Ox 05/15/17 08:00 98.1 F 90 18 124/62 94 L 05/15/17 07:43 90 124/62 05/15/17 07:41 90 124/62 05/15/17 05:18 97 Weight Admit Weight 95 lb 8 oz Weight 107 lb 3.2 oz I&O: 05/14/17 05/15/17 05/16/17 06:59 06:59 06:59 Intake Total 350 600 Output Total 5 2 Balance 345 598 Result Diagrams: 05/14/17 07:11 05/14/17 07:11 Phys Exam - Physical Examination Constitutional: NAD HEENT: PERRLA, moist MMs Neck: no JVD, supple Respiratory: no wheezing, no rales, no rhonchi Cardiovascular: RRR, no significant murmur, no rub Gastrointestinal: soft, non-tender, no distention, positive bowel sounds PEG+ Musculoskeletal: no edema, pulses present Neurological: non-focal, normal sensation Lymphatic: no nodes Psychiatric: normal affect, A&O x 3 Skin: no rash, normal turgor Dx/Plan (1) Physical deconditioning Code(s): R53.81 - OTHER MALAISE Status: Acute Comment: physical deconditioning: PT/OT (2) Anxiety Code(s): F41.9 - ANXIETY DISORDER, UNSPECIFIED Status: Chronic (3) Fibromyalgia Status: Chronic (4) Paroxysmal a-fib Code(s): I48.0 - PAROXYSMAL ATRIAL FIBRILLATION Status: Chronic Comment: (5) Protein-calorie malnutrition, moderate Code(s): E44.0 - MODERATE PROTEIN-CALORIE MALNUTRITION Status: Chronic (6) Anemia, normocytic normochromic Code(s): D64.9 - ANEMIA, UNSPECIFIED Status: Chronic (7) Chronic diastolic (congestive) heart failure Code(s): I50.32 - CHRONIC DIASTOLIC (CONGESTIVE) HEART FAILURE Status: Chronic (8) HTN (hypertension) Code(s): I10 - ESSENTIAL (PRIMARY) HYPERTENSION Status: Chronic Qualifiers: Hypertension type: essential hypertension Qualified Code(s): I10 - Essential (primary) hypertension - Plan cont current plan of care, continue antibiotics, PT/OT, social insurance analyst * GI consulted for peg tube removal * pt is waiting for placement * continue doxy * medication reviewed as below * symptomatic treatment. Review of Systems - Review of Systems ENT: negative: Ear Pain, Ear Discharge, Nose Pain, Nose Discharge, Nose Congestion, Mouth Pain, Mouth Swelling, Throat Pain, Throat Swelling, Other Respiratory: negative: Cough, Dry, Shortness of Breath, Hemoptysis, SOB with Excertion, Pleuritic Pain, Sputum, Wheezing Cardiovascular: negative: Chest Pain, Palpitations, Orthopnea, Paroxysmal Noc. Dyspnea, Edema, Light Headedness, Other Gastrointestinal: negative: Nausea, Vomiting, Abdominal Pain, Diarrhea, Constipation, Melena, Hematochezia, Other Genitourinary: negative: Dysuria, Frequency, Incontinence, Hematuria, Retention , Other Musculoskeletal: negative: Neck Pain, Shoulder Pain, Arm Pain, Back Pain, Hand Pain, Leg Pain, Foot Pain, Other Skin: negative: Rash, Lesions, Baldev, Bruising, Other - Medications/Allergies Allergies/Adverse Reactions: Allergies Allergy/AdvReac Type Severity Reaction Status Date / Time Penicillins Allergy Rash Verified 12/10/16 02:52 Medications: Current Medications Acetaminophen (Tylenol) 650 mg PO Q4H PRN PRN Reason: Headache/Fever or Pain Last Admin: 05/10/17 17:44 Dose: 650 mg Hydrocodone Bitart/Acetaminophen ([place] 5/325) 1 tab PO Q4H PRN PRN Reason: Severe Pain (7-10) Last Admin: 05/15/17 07:45 Dose: 1 tab Al Hydroxide/Mg Hydroxide (Maalox) 15 ml PO Q4H PRN PRN Reason: Heartburn or Indigestion Amlodipine Besylate (Norvasc) 2.5 mg PO DAILY [facility] Last Admin: 05/15/17 07:41 Dose: 2.5 mg Artificial Tears (Tears Renewed 15ml Bottle) 0 drop EA EYE PRN PRN PRN Reason: Dry Eyes Bisacodyl (Dulcolax) 10 mg [place] DAILYPRN PRN PRN Reason: Constipation Carvedilol (Coreg) 6.25 mg PO BID-[facility] Last Admin: 05/15/17 07:43 Dose: 6.25 mg Cyanocobalamin (Vitamin B-12) 1,000 mcg PO DAILY [facility] Last Admin: 05/15/17 07:43 Dose: 1,000 mcg Digoxin (Lanoxin) 0.125 mg PO DAILY [facility] Last Admin: 05/15/17 07:43 Dose: 0.125 mg Doxycycline Hyclate (Vibramycin) 100 mg PO BID [facility] Last Admin: 05/15/17 07:41 Dose: 100 mg Famotidine (Pepcid) 20 mg PO BID [facility] Last Admin: 05/15/17 07:43 Dose: 20 mg Ferrous Sulfate (Feosol) 325 mg PO QA-[facility] Last Admin: 05/15/17 07:43 Dose: 325 mg Folic Acid (Folvite) 1 mg PO DAILY [facility] Last Admin: 05/15/17 07:43 Dose: 1 mg Guaifenesin (Robitussin Sf) 200 mg PO Q4H PRN PRN Reason: Cough Heparin Sodium (Porcine) (Heparin) 5,000 units SC TID [facility] Last Admin: 05/15/17 07:46 Dose: 5,000 units Labetalol HCl (Normodyne) 20 mg SLOW IVP Q6H PRN PRN Reason: DIASTOLIC >100 Last Admin: 05/03/17 18:10 Dose: 20 mg Loperamide HCl (Imodium) 2 mg PO PRN PRN PRN Reason: Diarrhea/Loose Stools Loratadine (Claritin) 10 mg PO DAILYPRN PRN PRN Reason: Sinus Symptoms Lorazepam (Ativan) 0.5 mg PO Q6HR PRN PRN Reason: Anxiety Last Admin: 05/15/17 07:43 Dose: 0.5 mg Magnesium Hydroxide (Milk Of Magnesium) 30 ml PO DAILYPRN PRN PRN Reason: Constipation Methocarbamol (Robaxin) 500 mg PO QID PRN PRN Reason: Muscle Spasm Last Admin: 05/14/17 09:21 Dose: 500 mg Mineral Oil/White Petrolatum (Eucerin Cream) 0 gm TOP BIDPRN PRN PRN Reason: Dry Skin Ondansetron HCl (Zofran) 4 mg IVP Q6H PRN PRN Reason: Nausea/Vomiting Ondansetron HCl (Zofran Odt) 4 mg PO Q6H PRN PRN Reason: Nausea/Vomiting Phenol (Chloraseptic [place] 180 Ml Bot) 0 ml PO ASDIR PRN PRN Reason: SORE THROAT Last Admin: 05/06/17 20:48 Dose: 1 spr Senna (Senokot) 2 tab PO HSPRN PRN PRN Reason: Constipation Sodium Chloride (Flush - Normal Saline) 10 ml IVF Q12HR [facility] Last Admin: 05/14/17 20:17 Dose: Not Given Sodium Chloride (Flush - Normal Saline) 10 ml IVF PRN PRN PRN Reason: Saline Flush Sodium Chloride ([place] Nasal [place] 0.65%) 0 ml EA NARE QIDPRN PRN PRN Reason: Nasal Congestion Tramadol HCl (Ultram) 25 mg PO BID [facility] Last Admin: 05/15/17 07:44 Dose: 25 mg Trazodone HCl (Desyrel) 50 mg PO HSPRN PRN PRN Reason: Insomnia Last Admin: 05/14/17 20:22 Dose: 50 mg
[2017-05-16] MEDS: traZODone HCl 50 MG TAB PO PRN (00:43)
[2017-05-16] MEDS: Amlodipine 5 MG TAB PO SCH (07:40)
[2017-05-16] MEDS: Carvedilol 6.25 MG TAB PO SCH (07:40)
[2017-05-16] MEDS: Ferrous Sulfate 325 MG TAB PO SCH (07:40)
[2017-05-16] MEDS: Cyanocobalamin (Vitamin B-12) 1,000 MCG TAB PO SCH (07:41)
[2017-05-16] MEDS: Famotidine 20 MG TAB PO SCH (07:42)
[2017-05-16] MEDS: Digoxin 0.125 MG TAB PO SCH (07:42)
[2017-05-16] MEDS: Doxycycline 100 MG CAP PO SCH (07:42)
[2017-05-16] MEDS: traMADol HCl 50 MG TAB PO SCH (07:43)
[2017-05-16] MEDS: Folic Acid 1 MG TAB PO SCH (07:43)
[2017-05-16] MEDS: Heparin 5,000 UNITS/ML VIAL SC SCH (07:54)
[2017-05-16 08:22] VITALS: BP 136/81; TEMP 98
[2017-05-16] MEDS: HYDROcodone/Acetaminophen 5/325 mg Tablet PO PRN ×2 (09:08→13:52)
[2017-05-16] MEDS: Lorazepam 0.5 MG TAB PO PRN (10:06)
--- NOTE | 2017-05-16 11:09 | PDOC.PN ---
- Subjective Encounter Start Date: 05/16/17 Encounter Start Time: 09:35 Patient seen and examined. No new complaints. No overnight events - Objective Resuscitation Status: Resuscitation Status DNR:Do Not Resuscitate MAR Reviewed: Yes Vital Signs & Weight: Vital Signs (12 hours) Temp Pulse Resp BP BP Pulse Ox 05/16/17 08:00 98.0 F 91 16 136/81 96 05/16/17 07:56 98.2 F 92 17 138/81 96 05/16/17 07:42 92 05/16/17 07:40 90 138/81 Weight Admit Weight 95 lb 8 oz Weight 107 lb 3.2 oz I&O: 05/15/17 05/16/17 05/17/17 06:59 06:59 06:59 Intake Total 600 Output Total 2 Balance 598 Result Diagrams: 05/14/17 07:11 05/14/17 07:11 Phys Exam - Physical Examination Constitutional: NAD HEENT: moist MMs, sclera anicteric Neck: no JVD, supple Respiratory: no wheezing, no rales, no rhonchi, clear to auscultation bilateral Cardiovascular: RRR, no significant murmur, no rub Gastrointestinal: soft, non-tender, no distention, positive bowel sounds Musculoskeletal: no edema, pulses present Neurological: non-focal, normal sensation Lymphatic: no nodes Psychiatric: normal affect Skin: no rash, normal turgor Dx/Plan (1) Physical deconditioning Code(s): R53.81 - OTHER MALAISE Status: Acute Comment: physical deconditioning: PT/OT (2) Anxiety Code(s): F41.9 - ANXIETY DISORDER, UNSPECIFIED Status: Chronic (3) Fibromyalgia Status: Chronic (4) Paroxysmal a-fib Code(s): I48.0 - PAROXYSMAL ATRIAL FIBRILLATION Status: Chronic Comment: (5) Protein-calorie malnutrition, moderate Code(s): E44.0 - MODERATE PROTEIN-CALORIE MALNUTRITION Status: Chronic (6) Anemia, normocytic normochromic Code(s): D64.9 - ANEMIA, UNSPECIFIED Status: Chronic (7) Chronic diastolic (congestive) heart failure Code(s): I50.32 - CHRONIC DIASTOLIC (CONGESTIVE) HEART FAILURE Status: Chronic (8) HTN (hypertension) Code(s): I10 - ESSENTIAL (PRIMARY) HYPERTENSION Status: Chronic Qualifiers: Hypertension type: essential hypertension Qualified Code(s): I10 - Essential (primary) hypertension - Plan cont current plan of care, social service director * surgeon consulted for possible peg removal as pt is no longer using * tried to call dr mulligan on his phone few times but each time goes voice mail so my phone number left to call back me * continue selected home meds * medication reviewed as below * symptomatic treatment * await placement. Review of Systems - Review of Systems ENT: negative: Ear Pain, Ear Discharge, Nose Pain, Nose Discharge, Nose Congestion, Mouth Pain, Mouth Swelling, Throat Pain, Throat Swelling, Other Respiratory: negative: Cough, Dry, Shortness of Breath, Hemoptysis, SOB with Excertion, Pleuritic Pain, Sputum, Wheezing Cardiovascular: negative: Chest Pain, Palpitations, Orthopnea, Paroxysmal Noc. Dyspnea, Edema, Light Headedness, Other Gastrointestinal: negative: Nausea, Vomiting, Abdominal Pain, Diarrhea, Constipation, Melena, Hematochezia, Other Genitourinary: negative: Dysuria, Frequency, Incontinence, Hematuria, Retention , Other Musculoskeletal: negative: Neck Pain, Shoulder Pain, Arm Pain, Back Pain, Hand Pain, Leg Pain, Foot Pain, Other Skin: negative: Rash, Lesions, Baldev, Bruising, Other - Medications/Allergies Allergies/Adverse Reactions: Allergies Allergy/AdvReac Type Severity Reaction Status Date / Time Penicillins Allergy Rash Verified 12/10/16 02:52 Medications: Current Medications Acetaminophen (Tylenol) 650 mg PO Q4H PRN PRN Reason: Headache/Fever or Pain Last Admin: 05/10/17 17:44 Dose: 650 mg Hydrocodone Bitart/Acetaminophen ([place] 5/325) 1 tab PO Q4H PRN PRN Reason: Severe Pain (7-10) Last Admin: 05/16/17 09:08 Dose: 1 tab Al Hydroxide/Mg Hydroxide (Maalox) 15 ml PO Q4H PRN PRN Reason: Heartburn or Indigestion Amlodipine Besylate (Norvasc) 2.5 mg PO DAILY [facility] Last Admin: 05/16/17 07:40 Dose: 2.5 mg Artificial Tears (Tears Renewed 15ml Bottle) 0 drop EA EYE PRN PRN PRN Reason: Dry Eyes Bisacodyl (Dulcolax) 10 mg [place] DAILYPRN PRN PRN Reason: Constipation Carvedilol (Coreg) 6.25 mg PO BID-[facility] Last Admin: 05/16/17 07:40 Dose: 6.25 mg Cyanocobalamin (Vitamin B-12) 1,000 mcg PO DAILY [facility] Last Admin: 05/16/17 07:41 Dose: 1,000 mcg Digoxin (Lanoxin) 0.125 mg PO DAILY [facility] Last Admin: 05/16/17 07:42 Dose: 0.125 mg Doxycycline Hyclate (Vibramycin) 100 mg PO BID [facility] Last Admin: 05/16/17 07:42 Dose: 100 mg Famotidine (Pepcid) 20 mg PO BID [facility] Last Admin: 05/16/17 07:42 Dose: 20 mg Ferrous Sulfate (Feosol) 325 mg PO QAM-[facility] Last Admin: 05/16/17 07:40 Dose: 325 mg Folic Acid (Folvite) 1 mg PO DAILY [facility] Last Admin: 05/16/17 07:43 Dose: 1 mg Guaifenesin (Robitussin Sf) 200 mg PO Q4H PRN PRN Reason: Cough Heparin Sodium (Porcine) (Heparin) 5,000 units SC TID [facility] Last Admin: 05/16/17 07:54 Dose: Not Given Labetalol HCl (Normodyne) 20 mg SLOW IVP Q6H PRN PRN Reason: DIASTOLIC >100 Last Admin: 05/03/17 18:10 Dose: 20 mg Loperamide HCl (Imodium) 2 mg PO PRN PRN PRN Reason: Diarrhea/Loose Stools Loratadine (Claritin) 10 mg PO DAILYPRN PRN PRN Reason: Sinus Symptoms Lorazepam (Ativan) 0.5 mg PO Q6HR PRN PRN Reason: Anxiety Last Admin: 05/16/17 10:06 Dose: 0.5 mg Magnesium Hydroxide (Milk Of Magnesium) 30 ml PO DAILYPRN PRN PRN Reason: Constipation Methocarbamol (Robaxin) 500 mg PO QID PRN PRN Reason: Muscle Spasm Last Admin: 05/14/17 09:21 Dose: 500 mg Mineral Oil/White Petrolatum (Eucerin Cream) 0 gm TOP BIDPRN PRN PRN Reason: Dry Skin Ondansetron HCl (Zofran) 4 mg IVP Q6H PRN PRN Reason: Nausea/Vomiting Ondansetron HCl (Zofran Odt) 4 mg PO Q6H PRN PRN Reason: Nausea/Vomiting Phenol (Chloraseptic [place] 180 Ml Bot) 0 ml PO ASDIR PRN PRN Reason: SORE THROAT Last Admin: 05/06/17 20:48 Dose: 1 spr Senna (Senokot) 2 tab PO HSPRN PRN PRN Reason: Constipation Sodium Chloride (Flush - Normal Saline) 10 ml IVF Q12HR [facility] Last Admin: 05/16/17 07:44 Dose: Not Given Sodium Chloride (Flush - Normal Saline) 10 ml IVF PRN PRN PRN Reason: Saline Flush Sodium Chloride ([place] Nasal [place] 0.65%) 0 ml EA NARE QIDPRN PRN PRN Reason: Nasal Congestion Tramadol HCl (Ultram) 25 mg PO BID [facility] Last Admin: 05/16/17 07:43 Dose: 25 mg Trazodone HCl (Desyrel) 50 mg PO HSPRN PRN PRN Reason: Insomnia Last Admin: 05/16/17 00:43 Dose: 50 mg
[2017-05-16] MEDS ORDERED: diphenhydrAMINE 25 MG CAP PO SCH (12:15)
--- NOTE | 2017-05-16 13:19 | DIS ---
DATE OF ADMISSION: 05/01/2017 DATE OF DISCHARGE: 05/16/2017 PRIMARY CARE PHYSICIAN: [facility] call admission. DISCHARGE DISPOSITION: Swing bed. PRIMARY DISCHARGE DIAGNOSES: 1. Acute on chronic diastolic congestive heart failure exacerbation. 2. Status post acute hypoxic respiratory failure. SECONDARY DISCHARGE DIAGNOSES: 1. Physical deconditioning. 2. Anemia, normocytic, normochromic. 3. Fibromyalgia. 4. Anxiety and depression. 5. Paroxysmal atrial fibrillation. 6. Hypertension. 7. Moderate protein-calorie malnutrition. PRIMARY PROCEDURE/OPERATION: None. RADIOLOGICAL INVESTIGATION: CT angio chest on admission showed no evidence of pulmonary embolism, le ft and right lung airspace disease. CT abdomen and pelvis, while in hospital, showed no acute abdomi nal process. SIGNIFICANT LABORATORY DATA: WBC 12.7, hemoglobin 10.4, platelets 752. Sodium 133, potassium 4.6, B UN 10, creatinine 0.57, calcium 9.4. LFT normal. BNP 185. Blood culture and urine culture negative . DISCHARGE MEDICATIONS: Tylenol #3 one or two tablets q.6 hourly p.r.n., Xanax 0.5 mg q.i.d. p.r.n., Norvasc 2.5 mg p.o. daily, Coreg 6.25 mg p.o. b.i.d., vitamin B12 1000 mcg p.o. daily, digoxin 0.125 mg p.o. daily, doxycycline 100 mg p.o. b.i.d. for 7 more days, Pepcid 20 mg p.o. b.i.d., ferrous sulf ate 325 mg p.o. daily, folic acid 1 mg p.o. daily, Robaxin 500 mg p.o. q.i.d. p.r.n. CONTRAINDICATIONS: None. CODE STATUS: DNR. INPATIENT CONSULTANTS: Dr. Mckeon was consulted while in hospital. TEST RESULTS PENDING ON DISCHARGE: None. ALLERGIES: PENICILLIN. DISCHARGE PLAN: Post hospital, the patient is discharged to swing bed. Subsequently, patient will f ollow up with primary care physician. HOSPITAL COURSE: A 66-year-old female who was admitted by Dr. Hoffman; please see his H and P for f urther details. The patient was admitted for increasing shortness of breath and she was found with h ypoxic respiratory failure secondary to acute on chronic diastolic heart failure. Patient was also h aving significant physical deconditioning. During this admission, we treated her empirically with do xycycline. We gave her Lasix with significant improvement in her congestive heart failure. We adjus alfreda her congestive heart failure medication as above. We started digoxin for her paroxysmal atrial f ibrillation. Her blood pressure medication was also adjusted as above. While in hospital, the patie nt was given nutritional support. The patient was evaluated by PT and OT while in hospital and she w as requiring placement and that is why with help of comp field case manager we arranged placement. This patient stayed in the hospital longer because initially she was resisting with physical therapy and she was not signing for placement, and after explanation several times, the patient agreed and e was participating with therapy, and subsequently, she agreed to go to halfway home. At thi s point, main issue is her physical deconditioning, PT, OT, and nutritional support. The above-menti oned medication is well adjusted and the patient is medically stable for several days while in hospit al. Today, I spoke with Dr. Amado and updated about the patient's hospital course. The patient is medica lly stable for discharge. The patient is seen and examined at bedside today. Please see my progress note from today for furthe r details. Paper work for discharge done. Discharge medication reconciliation done. Total time spent on discharge day more than 30 minutes.
== END 2017-05-16 14:47 | disposition swing bed (61) | DRG 291 ==
LOC: ERS 19:48 → ERHOLD 23:30 → IMCU/EMU 05-02 01:24 → 2NO 05-03 13:23 → T4-B 05-04 16:54
PROVIDERS: ADMIT Internal Medicine; ATTEND Internal Medicine
DX: I13.0 Hypertensive heart and chronic kidney disease with heart failure and stage 1 through stage 4 chronic kidney disease, or unspecified chronic kidney disease (principal); I50.33 Acute on chronic diastolic (congestive) heart failure; J96.01 Acute respiratory failure with hypoxia; E44.0 Moderate protein-calorie malnutrition; J18.9 Pneumonia, unspecified organism; R64 Cachexia; I48.0 Paroxysmal atrial fibrillation; Z79.01 Long term (current) use of anticoagulants; Z68.1 Body mass index [BMI] 19.9 or less, adult; F32.9 Major depressive disorder, single episode, unspecified; Z93.1 Gastrostomy status; E78.5 Hyperlipidemia, unspecified; D64.9 Anemia, unspecified; Z23 Encounter for immunization; Z66 Do not resuscitate; M79.7 Fibromyalgia; Z87.820 Personal history of traumatic brain injury; N18.2 Chronic kidney disease, stage 2 (mild); K58.9 Irritable bowel syndrome, unspecified; F41.1 Generalized anxiety disorder; J70.4 Drug-induced interstitial lung disorders, unspecified; T46.2X5S Adverse effect of other antidysrhythmic drugs, sequela; R10.9 Unspecified abdominal pain
CPT/HCPCS: 36415; 71275; 74176; 80048; 80053; 83880; 84484; 85025; 87040; 87086; 90471; 90682; 93798; A4216; A4353; G0008; G8978-GP-CL; G8979-GP-CJ; G8979-GP-CK; G8987-GO-CM; G8988-GO-CK; G8996-GN-CI; G8996-GN-CK; G8997-GN-CI; G8997-GN-CJ; J1644; J1940; Q2036

== ENCOUNTER 2017-07-31 16:20 | Outpatient (CLI) | payer MEDICARE, OTHER ==
--- NOTE | 2017-07-31 16:42 | RAD ---
PA AND LATERAL CHEST: History: Cough. FINDINGS/IMPRESSION: Comparison is made with exam of 05-26-17. The heart size is normal. Lungs are expanded with stable chronic change. No consolidation, pneumothor axes or pleural effusions are seen. POS: [facility]
[2017-07-31 16:50] LABS: #Basophils 0.1 thou/uL (0.0-0.2); #Eosinphils 0.3 thou/uL (0.0-0.7); #Lymphocytes 2.1 thou/uL (1.20-3.40); #Neutrophils 7.3 thou/uL (1.40-6.50); %Eosinophils 2.7 % (0.0-10.0); %Lymphocytes 19.7 % (21.0-51.0); %Monocytes 9.4 % (0.0-10.0); %Neutrophils 67.2 % (42.0-75.0); Hemoglobin 14.1 g/dL (12.0-16.0); Mean Corpuscular HGB CONC 33.3 g/dL (32.0-36.0); Mean Corpuscular Hemoglobin 28.3 pg (27.0-31.0); Mean Corpuscular Volume 84.9 fl (81.0-99.0); Mean Platelet Volume 5.7 fL (7.4-10.4); Platelet Count 434 thou/uL (130-400); RBC Distribution Width 14.3 % (11.5-14.5); White Blood Cell (WBC) Count 10.8 thou/uL (4.8-10.8)
[2017-07-31 17:04] LABS: Anion Gap 16 mmol/L (10-20); BUN (Urea Nitrogen) 25 mg/dL (9.8-20.1); Calc. Creatinine Clearance 0 mL/min (70-130); Carbon Dioxide 23 mmol/L (23-31); Chloride 101 mmol/L (98-107); Estimated GFR-MDRD 73; Glucose 92 mg/dL (80-115); Sodium 136 mmol/L (136-145)
== END 2017-07-31 16:21 | disposition home or self-care (01) ==
LOC: SCSRAD 16:20
PROVIDERS: ATTEND Family Medicine
DX: R05 Cough (principal); D64.9 Anemia, unspecified; E87.6 Hypokalemia
CPT/HCPCS: 36415; 71046; 80048; 85025

== ENCOUNTER 2021-01-27 21:32 | Inpatient (IN) | payer MEDICARE ==
[~2021-01-27 21:32] MED LIST changes: -ISOVUE-370 76%-LOCM 1 ML ONE; +Iopamidol-370 76% 500 ML 1 ML ONE
[2021-01-27] MEDS ORDERED: Ondansetron PF 4 MG/2 ML Vial IVP PRN (22:05)
[2021-01-27] MEDS ORDERED: Amiodarone 150 MG in Dextrose 5% in Water 100 ML IVPB SCH (22:15)
[2021-01-27] MEDS ORDERED: Diltiazem 125 MG in Sodium Chloride 0.9% 100 ML IVPB SCH (22:15)
[2021-01-27] MEDS ORDERED: Amiodarone 450 MG in Dextrose 5% in Water 250 ML IVPB SCH (22:30)
[2021-01-27] MEDS ORDERED: Pantoprazole 40 MG VIAL IVP SCH (22:45)
[2021-01-27 23:40] LABS: #Eosinphils 0.2 thou/uL (0.0-0.7); #Lymphocytes 1.4 thou/uL (1.20-3.40); #Monocytes 1.4 thou/uL (0.11-0.59); #Neutrophils 11.8 thou/uL (1.40-6.50); %Basophils 0.1 % (0.0-1.0); %Eosinophils 1.6 % (0.0-10.0); %Lymphocytes 9.4 % (21.0-51.0); %Monocytes 9.7 % (0.0-10.0); %Neutrophils 79.2 % (42.0-75.0); Hemoglobin 8.9 g/dL (12.0-16.0); Mean Corpuscular Hemoglobin 21.4 pg (27.0-31.0); Mean Corpuscular Volume 71.2 fL (78.0-98.0); Mean Platelet Volume 7.8 fL (7.4-10.4); Platelet Count 600 thou/uL (130-400); RBC Distribution Width 16.5 % (11.5-14.5); Red Blood Cell (RBC) Count 4.15 mill/uL (4.20-5.40); White Blood Cell (WBC) Count 14.9 thou/uL (4.8-10.8)
[2021-01-27 23:53] LABS: Anion Gap 13 mmol/L (10-20); BUN (Urea Nitrogen) 18 mg/dL (9.8-20.1); Calc. Creatinine Clearance 42 mL/min (70-130); Carbon Dioxide 29 mmol/L (23-31); Chloride 102 mmol/L (98-107); Glucose 87 mg/dL (83-110); Potassium 3.1 mmol/L (3.5-5.1); Sodium 141 mmol/L (136-145)
[2021-01-27] MEDS ORDERED: Metoprolol Tartrate 5 MG/5 ML VIAL IVP SCH (23:59)
[2021-01-28] MEDS ORDERED: Potassium Chloride 20 MEQ TAB PO SCH (00:15)
[2021-01-28] MEDS ORDERED: Potassium Chloride 40 MEQ in Premix Bag 1 BAG IVPB SCH (00:15)
[2021-01-28 03:13] LABS: Bacteria/HPF None Seen HPF (None Seen); Bilirubin Negative (Negative); Blood, Urine Negative (Negative); Clarity Clear (Clear); Glucose, Urine (Dipstick) Normal (Negative); Ketone, Urine Negative (Negative); Leukocyte Negative Leu/uL (Negative); Nitrite Negative (Negative); Protein, Urine (Dipstick) 10 mg/dL (Neg-Trace); RBC/HPF 0-3 HPF (0-3); Specific Gravity, Urine 1.023 (1.002-1.036); Squamous Epithelial None Seen HPF (0-3); Urobilinogen Normal mg/dL (Less than 2); WBC/HPF 0-3 HPF (0-3); pH, Urine 7.5 (5.0-9.0)
[2021-01-28 03:15] LABS: Urine Culture Reflex No No
[2021-01-28 04:57] LABS: #Eosinphils 0.2 thou/uL (0.0-0.7); #Lymphocytes 1.6 thou/uL (1.20-3.40); #Monocytes 1.3 thou/uL (0.11-0.59); #Neutrophils 11.6 thou/uL (1.40-6.50); %Basophils 0.2 % (0.0-1.0); %Eosinophils 1.6 % (0.0-10.0); %Lymphocytes 10.9 % (21.0-51.0); %Monocytes 8.7 % (0.0-10.0); %Neutrophils 78.7 % (42.0-75.0); Hemoglobin 8.5 g/dL (12.0-16.0); Mean Corpuscular HGB CONC 29.9 g/dL (32.0-36.0); Mean Corpuscular Hemoglobin 21.4 pg (27.0-31.0); Mean Corpuscular Volume 71.5 fL (78.0-98.0); Platelet Count 607 thou/uL (130-400); RBC Distribution Width 16.6 % (11.5-14.5); Red Blood Cell (RBC) Count 3.99 mill/uL (4.20-5.40); White Blood Cell (WBC) Count 14.7 thou/uL (4.8-10.8)
[2021-01-28 05:21] LABS: Anion Gap 13 mmol/L (10-20); BUN (Urea Nitrogen) 16 mg/dL (9.8-20.1); Calc. Creatinine Clearance 43 mL/min (70-130); Carbon Dioxide 27 mmol/L (23-31); Chloride 107 mmol/L (98-107); Glucose 96 mg/dL (83-110); Magnesium 1.9 mg/dL (1.6-2.6); Potassium 4.8 mmol/L (3.5-5.1); Sodium 142 mmol/L (136-145)
[2021-01-28] MEDS ORDERED: Furosemide 20 MG/2 ML VIAL SLOW IVP SCH (07:00)
[2021-01-28] MEDS ORDERED: Magnesium Oxide 400 MG TAB PO SCH (07:00)
[2021-01-28] MEDS ORDERED: Sodium Chloride 0.65% Nasal 44 ML BOT EA NARE PRN (08:31)
[2021-01-28] MEDS ORDERED: GUAIFENESIN SF SOLN 200 MG/10 ML UDCUP PO PRN (08:31)
[2021-01-28] MEDS ORDERED: Hydrocerin (Eucerin) Cream 120 gm Jar TOP PRN (08:31)
[2021-01-28] MEDS ORDERED: Cepastat Lozenges 1 LOZ PO PRN (08:31)
[2021-01-28] MEDS ORDERED: Calcium Carbonate 500 MG ChewTAB PO PRN (08:31)
[2021-01-28] MEDS ORDERED: Senokot S 8.6-50 MG TAB PO PRN (08:31)
[2021-01-28] MEDS ORDERED: Bisacodyl 5 MG TAB PO PRN (08:31)
[2021-01-28] MEDS ORDERED: Ondansetron ODT 4 MG TAB PO PRN (08:31)
[2021-01-28] MEDS ORDERED: Loperamide HCl 2 MG CAP PO PRN (08:31)
[2021-01-28] MEDS ORDERED: Artificial Tear Sol 15 ML BOT EA EYE PRN (08:31)
[2021-01-28] MEDS ORDERED: Loratadine 10 MG TAB PO PRN (08:31)
[2021-01-28] MEDS ORDERED: hydrALAZINE 20 MG/ML VIAL SLOW IVP PRN (08:31)
[2021-01-28] MEDS: Cyanocobalamin (Vitamin B-12) 1,000 MCG TAB PO SCH (09:34)
[2021-01-28] MEDS: Acetaminophen 325 MG TAB PO PRN (09:34)
[2021-01-28] MEDS: Folic Acid 1 MG TAB PO SCH (09:36)
[2021-01-28] MEDS: Pantoprazole 40 MG VIAL IVP SCH ×2 (09:37→21:19)
[2021-01-28] MEDS ORDERED: Iopamidol-370 76% 500 ML 1 ML ONE (10:04)
[2021-01-28 11:29] LABS: Hemoglobin 9.3 g/dL (12.0-16.0)
[2021-01-28] MEDS: Ferrous Sulfate 325 MG TAB PO SCH (16:37)
[2021-01-28] MEDS: Benzonatate 100 MG CAP PO PRN (16:41)
[2021-01-28 16:53] LABS: Hemoglobin 8.5 g/dL (12.0-16.0)
[2021-01-28] MEDS: Furosemide 40 MG/4 ML VIAL SLOW IVP SCH (19:46)
[2021-01-29] MEDS: Acetaminophen 325 MG TAB PO PRN ×3 (00:24→18:17)
[2021-01-29 01:40] LABS: #Eosinphils 0.3 thou/uL (0.0-0.7); #Monocytes 1.2 thou/uL (0.11-0.59); #Neutrophils 9.3 thou/uL (1.40-6.50); %Basophils 0.2 % (0.0-1.0); %Eosinophils 2.4 % (0.0-10.0); %Lymphocytes 8.4 % (21.0-51.0); %Monocytes 10.2 % (0.0-10.0); %Neutrophils 78.9 % (42.0-75.0); Hemoglobin 8.1 g/dL (12.0-16.0); Mean Corpuscular HGB CONC 29.8 g/dL (32.0-36.0); Mean Corpuscular Hemoglobin 21.4 pg (27.0-31.0); Mean Corpuscular Volume 72.1 fL (78.0-98.0); Mean Platelet Volume 7.7 fL (7.4-10.4); Platelet Count 566 thou/uL (130-400); RBC Distribution Width 16.3 % (11.5-14.5); Red Blood Cell (RBC) Count 3.78 mill/uL (4.20-5.40); White Blood Cell (WBC) Count 11.8 thou/uL (4.8-10.8)
[2021-01-29 05:13] LABS: ALT (SGPT) 21 U/L (8-55); AST (SGOT) 16 U/L (5-34); Albumin 2.8 g/dL (3.4-4.8); Alkaline Phosphatase 129 U/L (40-110); Anion Gap 14 mmol/L (10-20); BUN (Urea Nitrogen) 13 mg/dL (9.8-20.1); Bilirubin, Direct 0.1 mg/dL (0.1-0.3); Bilirubin, Total 0.2 mg/dL (0.2-1.2); Calc. Creatinine Clearance 45 mL/min (70-130); Carbon Dioxide 22 mmol/L (23-31); Chloride 103 mmol/L (98-107); Glucose 125 mg/dL (83-110); Magnesium 1.8 mg/dL (1.6-2.6); Potassium 4.9 mmol/L (3.5-5.1); Sodium 134 mmol/L (136-145)
[2021-01-29] MEDS: Furosemide 40 MG/4 ML VIAL SLOW IVP SCH ×2 (05:21→14:13)
[2021-01-29] MEDS: Digoxin 0.125 MG TAB PO SCH (08:34)
[2021-01-29] MEDS: Cyanocobalamin (Vitamin B-12) 1,000 MCG TAB PO SCH (08:34)
[2021-01-29] MEDS: Ferrous Sulfate 325 MG TAB PO SCH ×2 (08:35→18:11)
[2021-01-29] MEDS: Pantoprazole 40 MG VIAL IVP SCH ×2 (08:35→21:26)
[2021-01-29] MEDS: Folic Acid 1 MG TAB PO SCH (08:35)
[2021-01-29] MEDS ORDERED: Digoxin 0.5 MG/2 ML AMP ONE (09:39)
[2021-01-29] MEDS ORDERED: Metoprolol Tartrate 25 MG TAB PO SCH (21:00)
[2021-01-29] MEDS: HYDROcodone/Acetaminophen 5/325 mg Tablet PO PRN (21:25)
[2021-01-29] MEDS: Metoprolol Tartrate 25 MG TAB PO SCH (21:26)
[2021-01-29] MEDS: Montelukast Sodium 10 mg Tablet PO SCH (21:26)
[2021-01-29 23:25] LABS: Magnesium 1.6 mg/dL (1.6-2.6)
[2021-01-29] MEDS: Melatonin 3 MG TAB PO PRN (23:25)
[2021-01-29] MEDS ORDERED: Magnesium 2 GM/50 ML 2 GM in Premix Bag 1 BAG IVPB SCH (23:59)
[2021-01-30 04:37] LABS: #Eosinphils 0.6 thou/uL (0.0-0.7); #Lymphocytes 1.2 thou/uL (1.20-3.40); #Monocytes 1.2 thou/uL (0.11-0.59); %Basophils 0.1 % (0.0-1.0); %Eosinophils 4.2 % (0.0-10.0); %Lymphocytes 8.8 % (21.0-51.0); %Monocytes 8.9 % (0.0-10.0); Hemoglobin 7.9 g/dL (12.0-16.0); Mean Corpuscular HGB CONC 30.3 g/dL (32.0-36.0); Mean Corpuscular Hemoglobin 21.6 pg (27.0-31.0); Mean Corpuscular Volume 71.4 fL (78.0-98.0); Mean Platelet Volume 7.5 fL (7.4-10.4); Platelet Count 589 thou/uL (130-400); RBC Distribution Width 16.4 % (11.5-14.5); Red Blood Cell (RBC) Count 3.63 mill/uL (4.20-5.40)
[2021-01-30 05:23] LABS: Anion Gap 14 mmol/L (10-20); BUN (Urea Nitrogen) 13 mg/dL (9.8-20.1); Calc. Creatinine Clearance 45 mL/min (70-130); Calcium 8.1 mg/dL (7.8-10.44); Carbon Dioxide 25 mmol/L (23-31); Chloride 97 mmol/L (98-107); Glucose 140 mg/dL (83-110); Magnesium 2.3 mg/dL (1.6-2.6); Potassium 4.6 mmol/L (3.5-5.1); Sodium 131 mmol/L (136-145)
[2021-01-30] MEDS: Furosemide 40 MG/4 ML VIAL SLOW IVP SCH (05:56)
[2021-01-30] MEDS: HYDROcodone/Acetaminophen 5/325 mg Tablet PO PRN ×2 (06:40→22:47)
[2021-01-30] MEDS: Metoprolol Tartrate 25 MG TAB PO SCH ×2 (07:57→20:01)
[2021-01-30] MEDS: Folic Acid 1 MG TAB PO SCH (07:57)
[2021-01-30] MEDS: Digoxin 0.125 MG TAB PO SCH (07:57)
[2021-01-30] MEDS: Pantoprazole 40 MG VIAL IVP SCH ×2 (07:58→20:02)
[2021-01-30] MEDS: Cyanocobalamin (Vitamin B-12) 1,000 MCG TAB PO SCH (07:58)
[2021-01-30] MEDS: Ferrous Sulfate 325 MG TAB PO SCH ×2 (07:58→15:59)
[2021-01-30] MEDS: Montelukast Sodium 10 mg Tablet PO SCH (20:01)
[2021-01-30] MEDS ORDERED: TEMAZEPAM 7.5 MG PO SCH (21:00)
[2021-01-30] MEDS: Benzonatate 100 MG CAP PO PRN (22:44)
[2021-01-30] MEDS: Melatonin 3 MG TAB PO PRN (22:44)
[2021-01-31] MEDS: Benzonatate 100 MG CAP PO PRN (06:22)
[2021-01-31] MEDS: HYDROcodone/Acetaminophen 5/325 mg Tablet PO PRN (06:22)
[2021-01-31] MEDS: Folic Acid 1 MG TAB PO SCH (09:31)
[2021-01-31] MEDS: Ferrous Sulfate 325 MG TAB PO SCH ×2 (09:32→16:32)
[2021-01-31] MEDS: Metoprolol Tartrate 25 MG TAB PO SCH ×2 (09:32→20:58)
[2021-01-31] MEDS: Furosemide 40 MG TAB PO SCH (09:32)
[2021-01-31] MEDS: Digoxin 0.125 MG TAB PO SCH (09:32)
[2021-01-31] MEDS: Cyanocobalamin (Vitamin B-12) 1,000 MCG TAB PO SCH (09:33)
[2021-01-31] MEDS: Pantoprazole 40 MG VIAL IVP SCH ×2 (09:33→20:58)
[2021-01-31] MEDS: Acetaminophen 325 MG TAB PO PRN (18:18)
[2021-01-31] MEDS: Montelukast Sodium 10 mg Tablet PO SCH (20:58)
[2021-02-01] MEDS: HYDROcodone/Acetaminophen 5/325 mg Tablet PO PRN ×2 (00:50→23:41)
[2021-02-01] MEDS: Cyanocobalamin (Vitamin B-12) 1,000 MCG TAB PO SCH (08:53)
[2021-02-01] MEDS: Folic Acid 1 MG TAB PO SCH (08:53)
[2021-02-01] MEDS: Furosemide 40 MG TAB PO SCH (08:53)
[2021-02-01] MEDS: Digoxin 0.125 MG TAB PO SCH (08:53)
[2021-02-01] MEDS: Metoprolol Tartrate 25 MG TAB PO SCH ×2 (08:53→21:54)
[2021-02-01] MEDS: Ferrous Sulfate 325 MG TAB PO SCH ×2 (08:53→16:13)
[2021-02-01] MEDS: Pantoprazole 40 MG VIAL IVP SCH (08:53)
[2021-02-01] MEDS: Acetaminophen 325 MG TAB PO PRN (09:08)
[2021-02-01] MEDS ORDERED: Temazepam 15 MG CAP PO PRN (10:15)
[2021-02-01 13:53] LABS: ANA Symphony (Qualitative) Negative (Negative); ANA Symphony (Quantitative) 0.1 Ratio (< 0.7 Negative); SSA/Ro IgG Antibody Less than 0.3 EliAU/mL (<7 Negative); SSB/La IgG Antibody Less than 0.3 EliAU/mL (<7 Negative); Scleroderma-70 IgG Antibody Less than 0.6 EliAU/mL (<7 Negative); dsDNA IgG Antibody Less than 0.5 IU/mL (<10 Negative)
[2021-02-01] MEDS: Doxycycline 100 MG CAP PO SCH (21:54)
[2021-02-01] MEDS: Montelukast Sodium 10 mg Tablet PO SCH (21:54)
[2021-02-02] MEDS: Acetaminophen 325 MG TAB PO PRN ×3 (05:43→20:53)
[2021-02-02] MEDS: Digoxin 0.125 MG TAB PO SCH (09:03)
[2021-02-02] MEDS: Metoprolol Tartrate 25 MG TAB PO SCH ×2 (09:03→20:52)
[2021-02-02] MEDS: Ferrous Sulfate 325 MG TAB PO SCH ×2 (09:04→15:50)
[2021-02-02] MEDS: Doxycycline 100 MG CAP PO SCH ×2 (09:04→20:52)
[2021-02-02] MEDS: Cyanocobalamin (Vitamin B-12) 1,000 MCG TAB PO SCH (09:04)
[2021-02-02] MEDS: Folic Acid 1 MG TAB PO SCH (09:05)
[2021-02-02] MEDS: Furosemide 40 MG TAB PO SCH (09:05)
[2021-02-02] MEDS ORDERED: Bisacodyl 10 MG SUPP PR PRN (09:56)
[2021-02-02] MEDS ORDERED: Fleet Enema 133 ML BOT PR PRN (09:57)
[2021-02-02] MEDS ORDERED: Polyethylene Glycol 3350 17 GM Packet PO SCH (10:00)
[2021-02-02 15:12] LABS: QuantiFERON-TB Gold Plus Negative (Negative)
[2021-02-02] MEDS: HYDROcodone/Acetaminophen 5/325 mg Tablet PO PRN (15:50)
[2021-02-02 16:12] LABS: A. flavus Negative (Neg:<1:1); A. fumigatus Negative (Neg:<1:1); A. niger Negative (Neg:<1:1)
[2021-02-02] MEDS: Montelukast Sodium 10 mg Tablet PO SCH (20:53)
[2021-02-02] MEDS: Polyethylene Glycol 3350 17 GM Packet PO SCH (20:53)
[2021-02-02] MEDS: Melatonin 3 MG TAB PO PRN (20:53)
[2021-02-02] MEDS ORDERED: Methocarbamol 500 MG TAB PO SCH (21:00)
[2021-02-03] MEDS: HYDROcodone/Acetaminophen 5/325 mg Tablet PO PRN ×3 (03:39→19:41)
[2021-02-03] MEDS: Doxycycline 100 MG CAP PO SCH ×2 (08:51→19:38)
[2021-02-03] MEDS: Metoprolol Tartrate 25 MG TAB PO SCH ×2 (08:51→19:38)
[2021-02-03] MEDS: Cyanocobalamin (Vitamin B-12) 1,000 MCG TAB PO SCH (08:51)
[2021-02-03] MEDS: Furosemide 40 MG TAB PO SCH (08:51)
[2021-02-03] MEDS: Acetaminophen 325 MG TAB PO PRN ×2 (08:51→14:39)
[2021-02-03] MEDS: Ferrous Sulfate 325 MG TAB PO SCH ×2 (08:51→17:16)
[2021-02-03] MEDS: Digoxin 0.125 MG TAB PO SCH (08:51)
[2021-02-03] MEDS: Folic Acid 1 MG TAB PO SCH (08:51)
[2021-02-03] MEDS: Polyethylene Glycol 3350 17 GM Packet PO SCH ×2 (08:52→19:41)
[2021-02-03] MEDS ORDERED: Methocarbamol 500 MG TAB PO SCH (15:45)
[2021-02-03 16:14] LABS: Cytoplasmic (C-ANCA) <1:20 titer (Neg:<1:20); Myeloperoxidase AutoAbs <9.0 U/mL (0.0-9.0); Perinuclear (P-ANCA) <1:20 titer (Neg:<1:20); Proteinase-3 AutoAbs Less than 3.5 U/mL (0.0-3.5)
[2021-02-03] MEDS: Methocarbamol 500 MG TAB PO SCH (19:39)
[2021-02-03] MEDS: Montelukast Sodium 10 mg Tablet PO SCH (19:40)
[2021-02-04 04:04] VITALS: BMI 18.6
[2021-02-04 04:31] LABS: Hemoglobin 9.5 g/dL (12.0-16.0); Mean Corpuscular HGB CONC 29.8 g/dL (32.0-36.0); Mean Corpuscular Hemoglobin 21.2 pg (27.0-31.0); Mean Platelet Volume 6.8 fL (7.4-10.4); Platelet Count 716 thou/uL (130-400); RBC Distribution Width 17.4 % (11.5-14.5); Red Blood Cell (RBC) Count 4.49 mill/uL (4.20-5.40); White Blood Cell (WBC) Count 13.5 thou/uL (4.8-10.8)
[2021-02-04 04:40] LABS: Anion Gap 14 mmol/L (10-20); BUN (Urea Nitrogen) 14 mg/dL (9.8-20.1); Calc. Creatinine Clearance 51 mL/min (70-130); Calcium 8.8 mg/dL (7.8-10.44); Carbon Dioxide 32 mmol/L (23-31); Chloride 93 mmol/L (98-107); Glucose 93 mg/dL (83-110); Potassium 3.4 mmol/L (3.5-5.1); Sodium 136 mmol/L (136-145)
[2021-02-04] MEDS: Methocarbamol 500 MG TAB PO SCH ×2 (05:19→14:30)
[2021-02-04 05:20] LABS: Thyroid Stimulating Hormone 7.3634 uIU/mL (0.35-4.94)
[2021-02-04] MEDS: Metoprolol Tartrate 25 MG TAB PO SCH (08:47)
[2021-02-04] MEDS: Digoxin 0.125 MG TAB PO SCH (08:47)
[2021-02-04] MEDS: Furosemide 40 MG TAB PO SCH (08:47)
[2021-02-04] MEDS: Folic Acid 1 MG TAB PO SCH (08:47)
[2021-02-04] MEDS: Polyethylene Glycol 3350 17 GM Packet PO SCH (08:47)
[2021-02-04] MEDS: Ferrous Sulfate 325 MG TAB PO SCH (08:47)
[2021-02-04] MEDS: Cyanocobalamin (Vitamin B-12) 1,000 MCG TAB PO SCH (08:48)
[2021-02-04] MEDS: Doxycycline 100 MG CAP PO SCH (08:48)
[2021-02-04] MEDS ORDERED: Potassium Chloride 20 MEQ TAB PO SCH (11:00)
[2021-02-04 11:21] VITALS: TEMP 98.4
[2021-02-04 12:33] VITALS: BP 124/70
== END 2021-02-04 14:45 | disposition hospice, home (50) | DRG 177 ==
LOC: 2NO 21:32
PROVIDERS: ADMIT Internal Medicine; ATTEND Internal Medicine
DX: J85.2 Abscess of lung without pneumonia (principal); I50.33 Acute on chronic diastolic (congestive) heart failure; I21.A1 Myocardial infarction type 2; C34.32 Malignant neoplasm of lower lobe, left bronchus or lung; I13.0 Hypertensive heart and chronic kidney disease with heart failure and stage 1 through stage 4 chronic kidney disease, or unspecified chronic kidney disease; E44.0 Moderate protein-calorie malnutrition; R04.2 Hemoptysis; I47.1 Supraventricular tachycardia; R64 Cachexia; Z68.1 Body mass index [BMI] 19.9 or less, adult; Z51.5 Encounter for palliative care; Z66 Do not resuscitate; I48.0 Paroxysmal atrial fibrillation; Z20.822 Contact with and (suspected) exposure to COVID-19; R91.8 Other nonspecific abnormal finding of lung field; J43.9 Emphysema, unspecified; F41.9 Anxiety disorder, unspecified; M79.7 Fibromyalgia; D50.9 Iron deficiency anemia, unspecified; K58.9 Irritable bowel syndrome, unspecified; E78.5 Hyperlipidemia, unspecified; N18.2 Chronic kidney disease, stage 2 (mild); E03.8 Other specified hypothyroidism; E87.6 Hypokalemia; Z98.51 Tubal ligation status; Z87.820 Personal history of traumatic brain injury; Z88.0 Allergy status to penicillin; Z91.14 Patient's other noncompliance with medication regimen; R62.7 Adult failure to thrive
CPT/HCPCS: 0240U; 36415; 36416; 36556; 71045; 71260; 71275; 80048; 80053; 80076; 81001; 82274; 82553; 82607; 82728; 82746; 83520; 83735; 83880; 84145; 84439; 84443; 84484; 85025; 85027; 85610; 85730; 86038; 86225; 86235; 86256; 86480; 86606; 87040; 87116; 87206; 87449; 93005; 93010; 93306; 94640; 96374; 96375; C9113; J1160; J1940; J2060; J3475; J3480; J3490; J7620; Q0162; Q9967